=== PATIENT | female | born 1940 | race Caucasian/White ===

== ENCOUNTER 2020-10-29 04:41 | Inpatient (IN) | payer MEDICARE, OTHER, SELFPAY ==
[2020-10-29] VITALS (21 sets, daily range): BP systolic 114–184; BP diastolic 64–102; PULSE 70–93; RESP 17–20; TEMP 36.7–37.5; O2SAT 91–100; BMI 43.0
--- NOTE | 2020-10-29 05:01 | CTR_ITS ---
PROCEDURE INFORMATION: Exam: CT Abdomen And Pelvis With Contrast Exam date and time: 10/29/2020 6:44 AM Age: 80 years old Clinical indication: Abdominal pain; Additional info: Abdominal pain, diarrhea TECHNIQUE: Imaging protocol: Computed tomography of the abdomen and pelvis with contrast. Radiation optimization: All CT scans at this facility use at least one of these dose optimization techniques: automated exposure control; mA and/or kV adjustment per patient size (includes targeted exams where dose is matched to clinical indication); or iterative reconstruction. Contrast material: OMNI 300; Contrast volume: 95 ml; Contrast route: INTRAVENOUS (IV); COMPARISON: CT abdomen pelvis w con* [id number] 09/02/2017 9:05 PM RADIATION DOSE METRICS: Total DLP (mGy-cm): 1839.08 FINDINGS: Lungs: There is mild subsegmental atelectasis in the lung bases. Heart: The heart is not enlarged. A permanent pacemaker is present. Liver: Normal. No mass. Gallbladder and bile ducts: Normal. No calcified stones. No ductal dilation. Pancreas: Normal. No ductal dilation. Spleen: Multiple small benign calcified granulomas in the spleen. Adrenal glands: Normal. No mass. Kidneys and ureters: Normal. No hydronephrosis. Stomach and bowel: There are multiple fluid-filled nondilated loops of small bowel. There is also fluid throughout the colon. These findings are consistent with enteritis and diarrhea. Few scattered small diverticuli present on the colon. There is no evidence of bowel obstruction or dilatation. Appendix: No evidence of appendicitis. Intraperitoneal space: Unremarkable. No free air. No significant fluid collection. Vasculature: There is calcification of the aorta but there is no aneurysm. The origins of the celiac and superior mesenteric arteries are calcified and significant stenoses cannot be excluded. Lymph nodes: Unremarkable. No enlarged lymph nodes. Urinary bladder: Unremarkable as visualized. Reproductive: Unremarkable as visualized. Bones/joints: Chronic degenerative changes are present in the spine with joint space narrowing sclerosis and osteophytes. Soft tissues: Unremarkable. CT/CT abdomen pelvis w con* [id number] IMPRESSION: 1. There multiple fluid-filled loops of nondilated small bowel and there is fluid throughout the colon which is consistent with diarrhea and probable enteritis. 2. Calcified origins of the celiac and superior mesenteric arteries. Significant stenosis cannot be excluded. 3. 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 Radiation Dose CTDIVOL = (mGy): DLP = 1839.08 (mGy-cm)
--- NOTE | 2020-10-29 05:43 | ED_ITS ---
Documented by User: Luis Eduardo Eldridge DO 10/29/20 05:50 HPI - Abdominal Pain General: Chief Complaint: Abdominal Pain Stated Complaint: light headed, dark stools x 2 weeks Time Seen by Provider: 10/29/20 04:45 History of Present Illness: HPI narrative: 80-year-old female who has had diarrhea on and off for a couple of weeks. She noted that it was black. This morning, she had onset of intense generalized abdominal pain with more diarrhea. She has not vomited. She is nauseated. No fever. Again, the stool is black. Patient's daughter says several years ago she had a bleeding ulcer with similar presentation MD elicited complaint: abdominal pain Pertinent past history: other Onset (ago): hour(s) Pain Consistency: constant Location: Diffuse Severity: severe Quality: cramping and stabbing Radiation: none Migration to: no migration Exacerbating factors: movement Relieving factors: nothing Associated Symptoms: Reports diarrhea, loose stools, melena and nausea; Denies chills, coffee ground emesis, constipation, dysuria, fever(s), hemate mesis and vomiting Review of Systems Const: Denies: fever(s) or chills Card: Denies: chest pain or palpitations Resp: Denies: dyspnea or productive cough GI: Reports: nausea, diarrhea and melena; Denies: vomiting, hematemesis, coffee ground emesis or constipation : Denies: dysuria Neuro: Reports: dizziness; Denies: headache(s) or confusion Physical Exam Const: GENERAL APPEARANCE: well developed, in distress and ill appearing NUTRITIONAL APPEARANCE: obese ORIENTATION/CONSCIOUSNESS: Yes oriented to person, Yes oriented to place and Yes oriented to time HENMT: COMMON NORMALS: normocephalic, external ears normal and Normal external nose present HEAD & SCALP: normocephalic FACE & SINUS: normal facial exam NOSE: Normal external nose present and No nasal discharge present EXTERNAL EAR: Yes external ears normal Eye: COMMON NORMALS: Equal, round and reactive pupils present and EOMs intact bilaterally CONJUNCTIVA: Yes conjunctival abnormal positive bilateral pallor PUPIL: Yes Equal, round and reactive pupils present Neck/C-Spine: GENERAL: No tracheal deviation Chest: COMMONS NORMALS: normal inspection of the chest CHEST: No tenderness Resp: COMMON NORMALS: clear to auscultation bilaterally EFFORT & INSPECTION: No tachypneic, No respiratory distress, No retractions, No uses accessory muscles and No tracheal deviation AUSCULTATION: clear to auscultation bilaterally, no rhonchi, no wheezes and lung sounds not diminished Cardio: COMMON NORMALS: regular rate and regular rhythm RATE: regular rate RHYTHM: regular rhythm HEART SOUNDS: no murmurs PERIPHERAL PULSES: radial pulses present GI: INSPECTION: No abdominal distension AUSCULTATION: No Hyperactive bowel sounds present and No Hypoactive bowel sounds present PALPATION: Yes Tenderness to palpation present (GI) (Diffusely), Yes Guarding due to palpation present (GI) and No Rigid due to palpation PERCUSSION: no dullness to percussion and no tympanic to percussion : COMMON NORMALS: Yes no CVA tenderness BLADDER/KIDNEY EXAM: Yes no CVA tenderness Back/Pelvis: COMMON NORMALS: no CVA tenderness Neuro: SENSORIUM/ORIENTATION: Yes oriented to person, Yes oriented to place and Yes oriented to time Psych: COMMON NORMALS: mental status grossly normal Skin: COMMON NORMALS: no rashes or lesions noted GENERAL SKIN EXAM: no r ashes or lesions noted Course Vital Signs: Vital signs: Vital Signs Temperature 98.4 F 10/29/20 04:42 Pulse Rate 81 10/29/20 11:04 Respiratory Rate 18 10/29/20 11:04 Blood Pressure 174/74 10/29/20 11:04 Pulse Oximetry 94 10/29/20 11:04 MDM - Abdominal Pain MDM Narrative: Medical decision making narrative: Patient is typed and screen ed for blood in case transfusion is needed. Labs and CT scanner pending. Patient will be checked out to Dr. Adamson at shift change to follow-up on these. Lab Data: Labs: Lab Results 10/29/20 10/29/20 10/29/20 Range/Units 06:00 06:00 06:00 WBC 14.1 H (4.0-10.0) 10^3/ uL RBC 4.52 (4.1-5.3) 10^6/u L Hgb 13.8 (11.5-15.3) g/dL Hct 43.5 (37.0-47.0) % MCV 96.2 (81-99) fL MCH 30.5 (28.0-34.0) pg MCHC 31.7 (30.0-36.0) g/dL RDW 12.5 (12.1-15.1) % Plt Count 290 (130-400) 10^3/c mm MPV 9.3 (7.4-10.4) fL Neut % (Auto) 80.1 % Lymph % (Auto) 7.9 % Beadle % (Auto) 11.2 % Eos % (Auto) 0.1 % Baso % (Auto) 0.3 % Neut # (Auto) 11.31 H (1.8-7.7) 10^3/u L Lymph # (Auto) 1.1 (0.8-4.8) 10^3/u L Beadle # (Auto) 1.6 H (0.2-0.9) 10^3/u L Eos # (Auto) 0.0 (0.0-0.8) 10^3/u L Baso # (Auto) 0.0 (0.0-0.1) 10^3/u L Nucleated RBC % (a uto) 0 % Nucleated RBCs # 0.0 /100WBC PT 13.70 (12.1-14.9) SECO NDS INR 1.02 (0.8-1.2) APTT 24.8 (23.9-36.7) SECO NDS Sodium 137 (136-145) mmol/L Potassium 3.6 (3.5-5.1) mmol/L Chloride 101 (98-107) mmol/L Carbon Dioxide 24 (22-29) mmol/L Anion Gap 15.6 (5-19) BUN 24 H (8-23) mg/dL Creatinine 0.6 (0.5-0.9) mg/dL GFR Calculation Not Reportable Glucose 121 H (65-115) mg/dL Calculated Osmolal ity 289 (285-295) mOsm/k g Lactate (0.5-2.2) mmol/L Calcium 8.4 L (8.5-10.5) mg/dL Total Bilirubin 0.2 (0.15-1.2) mg/dL AST 36 H (0-32) U/L ALT 40 H (0-33) U/L Alkaline Phosphata se 62 (35-105) IU/L C-Reactive Protein 6.6 H (0.0-4.9) mg/L Total Protein 6.8 (6.6-8.7) g/dL Albumin 4.0 (3.5-5.2) g/dL Globulin 2.8 (1.3-4.6) g/dL Lipase 47 (13-60) U/L Urine Color (Yellow) Urine Appearance (CLEAR) Urine pH (5-7) Ur Specific Gravit y (1.005-1.030) Urine Protein (Negative) Urine Glucose (UA) (Normal) Urine Ketones (Negative) Urine Blood (Negative) Urine Nitrate (Negative) Urine Bilirubin (Negative) Urine Urobilinogen (Negative) mg/dL Ur Leukocyte Amparo ase (Negative) Urine RBC (0-2) /hpf Urine WBC (0-5) /hpf Ur Squamous Epith Cells (0-5) /hpf Amorphous Sediment Urine Bacteria (NONE) /hpf Blood Type Rho(D) Type Antibody Screen 10/29/20 10/29/20 10/29/20 Range/Units 06:00 06:00 07:48 WBC (4.0-10.0) 10^3/ uL RBC (4.1-5.3) 10^6/u L Hgb (11.5-15.3) g/dL Hct (37.0-47.0) % MCV (81-99) fL MCH (28.0-34.0) pg MCHC (30.0-36.0) g/dL RDW (12.1-15.1) % Plt Count (130-400) 10^3/c mm MPV (7.4-10.4) fL Neut % (Auto) % Lymph % (Auto) % Beadle % (Auto) % Eos % (Auto) % Baso % (Auto) % Neut # (Auto) (1.8-7.7) 10^3/u L Lymph # (Auto) (0.8-4.8) 10^3/u L Beadle # (Auto) (0.2-0.9) 10^3/u L Eos # (Auto) (0.0-0.8) 10^3/u L Baso # (Auto) (0.0-0.1) 10^3/u L Nucleated RBC % (a uto) % Nucleated RBCs # /100WBC PT (12.1-14.9) SECO NDS INR (0.8-1.2) APTT (23.9-36.7) SECO NDS Sodium (136-145) mmol/L Potassium (3.5-5.1) mmol/L Chloride (98-107) mmol/L Carbon Dioxide (22-29) mmol/L Anion Gap (5-19) BUN (8-23) mg/dL Creatinine (0.5-0.9) mg/dL GFR Calculation Glucose (65-115) mg/dL Calculated Osmolal ity (285-295) mOsm/k g Lactate 2.2 (0.5-2.2) mmol/L Calcium (8.5-10.5) mg/dL Total Bilirubin (0.15-1.2) mg/dL AST (0-32) U/L ALT (0-33) U/L Alkaline Phosphata se (35-105) IU/L C-Reactive Protein (0.0-4.9) mg/L Total Protein (6.6-8.7) g/dL Albumin (3.5-5.2) g/dL Globulin (1.3-4.6) g/dL Lipase (13-60) U/L Urine Color Straw (Yellow) Urine Appearance Clear (CLEAR) Urine pH 6.5 (5-7) Ur Specific Gravit y 1.010 (1.005-1.030) Urine Protein Trace (Negative) Urine Glucose (UA) Norm (Normal) Urine Ketones Negative (Negative) Urine Blood 3+ H (Negative) Urine Nitrate Negative (Negative) Urine Bilirubin Neg (Negative) Urine Urobilinogen Norm (Negative) mg/dL Ur Leukocyte Amparo ase Negative (Negative) Urine RBC 10-15 H (0-2) /hpf Urine WBC Rare (0-5) /hpf Ur Squamous Epith Cells 10-15 H (0-5) /hpf Amorphous Sediment Not Reportable Urine Bacteria Trace (NONE) /hpf Blood Type O Positive Rho(D) Type Positive / 4+ Antibody Screen Negative Discharge Plan Discharge Patient Disposition: Admitted As Inpatient Clinical Impression: Enteritis, Abnormal CT of the abdomen Condition: Stable Referrals: Chicho Young DO [Primary Care Provider] - Coding Level of Care Code ED General Internal Medicine Doctor for Chg Fwd Exam Comprehensive Documented by User: Jhonatan Adamson 10/29/20 11:08 HPI - Abdominal Pain General: Chief Complaint: Abdominal Pain Stated Complaint: light headed, dark stools x 2 weeks Time Seen by Provider: 10/29/20 04:45 Course ED course: Dr. Adamson: Discussed with Dr. Eldridge. Chart reviewed. Consultations: Consultation #1: Dr. Dobbins, surgery: Dr. Dobbins recommended SMA ultrasound. Results however did not visualize the celiac and SMA. Dr. Dobbins recommended the patient be admitted to the hospitalist and monitor for any changes. Vital Signs: Vital signs: Vital Signs Temperature 98.4 F 10/29/20 04:42 Pulse Rate 81 10/29/20 11:04 Respiratory Rate 18 10/29/20 11:04 Blood Pressure 174/74 10/29/20 11:04 Pulse Oximetry 94 10/29/20 11:04 MDM - Abdominal Pain Lab Data: Labs: Lab Results 10/29/20 10/29/20 10/29/20 Range/Units 06:00 06:00 06:00 WBC 14.1 H (4.0-10.0) 10^3/ uL RBC 4.52 (4.1-5.3) 10^6/u L Hgb 13.8 (11.5-15.3) g/dL Hct 43.5 (37.0-47.0) % MCV 96.2 (81-99) fL MCH 30.5 (28.0-34.0) pg MCHC 31.7 (30.0-36.0) g/dL RDW 12.5 (12.1-15.1) % Plt Count 290 (130-400) 10^3/c mm MPV 9.3 (7.4-10.4) fL Neut % (Auto) 80.1 % Lymph % (Auto) 7.9 % Beadle % (Auto) 11.2 % Eos % (Auto) 0.1 % Baso % (Auto) 0.3 % Neut # (Auto) 11.31 H (1.8-7.7) 10^3/u L Lymph # (Auto) 1.1 (0.8-4.8) 10^3/u L Beadle # (Auto) 1.6 H (0.2-0.9) 10^3/u L Eos # (Auto) 0.0 (0.0-0.8) 10^3/u L Baso # (Auto) 0.0 (0.0-0.1) 10^3/u L Nucleated RBC % (a uto) 0 % Nucleated RBCs # 0.0 /100WBC PT 13.70 (12.1-14.9) SECO NDS INR 1.02 (0.8-1.2) APTT 24.8 (23.9-36.7) SECO NDS Sodium 137 (136-145) mmol/L Potassium 3.6 (3.5-5.1) mmol/L Chloride 101 (98-107) mmol/L Carbon Dioxide 24 (22-29) mmol/L Anion Gap 15.6 (5-19) BUN 24 H (8-23) mg/dL Creatinine 0.6 (0.5-0.9) mg/dL GFR Calculation Not Reportable Glucose 121 H (65-115) mg/dL Calculated Osmolal ity 289 (285-295) mOsm/k g Lactate (0.5-2.2) mmol/L Calcium 8.4 L (8.5-10.5) mg/dL Total Bilirubin 0.2 (0.15-1.2) mg/dL AST 36 H (0-32) U/L ALT 40 H (0-33) U/L Alkaline Phosphata se 62 (35-105) IU/L C-Reactive Protein 6.6 H (0.0-4.9) mg/L Total Protein 6.8 (6.6-8.7) g/dL Albumin 4.0 (3.5-5.2) g/dL Globulin 2.8 (1.3-4.6) g/dL Lipase 47 (13-60) U/L Urine Color (Yellow) Urine Appearance (CLEAR) Urine pH (5-7) Ur Specific Gravit y (1.005-1.030) Urine Protein (Negative) Urine Glucose (UA) (Normal) Urine Ketones (Negative) Urine Blood (Negative) Urine Nitrate (Negative) Urine Bilirubin (Negative) Urine Urobilinogen (Negative) mg/dL Ur Leukocyte Amparo ase (Negative) Urine RBC (0-2) /hpf Urine WBC (0-5) /hpf Ur Squamous Epith Cells (0-5) /hpf Amorphous Sediment Urine Bacteria (NONE) /hpf Blood Type Rho(D) Type Antibody Screen 10/29/20 10/29/20 10/29/20 Range/Units 06:00 06:00 07:48 WBC (4.0-10.0) 10^3/ uL RBC (4.1-5.3) 10^6/u L Hgb (11.5-15.3) g/dL Hct (37.0-47.0) % MCV (81-99) fL MCH (28.0-34.0) pg MCHC (30.0-36.0) g/dL RDW (12.1-15.1) % Plt Count (130-400) 10^3/c mm MPV (7.4-10.4) fL Neut % (Auto) % Lymph % (Auto) % Beadle % (Auto) % Eos % (Auto) % Baso % (Auto) % Neut # (Auto) (1.8-7.7) 10^3/u L Lymph # (Auto) (0.8-4.8) 10^3/u L Beadle # (Auto) (0.2-0.9) 10^3/u L Eos # (Auto) (0.0-0.8) 10^3/u L Baso # (Auto) (0.0-0.1) 10^3/u L Nucleated RBC % (a uto) % Nucleated RBCs # /100WBC PT (12.1-14.9) SECO NDS INR (0.8-1.2) APTT (23.9-36.7) SECO NDS Sodium (136-145) mmol/L Potassium (3.5-5.1) mmol/L Chloride (98-107) mmol/L Carbon Dioxide (22-29) mmol/L Anion Gap (5-19) BUN (8-23) mg/dL Creatinine (0.5-0.9) mg/dL GFR Calculation Glucose (65-115) mg/dL Calculated Osmolal ity (285-295) mOsm/k g Lactate 2.2 (0.5-2.2) mmol/L Calcium (8.5-10.5) mg/dL Total Bilirubin (0.15-1.2) mg/dL AST (0-32) U/L ALT (0-33) U/L Alkaline Phosphata se (35-105) IU/L C-Reactive Protein (0.0-4.9) mg/L Total Protein (6.6-8.7) g/dL Albumin (3.5-5.2) g/dL Globulin (1.3-4.6) g/dL Lipase (13-60) U/L Urine Color Straw (Yellow) Urine Appearance Clear (CLEAR) Urine pH 6.5 (5-7) Ur Specific Gravit y 1.010 (1.005-1.030) Urine Protein Trace (Negative) Urine Glucose (UA) Norm (Normal) Urine Ketones Negative (Negative) Urine Blood 3+ H (Negative) Urine Nitrate Negative (Negative) Urine Bilirubin Neg (Negative) Urine Urobilinogen Norm (Negative) mg/dL Ur Leukocyte Amparo ase Negative (Negative) Urine RBC 10-15 H (0-2) /hpf Urine WBC Rare (0-5) /hpf Ur Squamous Epith Cells 10-15 H (0-5) /hpf Amorphous Sediment Not Reportable Urine Bacteria Trace (NONE) /hpf Blood Type O Positive Rho(D) Type Positive / 4+ Antibody Screen Negative Discharge Plan Discharge Patient Disposition: Admitted As Inpatient Clinical Impression: Enteritis, Abnormal CT of the abdomen Condition: Stable Referrals: Chicho Young DO [Primary Care Provider] - Coding Level of Care Code ED General Internal Medicine Doctor for Chg Fwd Exam Comprehensive
[2020-10-29] MEDS: sodium chloride 0.9% 1,000 ML 999 ML IV (05:45)
[2020-10-29] MEDS: ondansetron 2 mg/ML SDV 2 mL 4 MG IVP ×3 (05:50→15:28)
[2020-10-29 06:09] LABS: Basophils % 0.3 %; Eosinophils % 0.1 %; Hematocrit 43.5 % (37.0-47.0); Hemoglobin 13.8 g/dL (11.5-15.3); Lymphocytes # 1.1 10^3/uL (0.8-4.8); Lymphocytes % 7.9 %; Mean Corpuscular HGB Conc 31.7 g/dL (30.0-36.0); Mean Corpuscular Hemoglobin 30.5 pg (28.0-34.0); Mean Corpuscular Volume 96.2 fL (81-99); Mean Platelet Volume 9.3 fL (7.4-10.4); Monocytes # 1.6 10^3/uL (0.2-0.9); Monocytes % 11.2 %; Neutrophils # 11.31 10^3/uL (1.8-7.7); Neutrophils % 80.1 %; Nucleated Red Blood Cells % 0 %; Platelet Count 290 10^3/cmm (130-400); Red Blood Count 4.52 10^6/uL (4.1-5.3); Red Cell Distribution Width 12.5 % (12.1-15.1); White Blood Count 14.1 10^3/uL (4.0-10.0)
[2020-10-29] MEDS: morphine 4 mg/mL SDV 1 mL IVP (06:31)
[2020-10-29 06:33] LABS: INR 1.02 (0.8-1.2)
[2020-10-29 06:34] LABS: Partial Thromboplastin Time 24.8 SECONDS (23.9-36.7)
--- NOTE | 2020-10-29 06:34 | PC.NURSE ---
pt placed on 2lpm of o2 via nasal cannula after sats dropped and maintaining 87% on r/a after morphine adm. Pt's daughter states while tx at pain clinic for fibromyalgia, pt was placed on 2lpm of o2 due to morphine. 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 notifradha
[2020-10-29 06:43] LABS: Alanine Aminotransferase 40 U/L (0-33); Alkaline Phosphatase 62 IU/L (35-105); Anion Gap 15.6 (5-19); Aspartate Amino Transferase 36 U/L (0-32); Blood Urea Nitrogen 24 mg/dL (8-23); C Reactive Protein 6.6 mg/L (0.0-4.9); Calcium 8.4 mg/dL (8.5-10.5); Carbon Dioxide 24 mmol/L (22-29); Chloride 101 mmol/L (98-107); Globulin 2.8 g/dL (1.3-4.6); Glucose 121 mg/dL (65-115); Lactate (Lactic Acid level) 2.2 mmol/L (0.5-2.2); Lipase 47 U/L (13-60); Osmolality Calculated 289 mOsm/kg (285-295); Potassium 3.6 mmol/L (3.5-5.1); Sodium 137 mmol/L (136-145); Total Bilirubin 0.2 mg/dL (0.15-1.2); Total Protein 6.8 g/dL (6.6-8.7)
[2020-10-29] MEDS: iohexol 300 mg/mL 100 mL Btl IV (07:01)
--- NOTE | 2020-10-29 07:51 | PC.NURSE ---
Per Dr Adamson, since first liter of fluids just finished and pt was able to void, hold off on 500ml bag of NS at this time. Pt was able to provide urine sample on a bedpan after being cleaned by this nurse with clean catch wipes. Sample obtained, labeled and sent to lab. Pt repositioned for comfort, call light in place. Pt reports she is feeling better and is resting well with daughter at bedside.
--- NOTE | 2020-10-29 08:12 | PC.NURSE ---
Bedside guiaic test done by Dr Adamson, chaperoned by this nurse. Pt stool was positive for blood. Pt tolerated procedure fair. Pt repositioned in bed with call light in reach.
--- NOTE | 2020-10-29 08:21 | USR_ITS ---
PROCEDURE INFORMATION: Exam: US Abdomen; Limited Exam date and time: 10/29/2020 8:35 AM Age: 80 years old Clinical indication: Abdominal pain; Epigastric; Additional info: N/v, calcification on CT, abd pain TECHNIQUE: Imaging protocol: US abdomen. Real time ultrasound with image documentation. Limited exam focused on the region of clinical interest. COMPARISON: CT abdomen pelvis w con* [id number] 10/29/2020 7:16 AM FINDINGS: Examination was performed to evaluate the celiac axis and superior mesenteric artery. The origins were calcified on recent CT scan. The visualized portion of the proximal aorta has some atherosclerotic plaquing but no aneurysm. The origins of the celiac axis and superior mesenteric artery could not be adequately demonstrated and could not be adequately evaluated for stenosis. US/US abdomen limited [id number] IMPRESSION: The examination is nondiagnostic. The origins and proximal portions of the celiac axis and superior mesenteric artery were not adequately visualized.
[2020-10-29 08:31] LABS: Urine Appearance Clear (CLEAR); Urine Color Straw (Yellow)
[2020-10-29 08:32] LABS: Add Urine Culture? No; Add Urine Microscopic? YES; Bacteria Urine TRACE /hpf; Bilirubin Urine Neg (Negative); Blood Urine 3+ (Negative); Glucose Urine UA Norm (Normal); Ketones Urine Negative (Negative); Leukocyte Esterase Urine Negative (Negative); Nitrate Urine Negative (Negative); Protein Urine Trace (Negative); Urobilinogen Urine Norm (Negative); WBC Urine RARE /hpf (0-5); pH Urine 6.5 (5-7)
--- NOTE | 2020-10-29 08:51 | PC.NURSE ---
US at bedside
--- NOTE | 2020-10-29 12:01 | PC.NUTR ---
NUTR WT ASSESSMENT: Pt ht is 62 , Wt of 235 lbs and BMI of 43.0 kg/m2 indicates MORBID OBESITY.
[2020-10-29] MEDS: sodium chloride 0.9% 1,000 ML 100 ML IV (15:28)
--- NOTE | 2020-10-29 16:51 | PM.HP ---
Providers/Chief Complaint Admitting Physician: Enriqueta Hairston MD Primary Care Provider: Chicho Young DO Chief Complaint: light headed, dark stools x 2 weeks History of Present Illness Mindy Verma is a 80 year old female with PMH as outlined below who presented with 2 weeks of diarrhea, abdominal pain, describes black colored stools 1-2 times per day, worsened over the last 48 hrs, now also to include vomiting. Describes pain over the right flank, cramping type, 6/10. Unable to tolerate po intake. Denies fever. H/o diverticulitis several years ago, no surgical history, no past h/o C diff. no similar illness in household contacts Review of Systems General: Reports: 10 or more systems reviewed and unremarkable except in HPI and below Const: Denies: fever(s), chills or body aches Eyes: Denies: change in vision, blurry vision or photophobia ENMT: Reports: hoarseness; Denies: throat pain, enlarged tonsils, odynophagia or nasal congestion Card: Denies: chest pain, palpitations, irregular heart rhythm, edema, swelling of feet/ankles, lightheadedness, pre-syncope, dyspnea on exertion or orthopnea Resp: Denies: dyspnea, productive cough, non-productive cough, wheezing, stridor, pain on inspiration, change in phlegm color, hemoptysis or chest congestion GI: Denies: abdominal pain, nausea, vomiting, hematemesis, coffee ground emesis, dysphagia, heartburn, diarrhea, constipation, GI cramping, change in stool character, hematochezia or melena : Denies: flank pain, difficulty voiding, dysuria, urinary frequency, urinary urgency, urinary hesitancy or hematuria Musc: Denies: neck pain, back pain, extremity pain, joint swelling, joint warmth or deformity Neuro: Denies: headache(s), numbness in extremities, weakness in extremities, sensory changes, difficulty walking, frequent falls, dizziness, vertigo, behavioral changes, Slurred speech present or seizure-like activity Psych: Denies: anxiety, depression, suicidal ideation or homicidal ideation Endo: Denies: polyuria, polydipsia, tired all the time, cold intolerance or hot flashes Josh/Lymph: Denies: easy bruising or easy bleeding Medications/Allergies Home Medications Medication Instructions Recorded Confirmed Last Taken Type amlodipine 2.5 mg PO PRN 10/29/20 10/29/20 Unknown History carbamazepine 200 mg PO BID 10/29/20 10/29/20 10/28/20 History cholecalciferol (vitamin D3) 125 mcg PO QAM 10/29/20 10/29/20 10/28/20 History [Vitamin D3] clopidogrel 75 mg PO QAM 10/29/20 10/29/20 10/28/20 History docusate sodium [Colace] 200 mg PO PRN 10/29/20 10/29/20 Unknown History donepezil 10 mg PO BEDTIME 10/29/20 10/29/20 10/28/20 History gabapentin 100 mg PO BID 10/29/20 10/29/20 10/28/20 History hydroxyzine pamoate 25 mg PO BEDTIME 10/29/20 10/29/20 10/28/20 History multivitamin 1 tab PO QAM 10/29/20 10/29/20 10/28/20 History ondansetron HCl 4 mg PO Q6H PRN 10/29/20 10/29/20 10/28/20 History pantoprazole 20 mg PO QAM 10/29/20 10/29/20 10/28/20 History prednisone 10 mg PO QAM 10/29/20 10/29/20 10/28/20 History rosuvastatin 5 mg PO BEDTIME 10/29/20 10/29/20 10/28/20 History sertraline 100 mg PO QAM 10/29/20 10/29/20 10/28/20 History trazodone 200 mg PO BEDTIME 10/29/20 10/29/20 10/28/20 History Allergies Allergy/AdvReac Type Severity Reaction Status Date / Time No Known Allergies Allergy Verified 10/29/20 11:17 Vitals/I&O/Wt Last Vital Signs Temp 98.1 F 10/29/20 15:47 Pulse 89 10/29/20 15:47 Resp 17 10/29/20 15:47 BP 154/79 10/29/20 15:47 Pulse Ox 94 10/29/20 14:00 10/29/20 10/29/20 10/29/20 06:59 14:59 22:59 Intake Total 1000 / 1000 Balance 1000 / 1000 Weight last 48 hrs Weight 106.594 kg Physical Exam Const: COMMON NORMALS: no acute distress, average body habitus, patient oriented x3, no limitations, healthy appearing, alert and well nourished HENMT: COMMON NORMALS: normocephalic and atraumatic HEAD & SCALP: normocephalic and atraumatic Eye: COMMON NORMALS: Equal, round and reactive pupils present, EOMs intact bilaterally, conjunctivae normal and no scleral icterus CONJUNCTIVA: Yes conjunctivae normal PUPIL: Yes Equal, round and reactive pupils present Neck/C-Spine: COMMON NORMALS: no JVD Resp: COMMON NORMALS: normal respiratory effort, No retractions, No use of accessory muscles, clear to auscultation bilaterally and percussion normal AUSCULTATION: clear to auscultation bilaterally PERCUSSION: percussion normal Cardio: COMMON NORMALS: no JVD, regular rate, regular rhythm, S1 normal heart sound present, S2 normal heart sound present, No gallops present (Cardio), No clicks present (Cardio), No murmurs present (Cardio), No rub (Cardio) and Peripheral pulses 2+ throughout RATE: regular rate RHYTHM: regular rhythm HEART SOUNDS: S1 normal heart sound present and S2 normal heart sound present PERIPHERAL PULSES: Peripheral pulses 2+ throughout GI: COMMON NORMALS: Normal to inspection, nondistended, normoactive bowel sounds present, Soft to palpation, non-tender, No hepatosplenomegaly present, no masses and no bruits PALPATION: Yes Soft to palpation and Yes No hepatosplenomegaly present Extremity: COMMON NORMALS: normal to inspection, full ROM, capillary refill normal, no joint enlargement, no clubbing, cyanosis or edema, no calf tenderness and no pedal edema Neuro: COMMON NORMALS: patient oriented x3, CN's II-XII intact bilaterally, moves all extremities, no focal motor deficits, no sensory deficits noted, deep tendon reflexes 2+ bilaterally and gait normal SENSORIUM/ORIENTATION: Yes alert Psych: COMMON NORMALS: mental status grossly normal, Normal thought process present, cooperative, normal affect, speech normal, activity/motor behavior normal, denies hallucinations, denies homicidal ideation and denies suicidal ideation SPEECH: Yes normal speech THOUGHT PROCESS: Normal thought process present Skin: COMMON NORMALS: no rashes or lesions noted, no wounds, turgor normal, no jaundice, no petechiae and no mottling GENERAL SKIN EXAM: no rashes or lesions noted and turgor normal Data : 10/30/20 04:31 10/30/20 04:31 Attestation for Other Data: I personally reviewed and interpreted the following: Other data: Laboratory Results WBC 7.1 10^3/uL (4.0-10.0) 10/30/20 04:31 RBC 4.18 10^6/uL (4.1-5.3) 10/30/20 04:31 Hgb 12.7 g/dL (11.5-15.3) 10/30/20 04:31 Hct 40.4 % (37.0-47.0) 10/30/20 04:31 MCV 96.7 fL (81-99) 10/30/20 04:31 MCH 30.4 pg (28.0-34.0) 10/30/20 04:31 MCHC 31.4 g/dL (30.0-36.0) 10/30/20 04:31 RDW 12.7 % (12.1-15.1) 10/30/20 04:31 Plt Count 245 10^3/cmm (130-400) 10/30/20 04:31 MPV 9.8 fL (7.4-10.4) 10/30/20 04:31 Neut % (Auto) 65.3 % 10/30/20 04:31 Lymph % (Auto) 18.6 % 10/30/20 04:31 [place] % (Auto) 14.4 % 10/30/20 04:31 Eos % (Auto) 1.0 % 10/30/20 04:31 Baso % (Auto) 0.4 % 10/30/20 04:31 Neut # (Auto) 4.66 10^3/uL (1.8-7.7) 10/30/20 04:31 Lymph # (Auto) 1.3 10^3/uL (0.8-4.8) 10/30/20 04:31 [place] # (Auto) 1.0 10^3/uL (0.2-0.9) H 10/30/20 04:31 Eos # (Auto) 0.1 10^3/uL (0.0-0.8) 10/30/20 04:31 Baso # (Auto) 0.0 10^3/uL (0.0-0.1) 10/30/20 04:31 Nucleated RBC % (auto) 0 % 10/30/20 04:31 Nucleated RBCs # 0.0 /100WBC 10/30/20 04:31 PT 13.70 SECONDS (12.1-14.9) 10/29/20 06:00 INR 1.02 (0.8-1.2) 10/29/20 06:00 APTT 24.8 SECONDS (23.9-36.7) 10/29/20 06:00 Sodium 140 mmol/L (136-145) 10/30/20 04:31 Potassium 3.7 mmol/L (3.5-5.1) 10/30/20 04:31 Chloride 104 mmol/L (98-107) 10/30/20 04:31 Carbon Dioxide 26 mmol/L (22-29) 10/30/20 04:31 Anion Gap 13.7 (5-19) 10/30/20 04:31 BUN 12 mg/dL (8-23) 10/30/20 04:31 Creatinine 0.5 mg/dL (0.5-0.9) 10/30/20 04:31 GFR Calculation Not Reportable 10/30/20 04:31 Glucose 92 mg/dL (65-115) 10/30/20 04:31 Calculated Osmolality 289 mOsm/kg (285-295) 10/30/20 04:31 Lactic Acid 1.4 mmol/L (0.5-2.2) 10/29/20 18:51 Lactate 2.2 mmol/L (0.5-2.2) 10/29/20 06:00 Calcium 7.7 mg/dL (8.5-10.5) L 10/30/20 04:31 Total Bilirubin 0.4 mg/dL (0.15-1.2) 10/30/20 04:31 AST 23 U/L (0-32) 10/30/20 04:31 ALT 25 U/L (0-33) 10/30/20 04:31 Alkaline Phosphatase 55 IU/L (35-105) 10/30/20 04:31 C-Reactive Protein 6.6 mg/L (0.0-4.9) H 10/29/20 06:00 Total Protein 5.9 g/dL (6.6-8.7) L 10/30/20 04:31 Albumin 3.5 g/dL (3.5-5.2) 10/30/20 04:31 Globulin 2.4 g/dL (1.3-4.6) 10/30/20 04:31 Lipase 47 U/L (13-60) 10/29/20 06:00 TSH 1.27 uIU/mL (0.27-4.20) 10/30/20 04:31 Urine Color Straw (Yellow) 10/29/20 07:48 Urine Appearance Clear (CLEAR) 10/29/20 07:48 Urine pH 6.5 (5-7) 10/29/20 07:48 Ur Specific [place] 1.010 (1.005-1.030) 10/29/20 07:48 Urine Protein Trace (Negative) 10/29/20 07:48 Urine Glucose (UA) Norm (Normal) 10/29/20 07:48 Urine Ketones Negative (Negative) 10/29/20 07:48 Urine Blood 3+ (Negative) H 10/29/20 07:48 Urine Nitrate Negative (Negative) 10/29/20 07:48 Urine Bilirubin Neg (Negative) 10/29/20 07:48 Urine Urobilinogen Norm mg/dL (Negative) 10/29/20 07:48 Ur Leukocyte Esterase Negative (Negative) 10/29/20 07:48 Urine RBC 10-15 /hpf (0-2) H 10/29/20 07:48 Urine WBC Rare /hpf (0-5) 10/29/20 07:48 Ur Squamous Epith Cells 10-15 /hpf (0-5) H 10/29/20 07:48 Amorphous Sediment Not Reportable 10/29/20 07:48 Urine Bacteria Trace /hpf (NONE) 10/29/20 07:48 Blood Type O Positive 10/29/20 06:00 Rho(D) Type Positive / 4+ 10/29/20 06:00 Antibody Screen Negative 10/29/20 06:00 Impressions Abdomen/Pelvis CT 10/29/20 05:01 IMPRESSION: 1. There multiple fluid-filled loops of nondilated small bowel and there is fluid throughout the colon which is consistent with diarrhea and probable enteritis. 2. Calcified origins of the celiac and superior mesenteric arteries. Significant stenosis cannot be excluded. 3. 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 Radiation Dose CTDIVOL = (mGy): DLP = 1839.08 (mGy-cm) Abdomen Ultrasound 10/29/20 08:21 IMPRESSION: The examination is nondiagnostic. The origins and proximal portions of the celiac axis and superior mesenteric artery were not adequately visualized. A&P Assessment and plan (1) Enteritis: unclear etiology at this time, cannot exclude infectious , start piperacillin tazobactam empirically C diff PCR, enteric bacterial and parasite panel Lactate borderline 2.2, repeat for possibility of mesenteric ischemia , though low suspicion at this time given chronically occluded appearance Surgery consult with Dr. Dobbins morphine, tylenol for pain control NPO IVF Status: Acute (2) Ileus: Status: Acute Additional A&P Information DVT ppx: lovenox Full code Attestations Medical Necessity Statement*: >2midnight anticipated for diagnostic evlaution and management Coding Level of Care Code Acute Hide Trimmer for Chg Fwd Exam Comprehensive Diagnoses Enteritis K52.9 Ileus K56.7
[2020-10-29] MEDS: enoxaparin 40 mg/0.4 mL Syringe SUBCUT (18:08)
[2020-10-29] MEDS: carBAMazepine XR (12 HR) 200 mg Tablet PO (18:08)
[2020-10-29] MEDS: piperacillin-tazobactam 3.375 GM in sodium chloride 0.9% (plus) 50 ML IV (18:08)
[2020-10-29] MEDS: acetaminophen 325 mg Tablet 650 MG PO (19:14)
[2020-10-29 19:17] LABS: Lactic Sepsis W/Reflex 1.4 mmol/L (0.5-2.2)
[2020-10-29] MEDS: famotidine 20 mg/2 mL INJ IVP (21:00)
[2020-10-29] MEDS: morphine 4 mg/mL SDV 1 mL 2 MG IVP (21:00)
[2020-10-30] VITALS: BP 134/75; PULSE 80; RESP 18; TEMP 37.2; O2SAT 92
[2020-10-30] MEDS: sodium chloride 0.9% 1,000 ML 100 ML IV ×3 (01:41→21:09)
[2020-10-30] MEDS: piperacillin-tazobactam 3.375 GM in sodium chloride 0.9% (plus) 50 ML IV ×3 (01:42→17:38)
[2020-10-30 04:00] VITALS: BP 146/72; PULSE 84; RESP 17; TEMP 37.1; O2SAT 91
[2020-10-30 05:27] LABS: Basophils % 0.4 %; Eosinophils # 0.1 10^3/uL (0.0-0.8); Hematocrit 40.4 % (37.0-47.0); Hemoglobin 12.7 g/dL (11.5-15.3); Lymphocytes # 1.3 10^3/uL (0.8-4.8); Lymphocytes % 18.6 %; Mean Corpuscular HGB Conc 31.4 g/dL (30.0-36.0); Mean Corpuscular Hemoglobin 30.4 pg (28.0-34.0); Mean Corpuscular Volume 96.7 fL (81-99); Mean Platelet Volume 9.8 fL (7.4-10.4); Monocytes % 14.4 %; Neutrophils # 4.66 10^3/uL (1.8-7.7); Neutrophils % 65.3 %; Nucleated Red Blood Cells % 0 %; Platelet Count 245 10^3/cmm (130-400); Red Blood Count 4.18 10^6/uL (4.1-5.3); Red Cell Distribution Width 12.7 % (12.1-15.1); White Blood Count 7.1 10^3/uL (4.0-10.0)
[2020-10-30 05:43] LABS: Alanine Aminotransferase 25 U/L (0-33); Albumin Level 3.5 g/dL (3.5-5.2); Alkaline Phosphatase 55 IU/L (35-105); Anion Gap 13.7 (5-19); Aspartate Amino Transferase 23 U/L (0-32); Blood Urea Nitrogen 12 mg/dL (8-23); Calcium 7.7 mg/dL (8.5-10.5); Carbon Dioxide 26 mmol/L (22-29); Chloride 104 mmol/L (98-107); Globulin 2.4 g/dL (1.3-4.6); Glucose 92 mg/dL (65-115); Osmolality Calculated 289 mOsm/kg (285-295); Potassium 3.7 mmol/L (3.5-5.1); Sodium 140 mmol/L (136-145); Thyroid Stimulating Hormone 1.27 uIU/mL (0.27-4.20); Total Bilirubin 0.4 mg/dL (0.15-1.2); Total Protein 5.9 g/dL (6.6-8.7)
[2020-10-30] MEDS: predniSONE 10 mg Tablet PO (05:43)
[2020-10-30 07:25] VITALS: BP 143/66; PULSE 75; RESP 18; TEMP 36.7; O2SAT 96
[2020-10-30] MEDS: acetaminophen 325 mg Tablet 650 MG PO ×2 (07:34→21:13)
[2020-10-30] MEDS: carBAMazepine XR (12 HR) 200 mg Tablet PO ×2 (07:34→17:39)
[2020-10-30] MEDS: famotidine 20 mg/2 mL INJ IVP ×2 (09:08→21:09)
[2020-10-30 11:14] VITALS: BP 97/59; PULSE 86; RESP 18; TEMP 36.4; O2SAT 91
--- NOTE | 2020-10-30 11:28 | PC.CHAP ---
Pastoral Care Encounter/Spiritual Assessment Type of Contact [] Declined truck greaser visit [] Patient/Family/Request visit [] Outpatient visit []x Follow-up visit [] Physician referral [] Code/Alert [] Routine visit [] Staff referral [] Actively dying [] Patient sleeping [] Family support [] [] Out of room [] Palliative care [] [] Receiving care in room [] Pre-surgical visit [] Trauma [] Long length of stay [] ICU visit [] Other: Relational/Emotional Strength [] Patient feels connected with others/family/visitors/staff [] Distress [] Loneliness/isolation [] Abandonment Spirituality of Patient [] Person of Marie [] Attends Jew of their Marie [] Believes in Prayer [] Reads Bible or Zoroastrian materials [] There are Spiritual issues to be addressed Escrow Assistant Interventions [] Prayer [] Active listening [] Non-anxious presence [] Spiritual/emotional support [] Crisis/trauma care [] Spiritual counseling [] Bereavement support [] Provided bereavement packet [] Provided Bible/devotional materials [] Provided toy/stuffed animal, coloring book to patient or family member [] Provided Communion [] Anointing/Randle [] Salvation [] Completed spiritual assessment [] Other: Impact on Illness or Injury [] Angry [] Fearful [] Anxious [] Often cries [] Exhaustion [] Unable to work [] Unable to attend sikhism [] Unable to walk/stand [] Unable to read [] Unable to drive [] Unable to eat/drink [] Unable to sleep [] Unable to be with family [] Patient intubated [] Other: Summary Time spent with patient
--- NOTE | 2020-10-30 12:06 | PM.PN ---
Vitals/I&O/Wt Last Vital Signs Temp 97.5 F L 10/30/20 11:14 Pulse 86 10/30/20 11:14 Resp 18 10/30/20 11:14 BP 97/59 10/30/20 11:14 Pulse Ox 91 10/30/20 11:14 10/29/20 10/30/20 10/30/20 22:59 06:59 14:59 Intake Total 110 / 1110 1050 / 2160 950 / 950 Output Total 500 / 500 600 / 600 Balance 110 / 1110 550 / 1660 350 / 350 Weight last 48 hrs Weight 106.594 kg Physical Exam HENMT: COMMON NORMALS: normocephalic and atraumatic HEAD & SCALP: normocephalic and atraumatic Eye: COMMON NORMALS: conjunctivae normal and no scleral icterus CONJUNCTIVA: Yes conjunctivae normal Neck/C-Spine: COMMON NORMALS: no JVD Resp: COMMON NORMALS: normal respiratory effort and clear to auscultation bilaterally AUSCULTATION: clear to auscultation bilaterally Cardio: COMMON NORMALS: no JVD, regular rate, regular rhythm, S1 normal heart sound present and S2 normal heart sound present RATE: regular rate RHYTHM: regular rhythm HEART SOUNDS: S1 normal heart sound present and S2 normal heart sound present GI: COMMON NORMALS: Normal to inspection, nondistended, normoactive bowel sounds present, Soft to palpation, non-tender, No hepatosplenomegaly present, no masses and no bruits PALPATION: Yes Soft to palpation and Yes No hepatosplenomegaly present Extremity: COMMON NORMALS: no clubbing, cyanosis or edema, no calf tenderness and no pedal edema Skin: COMMON NORMALS: no mottling Data : 10/30/20 04:31 10/30/20 04:31 A&P Assessment and plan (1) Colitis: Collitis: C diff PCR, enteric bacterial and parasite panel. Continue Zosyn CLD advance as tolerated. 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 CT abdomen pelvis had shown significant stenosis of the celiac and SMA. No evidence of ischemic bowel. Lactic acid was 1.8 and 1. 4. Outpatient work up ( CTA of abdomen and pelvis ). DVT ppx: lovenox Full code Attestations Medical Necessity Statement*: Patient needs to be in hospital for the management of Collitis. Coding Level of Care Code Acute Housekeeping Room Attendant for [facility] Fwd Diagnoses Colitis K52.9 Ileus K56.7
[2020-10-30 15:12] VITALS: BP 177/75; PULSE 74; RESP 18; TEMP 36.7; O2SAT 96
--- NOTE | 2020-10-30 15:52 | P.CONIM_ITS ---
Providers/Reason For Consult Consulting Physican/Specialty*: Dr. Hairston Reason for Consult*: Stenosis mesenteric vessels Attending Physician: Jonny Stanley MD Primary Care Provider: Chicho Young DO History of Present Illness History of Present Illness Mindy Verma is a 80 year old female who presented to the ER yesterday with complaints of abdominal pain, nausea, vomiting and multiple episodes of diarrhea from the day prior to the ER visit. Patient states that she has never had a similar episode in the past. Denies any history of recent travel. No sick contacts. She states that she took an antidiarrheal medication before she came in and since then the she has not had any bowel movements. No prior abdominal surgeries. Her last colonoscopy was greater than 10 years ago. She denies any fevers or chills. She states that she has mild abdominal pain today and her a ppetite is poor though she would like to eat. Patient smoked for a short. In a younger days. She states over the last couple of weeks she has been having pain especially after eating. Denies any nausea vomiting at that point. No significant weight loss Review of Systems General: Reports: 10 or more systems reviewed and unremarkable except in HPI and below Meds/Allergies Home Medications and Allergies Home Medications Medication Instructions Recorded Confirmed Last Taken Type amlodipine 2.5 mg PO PRN 10/29/20 10/29/20 Unknown History carbamazepine 200 mg PO BID 10/29/20 10/29/20 10/28/20 History cholecalciferol (vitamin D3) 125 mcg PO QAM 10/29/20 10/29/20 10/28/20 History [Vitamin D3] clopidogrel 75 mg PO QAM 10/29/20 10/29/20 10/28/20 History docusate sodium [Colace] 200 mg PO PRN 10/29/20 10/29/20 Unknown History donepezil 10 mg PO BEDTIME 10/29/20 10/29/20 10/28/20 History gabapentin 100 mg PO BID 10/29/20 10/29/20 10/28/20 History hydroxyzine pamoate 25 mg PO BEDTIME 10/29/20 10/29/20 10/28/20 History multivitamin 1 tab PO QAM 10/29/20 10/29/20 10/28/20 History ondansetron HCl 4 mg PO Q6H PRN 10/29/20 10/29/20 10/28/20 History pantoprazole 20 mg PO QAM 10/29/20 10/29/20 10/28/20 History prednisone 10 mg PO QAM 10/29/20 10/29/20 10/28/20 History rosuvastatin 5 mg PO BEDTIME 10/29/20 10/29/20 10/28/20 History sertraline 100 mg PO QAM 10/29/20 10/29/20 10/28/20 History trazodone 200 mg PO BEDTIME 10/29/20 10/29/20 10/28/20 History Allergies Allergy/AdvReac Type Severity Reaction Status Date / Time No Known Allergies Allergy Verified 10/29/20 11:17 Current Medications Current Medications Generic Name Dose Route Start Last Admin Trade Name Freq PRN Reason Stop Dose Admin Acetaminophen 650 mg 10/29/20 18:23 10/30/20 07:34 Acetaminophen 325 Mg Tablet PO 650 mg Q6H PRN Administration MILD PAIN Carbamazepine 200 mg 10/29/20 18:00 10/30/20 07:34 Carbamazepine Xr (12 Hr) 200 Mg Tablet PO 200 mg BIDWM RAFAEL Administration Enoxaparin Sodium 40 mg 10/29/20 18:00 10/29/20 18:08 Enoxaparin 40 Mg/0.4 Ml Syringe SUBCUT 40 mg Q24H RAFAEL Administration Famotidine 20 mg 10/29/20 21:00 10/30/20 09:08 Famotidine 20 Mg/2 Ml Inj IVP 20 mg Q12H RAFAEL Administration Sodium Chloride 1,000 mls @ 100 mls/hr 10/29/20 11:15 10/30/20 11:11 Sodium Chloride 0.9% IV 100 mls/hr .Q10H RAFAEL Administration Piperacillin Sod/Tazobactam 50 mls @ 12.5 mls/hr 10/29/20 18:00 10/30/20 13:29 Sod 3.375 gm/ Sodium Chloride IV Infused Q8H RAFAEL Infusion Protocol Morphine Sulfate 2 mg 10/29/20 20:42 10/29/20 21:00 Morphine 4 Mg/Ml Sdv 1 Ml IVP 2 mg Q4H PRN Administration SEVERE PAIN Ondansetron HCl 4 mg 10/29/20 11:11 10/29/20 15:28 Ondansetron 2 Mg/Ml Sdv 2 Ml IVP 4 mg Q6H PRN Administration NAUSEA AND VOMITING Prednisone 10 mg 10/30/20 06:00 10/30/20 05:43 Prednisone 10 Mg Tablet PO 10 mg QAM RAFAEL Administration PFSH Acute PFSH: Medical History (Updated 10/30/20 @ 15:55 by [place] Dobbins MD) Depression Hyperlipidemia Hypertension Surgical History (Updated 10/30/20 @ 15:55 by [place] Dobbins MD) Status post colonoscopy Vitals/I&O/Wt Last Vital Signs Temp 98.1 F 10/30/20 15:12 Pulse 74 10/30/20 15:12 Resp 18 10/30/20 15:12 BP 177/75 10/30/20 15:12 Pulse Ox 96 10/30/20 15:12 10/30/20 10/30/20 10/30/20 06:59 14:59 22:59 Intake Total 1050 / 2160 1000 / 1000 Output Total 500 / 500 600 / 600 Balance 550 / 1660 400 / 400 Weight last 48 hrs Weight 235 lb Physical Exam Narrative: EXAM NARRATIVE: HEENT: Normocephalic Eye: Sclera /conjunctiva normal Abdomen: Soft to palpation, minimally tender, nondistended Neurological: Oriented to place person and time Skin: Intact, no lesions appreciated on gross exam A&P Assessment and plan (1) Colitis: 80-year-old female with history of abdominal pain, nausea, vomiting, diarrhea of 24 hours duration, most likely infectious colitis. Patient is currently hemodynamically stable, no evidence of peritonitis, no leukocytosis. Start clear liquid diet, advance as tolerated Status: Acute (2) Mesenteric artery stenosis: Patient is a 2-week history of pain after eating prior to this episode requiring hospitalization. No significant weight loss. Doppler ultrasound did not visualize the mesenteric vessels. CT abdomen pelvis had shown significant stenosis of the celiac and SMA. No evidence of ischemic bowel. Lactic acid was 1.8 and 1. 4 Discussed with the patient that we will work this up as an outpatient with a CTA abdomen /pelvis Status: Acute Coding Level of Care Code Acute Sequins Spooler for [facility] Fwd Diagnoses Colitis K52.9 Mesenteric artery stenosis K55.1
[2020-10-30] MEDS: enoxaparin 40 mg/0.4 mL Syringe SUBCUT (17:38)
[2020-10-30 19:45] VITALS: BP 173/84; PULSE 78; RESP 20; TEMP 36.9; O2SAT 94
[2020-10-30] MEDS: zolpidem 5 mg Tablet PO (22:17)
[2020-10-31] VITALS: BP 160/72; PULSE 88; RESP 20; TEMP 36.6; O2SAT 95
[2020-10-31] MEDS: piperacillin-tazobactam 3.375 GM in sodium chloride 0.9% (plus) 50 ML IV ×2 (01:17→11:17)
[2020-10-31 04:00] VITALS: BP 154/75; PULSE 71; RESP 18; TEMP 36.6; O2SAT 95
[2020-10-31] MEDS: acetaminophen 325 mg Tablet 650 MG PO (04:30)
[2020-10-31] MEDS: predniSONE 10 mg Tablet PO (06:13)
[2020-10-31 06:14] LABS: Alanine Aminotransferase 23 U/L (0-33); Albumin Level 3.6 g/dL (3.5-5.2); Alkaline Phosphatase 60 IU/L (35-105); Anion Gap 12.5 (5-19); Aspartate Amino Transferase 26 U/L (0-32); Blood Urea Nitrogen 6 mg/dL (8-23); Calcium 8.1 mg/dL (8.5-10.5); Carbon Dioxide 24 mmol/L (22-29); Chloride 104 mmol/L (98-107); Globulin 2.5 g/dL (1.3-4.6); Glucose 100 mg/dL (65-115); Osmolality Calculated 282 mOsm/kg (285-295); Potassium 3.5 mmol/L (3.5-5.1); Sodium 137 mmol/L (136-145); Total Bilirubin 0.3 mg/dL (0.15-1.2); Total Protein 6.1 g/dL (6.6-8.7)
[2020-10-31] MEDS: sodium chloride 0.9% 1,000 ML 100 ML IV (06:14)
[2020-10-31 07:05] LABS: Basophils % 0.6 %; Eosinophils # 0.1 10^3/uL (0.0-0.8); Eosinophils % 1.1 %; Hematocrit 40.1 % (37.0-47.0); Hemoglobin 12.5 g/dL (11.5-15.3); Lymphocytes # 0.8 10^3/uL (0.8-4.8); Lymphocytes % 15.5 %; Mean Corpuscular HGB Conc 31.2 g/dL (30.0-36.0); Mean Corpuscular Hemoglobin 30.7 pg (28.0-34.0); Mean Corpuscular Volume 98.5 fL (81-99); Mean Platelet Volume 9.2 fL (7.4-10.4); Monocytes # 0.8 10^3/uL (0.2-0.9); Monocytes % 14.8 %; Neutrophils # 3.68 10^3/uL (1.8-7.7); Neutrophils % 67.8 %; Nucleated Red Blood Cells % 0 %; Platelet Count 230 10^3/cmm (130-400); Red Blood Count 4.07 10^6/uL (4.1-5.3); Red Cell Distribution Width 12.4 % (12.1-15.1); White Blood Count 5.4 10^3/uL (4.0-10.0)
[2020-10-31 07:17] VITALS: BP 169/97; PULSE 85; RESP 17; TEMP 37.1; O2SAT 96
[2020-10-31] MEDS: famotidine 20 mg/2 mL INJ IVP (08:33)
[2020-10-31] MEDS: carBAMazepine XR (12 HR) 200 mg Tablet PO (08:33)
[2020-10-31 11:15] VITALS: BP 178/78; PULSE 83; RESP 17; TEMP 37; O2SAT 96
--- NOTE | 2020-10-31 11:21 | P.DS_ITS ---
Discharge Providers Date of Admission: 10/29/20 11:14 Date of Discharge: October 31, 2020 Attending Provider at Admission: Enriqueta Hairston MD Attending Provider at Discharge: Jonny Stanley MD Primary Care Provider: Chicho Young DO Diagnoses at Discharge Discharge Diagnosis (1) Colitis: Status: Resolved (2) Ileus: Status: Resolved Reason for Visit Reason for Visit: light headed, dark stools x 2 weeks Hospital Course Hospital Course 80 year old female who presented with 2 weeks of diarrhea, abdominal pain, describes black colored stools 1-2 times per day, worsened over the last 48 hrs, was also complaining of non bloody vomiting on admission.She was admitted for the management of Ileues , infectious collitis less likely ischemic collitis although CT abdomen pelvis had shown significant stenosis of the celiac and SMA. the Doppler ultrasound did not visualize the mesenteric vessels.There was no evidence of ischemic bowel. Lactic acid was 1.8 and 1. 4 during the hospital stay.Abdominal physical examination was pretty much benign.She was kept on Zosyn and is being discharged on Metronidazole as well as ciprofloxacin oral for additional 7 days.She will follow in 2 weeks as outpatient for CTA abdomen and pelvis for further work up of Mesenteric artery stenosis.At the time of discharge she was able to tolerate well. denied any nausea,vomiting, fever,chills,abdominal pain,bloody stool. Patient responded well to the above medical management and is being discharged in stable condition. Physical Exam HENMT: COMMON NORMALS: normocephalic and atraumatic HEAD & SCALP: normocephalic and atraumatic Eye: COMMON NORMALS: conjunctivae normal and no scleral icterus CONJUNCTIVA: Yes conjunctivae normal Neck/C-Spine: COMMON NORMALS: no JVD Resp: COMMON NORMALS: normal respiratory effort and clear to auscultation bilaterally AUSCULTATION: clear to auscultation bilaterally Cardio: COMMON NORMALS: no JVD, regular rate, regular rhythm, S1 normal heart sound present and S2 normal heart sound present RATE: regular rate RHYTHM: regular rhythm HEART SOUNDS: S1 normal heart sound present and S2 normal heart sound present GI: COMMON NORMALS: Normal to inspection, nondistended, normoactive bowel sounds present, Soft to palpation, non-tender, No hepatosplenomegaly present, no masses and no bruits PALPATION: Yes Soft to palpation and Yes No hepatosplenomegaly present Extremity: COMMON NORMALS: no clubbing, cyanosis or edema, no calf tenderness and no pedal edema Skin: COMMON NORMALS: no mottling Discharge Data Data Completed and Pending: Completed Studies During Hospitalization Category Date Time Status CT abdomen pelvis w con* [id number] Urge nt Cat Scan 10/29/20 05:01 Completed US abdomen limite d [id number] Urgent Ultrasound 10/29/20 08:21 Completed Pending at discharge Category Date Time Status Clostridioides Di fficile PCR Routin e Lab 10/31/20 09:39 Received Complete Blood Co unt w/Auto AM LABS Lab 11/01/20 04:00 Ordered Comprehensive Met abolic Panel AM LA BS Lab 11/01/20 04:00 Ordered Enteric Bacterial Panel by PCR Rout ine Lab 10/31/20 09:39 Received Enteric Parasite Panel by PCR Routi ne Lab 10/31/20 09:39 Received Labs from last 24 hours 10/31/20 10/31/20 10/31/20 06:54 05:31 05:31 WBC 5.4 Cancelled Corrected WBC Cancelled RBC 4.07 L Cancelled Hgb 12.5 Cancelled Hct 40.1 Cancelled MCV 98.5 Cancelled MCH 30.7 Cancelled MCHC 31.2 Cancelled RDW 12.4 Cancelled Plt Count 230 Cancelled MPV 9.2 Cancelled Gran % Cancelled Neut % (Auto) 67.8 Cancelled Lymph % (Auto) 15.5 Cancelled [place] % (Auto) 14.8 Cancelled Eos % (Auto) 1.1 Cancelled Baso % (Auto) 0.6 Cancelled Neut # (Auto) 3.68 Cancelled Lymph # (Auto) 0.8 Cancelled [place] # (Auto) 0.8 Cancelled Eos # (Auto) 0.1 Cancelled Baso # (Auto) 0.0 Cancelled Absolute Gran (aut o) Cancelled Nucleated RBC % (a uto) 0 Cancelled Nucleated RBCs # 0.0 Cancelled Sodium 137 Potassium 3.5 Chloride 104 Carbon Dioxide 24 Anion Gap 12.5 BUN 6 L Creatinine 0.5 GFR Calculation Not Reportable Glucose 100 Calculated Osmolal ity 282 L Calcium 8.1 L Total Bilirubin 0.3 AST 26 ALT 23 Alkaline Phosphata se 60 Total Protein 6.1 L Albumin 3.6 Globulin 2.5 Vitals: Last Vital Signs Temp 98.6 F 10/31/20 11:15 Pulse 83 10/31/20 11:15 Resp 17 10/31/20 11:15 BP 178/78 10/31/20 11:15 Pulse Ox 96 10/31/20 11:15 Discharge Plan Discharge Patient Disposition: Home Condition: Stable Prescriptions: New ciprofloxacin HCl 500 mg tablet 500 mg PO BID Qty: 14 RF: 0 metronidazole 500 mg tablet 500 mg PO BID 7 Days Qty: 14 RF: 0 Continued multivitamin Tablet 1 tab PO QAM RF: 0 prednisone 10 mg tablet 10 mg PO QAM RF: 0 donepezil 10 mg tablet 10 mg PO BEDTIME RF: 0 ondansetron HCl 4 mg tablet 4 mg PO Q6H PRN (Reason: Nausea And Vomiting) RF: 0 sertraline 100 mg tablet 100 mg PO QAM RF: 0 amlodipine 2.5 mg tablet 2.5 mg PO PRN RF: 0 clopidogrel 75 mg tablet 75 mg PO QAM RF: 0 pantoprazole 20 mg tablet,delayed release (DR/EC) 20 mg PO QAM RF: 0 trazodone 100 mg tablet 200 mg PO BEDTIME RF: 0 Colace 100 mg Capsule 200 mg PO PRN RF: 0 gabapentin 100 mg capsule 100 mg PO BID RF: 0 hydroxyzine pamoate 25 mg capsule 25 mg PO BEDTIME RF: 0 rosuvastatin 5 mg tablet 5 mg PO BEDTIME RF: 0 carbamazepine 200 mg capsule, ER multiphase 12 hr 200 mg PO BID RF: 0 Vitamin D3 125 mcg (5,000 unit) Tablet 125 mcg PO QAM RF: 0 Discharge Orders: Discharge Order (Routine); Ordered 10/31/20 Ordered By: Jonny Stanley Referrals: [place] Dobbins MD [Physician] - 2 weeks Chicho Young DO [Primary Care Provider] - Discharge Diet: Regular Discharge Activity: Resume usual activity Patient Instructions: Opioid Safety Discharge Attestations Time Spent in Discharge Care*: less than 30 min Specific Discharge Activities: educating patient, educating and/or supporting family/caregiver, discussing with pcp/other providers, discussing with case planner/social workers/dc planners, documenting/other paperwork and evaluating patient/reviewing data Status at Discharge: Cognitive status at discharge: cognitively intact , Behavioral status at discharge: cooperative , Functional status at discharge: independent ambulation Overall status at discharge: patient is back to baseline Quality Metrics Clinical Quality Measures During this hospital stay, did patient experience: None Coding Level of Care Code Acute Chg FW DC note Diagnoses Colitis K52.9 Ileus K56.7
[2020-10-31 13:27] VITALS: BP 178/78; PULSE 83; RESP 17; TEMP 37; O2SAT 96
--- NOTE | 2020-10-31 18:04 | P.PN_ITS ---
Subjective Subjective: Interval history: Patient denies any abdominal pain, nausea no vomiting and has not had any further episodes of diarrhea Vitals/I&O/Wt Last Vital Signs Temp 98.6 F 10/31/20 13:27 Pulse 83 10/31/20 13:27 Resp 17 10/31/20 13:27 BP 178/78 10/31/20 13:27 Pulse Ox 96 10/31/20 13:27 10/31/20 10/31/20 10/31/20 06:59 14:59 22:59 Intake Total 958.333 / 3245.000 1376.875 / 1376.875 Output Total 1425 / 2905 1250 / 1250 Balance -466.667 / 340.000 126.875 / 126.875 Physical Exam Narrative: EXAM NARRATIVE: Abdomen: Soft Data : 10/31/20 06:54 10/31/20 05:31 A&P Assessment and plan (1) Colitis: 80-year-old female with history of abdominal pain, nausea, vomiting, diarrhea of 24 hours duration, most likely infectious colitis. Patient is currently hemodynamically stable, no evidence of peritonitis, no leukocytosis. Patient is recovered well, WBC is 5.4 DC home today Status: Resolved (2) Mesenteric artery stenosis: Patient is a 2-week history of pain after eating prior to this episode requiring hospitalization. No significant weight loss. Doppler ultrasound did not visualize the mesenteric vessels. CT abdomen pelvis had shown significant stenosis of the celiac and SMA. No evidence of ischemic bowel. Lactic acid was 1.8 and 1. 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
== END 2020-10-31 13:28 | disposition home or self-care (01) | DRG 392 ==
LOC: ER 11:08 → MEDSURG 11:39
PROVIDERS: Emergency Medicine; Admitting Provider Student in an Organized Health Care Education/Training Program; Emergency Provider Emergency Medicine; PCP Family Medicine; Visit Provider Internal Medicine
DX: K52.9 Noninfective gastroenteritis and colitis, unspecified (principal); K55.1 Chronic vascular disorders of intestine; F32.9 Major depressive disorder, single episode, unspecified; E78.5 Hyperlipidemia, unspecified; I10 Essential (primary) hypertension; Z79.02 Long term (current) use of antithrombotics/antiplatelets
CPT/HCPCS: 36415; 74177; 76705; 80053; 81001; 83605; 83690; 84443; 85025; 85610; 85730; 86140; 86850; 86900; 87506; 96361; 96372; 96374; 96375; 96376; 97161; 99285; J1650; J2270; J2405; J2543; J3490; J7030; J7512; Q9967

== ENCOUNTER 2020-11-01 14:22 | Emergency (ER) | payer MEDICARE, OTHER, SELFPAY ==
[2020-11-01 15:00] VITALS: BP 163/83; PULSE 74; RESP 20; TEMP 36.8; O2SAT 96; BMI 42.0
--- NOTE | 2020-11-01 16:25 | CTR_ITS ---
PROCEDURE INFORMATION: Exam: CT Angiography Abdomen and Pelvis With Contrast, GI Bleeding Exam date and time: 11/01/2020 4:56 PM Age: 80 years old Clinical indication: Other: Gi bleed; Abdominal pain; Generalized; Prior surgery; Surgery type: Hyst, heart; Additional info: Sma stenosis? Abdominal pain. Possible ischemic mesentery. TECHNIQUE: Imaging protocol: Computed tomographic angiography of the abdomen and pelvis with contrast. 3D rendering (Not supervised by radiologist): MIP and/or 3D reconstructed images were created by the technologist. Total images: 507 Radiation optimization: All CT scans at this facility use at least one of these dose optimization techniques: automated exposure control; mA and/or kV adjustment per patient size (includes targeted exams where dose is matched to clinical indication); or iterative reconstruction. Contrast material: OMNI 350; Contrast volume: 95 ml; Contrast route: INTRAVENOUS (IV); COMPARISON: CT abdomen pelvis w con* [id number] 10/29/2020 7:16 AM RADIATION DOSE METRICS: Total DLP (mGy-cm): 1400.43 FINDINGS: Tubes, catheters and devices: Pacemaker. Lungs: Limited assessment of the lung bases fails to reveal evidence for active cardiopulmonary process. Aorta: The abdominal aorta is nonaneurysmal. Moderate arterial sclerotic disease. 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 Suspected at least 60-70% stenosis ostium of the superior mesenteric artery. Renal arteries: No occlusion or hemodynamically significant stenosis. Right iliac arteries: No occlusion or hemodynamically significant stenosis. Left iliac arteries: No occlusion or hemodynamically significant stenosis. Liver: Diffuse fatty infiltration of the liver. No visible hepatic mass or cystic structure. Gallbladder and bile ducts: Unremarkable. No calcified stones. No ductal dilation. Pancreas: Pancreas unremarkable. No visible pancreatic ductal ectasia. Spleen: Calcified splenic granulomas of antecedent disease. Adrenal glands: Adrenal glands unremarkable. Kidneys and ureters: Mild pelvicaliectasis left kidney believed secondary to mild ureteropelvic junction stricture/stenosis. No visible hydronephrosis right kidney. Prominent extrarenal pelvis right kidney. No visible nephrolithiasis or ureterolithiasis bilaterally. Stomach and bowel: Mild diverticulosis coli without visible evidence for acute diverticulitis nonobstructive bowel pattern. No visible significant adynamic or reactive ileus. No visible source of an active gastrointestinal hemorrhage. Appendix: The appendix is not visualized. Intraperitoneal space: No visible pneumoperitoneum or intraperitoneal ascites. No visible evidence for mesenteritis/panniculitis or mesenteric lymphadenitis/lymphadenopathy. Lymph nodes: No current visible evidence of active mesenteric or retroperitoneal lymphadenopathy. Urinary bladder: Urinary bladder unremarkable. Reproductive: Status post hysterectomy. Bones/joints: No visible active or acute osseous pathology. 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 Osteopenia/osteoporosis. Scoliosis. Soft tissues: Obesity. CT/CT angio abdomen pelvis 94782 IMPRESSION: 1. 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 2. Suspected at least 60-70% stenosis ostium of the superior mesenteric artery. 3. No visible source for gastrointestinal hemorrhage. 4. Mild pelvicaliectasis left kidney believed secondary to mild ureteropelvic junction stricture/stenosis. Radiation Dose CTDIVOL = (mGy): DLP = 1400.43 (mGy-cm)
[2020-11-01 17:00] LABS: Basophils % 0.3 %; Eosinophils % 0.3 %; Hematocrit 43.4 % (37.0-47.0); Hemoglobin 13.9 g/dL (11.5-15.3); Lymphocytes # 0.7 10^3/uL (0.8-4.8); Lymphocytes % 11.1 %; Mean Corpuscular Hemoglobin 30.3 pg (28.0-34.0); Mean Corpuscular Volume 94.6 fL (81-99); Mean Platelet Volume 9.6 fL (7.4-10.4); Monocytes # 0.4 10^3/uL (0.2-0.9); Monocytes % 5.7 %; Neutrophils # 5.09 10^3/uL (1.8-7.7); Neutrophils % 82.3 %; Nucleated Red Blood Cells % 0 %; Platelet Count 263 10^3/cmm (130-400); Red Blood Count 4.59 10^6/uL (4.1-5.3); Red Cell Distribution Width 12.2 % (12.1-15.1); White Blood Count 6.2 10^3/uL (4.0-10.0)
[2020-11-01] MEDS: iohexol 350 mg/mL 100 mL Btl IV (17:33)
[2020-11-01 17:44] LABS: Alanine Aminotransferase 41 U/L (0-33); Albumin Level 3.9 g/dL (3.5-5.2); Alkaline Phosphatase 74 IU/L (35-105); Blood Urea Nitrogen 7 mg/dL (8-23); Calcium 8.6 mg/dL (8.5-10.5); Carbon Dioxide 22 mmol/L (22-29); Chloride 101 mmol/L (98-107); Globulin 2.7 g/dL (1.3-4.6); Glucose 91 mg/dL (65-115); Lipase 39 U/L (13-60); Osmolality Calculated 284 mOsm/kg (285-295); Sodium 138 mmol/L (136-145); Total Bilirubin 0.2 mg/dL (0.15-1.2); Total Protein 6.6 g/dL (6.6-8.7)
[2020-11-01 17:58] LABS: Anion Gap 18.2 (5-19); Aspartate Amino Transferase 50 U/L (0-32); Potassium 3.2 mmol/L (3.5-5.1)
[2020-11-01 18:17] LABS: Slide Review Slide Review Perform
[2020-11-01 18:23] VITALS: BP 193/82; PULSE 74; RESP 16; O2SAT 96
[2020-11-01 19:21] LABS: Lactate (Lactic Acid level) 1.1 mmol/L (0.5-2.2)
--- NOTE | 2020-11-01 19:22 | ED_ITS ---
HPI - GI Bleed General: Chief complaint: GI Bleed Stated complaint: POSS GI BLEED Time Seen by Provider: 11/01/20 15:42 History of Present Illness: HPI Narrative: The patient is an 80-year-old female admitted here and discharged 2 days ago for a GI bleed. She comes in today complaining of bright red blood per rectum as well as continued dark stools, abdominal pain as well. They were concerned that she may have had mesenteric ischemia and scheduled an outpatient CT angiogram. Today one was performed which did show a stenosis of her celiac artery up to 80% as well as her superior mesenteric artery up to 60%. Fecal occult blood was also positive in the ED. She does have a history of stomach ulcers and upper GI bleed remotely though she does not believe this is the case now. Denies history of hemorrhoids Onset (ago): week(s) (1) Pain Consistency: intermittent Severity: moderate Relieving factors: none Exacerbating factors: none Context: history of GI bleed Associated symptoms: Reports abdominal pain; Denies fever(s), headache(s), nausea, rash or vomiting Review of Systems General: Reports: 10 or more systems reviewed and unremarkable except in HPI and below Const: Denies: fever(s) Eyes: Denies: change in vision, blurry vision or eye redness ENMT: Denies: throat pain, swelling of lips/tongue, ear or mastoid pain or nasal congestion Card: Denies: chest pain, palpitations, irregular heart rhythm, edema, dyspnea on exertion or orthopnea Resp: Denies: dyspnea, productive cough or non-productive cough GI: Reports: abdominal pain, melena and other (Red blood in stool); Denies: nausea or vomiting : Denies: flank pain, difficulty voiding, urinary frequency or urinary urgency Musc: Denies: neck pain, back pain, extremity pain, joint pain, joint redness, limited range of motion or muscle weakness Skin/Breast: Denies: rash, pruritus, erythema, skin pain or skin tenderness Neuro: Denies: headache(s), numbness in extremities, weakness in extremities, sensory changes, difficulty walking, dizziness, confusion or Slurred speech present Psych: Denies: anxiety or depression Endo: Denies: polyuria All/Imm: Denies: urticaria, throat swelling or tongue swelling PFS ED PFSH: Medical History (Updated 11/01/20 @ 21:47 by Shen Masters MD) Abnormal CT of the abdomen Colitis Depression Enteritis Hyperlipidemia Hypertension Ileus Mesenteric artery stenosis Surgical History (Updated 10/30/20 @ 15:55 by [place] Dobbins MD) Status post colonoscopy Physical Exam Const: COMMON NORMALS: no acute distress, average body habitus, patient oriented x3, no limitations, healthy appearing, alert and well nourished GENERAL APPEARANCE: cooperative, comfortable, well kempt and well developed ORIENTATION/CONSCIOUSNESS: Yes awake, Yes oriented to person, Yes oriented to place and Yes oriented to time HENMT: COMMON NORMALS: normocephalic, external ears normal and Normal external nose present HEAD & SCALP: normal to inspection and normocephalic NOSE: Normal external nose present EXTERNAL EAR: Yes external ears normal MOUTH: Normal oral and palatal mucosa present THROAT: posterior oropharynx normal Eye: COMMON NORMALS: Equal, round and reactive pupils present and EOMs intact bilaterally GENERAL EYE: appearance normal, both eyes and all related structures PUPIL: Yes Equal, round and reactive pupils present Neck/C-Spine: COMMON NORMALS: full ROM, no lymphadenopathy, no meningeal signs and no JVD GENERAL: Yes normal visual inspection Lymph: LYMPHATIC: no lymphadenopathy noted Chest: COMMONS NORMALS: normal inspection of the chest and normal palpation of entire chest wall Resp: COMMON NORMALS: normal respiratory effort, No retractions, No use of accessory muscles, clear to auscultation bilaterally and percussion normal EFFORT & INSPECTION: Yes able to speak in complete sentences AUSCULTATION: clear to auscultation bilaterally PERCUSSION: percussion normal Cardio: COMMON NORMALS: no JVD, regular rate, regular rhythm, S1 normal heart sound present, S2 normal heart sound present and Peripheral pulses 2+ throughout RATE: regular rate RHYTHM: regular rhythm HEART SOUNDS: S1 normal heart sound present and S2 normal heart sound present PERIPHERAL PULSES: Peripheral pulses 2+ throughout GI: COMMON NORMALS: Normal to inspection, nondistended, normoactive bowel sounds present, Soft to palpation and no masses INSPECTION: Yes normal to inspection PALPATION: Yes Soft to palpation OTHER: Normal rectal exam. No hemorrhoids seen. Hemoccult positive at bedside. Mild periumbilical to epigastric abdominal tenderness. It does radiate in all quadrants. No significant rebound tenderness. Normal bowel sounds. Belly soft. : COMMON NORMALS: Yes no CVA tenderness BLADDER/KIDNEY EXAM: Yes no CVA tenderness Back/Pelvis: COMMON NORMALS: no CVA tenderness, thoracic and lumbar spine normal to inspection, no thoracic nor lumbar tenderness and thoraco-lumbar ROM normal Extremity: COMMON NORMALS: normal to inspection, full ROM, capillary refill normal, no joint enlargement and no pedal edema GENERAL: Yes normal exam except as noted Neuro: COMMON NORMALS: patient oriented x3, CN's II-XII intact bilaterally, moves all extremities, no focal motor deficits, no sensory deficits noted and gait normal SENSORIUM/ORIENTATION: Yes alert, Yes oriented to person, Yes oriented to place and Yes oriented to time MENINGEAL SIGNS: Yes no meningeal signs Psych: COMMON NORMALS: mental status grossly normal, Normal thought process present, cooperative, normal affect and speech normal APPEARANCE: Yes well kempt ATTITUDE: Yes calm SPEECH: Yes normal speech THOUGHT PROCESS: Normal thought process present Skin: COMMON NORMALS: no rashes or lesions noted GENERAL SKIN EXAM: no rashes or lesions noted Course Vital Signs: Vital signs: Vital Signs Temperature 98.3 F 11/01/20 15:00 Pulse Rate 74 11/01/20 18:23 Respiratory Rate 16 11/01/20 18:23 Blood Pressure 193/82 11/01/20 18:23 Pulse Oximetry 96 11/01/20 18:23 MDM - GI Bleed MDM Narrative: Medical decision making narrative: The patient came in today with continued rectal bleeding and abdominal pain after she was discharged only 2 days ago. She did have an outpatient CT angiogram of her belly scheduled and I performed it today in the ER. Does show significant stenosis of her celiac artery up to 80% and superior mesenteric artery up to 60%. We do not have vascular surgery here and the patient preferred transfer to [facility]. Discussed with the transfer center who spoke with the vascular surgeon who will follow and likely place a stent tomorrow. Dr. Miller accepts as hospitalist for transfer. Patient is stable condition Lab Data: Labs: Lab Results 11/01/20 11/01/20 11/01/20 Range/Units 16:53 16:53 17:18 WBC 6.2 (4.0-10.0) 10^3/ uL RBC 4.59 (4.1-5.3) 10^6/u L Hgb 13.9 (11.5-15.3) g/dL Hct 43.4 (37.0-47.0) % MCV 94.6 (81-99) fL MCH 30.3 (28.0-34.0) pg MCHC 32.0 (30.0-36.0) g/dL RDW 12.2 (12.1-15.1) % Plt Count 263 (130-400) 10^3/c mm MPV 9.6 (7.4-10.4) fL Neut % (Auto) 82.3 % Lymph % (Auto) 11.1 % [place] % (Auto) 5.7 % Eos % (Auto) 0.3 % Baso % (Auto) 0.3 % Neut # (Auto) 5.09 (1.8-7.7) 10^3/u L Lymph # (Auto) 0.7 L (0.8-4.8) 10^3/u L [place] # (Auto) 0.4 (0.2-0.9) 10^3/u L Eos # (Auto) 0.0 (0.0-0.8) 10^3/u L Baso # (Auto) 0.0 (0.0-0.1) 10^3/u L Nucleated RBC % (a uto) 0 % Nucleated RBCs # 0.0 /100WBC Sodium 138 (136-145) mmol/L Potassium 3.2 L (3.5-5.1) mmol/L Chloride 101 (98-107) mmol/L Carbon Dioxide 22 (22-29) mmol/L Anion Gap 18.2 (5-19) BUN 7 L (8-23) mg/dL Creatinine 0.6 (0.5-0.9) mg/dL GFR Calculation Not Reportable Glucose 91 (65-115) mg/dL Calculated Osmolal ity 284 L (285-295) mOsm/k g Lactate 1.1 (0.5-2.2) mmol/L Calcium 8.6 (8.5-10.5) mg/dL Total Bilirubin 0.2 (0.15-1.2) mg/dL AST 50 H (0-32) U/L ALT 41 H (0-33) U/L Alkaline Phosphata se 74 (35-105) IU/L Total Protein 6.6 (6.6-8.7) g/dL Albumin 3.9 (3.5-5.2) g/dL Globulin 2.7 (1.3-4.6) g/dL Lipase 39 (13-60) U/L Discharge Plan Discharge Patient Disposition: Xfer Short-Term Hosp Clinical Impression: Celiac artery stenosis, Bright red rectal bleeding, Abdominal pain Condition: Stable Referrals: Chicho Young DO [Primary Care Provider] - Patient Instructions: Abdominal Pain (ED) Coding Level of Care Code ED Fluid Pump Operator for [facility]
--- NOTE | 2020-11-01 19:45 | ECG_ITS ---
[facility] Test Date: 2020-11-01 Pat Name: Mindy Verma Department: Room: Gender: Female Security Lead: : 1940 Requested By: Shen Masters Order Number: [id number] Oswaldo MD: Mac Vizcarra M.D. Measurements Intervals [place] Rate: 75 P: -57 KS: 182 QRS: -30 QRSD: 95 T: 11 QT: 388 QTc: 436 Interpretive Statements SINUS RHYTHM BORDERLINE LEFT AXIS DEVIATION [QRS AXIS < -20] MINIMAL VOLTAGE CRITERIA FOR LVH, CONSIDER NORMAL VARIANT [MEETS CRITERIA IN ONE OF: R(aVL), S(V1), R(V5), R(V5/V6)+S(V1)] Compared to ECG 12/06/2018 14:34:17 Myocardial infarct finding no longer present Electronically Signed On 11-02-2020 10:21:06 CDT by Mac Vizcarra M.D. [email or web address]/store/[id number] f
[2020-11-01] MEDS: potassium chloride ER 20 mEq Tablet 40 MEQ PO (20:41)
[2020-11-01] MEDS: pantoprazole 40 mg SDV IVP (21:51)
[2020-11-01 22:30] VITALS: PULSE 78; RESP 15; O2SAT 95
== END 2020-11-01 22:54 | disposition short-term general hospital (02) ==
PROVIDERS: Physician Assistant; Emergency Provider Family Medicine; PCP Family Medicine
DX: K62.5 Hemorrhage of anus and rectum (principal); R10.9 Unspecified abdominal pain; I77.4 Celiac artery compression syndrome; E78.5 Hyperlipidemia, unspecified; I10 Essential (primary) hypertension
CPT/HCPCS: 74174; 80053; 83605; 83690; 85025; 93005; 96374; 99285; C9113; Q9967

== ENCOUNTER 2020-12-14 13:30 | Outpatient (CLI) | payer MEDICARE, OTHER, SELFPAY ==
--- NOTE | 2020-12-14 13:43 | US_ITS ---
WS: [id number] ULTRASOUND SOFT TISSUES abdominal wall. HISTORY: POSTPROCEDURAL HEMATOMA SEROMA OF SKIN COMPARISON: None available. TECHNIQUE: 2-D and color Doppler imaging is submitted. There is a complex cystic mass with thick septations and thick wall without increased vascularity wai ng the incision site of the supraumbilical abdomen. This collection is just beneath the skin surface and contains multiple thick septations and a few cystic areas. This area measures 4.3 x 4.2 cm and ex tends over length of 6.0 cm. There is a small superficial defect which extends through the abdominal wall. May be diastases of the abdominal wall at a stable removal site. There is no peristalsis. No in creased vascularity. US/US abdomen limited [id number] IMPRESSION: Complex cystic mass without increased vascularity along the incision site. Favo r this is probably a resolving hematoma or complex seroma. No abscess identifie d.
== END 2020-12-14 13:31 | disposition home or self-care (01) ==
LOC: RAD 13:37
PROVIDERS: PCP Family Medicine; Visit Provider Family Medicine
DX: L76.32 Postprocedural hematoma of skin and subcutaneous tissue following other procedure (principal)
CPT/HCPCS: 76705

== ENCOUNTER → 2021-01-19 16:08 | Outpatient (BNVA) | payer MEDICARE, OTHER, SELFPAY | PROVIDERS: PCP Family Medicine; Visit Provider Internal Medicine | DX: Z01.812 Encounter for preprocedural laboratory examination (principal); Z20.822 Contact with and (suspected) exposure to COVID-19 | CPT/HCPCS: 87635 ==

== ENCOUNTER 2021-02-20 13:07 | Outpatient (CLI) | payer MEDICARE, OTHER, SELFPAY ==
[2021-02-20 13:20] VITALS: BP 111/73; PULSE 84; RESP 18; TEMP 36.4; O2SAT 97; BMI 42.3
[2021-02-20 13:48] VITALS: BP 98/57; PULSE 75; RESP 18; O2SAT 95
[2021-02-20 14:47] VITALS: BP 120/77; PULSE 56; RESP 17; TEMP 36.7; O2SAT 96
== END 2021-02-20 13:08 | disposition home or self-care (01) ==
LOC: OPS 13:14
PROVIDERS: PCP Family Medicine; Visit Provider Nurse Practitioner Family
DX: U07.1 COVID-19 (principal)
CPT/HCPCS: 96365

== ENCOUNTER 2022-06-17 16:53 | Inpatient (IN) | payer MEDICARE, OTHER, SELFPAY ==
[2022-06-17] VITALS (9 sets, daily range): BP systolic 103–181; BP diastolic 59–128; PULSE 78–108; RESP 14–20; TEMP 37.3–39.2; O2SAT 90–99; BMI 29.5
--- NOTE | 2022-06-17 16:55 | ED_ITS ---
HPI - Fever General: Chief Complaint: Weakness Stated Complaint: WEAKNESS, FEVER History of Present Illness: Ms. Verma is an 81-year-old lady with significant past medical history of hypertension, hyperlipidemia, diabetes presenting to the emergency department due to generalized illness. She reports onset of symptoms 1 to 2 days ago with generalized weakness worse than baseline, cough which is moderately productive, and fevers as well as malaise. Since onset and intensity of symptoms has worsened and is now moderate to severe. Patient does not typically require oxygen but was hypoxemic on room air for EMS and supplemental oxygen applied. She does endorse history of frequent falls which may be worse recently though denies head strike or loss of consciousness. No other specific changes in health, exacerbating, or alleviating factors identified. Onset (ago): day(s) Context: sick contacts Exacerbating factors: exertion Relieving factors: nothing Associated symptoms: Reports chills, cough, short of breath and other Review of Systems General: Reports: 10 or more systems reviewed and unremarkable except in HPI and below Const: Reports: chills PFSH ED PFSH: Medical History Abnormal CT of the abdomen Colitis Depression Enteritis Hyperlipidemia Hyperlipidemia associated with type 2 diabetes mellitus Hypertension Ileus Mesenteric artery stenosis Pacemaker Sick sinus syndrome Surgical History Status post colonoscopy Social History Smoking and tobacco status: never smoked Alcohol intake: never Physical Exam Const: COMMON NORMALS: alert GENERAL APPEARANCE: cooperative and well de veloped HENMT: COMMON NORMALS: normocephalic and atraumatic HEAD & SCALP: normocephalic and atraumatic Eye: COMMON NORMALS: conjunctivae normal CONJUNCTIVA: Yes conjunctivae normal SCLERA: sclerae normal Neck/C-Spine: COMMON NORMALS: supple GENERAL: Yes trachea midline Resp: COMMON NORMALS: normal respiratory effort EFFORT & INSPECTION: Yes able to speak in complete sentences Cardio: COMMON NORMALS: regular rate and regular rhythm RATE: regular rate RHYTHM: regular rhythm GI: COMMON NORMALS: Soft to palpation PALPATION: Yes Soft to palpation and No Tenderness to palpation present (GI) Extremity: GENERAL: Yes normal exam except as noted and No edema Neuro: COMMON NORMALS: moves all extremities SENSORIUM/ORIENTATION: Yes alert and No Orientation impaired Psych: COMMON NORMALS: mental status grossly normal and Normal thought process present THOUGHT PROCESS: Normal thought process present Course Vital Signs: Vital signs: Vital Signs Temperature 97.6 F 06/24/22 15:14 Pulse Rate 79 06/24/22 15:14 Respiratory Rate 17 06/24/22 15:14 Blood Pressure 119/62 06/24/22 15:14 Pulse Oximetry 94 06/24/22 15:14 Oxygen Delivery Me thod 06/24/22 12:00 Oxygen Flow Rate 3 06/17/22 17:00 MDM - Fever Medical Decision Making 81-year-old lady presenting with cough and generalized illness. Somewhat ill on initial exam however nontoxic. Patient is febrile. Labs notable for mild leukocytosis, normal hemoglobin. Metabolic panel with hyponatremia and hypochloremia likely representing dehydration. Minimal transaminitis. 2-hour delta troponin is negative. No UTI. Chest x-ray with no lobar consolidation or pneumothorax. Given extent of symptoms and exam findings as well as clinical history provided further imaging felt to be appropriate. CT head similar to prior without acute pathology. CT chest without clear etiology of symptoms, CT abdomen pelvis without acute pathology. Flu ended up resulting positive which likely splint symptoms. During ED course patient treated with antipyretics, fluids. Upon reassessment patient only minimally improved. Chest generalized weakness and has had multiple falls which may be secondary to electrolyte arrangement/dehydration in context of illness. The results of ED evaluation were discussed with the patient including plan for admission due to requirement for level of care not available if discharged to prevent significant worsening/deterioration. Patient agreeable with plan. Discussed with hospitalist service who was agreeable to admit patient. Medical Records I reviewed the patient's medical records. Lab Data I reviewed the patient's lab results. 06/22/22 05:24 06/22/22 10:10 Radiology Impressions Chest/Abdomen/Pelvis CT 06/17/22 19:18 IMPRESSION: 1. No evidence of pulmonary embolism. 2. Atherosclerosis of the thoracic aorta noted. No aortic aneurysm or aortic dissection noted. 3. Mild atelectasis in the lower lobes. No consolidative pulmonary infiltrate noted. IMPRESSION: 1. Status post splenectomy. 2. Diverticulosis of the colon. No evidence of acute diverticulitis. 3. Diastasis of the rectus muscles are present, resulting in shallow ventral hernia. No bowel incarceration associated. This is new when compared to 10/29/2020. 4. No acute abnormality demonstrated in the abdomen and pelvis. Head CT 06/17/22 19:18 IMPRESSION: 1. No acute intracranial abnormality demonstrated. 2. There is no interval change from the prior examination. Chest X-Ray 06/19/22 14:50 IMPRESSION: No obvious acute consolidation. Suboptimal lung base assessment. Followup including lateral view may be obtained if clinically indicated. Laboratory Results WBC 9.0 10^3/uL (4.0-10.0) 06/18/22 01:18 RBC 4.32 10^6/uL (4.1-5.3) 06/18/22 01:18 Hgb 13.4 g/dL (11.5-15.3) 06/18/22 01:18 Hct 41.2 % (37.0-47.0) 06/18/22 01:18 MCV 95.4 fl (81-99) 06/18/22 01:18 MCH 31.0 pg (28.0-34.0) 06/18/22 01:18 MCHC 32.5 g/dL (30.0-36.0) 06/18/22 01:18 RDW 13.5 % (12.1-15.1) 06/18/22 01:18 Plt Count 321 10^3/cmm (130-400) 06/18/22 01:18 MPV 9.4 fL (7.4-10.4) 06/18/22 01:18 Neut % (Auto) 57.0 % 06/18/22 01:18 Lymph % (Auto) 10.1 % 06/18/22 01:18 Smyth % (Auto) 30.4 % 06/18/22 01:18 Eos % (Auto) 1.6 % 06/18/22 01:18 Baso % (Auto) 0.6 % 06/18/22 01:18 Neut # (Auto) 5.13 10^3/uL (1.8-7.7) 06/18/22 01:18 Lymph # (Auto) 0.9 10^3/uL (0.8-4.8) 06/18/22 01:18 Smyth # (Auto) 2.7 10^3/uL (0.2-0.9) H 06/18/22 01:18 Eos # (Auto) 0.1 10^3/uL (0.0-0.8) 06/18/22 01:18 Baso # (Auto) 0.1 10^3/uL (0.0-0.1) 06/18/22 01:18 Nucleated RBC % (auto) 0 % 06/18/22 01:18 Nucleated RBCs # 0.0 /100WBC 06/18/22 01:18 Specimen Type Arterial 06/17/22 18:29 Sample Site Brachial, left 06/17/22 18:29 ABG pH 7.44 (7.35-7.45) 06/17/22 18:29 ABG pCO2 40.5 mmHg (35-45) 06/17/22 18:29 ABG pO2 123.0 mmHg (80.0-100.0) H 06/17/22 18:29 ABG HCO3 27.5 mmol/L (22-26) H 06/17/22 18:29 ABG Base Excess 3.0 mmol/L (-2.0-2.0) H 06/17/22 18:29 Leandro Test Pos 06/17/22 18:29 Hematocrit 42.2 % (37-47) 06/17/22 18:29 O2 Delivery Device Nc 06/17/22 18:29 O2 Liters/Min 4.0 % 06/17/22 18:29 FiO2 36.0 % 06/17/22 18:29 Local Coordinator ID Cak 06/17/22 18:29 Sodium 136 mmol/L (136-145) 06/18/22 01:18 Potassium 3.9 mmol/L (3.5-5.1) 06/18/22 01:18 Chloride 98 mmol/L (98-107) 06/18/22 01:18 Carbon Dioxide 26 mmol/L (22-29) 06/18/22 01:18 Anion Gap 15.9 (5-19) 06/18/22 01:18 BUN 17 mg/dL (8-23) 06/18/22 01:18 Creatinine 0.8 mg/dL (0.5-0.9) 06/18/22 01:18 GFR Calculation Not Reportable 06/18/22 01:18 Glucose 87 mg/dL (65-115) 06/18/22 01:18 POC Glucose 130 mg/dL (70-110) H 06/18/22 16:52 Serum Osmolality 277 mOsm/kg (278-305) L 06/17/22 18:04 Calculated Osmolality 283 mOsm/kg (285-295) L 06/18/22 01:18 Lactic Acid 1.4 mmol/L (0.5-2.2) 06/17/22 18:04 Uric Acid 5.0 mg/dL (2.4-5.7) 06/17/22 18:04 Calcium 8.8 mg/dL (8.5-10.5) 06/18/22 01:18 Magnesium 2.3 mg/dL (1.7-2.3) 06/18/22 01:18 Total Bilirubin 0.2 mg/dL (0.15-1.2) 06/17/22 18:04 AST 38 U/L (0-32) H 06/17/22 18:04 ALT 28 U/L (0-33) 06/17/22 18:04 Alkaline Phosphatase 64 U/L (35-105) 06/17/22 18:04 Troponin T Baseline 16 ng/L (0-10) H 06/17/22 18:04 Troponin T 120 Minute 15.54 ng/L (0-10) H 06/17/22 20:30 Delta Troponin T -0.46 ABS# (0-10) L 06/17/22 20:30 Troponin T Hi Sens 6Hr 19.05 ng/L (0-10) H 06/18/22 01:18 Troponin T Hi Sens 6Hr Delta 3.05 ng/L (0-12) 06/18/22 01:18 C-Reactive Protein 73.5 mg/L (0.0-4.9) H 06/18/22 01:18 NT-Pro-B Natriuret Pep 330 pg/mL (0-450) 06/17/22 18:04 Total Protein 7.2 g/dL (6.6-8.7) 06/17/22 18:04 Albumin 4.1 g/dL (3.5-5.2) 06/17/22 18:04 Globulin 3.1 g/dL (1.3-4.6) 06/17/22 18:04 Procalcitonin 0.03 ng/mL (0-0.5) 06/17/22 18:04 Procalcitonin 0.05 ng/mL (0-0.5) 06/17/22 18:04 TSH 0.81 uIU/mL (0.27-4.20) 06/17/22 18:04 Urine Color Yellow (Yellow) 06/18/22 01:30 Urine Appearance Clear (CLEAR) 06/18/22 01:30 Urine pH 7 (5-7) 06/18/22 01:30 Ur Specific Elma 1.005 (1.005-1.030) 06/18/22 01:30 Urine Protein Trace (Negative) 06/18/22 01:30 Urine Glucose (UA) Norm (Normal) 06/18/22 01:30 Urine Ketones Negative (Negative) 06/18/22 01:30 Urine Blood Neg (Negative) 06/18/22 01:30 Urine Nitrate Negative (Negative) 06/18/22 01:30 Urine Bilirubin Neg (Negative) 06/18/22 01:30 Prot Sulfosalicylic Acd Negative (Negative) 06/17/22 18:20 Urine Urobilinogen Norm mg/dL (Negative) 06/18/22 01:30 Ur Leukocyte Esterase Negative (Negative) 06/18/22 01:30 Urine RBC 0-4 /hpf (0-2) H 06/18/22 01:30 Urine WBC None /hpf (0-5) 06/18/22 01:30 Ur Squamous Epith Cells 0-4 /hpf (0-5) H 06/18/22 01:30 Amorphous Sediment Not Reportable 06/18/22 01:30 Urine Bacteria None /hpf (NONE) 06/18/22 01:30 Urine Osmolality 533 mOsm/kg (50-1200) 06/18/22 01:30 Ur Random Sodium 63 mmol/L 06/18/22 01:30 Nasal Influ A H1 2008 PCR Detected (NOT DETECT) A 06/17/22 22:55 Adenovirus (PCR) Not detected (NOT DETECT) 06/17/22 22:55 C. pneumoniae DNA (PCR) Not detected (NOT DETECT) 06/17/22 22:55 Coronavirus 229E (PCR) Not detected (NOT DETECT) 06/17/22 22:55 Human Metapneumovir PCR Not detected (NOT DETECT) 06/17/22 22:55 Influenza A (H1) PCR Not detected (NOT DETECT) 06/17/22 22:55 Influenza A (H3) PCR Not detected (NOT DETECT) 06/17/22 22:55 Influenza Type A Ag negative (Negative) 06/17/22 18:20 Influenza Type A (PCR) Detected (NOT DETECT) A 06/17/22 22:55 Influenza Type B Ag negative (Negative) 06/17/22 18:20 Influenza Type B (PCR) Not detected (NOT DETECT) 12 22:55 M. pneumoniae (PCR) Not detected (NOT DETECT) 06/17/22 22:55 Parainfluenza 1 (PCR) Not detected (NOT DETECT) 12 22:55 Parainfluenza 2 (PCR) Not detected (NOT DETECT) 06/17/22 22:55 Parainfluenza 3 (PCR) Not detected (NOT DETECT) 06/17/22 22:55 Parainfluenza 4 (PCR) Not detected (NOT DETECT) 06/17/22 22:55 RSV Type A (PCR) Not detected (NOT DETECT) 06/17/22 22:55 RSV Type B (PCR) Not detected (NOT DETECT) 06/17/22 22:55 Entero/Rhino (PCR) Not detected (NOT DETECT) 06/17/22 22:55 SARS-CoV-2 (PCR) Not detected (NOT DETECT) 06/17/22 22:55 SARS-CoV-2 Ag (Rapid) negative (Negative) 06/17/22 18:20 Discharge Plan Discharge Patient Disposition: Placed in Observation Admit Provider: Nettie Small Clinical Impression: Recurrent falls, Fever, Increased weakness when walking, Hyponatremia Discharge Diet: Cardiac Discharge Activity: Increase activity as tolerated and As per PT/OT instructions Coding Level of Care Code ED Vulcanizer Rubber Plate for Chg Fwd Exam Comprehensive
--- NOTE | 2022-06-17 17:14 | XRR_ITS ---
PROCEDURE INFORMATION: Exam: XR Chest Exam date and time: 06/17/2022 5:25 PM Age: 81 years old Clinical indication: Cough and shortness of breath; Prior surgery; Surgery date: 6+ months; Surgery type: Pacemaker; Additional info: Cough, SOB TECHNIQUE: Imaging protocol: Radiologic exam of the chest. Views: 1 view. COMPARISON: CR XR chest 1V [id number] 12/06/2018 12:15 PM FINDINGS: Tubes, catheters and devices: There is a dual-lead AICD with leads positioned in the right atrium and right ventricle. Vascular coils are seen in the upper abdomen. Lungs: Lungs are clear. Pleural spaces: There is no pleural effusion or pneumothorax. Heart/Mediastinum: Cardiomediastinal contours are unremarkable. Bones/joints: There is moderate degenerative disease at both shoulders. No acute fracture. XR/XR chest 1V portable [id number] IMPRESSION: No acute findings.
[2022-06-17 18:18] LABS: Basophils # 0.1 10^3/uL (0.0-0.1); Basophils % 0.6 %; Eosinophils % 0.2 %; Hematocrit 42.5 % (37.0-47.0); Hemoglobin 14.1 g/dL (11.5-15.3); Lymphocytes # 0.5 10^3/uL (0.8-4.8); Lymphocytes % 4.5 %; Mean Corpuscular HGB Conc 33.2 g/dL (30.0-36.0); Mean Corpuscular Hemoglobin 31.8 pg (28.0-34.0); Mean Corpuscular Volume 95.9 fl (81-99); Mean Platelet Volume 9.8 fL (7.4-10.4); Monocytes # 2.3 10^3/uL (0.2-0.9); Monocytes % 21.2 %; Neutrophils # 7.87 10^3/uL (1.8-7.7); Neutrophils % 73.1 %; Nucleated Red Blood Cells % 0 %; Platelet Count 318 10^3/cmm (130-400); Red Blood Count 4.43 10^6/uL (4.1-5.3); Red Cell Distribution Width 13.3 % (12.1-15.1); White Blood Count 10.8 10^3/uL (4.0-10.0)
[2022-06-17 18:33] LABS: Add Urine Microscopic? NO; Charge for UA Resulting for Rev
[2022-06-17 18:38] LABS: Lactic Sepsis W/Reflex 1.4 mmol/L (0.5-2.2)
[2022-06-17 18:39] LABS: Bilirubin Urine Neg (Negative); Blood Urine Neg (Negative); Glucose Urine UA Norm (Normal); Ketones Urine Negative (Negative); Leukocyte Esterase Urine Negative (Negative); Nitrate Urine Negative (Negative); Protein Urine Neg (Negative); Sulfosalicylic Acid Urine Negative (Negative); Urine Appearance Clear (CLEAR); Urine Color Yellow (Yellow); Urobilinogen Urine Norm (Negative); pH Urine 8 (5-7)
[2022-06-17 18:41] LABS: Troponin(5th) Baseline 16 ng/L (0-10)
[2022-06-17 18:41] LABS: ABG PCO2 40.5 mmHg (35-45); ABG PH Result 7.44 (7.35-7.45); Arterial Blood Gas Hematocrit 42.2 % (37-47); Blood Gas Allen Test Pos; Blood Gas Operator Identificat CAK; Blood Gas Sample Site Brachial, left; Blood Gas Sample Type Arterial; HCO3 ABG 27.5 mmol/L (22-26); Oxygen Device NC
[2022-06-17 18:51] LABS: Influenza A by IFA negative (Negative); Influenza B by IFA negative (Negative); SARS Covid-2 Antigen negative (Negative)
[2022-06-17 18:51] LABS: NT Pro B Type Natriuretic Pept 330 pg/mL (0-450)
[2022-06-17 19:02] LABS: Albumin Level 4.1 g/dL (3.5-5.2); Alkaline Phosphatase 64 U/L (35-105); Blood Urea Nitrogen 18 mg/dL (8-23); C Reactive Protein 46.7 mg/L (0.0-4.9); Calcium 9.1 mg/dL (8.5-10.5); Carbon Dioxide 24 mmol/L (22-29); Chloride 90 mmol/L (98-107); Globulin 3.1 g/dL (1.3-4.6); Glucose 101 mg/dL (65-115); Osmolality Calculated 266 mOsm/kg (285-295); Sodium 127 mmol/L (136-145); Total Bilirubin 0.2 mg/dL (0.15-1.2); Total Protein 7.2 g/dL (6.6-8.7)
[2022-06-17 19:05] LABS: Alanine Aminotransferase 28 U/L (0-33); Anion Gap 17.7 (5-19); Aspartate Amino Transferase 38 U/L (0-32); Potassium 4.7 mmol/L (3.5-5.1)
[2022-06-17] MEDS: acetaminophen 500 mg Tablet 1000 MG PO ×2 (19:15→21:27)
--- NOTE | 2022-06-17 19:18 | CTR_ITS ---
PROCEDURE INFORMATION: Exam: CTA Chest With Contrast Exam date and time: 06/17/2022 7:58 PM Age: 81 years old Clinical indication: Nausea and vomiting; Cough and shortness of breath; Additional info: New oxygen req, cough, generalized weakness and falls TECHNIQUE: Imaging protocol: Computed tomographic angiography of the chest with contrast. 3D rendering (Not supervised by radiologist): MIP and/or 3D reconstructed images were created by the technologist. Radiation optimization: All CT scans at this facility use at least one of these dose optimization techniques: automated exposure control; mA and/or kV adjustment per patient size (includes targeted exams where dose is matched to clinical indication); or iterative reconstruction. Contrast material: OMNI 350; Contrast volume: 100 ml; Contrast route: INTRAVENOUS (IV); COMPARISON: CR (CHEST, ) 06/17/2022 5:25 PM RADIATION DOSE METRICS: Total DLP (mGy-cm): 1569.51 FINDINGS: Tubes, catheters and devices: Permanent pacemaker/AICD noted. Pulmonary arteries: Pulmonary arteries are normal in caliber. No filling defects are demonstrated. No evidence of pulmonary embolism. Aorta: The thoracic aorta is atherosclerotic. Lungs: Mild atelectasis in the lower lobes. No consolidative pulmonary infiltrate noted. Pleural spaces: No pleural effusion or pneumothorax noted. Heart: No cardiomegaly demonstrated. Coronary arteries: The coronary arteries demonstrate atherosclerotic calcifications. Lymph nodes: Unremarkable. No enlarged lymph nodes. Bones/joints: Degenerative spine changes are noted. Soft tissues: Unremarkable. PROCEDURE INFORMATION: Exam: CT Abdomen And Pelvis With Contrast Exam date and time: 06/17/2022 7:58 PM Age: 81 years old Clinical indication: Nausea and vomiting; Cough and shortness of breath; Additional info: New oxygen req, cough, generalized weakness and falls TECHNIQUE: Imaging protocol: Computed tomography of the abdomen and pelvis with contrast. Radiation optimization: All CT scans at this facility use at least one of these dose optimization techniques: automated exposure control; mA and/or kV adjustment per patient size (includes targeted exams where dose is matched to clinical indication); or iterative reconstruction. Contrast material: OMNI 350; Contrast volume: 100 ml; Contrast route: INTRAVENOUS (IV); COMPARISON: CT abdomen pelvis w con* [id number] 10/29/2020 7:16 AM RADIATION DOSE METRICS: Total DLP (mGy-cm): 1569.51 FINDINGS: Liver: The liver is unremarkable in appearance. Gallbladder and bile ducts: No calcified gallstones in the gallbladder. No gallbladder wall thickening. No pericholecystic fluid. No biliary dilatation. Pancreas: The pancreas is normal in appearance. No pancreatic duct dilatation. Spleen: Status post splenectomy. Adrenal glands: The adrenal glands appear within normal limits. Kidneys and ureters: The kidneys are normal in morphology. No hydronephrosis. No solid mass. Stomach and bowel: No acute gastric abnormality demonstrated. The small bowel is unremarkable as demonstrated. Diverticulosis of the colon. No evidence of acute diverticulitis. Appendix: No evidence of appendicitis. Intraperitoneal space: No pneumoperitoneum. No significant fluid collection. Vasculature: The aorta is atherosclerotic. No aortic aneurysm. Stents are noted in the celiac and superior mesenteric arteries. Lymph nodes: No pathologically enlarged lymph nodes. Urinary bladder: The urinary bladder is unremarkable in appearance. Reproductive: The uterus is not visualized, consistent with hysterectomy. Bones/joints: Scoliosis and degeneration of the spine. No acute osseous abnormality. Soft tissues: Diastasis of the rectus muscles are present, resulting in shallow ventral hernia. No bowel incarceration associated. CT/CT angio chest w abd pel w con IMPRESSION: 1. No evidence of pulmonary embolism. 2. Atherosclerosis of the thoracic aorta noted. No aortic aneurysm or aortic dissection noted. 3. Mild atelectasis in the lower lobes. No consolidative pulmonary infiltrate noted. IMPRESSION: 1. Status post splenectomy. 2. Diverticulosis of the colon. No evidence of acute diverticulitis. 3. Diastasis of the rectus muscles are present, resulting in shallow ventral hernia. No bowel incarceration associated. This is new when compared to 10/29/2020. 4. No acute abnormality demonstrated in the abdomen and pelvis.
--- NOTE | 2022-06-17 19:18 | CTR_ITS ---
PROCEDURE INFORMATION: Exam: CT Head Without Contrast Exam date and time: 06/17/2022 7:27 PM Age: 81 years old Clinical indication: Injury or trauma; Fall; Blunt trauma (contusions or hematomas); Additional info: Recurrent falls TECHNIQUE: Imaging protocol: Computed tomography of the head without contrast. Radiation optimization: All CT scans at this facility use at least one of these dose optimization techniques: automated exposure control; mA and/or kV adjustment per patient size (includes targeted exams where dose is matched to clinical indication); or iterative reconstruction. COMPARISON: CT head wo con* [id number] 12/06/2018 12:11 PM RADIATION DOSE METRICS: Total DLP (mGy-cm): 1138.25 FINDINGS: Brain: Age related parenchymal volume loss noted. There is decreased attenuation of the periventricular white matter, consistent with chronic microangiopathic white matter disease. No parenchymal edema identified. No intracranial hemorrhage noted. Cerebral ventricles: No ventriculomegaly. Paranasal sinuses: Visualized sinuses are unremarkable. No air fluid levels. Mastoid air cells: Unremarkable as visualized. No mastoid effusion. Bones/joints: Unremarkable. No acute fracture. Soft tissues: Unremarkable. Vasculature: Atherosclerotic calcification noted of the distal intracranial internal carotid arteries, and the distal vertebral arteries. CT/CT head wo con* [id number] IMPRESSION: 1. No acute intracranial abnormality demonstrated. 2. There is no interval change from the prior examination.
[2022-06-17] MEDS: iohexol 350 mg/mL 500 mL Btl (per mL) IV (19:58)
[2022-06-17] MEDS: sodium chloride 0.9% 500 ML 999 ML IV (20:19)
[2022-06-17 20:41] LABS: Procalcitonin 0.03 ng/mL (0-0.5)
[2022-06-17 21:22] LABS: Troponin 5 2HR 15.54 ng/L (0-10)
[2022-06-17 21:23] LABS: Troponin 5 2HR Delta -0.46 ABS# (0-10)
--- NOTE | 2022-06-17 21:40 | PC.NURSE ---
Pt. got up with walker and walked 2 steps and yelled , I can't do it my leg is going to give out, and it hurts! I asked where is it hurting and she said it was not hurting. Pt. then states that it hurts all over when she fell. I asked did you fall on your leg, she states no, it just goes out. Pt. seems very upset. Pt. laid down back in bed and refused to even push her self up in bed and said she will just use a bed lr at home. Pt. states that she just wants to go to a [facility].
--- NOTE | 2022-06-17 22:21 | PM.HP ---
Providers/Chief Complaint Admitting Physician: Nettie Small MD Primary Care Provider: Chicho Young DO Chief Complaint: WEAKNESS, FEVER History of Present Illness Mindy Verma is a 81 year old female has multiple comorbid conditions, presented to hospital for chief complaint of recurrent falls and febrile episodes. Patient is stating that her daughter is sick for last 6 days with bronchitis. Patient is stating that she has been feeling weak and lethargic, has had 3 falls which she attributed to her left knee buckling. She did not denies any chest pain, nausea, vomiting, diarrhea or syncopal events. She is endorsing symptoms of UTI, febrile events. She has not noticed blurry vision, confusion or headache. At baseline she uses a walker for ambulation. She does have history of osteoarthritis status post total knee arthroplasty of both knees. In the ER she has been diagnosed with hyponatremia, febrile events related to bronchitis, CT chest abdomen pelvis unremarkable viral panel antigen negative, she is on multiple antidepressants I have requested COVID PCR Review of Systems Const: Reports: fever(s), chills and fatigue Eyes: Denies: change in vision ENMT: Denies: throat pain Card: Denies: chest pain Resp: Reports: dyspnea GI: Denies: abdominal pain : Reports: urinary frequency Musc: Denies: neck pain Skin/Breast: Denies: changing lesions Neuro: Denies: headache(s) Psych: Reports: anxiety Endo: Denies: polyuria Josh/Lymph: Denies: easy bruising All/Imm: Denies: urticaria Medications/Allergies Home Medications Medication Instructions Recorded Confirmed Last Taken Type carbamazepine 200 mg 200 mg PO BID@0830,2100 10/29/20 02/19/21 11/01/20 History capsule,extended release nnxoop40ld cholecalciferol (vitamin D3) 125 125 mcg PO DAILY@0610/29/20 02/19/21 11/01/20 History mcg (5,000 unit) tablet (Vitamin D3) clopidogrel 75 mg tablet 75 mg PO DAILY@59910/29/20 02/19/21 11/01/20 History docusate sodium 100 mg capsule 200 mg PO PRN 10/29/20 02/19/21 Unknown History (Colace) hydroxyzine pamoate 25 mg capsule 25 mg PO BEDTIME@209910/29/20 02/19/21 10/31/20 History multivitamin 1 tab PO DAILY@0600 10/29/20 02/19/21 11/01/20 History ondansetron HCl 4 mg tablet 4 mg PO Q6H PRN Nausea And Vomiting 10/29/20 02/19/21 10/31/20 History prednisone 10 mg tablet 10 mg PO DAILY@0600 10/29/20 02/19/21 11/01/20 History rosuvastatin 5 mg tablet 5 mg PO BEDTIME@2100 10/29/20 02/19/21 10/31/20 History biotin 1 tab PO DAILY@0600 11/01/20 02/19/21 11/01/20 History losartan 50 mg tablet 50 mg PO DAILY 01/05/21 02/19/21 Unknown History pantoprazole 20 mg tablet,delayed 40 mg PO BID 01/05/21 02/19/21 Unknown History release sertraline 100 mg tablet 100 mg PO DAILY@0600 #90 tabs 03/28/22 Unknown Rx gabapentin 100 mg capsule See Rx Instructions .Route 05/19/22 Unknown Rx .COMPLEX #90 caps trazodone 100 mg tablet 200 mg PO BEDTIME@2100 #180 tabs 06/05/22 Unknown Rx Allergies Allergy/AdvReac Type Severity Reaction Status Date / Time codeine Allergy Mild Itch Verified 02/19/21 09:27 diphenhydramine AdvReac Mild Hallucinati Verified 02/19/21 09:27 [From Benadryl] ons PFSH Acute PFSH: Medical History Abnormal CT of the abdomen Colitis Depression Enteritis Hyperlipidemia Hyperlipidemia associated with type 2 diabetes mellitus Hypertension Ileus Mesenteric artery stenosis Pacemaker Sick sinus syndrome Surgical History Status post colonoscopy Social History Smoking and tobacco status: never smoked Alcohol intake: never Vitals/I&O/Wt Last Vital Signs Temp 102.6 F H 06/17/22 16:55 Pulse 94 06/17/22 22:09 Resp 18 06/17/22 22:09 BP 153/61 06/17/22 22:09 Pulse Ox 98 06/17/22 19:15 O2 Del Method 06/17/22 19:15 O2 Flow Rate 3 06/17/22 17:00 Weight last 48 hrs Weight 104.326 kg Physical Exam Narrative: Morbidly obese female Currently in supine Doing well on room air Hemodynamically stable No active shortness of breath or chest pain S1, S2, paced rhythm Abdomen soft however distended, nontender Lower extremity no edema Nonfocal neuro exam Able to lift her legs against gravity on her own No signs of stroke Pleasant and cooperative Data 06/17/22 18:04 06/17/22 18:04 Micro: Microbiology 06/17/22 17:45 Blood Culture - Preliminary Blood SPECIMEN COLLECTED 06/17/22 18:04 Blood Culture - Preliminary Blood SPECIMEN COLLECTED A&P Assessment and plan (1) Recurrent falls: (2) Fever: (3) Increased weakness when walking: (4) Hyponatremia: (5) Pacemaker: (6) Sick sinus syndrome: Plan Recurrent falls Patient is attributing her symptoms of falls to her knees buckling and osteoarthritis No signs of stroke Will do pacemaker interrogation Currently hemodynamically stable Hyponatremia Timeline of hyponatremia is unknown Will treat as chronic hyponatremia Patient is on multiple antidepressants Clinically does not look fluid overloaded however she is morbidly obese I will keep her on normal saline for now Hold antidepressants Check uric acid urine and serum osmolality along TSH Generalized weakness and fatigue could be related to hyponatremia Will do PT evaluation Patient is agreeable to go to fdc if needed She uses a walker at home Febrile events like related to bronchitis Her daughter is suffering with bronchitis Viral antigen negative I have requested COVID PCR CT chest abdomen pelvis unremarkable patient is stating she has chronic history of UTI she is still endorsing symptoms and signs of UTI For now we will start her on ceftriaxone, I will request urinalysis, urine sodium Attestations Medical Necessity Statement*: Anticipating discharge within 48 hours, might need fdc depending on PT evaluation Time Spent in Patient Care: 40 Coding Level of Care Code Acute Contact Acid Plant Operator Helper for g Fwd Diagnoses Recurrent falls R29.6 Fever R50.9 Increased weakness when walking R53.1 Hyponatremia E87.1 Pacemaker Z95.0 Sick sinus syndrome I49.5
[2022-06-17 23:39] LABS: Procalcitonin 0.05 ng/mL (0-0.5); Thyroid Stimulating Hormone 0.81 uIU/mL (0.27-4.20)
[2022-06-17] MEDS: enoxaparin 40 mg/0.4 mL Syringe SUBCUT (23:41)
[2022-06-17] MEDS: sodium chloride 0.9% 1,000 ML 75 ML IV (23:41)
[2022-06-17] MEDS: gabapentin 100 mg Capsule PO (23:41)
[2022-06-17] MEDS: temazepam 15 mg Capsule PO (23:41)
[2022-06-18 00:54] LABS: Adenovirus Not Detected (NOT DETECT); Chlamydia Pneumoniae Not Detected (NOT DETECT); Coronavirus 229E,HKU1,NL63,OC4 Not Detected (NOT DETECT); Human Metapneumovirus Not Detected (NOT DETECT); Human Rhinovirus/Enterovirus Not Detected (NOT DETECT); Influenza A Detected (NOT DETECT); Influenza A H1 Not Detected (NOT DETECT); Influenza A H1-2009 Detected (NOT DETECT); Influenza A H3 Not Detected (NOT DETECT); Influenza B Not Detected (NOT DETECT); Mycoplasma Pneumoniae Not Detected (NOT DETECT); Parainfluenza Virus Type 1 Not Detected (NOT DETECT); Parainfluenza Virus Type 2 Not Detected (NOT DETECT); Parainfluenza Virus Type 3 Not Detected (NOT DETECT); Parainfluenza Virus Type 4 Not Detected (NOT DETECT); Respiratory Syncytial Virus A Not Detected (NOT DETECT); Respiratory Syncytial Virus B Not Detected (NOT DETECT); SARS-COV-2 Not Detected (NOT DETECT)
[2022-06-18] MEDS: acetaminophen 500 mg Tablet PO ×3 (01:19→20:31)
[2022-06-18 01:51] LABS: Basophils # 0.1 10^3/uL (0.0-0.1); Basophils % 0.6 %; Eosinophils # 0.1 10^3/uL (0.0-0.8); Eosinophils % 1.6 %; Hematocrit 41.2 % (37.0-47.0); Hemoglobin 13.4 g/dL (11.5-15.3); Lymphocytes # 0.9 10^3/uL (0.8-4.8); Lymphocytes % 10.1 %; Mean Corpuscular HGB Conc 32.5 g/dL (30.0-36.0); Mean Corpuscular Volume 95.4 fl (81-99); Mean Platelet Volume 9.4 fL (7.4-10.4); Monocytes # 2.7 10^3/uL (0.2-0.9); Monocytes % 30.4 %; Neutrophils # 5.13 10^3/uL (1.8-7.7); Nucleated Red Blood Cells % 0 %; Platelet Count 321 10^3/cmm (130-400); Red Blood Count 4.32 10^6/uL (4.1-5.3); Red Cell Distribution Width 13.5 % (12.1-15.1)
[2022-06-18 02:39] LABS: Protein Urine Trace (Negative); Specific Gravity, Urine 1.005 (1.005-1.030); Urine Appearance Clear (CLEAR); Urine Color Yellow (Yellow); pH Urine 7 (5-7)
[2022-06-18 02:40] LABS: Add Urine Microscopic? YES; Bilirubin Urine Neg (Negative); Blood Urine Neg (Negative); Glucose Urine UA Norm (Normal); Ketones Urine Negative (Negative); Leukocyte Esterase Urine Negative (Negative); Nitrate Urine Negative (Negative); Urobilinogen Urine Norm (Negative)
[2022-06-18 02:43] LABS: Add Urine Culture? No; RBC Urine 0-4 /hpf (0-2); Squamous Epithelial Cell Urine 0-4 /hpf (0-5)
[2022-06-18 02:55] LABS: Urine Random Sodium 63 mmol/L
[2022-06-18 03:00] LABS: Troponin 5 6HR 19.05 ng/L (0-10)
[2022-06-18 03:05] LABS: Troponin 5 6HR Delta 3.05 ng/L (0-12)
[2022-06-18 03:08] LABS: Anion Gap 15.9 (5-19); Blood Urea Nitrogen 17 mg/dL (8-23); C Reactive Protein 73.5 mg/L (0.0-4.9); Calcium 8.8 mg/dL (8.5-10.5); Carbon Dioxide 26 mmol/L (22-29); Chloride 98 mmol/L (98-107); Glucose 87 mg/dL (65-115); Magnesium 2.3 mg/dL (1.7-2.3); Osmolality Calculated 283 mOsm/kg (285-295); Potassium 3.9 mmol/L (3.5-5.1); Sodium 136 mmol/L (136-145)
[2022-06-18 03:45] VITALS: BP 174/83; PULSE 86; RESP 17; TEMP 36.8; O2SAT 91
[2022-06-18] MEDS: benzonatate 100 mg Capsule 200 MG PO ×3 (05:10→23:29)
[2022-06-18] MEDS: clopidogrel 75 mg Tablet PO (05:14)
[2022-06-18 07:34] VITALS: BP 150/75; PULSE 86; RESP 20; TEMP 37.7; O2SAT 90
[2022-06-18 08:09] VITALS: BP 150/75
[2022-06-18] MEDS: losartan 50 mg Tablet PO (08:09)
[2022-06-18] MEDS: sennosides-docusate Tablet 1 TAB PO (08:10)
[2022-06-18] MEDS: oseltamivir phosphate 75 mg Capsule PO ×2 (08:10→17:50)
[2022-06-18] MEDS: gabapentin 100 mg Capsule PO ×3 (08:10→20:31)
[2022-06-18] MEDS: pantoprazole DR 40 mg Tablet PO ×2 (08:10→17:50)
--- NOTE | 2022-06-18 10:15 | PC.CHAP ---
Pastoral Care Encounter/Spiritual Assessment Type of Contact [] Declined resource manager forester visit [] Patient/Family/Request visit [] Outpatient visit [] Follow-up visit [] Physician referral [] Code/Alert [x] Routine visit [] Staff referral [] Actively dying [] Patient sleeping [] Family support [] [] Out of room [] Palliative care [] [] Receiving care in room [] Pre-surgical visit [] Trauma [] Long length of stay [] ICU visit [x] Other: isolation Relational/Emotional Strength [] Patient feels connected with others/family/visitors/staff [] Distress [] Loneliness/isolation [] Abandonment Spirituality of Patient [] Person of Marie [] Attends Zoroastrianism of their Marie [] Believes in Prayer [] Reads Bible or Taoist materials [] There are Spiritual issues to be addressed Char Filter Operator Interventions [] Prayer [] Active listening [] Non-anxious presence [] Spiritual/emotional support [] Crisis/trauma care [] Spiritual counseling [] Bereavement support [] Provided bereavement packet [] Provided Bible/devotional materials [] Provided toy/stuffed animal, coloring book to patient or family member [] Provided Communion [] Anointing/Minden [] Salvation [] Completed spiritual assessment [] Other: Impact on Illness or Injury [] Angry [] Fearful [] Anxious [] Often cries [] Exhaustion [] Unable to work [] Unable to attend latter-day [] Unable to walk/stand [] Unable to read [] Unable to drive [] Unable to eat/drink [] Unable to sleep [] Unable to be with family [] Patient intubated [] Other: Summary Time spent with patient
[2022-06-18 11:10] LABS: Glucose Point of Care 101 mg/dL (70-110)
[2022-06-18 11:52] VITALS: BP 149/80; PULSE 90; RESP 18; TEMP 38.9; O2SAT 93
[2022-06-18] MEDS: cefTRIAXone 1,000 MG in sodium chloride 0.9% (plus) 50 ML 100 MG IV (12:32)
--- NOTE | 2022-06-18 15:19 | P.PN_ITS ---
Subjective Subjective: T-max of 102 Fahrenheit this morning. Patient tested positive for influenza A. Tamiflu has been initiated as of this morning. Patient complaining of generalized weakness and chills with fever. She has lost IV access today and multiple attempts to replace her IV have been unsuccessful. Medications: Reviewed: Yes Vitals/I&O/Wt Last Vital Signs Temp 102.0 F H 06/18/22 11:52 Pulse 90 06/18/22 11:52 Resp 18 06/18/22 11:52 BP 149/80 06/18/22 11:52 Pulse Ox 93 06/18/22 11:52 O2 Del Method 06/18/22 11:52 O2 Flow Rate 3 06/17/22 17:00 06/18/22 06/18/22 06/18/22 06:59 14:59 22:59 Intake Total 60 / 560 840 / 840 Balance 60 / 560 840 / 840 Weight last 48 hrs Weight 104.326 kg Physical Exam Narrative: General: No acute distress, AO x3 HEENT: PERRLA, pupils bilaterally equal and reactive, pallors not present Chest: Normal vesicular breath sounds, no added sounds, equal good air entry bilaterally CVS: S1-S2 regular, no murmurs, no tachycardia, no gallops, no rubs Abdomen: Soft, nontender, no organomegaly, bowel sounds present Neuro: No focal deficits, no facial deformity, AO x3, power 5/5 in all limbs Data 06/18/22 01:18 06/18/22 01:18 Micro: Microbiology 06/17/22 17:45 Blood Culture - Preliminary Blood SPECIMEN COLLECTED 06/17/22 18:04 Blood Culture - Preliminary Blood SPECIMEN COLLECTED A&P Assessment and plan (1) Recurrent falls: (2) Fever: (3) Increased weakness when walking: (4) Hyponatremia: (5) Pacemaker: (6) Sick sinus syndrome: Plan Patient presenting to the hospital with complaints of generalized weakness and recurrent falls, more recently also experiencing fever with chills at home. Tested positive for influenza A on further evaluation. Has been started on Tamiflu 75 mg p.o. twice daily. Most likely explanation for her fever and generalized weakness is acute viral illness. Home monitor with supportive care for now. Encourage p.o. intake. Hyponatremia has corrected from 1 27-1 36, no further IV fluids for now. CT of her chest performed yesterday negative for PE or any consolidation. No gross pneumonitis noted. She is saturating well on room air currently. UA unremarkable, no signs of UTI. Hold off on antibiotics given work-up suggestive of acute viral illness at this time. PT evaluation appreciated. Will monitor for stability and safety and home given history of recurrent falls. Attestations Medical Necessity Statement*: Acute viral illness, generalized weakness, recurrent falls, awaiting therapy assessment Coding Level of Care Code Acute Directional Survey Drafter for [facility] Fwd Diagnoses Recurrent falls R29.6 Fever R50.9 Increased weakness when walking R53.1 Hyponatremia E87.1 Pacemaker Z95.0 Sick sinus syndrome I49.5
[2022-06-18 15:37] VITALS: BP 114/54; PULSE 85; RESP 18; TEMP 38.3; O2SAT 95
[2022-06-18 17:03] LABS: Glucose Point of Care 130 mg/dL (70-110)
[2022-06-18 19:21] VITALS: BP 141/53; PULSE 88; RESP 15; TEMP 38.9; O2SAT 94
[2022-06-18] MEDS: temazepam 15 mg Capsule PO (20:31)
[2022-06-18] MEDS: enoxaparin 40 mg/0.4 mL Syringe SUBCUT (23:29)
[2022-06-19] VITALS (15 sets, daily range): BP systolic 115–167; BP diastolic 64–79; PULSE 68–98; RESP 15–22; TEMP 36.9–39.5; O2SAT 90–98
[2022-06-19] MEDS: acetaminophen 500 mg Tablet PO ×4 (00:40→20:13)
[2022-06-19] MEDS: ipratropium-albuterol 3 mL Neb INHALATION ×4 (03:40→20:09)
[2022-06-19] MEDS: clopidogrel 75 mg Tablet PO (05:00)
[2022-06-19] MEDS: pantoprazole DR 40 mg Tablet PO ×2 (09:08→17:11)
[2022-06-19] MEDS: oseltamivir phosphate 75 mg Capsule PO ×2 (09:08→17:11)
[2022-06-19] MEDS: losartan 50 mg Tablet PO (09:09)
[2022-06-19] MEDS: gabapentin 100 mg Capsule PO ×3 (09:09→20:13)
[2022-06-19] MEDS: sennosides-docusate Tablet 1 TAB PO (09:09)
--- NOTE | 2022-06-19 11:07 | PC.RESP ---
Patient has refused to walk at this time. Son is at bedside and does not want her to walk at this time due to her recent history of falling. Patient feels weak, is having shortness of breath and continues to feel poorly.
--- NOTE | 2022-06-19 14:50 | XRR_ITS ---
PROCEDURE INFORMATION: Exam: XR Chest Exam date and time: 06/19/2022 3:11 PM Age: 81 years old Clinical indication: Condition or disease; Lung condition and disease; Pneumonia TECHNIQUE: Imaging protocol: Radiologic exam of the chest. Views: 1 view. COMPARISON: CR (CHEST, ) 06/17/2022 5:25 PM FINDINGS: Tubes, catheters and devices: Left chest wall dual chamber cardiac device remains in place. Lungs: The lung bases are suboptimally assessed due to technique however the upper lungs are clear of focal consolidation. Pleural spaces: Unremarkable. No pleural effusion. No pneumothorax. Heart/Mediastinum: Cardiac silhouette appears normal in size. No obvious vascular congestion. Bones/joints: No acute osseous findings. Osteopenia with severe left and moderate right glenohumeral joint osteoarthritis. Other findings: Single view was submitted. XR/XR chest 1V portable [id number] IMPRESSION: No obvious acute consolidation. Suboptimal lung base assessment. Followup including lateral view may be obtained if clinically indicated.
--- NOTE | 2022-06-19 14:52 | USCV_ITS ---
VermaMindy Age: 81 Gender: F : 1940 Exam Date: 06/19/2022 15:29 Ordering Phys: Enriqueta Hairston MD Technologist: MAYANK [place] [facility] [place]: HEART FAILURE BP: 121 / 66 HR: 81 Rhythm: Sinus Technical Quality: Technically difficult study MEASUREMENTS (Male / Female) Normal Values 2D ECHO LVOT Diameter 2.0 cm LV Ejection Fraction MOD 2C 76.4 % LV Ejection Fraction 2C AL 78.6 % LA Diameter 2.6 cm LA Width 3.5 cm LA Height 4.4 cm RA Width 3.0 cm RA Height 4.2 cm Aorta at Sinotubular Diameter 2.1 cm IVC Diameter 1.7 cm M-MODE Aortic Annulus Diameter 2.6 cm LA Ao Ratio MM 0.9 DOPPLER AV Peak Velocity 168.0 cm/s LVOT Peak Velocity 115.0 cm/s AV Area Cont Eq vti 2.0 cm squared AV Area Cont Eq pk 2.1 cm squared MV Peak Velocity 124.0 cm/s MV Area PHT 2.4 cm squared Mitral E to A Ratio 0.8 MV E' Velocity 51.5 cm/s Mitral E to MV E' Ratio 12.6 Mitral E to LV E' Lateral Ratio 10.9 Mitral E to LV E' Septal Ratio 15.2 TR Peak Velocity 232.6 cm/s TR Peak Gradient 21.6 mmHg TR Mean Velocity 192.7 cm/s TR Mean Gradient 15.4 mmHg TR Velocity Time Integral 81.1 cm TV Peak E Velocity 49.0 cm/s Right Atrial Pressure 3.0 mmHg Pulmonary Artery Systolic Pressu 24.6 mmHg PV Peak Velocity 84.0 cm/s FINDINGS Left Ventricle This is an extremely poor quality study and is nearly uninterpretable. Minimal information can be gleaned from the apical views. Echo contrast could not be utilized due to lack of intravenous access. In the apical view, the ventricle appears to be normal in size and function. Ejection fraction is likely within normal limits. There is at least grade 1 diastolic dysfunction. Right Ventricle The right ventricle is normal in size and function as seen. Right Atrium Right atrium not well visualized. Left Atrium Left atrium not well visualized. Mitral Valve Mitral valve not well visualized. There is no obvious regurgitation or stenosis Aortic Valve Aortic valve not well visualized. There is no obvious significant regurgitation or stenosis Tricuspid Valve Tricuspid valve not well visualized. Pulmonic Valve Pulmonic valve not well visualized. Pericardium Normal pericardium without effusion. Aorta Aorta not well visualized. IVC The inferior vena cava appears normal. CONCLUSIONS This is an extremely poor quality study and is nearly uninterpretable. Minimal information can be gleaned from the apical views. Echo contrast could not be utilized due to lack of intravenous access. In the apical view, the ventricle appears to be normal in size and function. Ejection fraction is likely within normal limits. There is at least grade 1 diastolic dysfunction. Previous study was performed in November 2018. This was equally poor in quality. Echo contrast was used at that time. Since then, there has been no change. Dr. Michel Ang MD (Electronically Signed) Final Date: 19 June 2022 16:24 S
--- NOTE | 2022-06-19 14:53 | PM.PN ---
Subjective Subjective: Patient continues to have fever up to 103 Fahrenheit overnight. States that her breathing appears to be worse today. Saturating 92% on room air. She is appearing to be more lethargic today. She has been sleeping most of the day, took at least 10 minutes of calling and tapping to wake her up. Once awake she was alert awake and oriented x3, however has been more lethargic, unable to get out of bed today. She refused a home O2 eval earlier this morning as she thought she was too unsteady on her feet. Medications: Reviewed: Yes Vitals/I&O/Wt Last Vital Signs Temp 98.5 F 06/19/22 12:00 Pulse 77 06/19/22 14:11 Resp 20 H 06/19/22 14:11 BP 121/66 06/19/22 12:00 Pulse Ox 96 06/19/22 14:11 O2 Del Method 06/19/22 14:00 O2 Flow Rate 3 06/17/22 17:00 06/18/22 06/19/22 06/19/22 22:59 06:59 14:59 Intake Total 120 / 960 0 / 0 Balance 120 / 960 0 / 0 Weight last 48 hrs Weight 104.326 kg Physical Exam Narrative: General: No acute distress, AO x3 HEENT: PERRLA, pupils bilaterally equal and reactive, pallors not present Chest: Crackles to auscultation bilaterally all areas. CVS: S1-S2 regular, no murmurs, no tachycardia, no gallops, no rubs Abdomen: Soft, nontender, no organomegaly, bowel sounds present Neuro: No focal deficits,generalized weakness, no facial deformity, AO x3, power 5/5 in all limbs Extremities: Minimal pitting edema bilaterally. Data 06/18/22 01:18 06/18/22 01:18 Micro: Microbiology 06/18/22 01:30 Urine Culture - Preliminary Urine Catheterized 06/17/22 17:45 Blood Culture - Preliminary Blood NEGATIVE TO DATE 06/17/22 18:04 Blood Culture - Preliminary Blood NEGATIVE TO DATE A&P Assessment and plan (1) Recurrent falls: (2) Fever: (3) Increased weakness when walking: (4) Hyponatremia: (5) Pacemaker: (6) Sick sinus syndrome: Plan Patient presenting to the hospital with complaints of generalized weakness and recurrent falls, more recently also experiencing fever with chills at home. Tested positive for influenza A on further evaluation. Has been started on Tamiflu 75 mg p.o. twice daily. Most likely explanation for her fever and generalized weakness is acute viral illness. The patient appearing to be more lethargic, refused to get out of bed. Since arrival here has not reportedly ambulated, has been moving only from bed to chair yesterday, today she refused to get out of bed because of weakness. It has been hard to awaken her this morning. Once awake she is alert awake and oriented x3. She has in the interim also developed crackles on bilateral lung exam. She has pitting edema bilaterally as well. We have been unable to establish an IV access in spite of multiple attempts therefore all of her medications are currently p.o. Trial of 40 mg Lasix p.o. Patient does not have any past medical history of known heart failure and does not take any diuretics at home. We will go ahead and check an echocardiogram to evaluate her systolic and diastolic function. Start levofloxacin 750 mg p.o. daily. Repeat chest x-ray today. Hyponatremia has corrected from 1 27-1 36, no further IV fluids for now. When awake patient is alert awake and oriented, able to have a conversation, doubt myelinolysis because of rapid sodium correction. CT of her chest performed on negative for PE or any consolidation. No gross pneumonitis noted. She is saturating well on room air currently. UA unremarkable, no signs of UTI. PT evaluation appreciated. Patient is extremely frail, unable to get out of bed today. Yesterday she moved from bed to chair. Her son is at bedside today, extremely concerned about the risk of recurrent falls at home. In her current state patient appears to be deconditioned and is an increased fall risk. We will continue to provide her intense physical therapy while she is here in the hospital. Change to inpatient given clinical worsening, starting antibiotics. Ongoing attempts to establish IV access. Attestations Medical Necessity Statement*: Treatment of influenza A, concern for developing pneumonia, appropriate disposition planning Coding Level of Care Code Acute Excelsior Cutter for [facility] Diagnoses Recurrent falls R29.6 Fever R50.9 Increased weakness when walking R53.1 Hyponatremia E87.1 Pacemaker Z95.0 Sick sinus syndrome I49.5
[2022-06-19] MEDS: FUROsemide 40 mg Tablet PO (15:12)
[2022-06-19 16:19] LABS: Osmolality Urine 533 mOsm/kg (50-1200)
[2022-06-19 16:19] LABS: Osmolality Serum 277 mOsm/kg (278-305)
[2022-06-19] MEDS: benzonatate 100 mg Capsule 200 MG PO ×2 (17:11→23:28)
[2022-06-19] MEDS: temazepam 15 mg Capsule PO (20:13)
[2022-06-19] MEDS: enoxaparin 40 mg/0.4 mL Syringe SUBCUT (23:22)
[2022-06-20] VITALS (10 sets, daily range): BP systolic 94–120; BP diastolic 56–69; PULSE 78–88; RESP 15–20; TEMP 36.6–37.4; O2SAT 92–97
[2022-06-20 04:22] LABS: Basophils % 0.3 %; Eosinophils % 0.1 %; Hematocrit 44.7 % (37.0-47.0); Hemoglobin 14.4 g/dL (11.5-15.3); Mean Corpuscular HGB Conc 32.2 g/dL (30.0-36.0); Mean Corpuscular Hemoglobin 30.7 pg (28.0-34.0); Mean Corpuscular Volume 95.3 fl (81-99); Mean Platelet Volume 9.7 fL (7.4-10.4); Monocytes # 1.5 10^3/uL (0.2-0.9); Monocytes % 20.4 %; Neutrophils # 3.78 10^3/uL (1.8-7.7); Neutrophils % 51.9 %; Nucleated Red Blood Cells % 0 %; Platelet Count 289 10^3/cmm (130-400); Red Blood Count 4.69 10^6/uL (4.1-5.3); Red Cell Distribution Width 13.2 % (12.1-15.1); White Blood Count 7.3 10^3/uL (4.0-10.0)
[2022-06-20 05:07] LABS: Alanine Aminotransferase 47 U/L (0-33); Albumin Level 3.7 g/dL (3.5-5.2); Alkaline Phosphatase 63 U/L (35-105); Anion Gap 18.8 (5-19); Aspartate Amino Transferase 76 U/L (0-32); Blood Urea Nitrogen 17 mg/dL (8-23); Calcium 8.9 mg/dL (8.5-10.5); Carbon Dioxide 21 mmol/L (22-29); Chloride 95 mmol/L (98-107); Globulin 3.2 g/dL (1.3-4.6); Glucose 84 mg/dL (65-115); Osmolality Calculated 273 mOsm/kg (285-295); Potassium 3.8 mmol/L (3.5-5.1); Sodium 131 mmol/L (136-145); Total Bilirubin 0.2 mg/dL (0.15-1.2); Total Protein 6.9 g/dL (6.6-8.7)
[2022-06-20] MEDS: clopidogrel 75 mg Tablet PO (06:17)
[2022-06-20] MEDS: acetaminophen 500 mg Tablet PO ×3 (06:42→20:33)
[2022-06-20] MEDS: gabapentin 100 mg Capsule PO ×3 (08:19→20:32)
[2022-06-20] MEDS: pantoprazole DR 40 mg Tablet PO ×2 (08:19→17:43)
[2022-06-20] MEDS: losartan 50 mg Tablet PO (08:19)
[2022-06-20] MEDS: levoFLOXacin 750 mg Tablet PO (08:20)
[2022-06-20] MEDS: oseltamivir phosphate 75 mg Capsule PO ×2 (08:20→17:43)
[2022-06-20] MEDS: ipratropium-albuterol 3 mL Neb INHALATION ×3 (08:30→20:40)
--- NOTE | 2022-06-20 15:10 | P.PN_ITS ---
Subjective Subjective: Patient starting to feel improved today. She is alert and awake today. Sitting on a bedside commode. Breathing is better. She ambulated in the room with a walker today. Has some nausea but no vomiting. Transaminitis noted Medications: Reviewed: Yes Vitals/I&O/Wt Last Vital Signs Temp 98.0 F 06/20/22 12:00 Pulse 78 06/20/22 14:30 Resp 16 06/20/22 14:20 BP 94/58 06/20/22 12:00 Pulse Ox 97 06/20/22 14:20 O2 Del Method 06/20/22 14:20 O2 Flow Rate 3 06/17/22 17:00 06/20/22 06/20/22 06/20/22 06:59 14:59 22:59 Intake Total 240 / 480 240 / 240 Balance 240 / 480 240 / 240 Physical Exam Narrative: General: No acute distress, AO x3 HEENT: PERRLA, pupils bilaterally equal and reactive, pallors not present Chest: scattered wheezing B/L CVS: S1-S2 regular, no murmurs, no tachycardia, no gallops, no rubs Abdomen: Soft, nontender, no organomegaly, bowel sounds present Neuro: No focal deficits,generalized weakness, no facial deformity, AO x3, power 5/5 in all limbs Extremities: Minimal pitting edema bilaterally. Data 06/20/22 03:22 06/20/22 03:22 Micro: Microbiology 06/18/22 01:30 Urine Culture - Final Urine Catheterized A&P Assessment and plan (1) Recurrent falls: (2) Fever: (3) Increased weakness when walking: (4) Hyponatremia: (5) Pacemaker: (6) Sick sinus syndrome: Plan Patient presenting to the hospital with complaints of generalized weakness and recurrent falls, more recently also experiencing fever with chills at home. Tested positive for influenza A on further evaluation. Has been started on Tamiflu 75 mg p.o. twice daily. Most likely explanation for her fever and generalized weakness is acute viral illness. Yesterday she was extremely lethargic, difficult to awaken, today she is symptomatically looking improved. She is alert awake sitting on a bedside commode at the time of exam. Currently doing well with p.o. Lasix. Echocardiogram that was performed with poor windows, not much information was able to be gleaned unfortunately. The ventricle grossly appears to be normal in size and function. Grade 1 diastolic function was noted. Overall no big change from 2019 was noted. Continue levofloxacin 750 mg p.o. daily. Hyponatremia has corrected from 27-1 36, stable at 131 for now. She is saturating well on room air currently. UA unremarkable, no signs of UTI. PT evaluation appreciated. Patient is extremely frail, deconditioned and is an increased fall risk. We will continue to provide her intense physical therapy while she is here in the hospital. Unsuccessful attempts to establish IV access. Attestations Medical Necessity Statement*: ongoing treatment for pneumonia, appropriate disposition planning Coding Level of Care Code Acute Dry Clipper Tender for Chg Fwd Diagnoses Recurrent falls R29.6 Fever R50.9 Increased weakness when walking R53.1 Hyponatremia E87.1 Pacemaker Z95.0 Sick sinus syndrome I49.5
[2022-06-20] MEDS: ondansetron 4 MG Tablet PO (16:30)
[2022-06-20] MEDS: temazepam 15 mg Capsule PO (20:32)
[2022-06-20] MEDS: enoxaparin 40 mg/0.4 mL Syringe SUBCUT (22:38)
[2022-06-21] VITALS (9 sets, daily range): BP systolic 99–137; BP diastolic 58–74; PULSE 78–89; RESP 16–20; TEMP 36.7–37.4; O2SAT 92–95
[2022-06-21] MEDS: ondansetron 4 MG Tablet PO ×3 (00:10→14:17)
[2022-06-21] MEDS: clopidogrel 75 mg Tablet PO (05:04)
[2022-06-21] MEDS: ipratropium-albuterol 3 mL Neb INHALATION (08:48)
[2022-06-21] MEDS: gabapentin 100 mg Capsule PO ×3 (09:43→21:11)
[2022-06-21] MEDS: levoFLOXacin 750 mg Tablet PO (09:44)
[2022-06-21] MEDS: losartan 50 mg Tablet PO (09:44)
[2022-06-21] MEDS: pantoprazole DR 40 mg Tablet PO ×2 (09:45→17:51)
[2022-06-21] MEDS: oseltamivir phosphate 75 mg Capsule PO ×2 (10:27→17:51)
--- NOTE | 2022-06-21 13:58 | P.PN_ITS ---
Subjective Subjective: Symptomatically feels improved. Wants to resume her antidepressants. She is ambulating little bit further in the room. Hemodynamically stable. Afebrile now. Remains on room air. Medications: Reviewed: Yes Vitals/I&O/Wt Last Vital Signs Temp 98.8 F 06/21/22 11:51 Pulse 88 06/21/22 11:51 Resp 17 06/21/22 11:51 BP 109/58 06/21/22 11:51 Pulse Ox 94 06/21/22 11:51 O2 Del Method 06/21/22 11:51 O2 Flow Rate 3 06/17/22 17:00 06/20/22 06/21/22 06/21/22 22:59 06:59 14:59 Intake Total 240 / 480 950 / 1430 480 / 480 Output Total 200 / 200 550 / 550 Balance 240 / 480 750 / 1230 -70 / -70 Physical Exam Narrative: General: No acute distress, AO x3 HEENT: PERRLA, pupils bilaterally equal and reactive, pallors not present Chest: scattered wheezing B/L CVS: S1-S2 regular, no murmurs, no tachycardia, no gallops, no rubs Abdomen: Soft, nontender, no organomegaly, bowel sounds present Neuro: No focal deficits,generalized weakness, no facial deformity, AO x3, power 5/5 in all limbs Extremities: Minimal pitting edema bilaterally has now resolved. Data 06/20/22 03:22 06/20/22 03:22 Micro: Microbiology 06/18/22 01:30 Urine Culture - Final Urine Catheterized A&P Assessment and plan (1) Recurrent falls: (2) Fever: (3) Increased weakness when walking: (4) Hyponatremia: (5) Pacemaker: (6) Sick sinus syndrome: Plan Patient presenting to the hospital with complaints of generalized weakness and recurrent falls, more recently also experiencing fever with chills at home. Tested positive for influenza A on further evaluation. Has been started on Tamiflu 75 mg p.o. twice daily. day 4 today Most likely explanation for her fever and generalized weakness is acute viral illness. She is now significantly improved from a respiratory standpoint Currently euvolemic aftre lasix over 2 days. Will d/c today and monitor. Echocardiogram that was performed with poor windows, not much information was able to be gleaned unfortunately. The ventricle grossly appears to be normal in size and function. Grade 1 diastolic function was noted. Overall no big change from 2019 was noted. Continue levofloxacin 750 mg p.o. daily. D/c at discharge as will complete presumtpive course Hyponatremia has corrected from 1 27-1 36, stable at 131 for now. Had lab break today due to poor iv access. She is saturating well on room air currently. UA unremarkable, no signs of UTI. PT evaluation appreciated. Patient is frail, deconditioned and is an increased fall risk. We will continue to provide her intense physical therapy while she is here in the hospital. Patient wishes to transition to SNF as afraid to return home alone. We are awaiting disposition planning. Unsuccessful attempts to establish IV access. 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
[2022-06-21] MEDS: acetaminophen 500 mg Tablet PO (14:15)
--- NOTE | 2022-06-21 15:05 | PC.NURSE ---
pt temazapam is scheduled to stop tonight...called dr mitchell she gave vo to renew it
[2022-06-21] MEDS: temazepam 15 mg Capsule PO (21:11)
[2022-06-21] MEDS: enoxaparin 40 mg/0.4 mL Syringe SUBCUT (22:16)
[2022-06-22] VITALS (9 sets, daily range): BP systolic 109–119; BP diastolic 56–74; PULSE 72–88; RESP 16–24; TEMP 36.7–37.2; O2SAT 92–96
[2022-06-22] MEDS: acetaminophen 500 mg Tablet PO (05:07)
[2022-06-22 06:04] LABS: Basophils % 0.4 %; Eosinophils % 0.7 %; Hematocrit 39.9 % (37.0-47.0); Hemoglobin 13.2 g/dL (11.5-15.3); Lymphocytes # 1.5 10^3/uL (0.8-4.8); Lymphocytes % 27.9 %; Mean Corpuscular HGB Conc 33.1 g/dL (30.0-36.0); Mean Corpuscular Hemoglobin 30.7 pg (28.0-34.0); Mean Corpuscular Volume 92.8 fl (81-99); Mean Platelet Volume 9.8 fL (7.4-10.4); Monocytes % 18.9 %; Neutrophils # 2.77 10^3/uL (1.8-7.7); Neutrophils % 51.9 %; Nucleated Red Blood Cells % 0 %; Platelet Count 311 10^3/cmm (130-400); Red Cell Distribution Width 12.9 % (12.1-15.1); White Blood Count 5.3 10^3/uL (4.0-10.0)
[2022-06-22 06:20] LABS: Alanine Aminotransferase 73 U/L (0-33); Albumin Level 3.5 g/dL (3.5-5.2); Alkaline Phosphatase 69 U/L (35-105); Aspartate Amino Transferase 86 U/L (0-32); Blood Urea Nitrogen 21 mg/dL (8-23); Calcium 8.8 mg/dL (8.5-10.5); Carbon Dioxide 24 mmol/L (22-29); Globulin 3.1 g/dL (1.3-4.6); Glucose 111 mg/dL (65-115); Potassium 3.3 mmol/L (3.5-5.1); Total Bilirubin 0.4 mg/dL (0.15-1.2); Total Protein 6.6 g/dL (6.6-8.7)
[2022-06-22] MEDS: clopidogrel 75 mg Tablet PO (09:20)
[2022-06-22] MEDS: gabapentin 100 mg Capsule PO ×3 (09:20→20:19)
[2022-06-22] MEDS: losartan 50 mg Tablet PO (09:21)
[2022-06-22] MEDS: levoFLOXacin 750 mg Tablet PO (09:21)
[2022-06-22] MEDS: pantoprazole DR 40 mg Tablet PO ×2 (09:22→17:34)
[2022-06-22] MEDS: oseltamivir phosphate 75 mg Capsule PO ×2 (09:22→17:34)
[2022-06-22 09:27] LABS: Sodium 134 mmol/L (136-145)
[2022-06-22 09:28] LABS: Anion Gap 16.3 (5-19); Chloride 97 mmol/L (98-107); Osmolality Calculated 282 mOsm/kg (285-295)
[2022-06-22 10:47] LABS: Anion Gap 13.5 (5-19); Blood Urea Nitrogen 20 mg/dL (8-23); Calcium 9.2 mg/dL (8.5-10.5); Carbon Dioxide 25 mmol/L (22-29); Chloride 100 mmol/L (98-107); Glucose 109 mg/dL (65-115); Osmolality Calculated 283 mOsm/kg (285-295); Potassium 3.5 mmol/L (3.5-5.1); Sodium 135 mmol/L (136-145)
--- NOTE | 2022-06-22 11:27 | PM.PN ---
Subjective Subjective: seen this am says she is doing well except that she has not slept. she would like for her sertraline and anxiety medication to be restarted. she is unsure of the name of anxiety medicine. she will call her daughter along with her nurse to re-confirm home meds and then inform me. Vitals/I&O/Wt Last Vital Signs Temp 98.3 F 06/22/22 07:46 Pulse 88 06/22/22 08:00 Resp 18 06/22/22 08:00 BP 118/62 06/22/22 09:21 Pulse Ox 93 06/22/22 08:00 O2 Del Method 06/22/22 07:46 O2 Flow Rate 3 06/17/22 17:00 06/21/22 06/22/22 06/22/22 22:59 06:59 14:59 Intake Total 240 / 720 350 / 1070 240 / 240 Output Total 300 / 850 600 / 1450 Balance -60 / -130 -250 / -380 240 / 240 Physical Exam Narrative: General: No acute distress, AO x3 Chest: mild scattered wheezing B/L CVS: S1-S2 regular, no murmurs, no tachycardia, no gallops, no rubs Abdomen: Soft, nontender, no organomegaly, bowel sounds present Neuro: moves all 4 extremities, grossly non-focal. Extremities: Trace edema b/l LE Data 06/22/22 05:24 06/22/22 10:10 A&P Assessment and plan (1) Recurrent falls: (2) Fever: (3) Increased weakness when walking: (4) Hyponatremia: (5) Pacemaker: (6) Sick sinus syndrome: Plan Patient presenting to the hospital with complaints of generalized weakness and recurrent falls, more recently also experiencing fever with chills at home. Tested positive for influenza A on further evaluation. Has been started on Tamiflu 75 mg p.o. twice daily. day 5 today Most likely explanation for her fever and generalized weakness is acute viral illness. She is now significantly improved from a respiratory standpoint Had 2 days of lasix and then discontinued. Echocardiogram that was performed with poor windows, not much information was able to be gleaned unfortunately. The ventricle grossly appears to be normal in size and function. Grade 1 diastolic function was noted. Overall no big change from 2019 was noted. Continue levofloxacin 750 mg p.o. daily. D/c at discharge as will complete presumtpive course Hyponatremia stable, Na 135 today/ She is saturating well on room air currently. UA unremarkable, no signs of UTI. PT evaluation appreciated. Patient is frail, deconditioned and is an increased fall risk. We will continue to provide her intense physical therapy while she is here in the hospital. Patient wishes to transition to SNF as afraid to return home alone. We are awaiting disposition planning. Once home medications re-confirmed, will restart sertraline and others as clinically warranted. 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
--- NOTE | 2022-06-22 12:17 | PC.SOCIAL ---
Pg 2 IMM Explained to pt Pg 2 IMM. No questions voiced. Provided pt a copy. Initialed, dated, & timed a copy & placed in chart.
[2022-06-22] MEDS: temazepam 15 mg Capsule PO (20:18)
[2022-06-22] MEDS: hyDROXYzine 25 mg Capsule PO (20:19)
[2022-06-22] MEDS: sertraline 100 mg Tablet PO (20:19)
[2022-06-22] MEDS: enoxaparin 40 mg/0.4 mL Syringe SUBCUT (20:19)
[2022-06-23] VITALS (8 sets, daily range): BP systolic 112–144; BP diastolic 66–80; PULSE 56–82; RESP 16–20; TEMP 36.7–37.4; O2SAT 90–98
[2022-06-23] MEDS: oseltamivir phosphate 75 mg Capsule PO (09:23)
[2022-06-23] MEDS: losartan 50 mg Tablet PO (09:23)
[2022-06-23] MEDS: gabapentin 100 mg Capsule PO ×3 (09:23→20:51)
[2022-06-23] MEDS: clopidogrel 75 mg Tablet PO (09:24)
[2022-06-23] MEDS: levoFLOXacin 750 mg Tablet PO (09:24)
--- NOTE | 2022-06-23 09:24 | PM.PN ---
Subjective Subjective: States she feels better since resuming her anti depressants. no new complaints today. Medications: Reviewed: Yes Vitals/I&O/Wt Last Vital Signs Temp 98.3 F 06/23/22 07:39 Pulse 56 L 06/23/22 07:39 Resp 16 06/23/22 07:39 BP 128/68 06/23/22 07:39 Pulse Ox 98 06/23/22 07:39 O2 Del Method 06/23/22 07:39 O2 Flow Rate 3 06/17/22 17:00 06/22/22 06/23/22 06/23/22 22:59 06:59 14:59 Output Total 100 / 100 500 / 600 Balance -100 / 260 -500 / -240 Physical Exam Narrative: General: No acute distress, AO x3 HEENT: PERRLA, pupils bilaterally equal and reactive, pallors not present Chest: scattered wheezing B/L CVS: S1-S2 regular, no murmurs, no tachycardia, no gallops, no rubs Abdomen: Soft, nontender, no organomegaly, bowel sounds present Neuro: No focal deficits,generalized weakness, no facial deformity, AO x3, power 5/5 in all limbs Data 06/22/22 05:24 06/22/22 10:10 Micro: Microbiology 06/17/22 17:45 Blood Culture - Final Blood NO GROWTH AFTER 5 DAYS 06/17/22 18:04 Blood Culture - Final Blood NO GROWTH AFTER 5 DAYS A&P Assessment and plan (1) Recurrent falls: (2) Fever: (3) Increased weakness when walking: (4) Hyponatremia: (5) Pacemaker: (6) Sick sinus syndrome: Plan Patient presenting to the hospital with complaints of generalized weakness and recurrent falls, more recently also experiencing fever with chills at home. Tested positive for influenza A on further evaluation. Has been started on Tamiflu 75 mg p.o. twice daily. completed 5 days course Most likely explanation for her fever and generalized weakness is acute viral illness. She is now significantly improved from a respiratory standpoint Currently euvolemic aftre lasix over 2 days. Echocardiogram that was performed with poor windows, not much information was able to be gleaned unfortunately. The ventricle grossly appears to be normal in size and function. Grade 1 diastolic function was noted. Overall no big change from 2019 was noted. Continue levofloxacin 750 mg p.o. daily. D/c at discharge as will complete presumtpive course Hyponatremia has corrected from 27-1 36, stable at 135 for now. She is saturating well on room air currently. UA unremarkable, no signs of UTI. PT evaluation appreciated. Patient is frail, deconditioned and is an increased fall risk. We will continue to provide her intense physical therapy while she is here in the hospital. Patient wishes to transition to SNF as afraid to return home alone. We are awaiting disposition planning. Unsuccessful attempts to establish IV access. 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
[2022-06-23] MEDS: aspirin 81 mg EC Tablet PO (09:26)
[2022-06-23] MEDS: acetaminophen 500 mg Tablet PO (09:27)
[2022-06-23] MEDS: pantoprazole DR 40 mg Tablet PO ×2 (09:29→18:47)
[2022-06-23] MEDS: benzonatate 100 mg Capsule 200 MG PO (20:50)
[2022-06-23] MEDS: temazepam 15 mg Capsule PO (20:50)
[2022-06-23] MEDS: hyDROXYzine 25 mg Capsule PO (20:50)
[2022-06-23] MEDS: enoxaparin 40 mg/0.4 mL Syringe SUBCUT (23:25)
[2022-06-24] VITALS (7 sets, daily range): BP systolic 119–147; BP diastolic 62–79; PULSE 77–87; RESP 16–20; TEMP 36.4–37.5; O2SAT 92–94
[2022-06-24] MEDS: sertraline 100 mg Tablet PO (05:15)
[2022-06-24] MEDS: aspirin 81 mg EC Tablet PO (08:15)
[2022-06-24] MEDS: gabapentin 100 mg Capsule PO (08:15)
[2022-06-24] MEDS: levoFLOXacin 750 mg Tablet PO (08:15)
[2022-06-24] MEDS: clopidogrel 75 mg Tablet PO (08:15)
[2022-06-24] MEDS: losartan 50 mg Tablet PO (08:15)
[2022-06-24] MEDS: pantoprazole DR 40 mg Tablet PO (08:15)
[2022-06-24] MEDS: acetaminophen 500 mg Tablet PO (08:30)
[2022-06-24] MEDS: benzonatate 100 mg Capsule 200 MG PO (08:31)
--- NOTE | 2022-06-24 08:57 | PC.SOCIAL ---
IMM update IMM updated with patient. Verbalized an understanding. Initialled, dated, timed, and placed in chart.
[2022-06-24 09:25] LABS: SARS Covid-2 Antigen negative (Negative)
--- NOTE | 2022-06-24 10:49 | PM.DCS ---
Discharge Providers Date of Admission: 06/19/22 14:53 Date of Discharge: June 24, 2022 Attending Provider at Admission: Nettie Small MD Attending Provider at Discharge: Deb Da Silva MD Primary Care Provider: Chicho Young DO Diagnoses at Discharge Discharge Diagnosis (1) Recurrent falls: Status: Resolved (2) Fever: Status: Resolved (3) Increased weakness when walking: Status: Resolved (4) Hyponatremia: Status: Resolved (5) Pacemaker: Status: Acute (6) Sick sinus syndrome: Status: Acute Reason for Visit Reason for Visit: WEAKNESS, FEVER Brief History: As per Dr. Small Mindy Verma is a 81 year old female has multiple comorbid conditions, presented to hospital for chief complaint of recurrent falls and febrile episodes.? Patient is stating that her daughter is sick for last 6 days with bronchitis.? Patient is stating that she has been feeling weak and lethargic, has had 3 falls which she attributed to her left knee buckling.? She did not denies any chest pain, nausea, vomiting, diarrhea or syncopal events.? She is endorsing symptoms of UTI, febrile events.? She has not noticed blurry vision, confusion or headache.? At baseline she uses a walker for ambulation.? She does have history of osteoarthritis status post total knee arthroplasty of both knees. In the ER she has been diagnosed with hyponatremia, febrile events related to bronchitis, CT chest abdomen pelvis unremarkable viral panel antigen negative, she is on multiple antidepressants I have requested COVID PCR Hospital Course Hospital Course Patient presenting to the hospital with complaints of generalized weakness and recurrent falls, more recently also experiencing fever with chills at home. Tested positive for influenza A on further evaluation. COmpleted 5 days of Tamiflu 75 mg p.o. twice daily.? Most likely explanation for her fever and generalized weakness is acute viral illness. Currently euvolemic aftre lasix over 2 days. Echocardiogram that was performed with poor windows, not much information was able to be gleaned unfortunately.? The ventricle grossly appears to be normal in size and function.? Grade 1 diastolic function was noted.? Overall no big change from 2019 was noted. Completed 5 days of levofloxacin. Hyponatremia also corrected. She is saturating well on room air currently. UA unremarkable, no signs of UTI. Pt's trazodone was discontinued as she was doing ok with hydroxyzine and sertraline. She did not get trazodone during hospital stay. I have held cabamezapine as well which she takes for trigeminal neuralgia. She may f/u with PCP to resume those after outpatient evaluation for hospital follow up. PT evaluation appreciated. Patient is frail, deconditioned and is an increased fall risk.? We will continue to provide her intense physical therapy while she is here in the hospital. Patient wishes to transition to SNF as afraid to return home alone. She was setup with assisted placement at discharge. Patient's son present at bedside. Answered questions that they had to their satisfaction. Physical Exam Narrative: General: No acute distress, AO x3 HEENT: PERRLA, pupils bilaterally equal and reactive, pallors not present Chest: scattered wheezing B/L CVS: S1-S2 regular, no murmurs, no tachycardia, no gallops, no rubs Abdomen: Soft, nontender, no organomegaly, bowel sounds present Neuro: No focal deficits,generalized weakness, no facial deformity, AO x3, power 5/5 in all limbs Discharge Data Studies Completed and Pending Completed Studies During Hospitalization Category Date Time Status CT head wo con* [id number] Stat Cat Scan 06/17/22 19:[address] abdomen pelvis [CT angio chest w abd pel w Cat Scan 06/17/22 19:18 Completed con] Stat CXRP [XR chest 1V portable [id number]] Routine Exams 06/19/22 14:50 Completed XR chest 1V portable [id number] Stat Exams 06/17/22 17:14 Completed CV. echo complete* [id number] Routine Ultrasound 06/19/22 14:52 Completed Radiology Impressions Chest/Abdomen/Pelvis CT 06/17/22 19:18 IMPRESSION: 1. No evidence of pulmonary embolism. 2. Atherosclerosis of the thoracic aorta noted. No aortic aneurysm or aortic dissection noted. 3. Mild atelectasis in the lower lobes. No consolidative pulmonary infiltrate noted. IMPRESSION: 1. Status post splenectomy. 2. Diverticulosis of the colon. No evidence of acute diverticulitis. 3. Diastasis of the rectus muscles are present, resulting in shallow ventral hernia. No bowel incarceration associated. This is new when compared to 10/29/2020. 4. No acute abnormality demonstrated in the abdomen and pelvis. Head CT 06/17/22 19:18 IMPRESSION: 1. No acute intracranial abnormality demonstrated. 2. There is no interval change from the prior examination. Chest X-Ray 06/19/22 14:50 IMPRESSION: No obvious acute consolidation. Suboptimal lung base assessment. Followup including lateral view may be obtained if clinically indicated. Laboratory Results WBC 5.3 10^3/uL (4.0-10.0) 06/22/22 05:24 RBC 4.30 10^6/uL (4.1-5.3) 06/22/22 05:24 Hgb 13.2 g/dL (11.5-15.3) 06/22/22 05:24 Hct 39.9 % (37.0-47.0) 06/22/22 05:24 MCV 92.8 fl (81-99) 06/22/22 05:24 MCH 30.7 pg (28.0-34.0) 06/22/22 05:24 MCHC 33.1 g/dL (30.0-36.0) 06/22/22 05:24 RDW 12.9 % (12.1-15.1) 06/22/22 05:24 Plt Count 311 10^3/cmm (130-400) 06/22/22 05:24 MPV 9.8 fL (7.4-10.4) 06/22/22 05:24 Neut % (Auto) 51.9 % 06/22/22 05:24 Lymph % (Auto) 27.9 % 06/22/22 05:24 [place] % (Auto) 18.9 % 06/22/22 05:24 Eos % (Auto) 0.7 % 06/22/22 05:24 Baso % (Auto) 0.4 % 06/22/22 05:24 Neut # (Auto) 2.77 10^3/uL (1.8-7.7) 06/22/22 05:24 Lymph # (Auto) 1.5 10^3/uL (0.8-4.8) 06/22/22 05:24 [place] # (Auto) 1.0 10^3/uL (0.2-0.9) H 06/22/22 05:24 Eos # (Auto) 0.0 10^3/uL (0.0-0.8) 06/22/22 05:24 Baso # (Auto) 0.0 10^3/uL (0.0-0.1) 06/22/22 05:24 Nucleated RBC % (auto) 0 % 06/22/22 05:24 Nucleated RBCs # 0.0 /100WBC 06/22/22 05:24 Specimen Type Arterial 06/17/22 18:29 Sample Site Brachial, left 06/17/22 18:29 ABG pH 7.44 (7.35-7.45) 06/17/22 18:29 ABG pCO2 40.5 mmHg (35-45) 06/17/22 18:29 ABG pO2 123.0 mmHg (80.0-100.0) H 06/17/22 18:29 ABG HCO3 27.5 mmol/L (22-26) H 06/17/22 18:29 ABG Base Excess 3.0 mmol/L (-2.0-2.0) H 06/17/22 18:29 Leandro Test Pos 06/17/22 18:29 Hematocrit 42.2 % (37-47) 06/17/22 18:29 O2 Delivery Device Nc 06/17/22 18:29 O2 Liters/Min 4.0 % 06/17/22 18:29 FiO2 36.0 % 06/17/22 18:29 Self Pay Representative ID Cak 06/17/22 18:29 Sodium 135 mmol/L (136-145) L 06/22/22 10:10 Potassium 3.5 mmol/L (3.5-5.1) 06/22/22 10:10 Chloride 100 mmol/L (98-107) 06/22/22 10:10 Carbon Dioxide 25 mmol/L (22-29) 06/22/22 10:10 Anion Gap 13.5 (5-19) 06/22/22 10:10 BUN 20 mg/dL (8-23) 06/22/22 10:10 Creatinine 0.9 mg/dL (0.5-0.9) 06/22/22 10:10 GFR Calculation Not Reportable 06/22/22 10:10 Glucose 109 mg/dL (65-115) 06/22/22 10:10 POC Glucose 130 mg/dL (70-110) H 06/18/22 16:52 Serum Osmolality 277 mOsm/kg (278-305) L 06/17/22 18:04 Calculated Osmolality 283 mOsm/kg (285-295) L 06/22/22 10:10 Lactic Acid 1.4 mmol/L (0.5-2.2) 06/17/22 18:04 Uric Acid 5.0 mg/dL (2.4-5.7) 06/17/22 18:04 Calcium 9.2 mg/dL (8.5-10.5) 06/22/22 10:10 Magnesium 2.3 mg/dL (1.7-2.3) 06/18/22 01:18 Total Bilirubin 0.4 mg/dL (0.15-1.2) 06/22/22 05:24 AST 86 U/L (0-32) H 06/22/22 05:24 ALT 73 U/L (0-33) H 06/22/22 05:24 Alkaline Phosphatase 69 U/L (35-105) 06/22/22 05:24 Troponin T Baseline 16 ng/L (0-10) H 06/17/22 18:04 Troponin T 120 Minute 15.54 ng/L (0-10) H 06/17/22 20:30 Delta Troponin T -0.46 ABS# (0-10) L 06/17/22 20:30 Troponin T Hi Sens 6Hr 19.05 ng/L (0-10) H 06/18/22 01:18 Troponin T Hi Sens 6Hr Delta 3.05 ng/L (0-12) 06/18/22 01:18 C-Reactive Protein 73.5 mg/L (0.0-4.9) H 06/18/22 01:18 NT-Pro-B Natriuret Pep 330 pg/mL (0-450) 06/17/22 18:04 Total Protein 6.6 g/dL (6.6-8.7) 06/22/22 05:24 Albumin 3.5 g/dL (3.5-5.2) 06/22/22 05:24 Globulin 3.1 g/dL (1.3-4.6) 06/22/22 05:24 Procalcitonin 0.03 ng/mL (0-0.5) 06/17/22 18:04 Procalcitonin 0.05 ng/mL (0-0.5) 06/17/22 18:04 TSH 0.81 uIU/mL (0.27-4.20) 06/17/22 18:04 Urine Color Yellow (Yellow) 06/18/22 01:30 Urine Appearance Clear (CLEAR) 06/18/22 01:30 Urine pH 7 (5-7) 06/18/22 01:30 Ur Specific [place] 1.005 (1.005-1.030) 06/18/22 01:30 Urine Protein Trace (Negative) 06/18/22 01:30 Urine Glucose (UA) Norm (Normal) 06/18/22 01:30 Urine Ketones Negative (Negative) 06/18/22 01:30 Urine Blood Neg (Negative) 06/18/22 01:30 Urine Nitrate Negative (Negative) 06/18/22 01:30 Urine Bilirubin Neg (Negative) 06/18/22 01:30 Prot Sulfosalicylic Acd Negative (Negative) 06/17/22 18:20 Urine Urobilinogen Norm mg/dL (Negative) 06/18/22 01:30 Ur Leukocyte Esterase Negative (Negative) 06/18/22 01:30 Urine RBC 0-4 /hpf (0-2) H 06/18/22 01:30 Urine WBC None /hpf (0-5) 06/18/22 01:30 Ur Squamous Epith Cells 0-4 /hpf (0-5) H 06/18/22 01:30 Amorphous Sediment Not Reportable 06/18/22 01:30 Urine Bacteria None /hpf (NONE) 06/18/22 01:30 Urine Osmolality 533 mOsm/kg (50-1200) 06/18/22 01:30 Ur Random Sodium 63 mmol/L 06/18/22 01:30 Nasal Influ A H1 2009 PCR Detected (NOT DETECT) A 06/17/22 22:55 Adenovirus (PCR) Not detected (NOT DETECT) 06/17/22 22:55 C. pneumoniae DNA (PCR) Not detected (NOT DETECT) 06/17/22 22:55 Coronavirus 229E (PCR) Not detected (NOT DETECT) 06/17/22 22:55 Human Metapneumovir PCR Not detected (NOT DETECT) 06/17/22 22:55 Influenza A (H1) PCR Not detected (NOT DETECT) 06/17/22 22:55 Influenza A (H3) PCR Not detected (NOT DETECT) 06/17/22 22:55 Influenza Type A Ag negative (Negative) 06/17/22 18:20 Influenza Type A (PCR) Detected (NOT DETECT) A 06/17/22 22:55 Influenza Type B Ag negative (Negative) 06/17/22 18:20 Influenza Type B (PCR) Not detected (NOT DETECT) 06/17/22 22:55 M. pneumoniae (PCR) Not detected (NOT DETECT) 06/17/22 22:55 Parainfluenza 1 (PCR) Not detected (NOT DETECT) 12 22:55 Parainfluenza 2 (PCR) Not detected (NOT DETECT) 06/17/22 22:55 Parainfluenza 3 (PCR) Not detected (NOT DETECT) 06/17/22 22:55 Parainfluenza 4 (PCR) Not detected (NOT DETECT) 06/17/22 22:55 RSV Type A (PCR) Not detected (NOT DETECT) 06/17/22 22:55 RSV Type B (PCR) Not detected (NOT DETECT) 06/17/22 22:55 Entero/Rhino (PCR) Not detected (NOT DETECT) 06/17/22 22:55 SARS-CoV-2 (PCR) Not detected (NOT DETECT) 06/17/22 22:55 SARS-CoV-2 Ag (Rapid) negative (Negative) 06/24/22 08:21 Vitals Last Vital Signs Temp 98.2 F 06/24/22 07:43 Pulse 85 06/24/22 08:00 Resp 18 06/24/22 08:00 BP 121/68 06/24/22 08:15 Pulse Ox 92 06/24/22 08:00 O2 Del Method 06/24/22 08:00 O2 Flow Rate 3 06/17/22 17:00 Discharge Plan Discharge Patient Disposition: Xfer SNF Condition: Stable Prescriptions: Continued losartan 50 mg tablet 50 mg PO DAILY sertraline 100 mg tablet 100 mg PO DAILY@0600 Qty: 90 3RF gabapentin 100 mg capsule See Rx Instructions .ROUTE .COMPLEX Qty: 90 5RF Dose Instruction: TAKE 1 CAPSULE BY MOUTH THREE TIMES DAILY Rx Instructions: TAKE 1 CAPSULE BY MOUTH THREE TIMES DAILY multivitamin Tablet 1 tab PO DAILY@0600 prednisone 10 mg tablet 10 mg PO DAILY@0600 ondansetron HCl 4 mg tablet 4 mg PO Q6H PRN (Reason: Nausea And Vomiting) clopidogrel 75 mg tablet 75 mg PO DAILY@0600 docusate sodium [Colace] 100 mg Capsule 200 mg PO PRN hydroxyzine pamoate 25 mg capsule 25 mg PO BEDTIME@2100 rosuvastatin 5 mg tablet 5 mg PO BEDTIME@2100 cholecalciferol (vitamin D3) [Vitamin D3] 125 mcg (5,000 unit) Tablet 125 mcg PO DAILY@0600 pantoprazole 20 mg tablet,delayed release (DR/EC) 40 mg PO BID biotin 5 mg Capsule 5 mg PO DAILY Vitamin C 1,000 mg Tablet 1,000 mg PO DAILY aspirin 81 mg Tablet,Delayed Release (Dr/Ec) 81 mg PO DAILY iron 325 mg (65 mg iron) Tablet 325 mg PO EVERY OTHER DAY Held carbamazepine 200 mg capsule, ER multiphase 12 hr 200 mg PO BID@0830,2100 Hold Instructions: sEE PCP BEFORE RESUMING Discontinued trazodone 100 mg tablet 200 mg PO BEDTIME@2100 Qty: 180 3RF Discharge Orders: Discharge Order (Routine); Ordered 06/24/22 Ordered By: Deb Da Silva Referrals: [facility] [Outside] Chicho Young DO [Primary Care Provider] - 4-7 days Discharge Diet: Cardiac Discharge Activity: Increase activity as tolerated and As per PT/OT instructions Patient Instructions: Influenza (GEN), Opioid Safety Activity Restrictions/Additional Instructions: Follow up with PCP in 4-7 days as directed. Discharge Attestations Time Spent in Discharge Care*: less than 30 min Status at Discharge: Cognitive status at discharge: cognitively intact, Behavioral status at discharge: cooperative, Quality Metrics Clinical Quality Measures [ No reported AMI, CVA or VTE this stay] Coding Level of Care Code Acute Chg FW DC note Diagnoses Recurrent falls R29.6 Fever R50.9 Increased weakness when walking R53.1 Hyponatremia E87.1 Pacemaker Z95.0 Sick sinus syndrome I49.5
== END 2022-06-24 13:24 | disposition skilled nursing facility (03) | DRG 194 ==
LOC: ER 21:50 → MEDSURG 22:04
PROVIDERS: Student in an Organized Health Care Education/Training Program; Admitting Provider Internal Medicine; Emergency Provider Emergency Medicine; PCP Family Medicine; Visit Provider Internal Medicine
DX: J10.1 Influenza due to other identified influenza virus with other respiratory manifestations (principal); E87.1 Hypo-osmolality and hyponatremia; R29.6 Repeated falls; I49.5 Sick sinus syndrome; E87.8 Other disorders of electrolyte and fluid balance, not elsewhere classified; E86.0 Dehydration; R09.02 Hypoxemia; R53.1 Weakness; E78.5 Hyperlipidemia, unspecified; E11.9 Type 2 diabetes mellitus without complications; I10 Essential (primary) hypertension; K43.9 Ventral hernia without obstruction or gangrene; M17.0 Bilateral primary osteoarthritis of knee; F41.9 Anxiety disorder, unspecified; Z96.653 Presence of artificial knee joint, bilateral; Z66 Do not resuscitate; Z95.0 Presence of cardiac pacemaker; Z79.02 Long term (current) use of antithrombotics/antiplatelets; Z91.81 History of falling; Z75.1 Person awaiting admission to adequate facility elsewhere
CPT/HCPCS: 36415; 36416; 36600; 70450; 71045; 71275; 74177; 80048; 80053; 81001; 81003; 82803; 82962; 83605; 83735; 83880; 83930; 83935; 84145; 84300; 84443; 84484; 84550; 85025; 86140; 87040; 87086; 87426; 87486; 87581; 87633; 87804; 93306; 94640; 96372; 97110; 97116; 97161; 97167; 97530; 97535; 99285; G0378; J0696; J1650; J7030; J7040; Q0162; Q9967

== ENCOUNTER 2022-07-14 00:25 | Inpatient (IN) | payer MEDICARE, OTHER, SELFPAY ==
[2022-07-14] VITALS (33 sets, daily range): BP systolic 60–146; BP diastolic 37–89; PULSE 64–110; RESP 15–26; TEMP 37.2; O2SAT 86–97; BMI 41.1
--- NOTE | 2022-07-14 00:50 | CTR_ITS ---
PROCEDURE INFORMATION: Exam: CT Head Without Contrast Exam date and time: 07/14/2022 4:15 AM Age: 81 years old Clinical indication: Injury or trauma; Fall; Blunt trauma (contusions or hematomas); Additional info: Fall, on plavix TECHNIQUE: Imaging protocol: Computed tomography of the head without contrast. Radiation optimization: All CT scans at this facility use at least one of these dose optimization techniques: automated exposure control; mA and/or kV adjustment per patient size (includes targeted exams where dose is matched to clinical indication); or iterative reconstruction. COMPARISON: CT head wo con* [id number] 06/17/2022 7:27 PM RADIATION DOSE METRICS: Total DLP (mGy-cm): 1363.09 FINDINGS: Brain: No acute intracranial hemorrhage, abnormal extra-axial fluid collection, mass effect, or midline shift. Mild periventricular and subcortical white matter hypodensities compatible with changes of mild burden chronic small-vessel disease. Cerebral ventricles: The ventricular system is within normal limits of variation for the patient's age. Paranasal sinuses: Visualized paranasal sinuses are grossly unremarkable. No fluid levels. Mastoid air cells: Visualized mastoid air cells are well aerated. Bones/joints: No acute fracture. Soft tissues: Unremarkable. Vasculature: Atheromatous changes are seen within the bilateral carotid siphons and V4 segments of the bilateral vertebral arteries. CT/CT head wo con* [id number] IMPRESSION: 1. No acute intracranial findings. 2. Other chronic/incidental findings as described above.
--- NOTE | 2022-07-14 00:50 | CTR_ITS ---
PROCEDURE INFORMATION: Exam: CT Abdomen And Pelvis With Contrast Exam date and time: 07/14/2022 4:18 AM Age: 81 years old Clinical indication: Abdominal pain; Generalized; Patient HX: Positive hemocult; Additional info: Abdominal pain nausea vomiting and diarrhea TECHNIQUE: Imaging protocol: Computed tomography of the abdomen and pelvis with contrast. Radiation optimization: All CT scans at this facility use at least one of these dose optimization techniques: automated exposure control; mA and/or kV adjustment per patient size (includes targeted exams where dose is matched to clinical indication); or iterative reconstruction. Contrast material: OMNI 350; Contrast volume: 100 ml; Contrast route: INTRAVENOUS (IV); COMPARISON: CT angio chest w abd pel w con 06/17/2022 7:58 PM RADIATION DOSE METRICS: Total DLP (mGy-cm): 1153.52 FINDINGS: Lungs: The visualized lung orozco show mild bibasilar atelectasis. Liver: No hepatomegaly. There are no enhancing liver masses. Gallbladder and bile ducts: No calcified stones. No ductal dilation. Pancreas: Normal in size and homogeneous enhancement. No ductal dilation. 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 There are surgical clips in the left subdiaphragmatic space. Adrenal glands: Normal. No mass. Kidneys and ureters: There is no hydronephrosis. No renal or obstructing ureteral calculi. Stomach and bowel: There is no evidence of small bowel or colonic obstruction. No abnormally dilated loops of small bowel are identified. However, there is colonic wall thickening and mild pericolonic inflammatory stranding throughout the entire colon consistent with colitis. There is moderate diverticulosis of the descending colon sigmoid. Appendix: The appendix is not identified. Intraperitoneal space: No free air. No significant fluid collection. Vasculature: There is moderate atherosclerotic calcification of the abdominal aorta and its branches without aneurysm. There are atherosclerotic calcification and patent stents at the origins of the celiac trunk and SMA. The ARASELI is widely patent. There is a retroaortic left renal vein without evidence of thrombosis, anatomic variant. Lymph nodes: No enlarged retroperitoneal or mesenteric lymph nodes. Urinary bladder: The bladder shows a normal contour and is free of calcific opacities. Reproductive: There has been a hysterectomy. Bones/joints: There is moderate levoscoliosis of the lumbar spine. Multilevel degenerative disc disease and vacuum disc is present. There are multilevel facet arthrosis and osteophytes. Soft tissues: Normal. CT/CT abdomen pelvis w con* [id number] IMPRESSION: 1. Findings consistent with colitis that may be infectious. However, the may be a chronic ischemic component given the presence of stents in the celiac trunk and SMA. 2. Atherosclerotic calcification at the origins of the celiac trunk and SMA with vascular stents in place. The stents appear patent and the ARASELI is a patent vessel with caliber. However, the presence or absence of stenosis in the stents is difficult to evaluate on this examination. 3. Moderate diverticulosis of the descending colon and sigmoid. These diverticula may be secondarily involved, given diffuse colitis. THIS REPORT CONTAINS FINDINGS THAT MAY BE CRITICAL TO PATIENT CARE. The findings were verbally communicated via telephone conference with Dr. Luis Eduardo Gayle at 5:17 AM [employer] on 07/14/2022. The findings were acknowledged and understood. Findings were discussed with Dr. Luis Eduardo Gayle at 07/14/2022 5:31 AM [employer].
--- NOTE | 2022-07-14 00:50 | XRR_ITS ---
PROCEDURE INFORMATION: Exam: XR Chest Exam date and time: 07/14/2022 1:28 AM Age: 81 years old Clinical indication: Other: Weakness TECHNIQUE: Imaging protocol: Radiologic exam of the chest. Views: 1 view. COMPARISON: CR XR chest 1V portable [id number] 06/19/2022 3:11 PM FINDINGS: Tubes, catheters and devices: EKG monitoring leads overlie the thoracic wall. A left pacemaker device is present and its leads are in appropriate position. Lungs: There is no evidence of focal pulmonary consolidation. Pleural spaces: No pleural effusion or pneumothorax. Heart/Mediastinum: The heart and mediastinum are normal in size. Bones/joints: There is increased lucency of the clavicular heads, worse on the right, that may be secondary to diffuse osseous demineralization or lytic lesions such as metastatic disease. There are degenerative changes of the humeral joint. XR/XR chest 1V portable [id number] IMPRESSION: 1. No acute cardiopulmonary findings. 2. Increased lucency of the clavicular heads, worse on the right, the that may reflect diffuse osseous demineralization or metastatic disease. Bone scan and/or PET-CT may be helpful if clinically indicated.
--- NOTE | 2022-07-14 00:53 | ED_ITS ---
Documented by User: JOSH Fan 07/14/22 03:08 HPI - Weakness General: Chief complaint: Weakness Stated complaint: WEAKNESS Time Seen by Provider: 07/14/22 00:29 History of Present Illness: Patient arrives in the emergency department with weakness, fall, hypotension, hypoxia. Patient also reports abdominal pain with diarrhea and vomiting Patient's story began back in June. On June 17 patient had had an episode of altered mentation, weakness and falls. Patient was evaluated and diagnosed with influenza A with pneumonia. Patient was admitted to the hospital and ultimately transferred to rehabilitation/long term facility on June 24. Patient spends approximately 10-14 days at the facility. At some point she deve loped diarrhea and hypotension while she was there. In spite of this, according to patient's daughter, patient was discharged home with home health support. Since being at home she has continued to have chronic diarrhea and weakness. It sounds as though she has had multiple syncopal episodes at home Today she had a fall from standing when she tried to get up. She denies hitting her head. She does take Plavix and aspirin Patient has been incontinent of stool and urine. She is actively vomiting. Patient has edema and pain to the left ankle History includes the following: GERD, hypertension, heart disease with pacemaker, sick sinus syndrome, diabetes, seizure history Associated symptoms: Reports chills, fever(s), nausea and vomiting; Denies chest pain, confusion, dysuria, easy bruising or headache(s) Review of Systems General: Reports: 10 or more systems reviewed and unremarkable except in HPI and below Const: Reports: fever(s), chills, body aches, change in appetite, fatigue and malaise; Denies: change in weight Eyes: Denies: change in vision, eye discomfort, eye discharge or eye redness ENMT: Denies: throat pain, enlarged tonsils, odynophagia, hoarseness, ear or mastoid pain, ear discharge, change in hearing, tinnitus, nasal discharge, nasal congestion, post nasal drip or sinus pain Card: Denies: chest pain, palpitations, irregular heart rhythm, edema, dyspnea on exertion, orthopnea or leg pain with exertion Resp: Reports: dyspnea, productive cough and chest congestion; Denies: non-productive cough, wheezing or stridor GI: Reports: abdominal pain, nausea, vomiting, diarrhea, bloating and GI cramping; Denies: dysphagia, constipation or hematochezia : Denies: flank pain, difficulty voiding, dysuria, urinary frequency, urinary urgency, urinary hesitancy, oliguria or hematuria Musc: Denies: neck pain, back pain, extremity pain, joint pain, joint swelling, joint redness, joint warmth or muscle weakness Skin/Breast: Denies: rash, pruritus, erythema, photosensitivity or new lesions Neuro: Denies: headache(s), numbness in extremities, weakness in extremities, sensory changes, lack of coordination, difficulty walking, frequent falls, dizziness, confusion, Slurred speech present, difficulty communicating thoughts, seizure-like activity or involuntary movements Endo: Denies: polyuria, polydipsia or tired all the time Josh/Lymph: Denies: easy bruising or easy bleeding PFSH ED PFSH: Medical History (Updated 07/16/22 @ 13:18 by Luis Eduardo Eldridge DO) Abnormal CT of the abdomen Colitis Depression Enteritis Hyperlipidemia Hyperlipidemia associated with type 2 diabetes mellitus Hypertension Ileus Mesenteric artery stenosis Pacemaker Septic shock Sick sinus syndrome Surgical History Status post colonoscopy Social History Smoking and tobacco status: never smoked Alcohol intake: never Physical Exam Const: COMMON NORMALS: average body habitus, patient oriented x3, no limitations, alert and well nourished GENERAL APPEARANCE: cooperative, comfortable and well developed; not in distress and not anxious ORIENTATION/CONSCIOUSNESS: Yes oriented to person, Yes oriented to place and Yes oriented to time OTHER: Patient is pale but warm and dry HENMT: COMMON NORMALS: normocephalic, atraumatic, hearing grossly normal bilaterally, external ears normal, EAC's normal and Normal external nose present HEAD & SCALP: normal to inspection, normocephalic and atraumatic FACE & SINUS: normal facial exam and face symmetric NOSE: Normal external nose present and Normal nares present EXTERNAL EAR: Yes external ears normal EXTERNAL AUDITORY CANAL: EAC's normal MOUTH: Normal oral and palatal mucosa present and lip normal Eye: COMMON NORMALS: EOMs intact bilaterally and no scleral icterus Neck/C-Spine: COMMON NORMALS: full ROM, supple, no meningeal signs and no JVD GENERAL: Yes normal visual inspection CERVICAL SPINE: Yes cervical ROM normal Lymph: LYMPHATIC: no lymphadenopathy noted Chest: COMMONS NORMALS: normal inspection of the chest Breast/axilla inspection: Yes no chest deformity, asymmetry, normal contours, no nodules, masses, tenderness Resp: COMMON NORMALS: normal respiratory effort, No retractions, No use of accessory muscles and clear to auscultation bilaterally EFFORT & INSPECTION: Yes able to speak in complete sentences, Yes symmetric chest movement, No abnormal respiratory pattern, No tachypneic and No respiratory distress AUSCULTATION: clear to auscultation bilaterally Cardio: COMMON NORMALS: no JVD, regular rate, regular rhythm and Peripheral pulses 2+ throughout RATE: regular rate RHYTHM: regular rhythm PERIPHERAL PULSES: Peripheral pulses 2+ throughout GI: INSPECTION: Yes normal to inspection, Yes abdominal distension and Yes central obesity AUSCULTATION: Yes Hyperactive bowel sounds present PALPATION: Yes Tenderness to palpation present (GI) and Yes Guarding due to palpation present (GI) Extremity: COMMON NORMALS: normal to inspection, full ROM and capillary refill normal NARRATIVE EXTREMITY EXAM: Skin is clean dry and intact Edema noted to the lateral aspect of the left ankle Is able to dorsiflex plantarflex the foot Patient is able dorsiflex great toe Sensations intact light touch at medial, lateral, dorsal, plantar surface of the foot and first webspace DP pulses palpable and cap refills less than 3 seconds GENERAL: Yes normal exam except as noted Neuro: COMMON NORMALS: patient oriented x3 SENSORIUM/ORIENTATION: Yes alert, Yes oriented to person, Yes oriented to place and Yes oriented to time MENINGEAL SIGNS: Yes no meningeal signs Psych: COMMON NORMALS: mental status grossly normal, Normal thought process present, cooperative, normal affect, speech normal and activity/motor behavior normal SPEECH: Yes normal speech THOUGHT PROCESS: Normal thought process present Skin: COMMON NORMALS: no rashes or lesions noted, no wounds, turgor normal, no jaundice, no petechiae and no mottling GENERAL SKIN EXAM: no rashes or lesions noted and turgor normal Course Vital Signs: Vital signs: Vital Signs Temperature 98.5 F 07/16/22 11:54 Pulse Rate 76 07/16/22 11:54 Respiratory Rate 16 07/16/22 11:54 Blood Pressure 110/55 07/16/22 11:54 Pulse Oximetry 96 07/16/22 11:54 Oxygen Delivery Me thod 07/16/22 02:00 Oxygen Flow Rate 2 07/15/22 13:36 MDM - Weakness Medical Decision Making Patient was evaluated in the emergency department for generalized weakness, fall, abdominal pain, nausea vomiting and diarrhea. Upon entering the room, the odor suggest C. difficile infection. Patient was admitted on 06/17/2022 for influenza and pneumonia and was treated inpatient with antibiotics as well as antivirals. Patient was discharged to long term facility/rehab where she developed diarrhea but remained untreated Patient has been at home and has had diarrhea for greater than 10 days at this point. Patient has had multiple episodes of near syncope or syncope. Patient is having multiple stools a day Patient has been hypotensive at times Differential diagnosis includes sepsis, C. difficile, heart failure, AMI, bowel perforation, head injury, intra-abdominal injury Here in the emergency department we did a number of laboratory evaluations. Included CBC, CMP, CRP, lactate, troponin, BNP, blood cultures Diagnostic studies included EKG, chest x-ray, x-ray of the left ankle, CT head, CT abdomen pelvis with contrast Laboratory findings: Patient does have a white count of 20,000, multiple electrolyte disturbances but nothing with too much derangement. Patient does have evidence of dehydration. This is likely due to the greater than 10-day history of diarrhea. Lactic acid is 2.6. This will likely correct with 2 L of fluid CRP is unremarkable Troponin is 15 BNP is 461 Diagnostic findings: XR left ankle negative for acute fracture. Patient previous ORIF of these fibula. No evidence of hardware failure or migration. Patient has undergone chest x-ray. [facility] as contacted us with concerns of poten tial metastatic disease due to increased lucency of the clavicular head . Transition of care to Dr. Maribel Eldridge. Updated nurse on transition of care at 0308 Lab Data 07/14/22 01:00 07/14/22 01:00 Radiology Impressions Abdomen/Pelvis CT 07/14/22 00:50 IMPRESSION: 1. Findings consistent with colitis that may be infectious. However, the may be a chronic ischemic component given the presence of stents in the celiac trunk and SMA. 2. Atherosclerotic calcification at the origins of the celiac trunk and SMA with vascular stents in place. The stents appear patent and the ARASELI is a patent vessel with caliber. However, the presence or absence of stenosis in the stents is difficult to evaluate on this examination. 3. Moderate diverticulosis of the descending colon and sigmoid. These diverticula may be secondarily involved, given diffuse colitis. THIS REPORT CONTAINS FINDINGS THAT MAY BE CRITICAL TO PATIENT CARE. The findings were verbally communicated via telephone conference with Dr. Luis Eduardo Gayle at 5:17 AM GROUP ART SUPERVISOR on 07/14/2022. The findings were acknowledged and understood. Findings were discussed with Dr. Luis Eduardo Gayle at 07/14/2022 5:31 AM GROUP ART SUPERVISOR. Head CT 07/14/22 00:50 IMPRESSION: 1. No acute intracranial findings. 2. Other chronic/incidental findings as described above. Chest X-Ray 07/14/22 03:40 IMPRESSION: 1. Right internal jugular central venous line tip in the proximal right atrium. 2. No pneumothorax post procedure. 3. No acute cardiopulmonary findings. Ankle X-Ray 07/15/22 12:21 IMPRESSION: Prior ORIF distal fibula with the incompletely healed or ununited fracture of the distal fibula partially obscured by the hardware. Laboratory Results WBC 19.4 10^3/uL (4.0-10.0) H 07/14/22 01:00 RBC 4.45 10^6/uL (4.1-5.3) 07/14/22 01:00 Hgb 13.4 g/dL (11.5-15.3) 07/14/22 01:00 Hct 43.0 % (37.0-47.0) 07/14/22 01:00 MCV 96.6 fl (81-99) 07/14/22 01:00 MCH 30.1 pg (28.0-34.0) 07/14/22 01:00 MCHC 31.2 g/dL (30.0-36.0) 07/14/22 01:00 RDW 13.0 % (12.1-15.1) 07/14/22 01:00 Plt Count 294 10^3/cmm (130-400) 07/14/22 01:00 MPV 9.9 fL (7.4-10.4) 07/14/22 01:00 Neut % (Auto) 67.7 % 07/14/22 01:00 Lymph % (Auto) 20.2 % 07/14/22 01:00 [place] % (Auto) 11.1 % 07/14/22 01:00 Eos % (Auto) 0.4 % 07/14/22 01:00 Baso % (Auto) 0.3 % 07/14/22 01:00 Neut # (Auto) 13.16 10^3/uL (1.8-7.7) H 07/14/22 01:00 Lymph # (Auto) 3.9 10^3/uL (0.8-4.8) 07/14/22 01:00 [place] # (Auto) 2.2 10^3/uL (0.2-0.9) H 07/14/22 01:00 Eos # (Auto) 0.1 10^3/uL (0.0-0.8) 07/14/22 01:00 Baso # (Auto) 0.1 10^3/uL (0.0-0.1) 07/14/22 01:00 Nucleated RBC % (auto) 0 % 07/14/22 01:00 Nucleated RBCs # 0.0 /100WBC 07/14/22 01:00 Sodium 134 mmol/L (136-145) L 07/14/22 01:00 Potassium 4.0 mmol/L (3.5-5.1) 07/14/22 01:00 Chloride 98 mmol/L (98-107) 07/14/22 01:00 Carbon Dioxide 22 mmol/L (22-29) 07/14/22 01:00 Anion Gap 18.0 (5-19) 07/14/22 01:00 BUN 27 mg/dL (8-23) H 07/14/22 01:00 Creatinine 1.0 mg/dL (0.5-0.9) H 07/14/22 01:00 GFR Calculation Not Reportable 07/14/22 01:00 Glucose 127 mg/dL (65-115) H 07/14/22 01:00 Calculated Osmolality 285 mOsm/kg (285-295) 07/14/22 01:00 Lactate 2.6 mmol/L (0.5-2.2) H 07/14/22 01:00 Calcium 8.6 mg/dL (8.5-10.5) 07/14/22 01:00 Magnesium 2.4 mg/dL (1.7-2.3) H 07/14/22 01:00 Total Bilirubin 0.3 mg/dL (0.15-1.2) 07/14/22 01:00 AST 17 U/L (0-32) 07/14/22 01:00 ALT 19 U/L (0-33) 07/14/22 01:00 Alkaline Phosphatase 73 U/L (35-105) 07/14/22 01:00 Troponin T Baseline 15 ng/L (0-10) H 07/14/22 01:00 C-Reactive Protein 3.3 mg/L (0.0-4.9) 07/14/22 01:00 NT-Pro-B Natriuret Pep 461 pg/mL (0-450) H 07/14/22 01:00 Total Protein 6.4 g/dL (6.6-8.7) L 07/14/22 01:00 Albumin 4.2 g/dL (3.5-5.2) 07/14/22 01:00 Globulin 2.2 g/dL (1.3-4.6) 07/14/22 01:00 Urine Color [place] (Yellow) 07/14/22 04:41 Urine Appearance Hazy (CLEAR) A 07/14/22 04:41 Urine pH 5 (5-7) 07/14/22 04:41 Ur Specific [place] 1.020 (1.005-1.030) 07/14/22 04:41 Urine Protein 3+ (Negative) H 07/14/22 04:41 Urine Glucose (UA) Norm (Normal) 07/14/22 04:41 Urine Ketones 1+ (Negative) H 07/14/22 04:41 Urine Blood Neg (Negative) 07/14/22 04:41 Urine Nitrate Positive (Negative) H 07/14/22 04:41 Urine Bilirubin 3+ (Negative) H 07/14/22 04:41 Urine Urobilinogen 4+ mg/dL (Negative) H 07/14/22 04:41 Ur Leukocyte Esterase Negative (Negative) 07/14/22 04:41 Urine RBC 0-4 /hpf (0-2) H 07/14/22 04:41 Urine WBC 0-4 /hpf (0-5) H 07/14/22 04:41 Ur Squamous Epith Cells 0-4 /hpf (0-5) H 07/14/22 04:41 Calcium Oxalate Crystal 5-10 /hpf H 07/14/22 04:41 Amorphous Sediment Not Reportable 07/14/22 04:41 Urine Bacteria Trace /hpf (NONE) 07/14/22 04:41 Hyaline Casts 0-4 /lpf H 07/14/22 04:41 Urine Mucus 2+ /hpf 07/14/22 04:41 Influenza Type A Ag negative (Negative) 07/14/22 01:00 Influenza Type B Ag negative (Negative) 07/14/22 01:00 SARS-CoV-2 Ag (Rapid) Negative (Negative) 07/14/22 01:00 Discharge Plan Discharge Patient Disposition: Admitted As Inpatient Admit Provider: Deb Da Silva Clinical Impression: Hypovolemic shock, Colitis Condition: Stable Coding Level of Care Code ED Easement Worker for Chg Fwd Exam Comprehensive Documented by User: Luis Eduardo Eldridge DO 07/16/22 13:18 HPI - Weakness General: Chief complaint: Weakness Stated complaint: WEAKNESS Time Seen by Provider: 07/14/22 00:29 [facility] ED PFSH: Medical History (Updated 07/16/22 @ 13:18 by Luis Eduardo Eldridge DO) Abnormal CT of the abdomen Colitis Depression Enteritis Hyperlipidemia Hyperlipidemia associated with type 2 diabetes mellitus Hypertension Ileus Mesenteric artery stenosis Pacemaker Septic shock Sick sinus syndrome Surgical History Status post colonoscopy Social History Smoking and tobacco status: never smoked Alcohol intake: never Procedures Central Line Placement Right IJ: Time Out Performed: No Patient Placed on Monitor/Pulse Ox: Yes Prep: mask, gown and gloves Central Line Prep: Chlorhexidine scrub Local Anesthetic: lidocaine 1% Amount of anesthesia used (mL): 3 Ultrasound Used for Placement: Yes Central Line Lumen Inserted: triple Post Procedure: sutured in place, good blood return, all ports aspirated, flushed, capped and sterile dressing applied Post Procedure X-Ray: tip of catheter in good position and no pneumothorax seen Patient Tolerated Procedure: well and no complications Course Vital Signs: Vital signs: Vital Signs Temperature 98.5 F 07/16/22 11:54 Pulse Rate 76 07/16/22 11:54 Respiratory Rate 16 07/16/22 11:54 Blood Pressure 110/55 07/16/22 11:54 Pulse Oximetry 96 07/16/22 11:54 Oxygen Delivery Me thod 07/16/22 02:00 Oxygen Flow Rate 2 07/15/22 13:36 MDM - Weakness Medical Decision Making Patient was evaluated in the emergency department for generalized weakness, fall, abdominal pain, nausea vomiting and diarrhea. Upon entering the room, the odor suggest C. difficile infection. Patient was admitted on 06/17/2022 for influenza and pneumonia and was treated inpatient with antibiotics as well as antivirals. Patient was discharged to long term facility/rehab where she developed diarrhea but remained untreated Patient has been at home and has had diarrhea for greater than 10 days at this point. Patient has had multiple episodes of near syncope or syncope. Patient is having multiple stools a day Patient has been hypotensive at times Differential diagnosis includes sepsis, C. difficile, heart failure, AMI, bowel perforation, head injury, intra-abdominal injury Here in the emergency department we did a number of laboratory evaluations. Included CBC, CMP, CRP, lactate, troponin, BNP, blood cultures Diagnostic studies included EKG, chest x-ray, x-ray of the left ankle, CT head, CT abdomen pelvis with contrast Laboratory findings: Patient does have a white count of 20,000, multiple electrolyte disturbances but nothing with too much derangement. Patient does have evidence of dehydration. This is likely due to the greater than 10-day history of diarrhea. Lactic acid is 2.6. This will likely correct with 2 L of fluid CRP is unremarkable Troponin is 15 BNP is 461 Diagnostic findings: XR left ankle negative for acute fracture. Patient previous ORIF of these fibula. No evidence of hardware failure or migration. Patient has undergone chest x-ray. [facility] as contacted us with concerns of potential metastatic disease due to increased lucency of the clavicular head . Transition of care to Dr. Maribel Eldridge. Updated nurse on transition of care at 0308 Took over care from PATEL Berman. I agree with her history, evaluation, and treatment above. This lady received a third L fluid bolus to complete 30mg/Kg. She was still hypotensive, and pressors were started. Central line was placed without complication. Pressures improved significantly on pressors. her color improved. She remains awake and talking. She's covered with antibiotics. She'll go to the ICU. Hospitalist is aware, and has seen the patient in the ER. Lab Data 07/14/22 01:00 07/14/22 01:00 Radiology Impressions Abdomen/Pelvis CT 07/14/22 00:50 IMPRESSION: 1. Findings consistent with colitis that may be infectious. However, the may be a chronic ischemic component given the presence of stents in the celiac trunk and SMA. 2. Atherosclerotic calcification at the origins of the celiac trunk and SMA with vascular stents in place. The stents appear patent and the ARASELI is a patent vessel with caliber. However, the presence or absence of stenosis in the stents is difficult to evaluate on this examination. 3. Moderate diverticulosis of the descending colon and sigmoid. These diverticula may be secondarily involved, given diffuse colitis. THIS REPORT CONTAINS FINDINGS THAT MAY BE CRITICAL TO PATIENT CARE. The findings were verbally communicated via telephone conference with Dr. Luis Eduardo Gayle at 5:17 AM GROUP ART SUPERVISOR on 07/14/2022. The findings were acknowledged and understood. Findings were discussed with Dr. Luis Eduardo Gayle at 07/14/2022 5:31 AM GROUP ART SUPERVISOR. Head CT 07/14/22 00:50 IMPRESSION: 1. No acute intracranial findings. 2. Other chronic/incidental findings as described above. Chest X-Ray 07/14/22 03:40 IMPRESSION: 1. Right internal jugular central venous line tip in the proximal right atrium. 2. No pneumothorax post procedure. 3. No acute cardiopulmonary findings. Ankle X-Ray 07/15/22 12:21 IMPRESSION: Prior ORIF distal fibula with the incompletely healed or ununited fracture of the distal fibula partially obscured by the hardware. Laboratory Results WBC 19.4 10^3/uL (4.0-10.0) H 07/14/22 01:00 RBC 4.45 10^6/uL (4.1-5.3) 07/14/22 01:00 Hgb 13.4 g/dL (11.5-15.3) 07/14/22 01:00 Hct 43.0 % (37.0-47.0) 07/14/22 01:00 MCV 96.6 fl (81-99) 07/14/22 01:00 MCH 30.1 pg (28.0-34.0) 07/14/22 01:00 MCHC 31.2 g/dL (30.0-36.0) 07/14/22 01:00 RDW 13.0 % (12.1-15.1) 07/14/22 01:00 Plt Count 294 10^3/cmm (130-400) 07/14/22 01:00 MPV 9.9 fL (7.4-10.4) 07/14/22 01:00 Neut % (Auto) 67.7 % 07/14/22 01:00 Lymph % (Auto) 20.2 % 07/14/22 01:00 [place] % (Auto) 11.1 % 07/14/22 01:00 Eos % (Auto) 0.4 % 07/14/22 01:00 Baso % (Auto) 0.3 % 07/14/22 01:00 Neut # (Auto) 13.16 10^3/uL (1.8-7.7) H 07/14/22 01:00 Lymph # (Auto) 3.9 10^3/uL (0.8-4.8) 07/14/22 01:00 [place] # (Auto) 2.2 10^3/uL (0.2-0.9) H 07/14/22 01:00 Eos # (Auto) 0.1 10^3/uL (0.0-0.8) 07/14/22 01:00 Baso # (Auto) 0.1 10^3/uL (0.0-0.1) 07/14/22 01:00 Nucleated RBC % (auto) 0 % 07/14/22 01:00 Nucleated RBCs # 0.0 /100WBC 07/14/22 01:00 Sodium 134 mmol/L (136-145) L 07/14/22 01:00 Potassium 4.0 mmol/L (3.5-5.1) 07/14/22 01:00 Chloride 98 mmol/L (98-107) 07/14/22 01:00 Carbon Dioxide 22 mmol/L (22-29) 07/14/22 01:00 Anion Gap 18.0 (5-19) 07/14/22 01:00 BUN 27 mg/dL (8-23) H 07/14/22 01:00 Creatinine 1.0 mg/dL (0.5-0.9) H 07/14/22 01:00 GFR Calculation Not Reportable 07/14/22 01:00 Glucose 127 mg/dL (65-115) H 07/14/22 01:00 Calculated Osmolality 285 mOsm/kg (285-295) 07/14/22 01:00 Lactate 2.6 mmol/L (0.5-2.2) H 07/14/22 01:00 Calcium 8.6 mg/dL (8.5-10.5) 07/14/22 01:00 Magnesium 2.4 mg/dL (1.7-2.3) H 07/14/22 01:00 Total Bilirubin 0.3 mg/dL (0.15-1.2) 07/14/22 01:00 AST 17 U/L (0-32) 07/14/22 01:00 ALT 19 U/L (0-33) 07/14/22 01:00 Alkaline Phosphatase 73 U/L (35-105) 07/14/22 01:00 Troponin T Baseline 15 ng/L (0-10) H 07/14/22 01:00 C-Reactive Protein 3.3 mg/L (0.0-4.9) 07/14/22 01:00 NT-Pro-B Natriuret Pep 461 pg/mL (0-450) H 07/14/22 01:00 Total Protein 6.4 g/dL (6.6-8.7) L 07/14/22 01:00 Albumin 4.2 g/dL (3.5-5.2) 07/14/22 01:00 Globulin 2.2 g/dL (1.3-4.6) 07/14/22 01:00 Urine Color [place] (Yellow) 07/14/22 04:41 Urine Appearance Hazy (CLEAR) A 07/14/22 04:41 Urine pH 5 (5-7) 07/14/22 04:41 Ur Specific [place] 1.020 (1.005-1.030) 07/14/22 04:41 Urine Protein 3+ (Negative) H 07/14/22 04:41 Urine Glucose (UA) Norm (Normal) 07/14/22 04:41 Urine Ketones 1+ (Negative) H 07/14/22 04:41 Urine Blood Neg (Negative) 07/14/22 04:41 Urine Nitrate Positive (Negative) H 07/14/22 04:41 Urine Bilirubin 3+ (Negative) H 07/14/22 04:41 Urine Urobilinogen 4+ mg/dL (Negative) H 07/14/22 04:41 Ur Leukocyte Esterase Negative (Negative) 07/14/22 04:41 Urine RBC 0-4 /hpf (0-2) H 07/14/22 04:41 Urine WBC 0-4 /hpf (0-5) H 07/14/22 04:41 Ur Squamous Epith Cells 0-4 /hpf (0-5) H 07/14/22 04:41 Calcium Oxalate Crystal 5-10 /hpf H 07/14/22 04:41 Amorphous Sediment Not Reportable 07/14/22 04:41 Urine Bacteria Trace /hpf (NONE) 07/14/22 04:41 Hyaline Casts 0-4 /lpf H 07/14/22 04:41 Urine Mucus 2+ /hpf 07/14/22 04:41 Influenza Type A Ag negative (Negative) 07/14/22 01:00 Influenza Type B Ag negative (Negative) 07/14/22 01:00 SARS-CoV-2 Ag (Rapid) Negative (Negative) 07/14/22 01:00 Critical Care Time Critical Care Time: Critical Care Time: Yes Total Critical Care Time: 40 Attestation: This case had a high probability of a clinically significant, sudden, or life threatening deterioration of this patient's condition which required my full and direct attention, intervention and personal management. Time is independent of any procedure performed including central line placement. Discharge Plan Discharge Patient Disposition: Admitted As Inpatient Admit Provider: Deb Da Silva Clinical Impression: Hypovolemic shock, Colitis Condition: Stable Coding Level of Care Code ED Easement Worker for Chg Fwd Exam Comprehensive
[2022-07-14 01:09] LABS: Basophils # 0.1 10^3/uL (0.0-0.1); Basophils % 0.3 %; Eosinophils # 0.1 10^3/uL (0.0-0.8); Eosinophils % 0.4 %; Hemoglobin 13.4 g/dL (11.5-15.3); Lymphocytes # 3.9 10^3/uL (0.8-4.8); Lymphocytes % 20.2 %; Mean Corpuscular HGB Conc 31.2 g/dL (30.0-36.0); Mean Corpuscular Hemoglobin 30.1 pg (28.0-34.0); Mean Corpuscular Volume 96.6 fl (81-99); Mean Platelet Volume 9.9 fL (7.4-10.4); Monocytes # 2.2 10^3/uL (0.2-0.9); Monocytes % 11.1 %; Neutrophils # 13.16 10^3/uL (1.8-7.7); Neutrophils % 67.7 %; Nucleated Red Blood Cells % 0 %; Platelet Count 294 10^3/cmm (130-400); Red Blood Count 4.45 10^6/uL (4.1-5.3); White Blood Count 19.4 10^3/uL (4.0-10.0)
[2022-07-14 01:31] LABS: Lactate (Lactic Acid level) 2.6 mmol/L (0.5-2.2)
[2022-07-14 01:36] LABS: Alanine Aminotransferase 19 U/L (0-33); Albumin Level 4.2 g/dL (3.5-5.2); Alkaline Phosphatase 73 U/L (35-105); Aspartate Amino Transferase 17 U/L (0-32); Blood Urea Nitrogen 27 mg/dL (8-23); C Reactive Protein 3.3 mg/L (0.0-4.9); Calcium 8.6 mg/dL (8.5-10.5); Carbon Dioxide 22 mmol/L (22-29); Chloride 98 mmol/L (98-107); Creatinine Clr Calc Pharmacy 48.5353; Globulin 2.2 g/dL (1.3-4.6); Glucose 127 mg/dL (65-115); Magnesium 2.4 mg/dL (1.7-2.3); Osmolality Calculated 285 mOsm/kg (285-295); Sodium 134 mmol/L (136-145); Total Bilirubin 0.3 mg/dL (0.15-1.2); Total Protein 6.4 g/dL (6.6-8.7)
[2022-07-14 01:38] LABS: Troponin(5th) Baseline 15 ng/L (0-10)
[2022-07-14 01:45] LABS: NT Pro B Type Natriuretic Pept 461 pg/mL (0-450)
--- NOTE | 2022-07-14 01:47 | XRR_ITS ---
PROCEDURE INFORMATION: Exam: XR Left Ankle Exam date and time: 07/14/2022 2:24 AM Age: 81 years old Clinical indication: Pain; Ankle; Left; Additional info: Pain and swelling TECHNIQUE: Imaging protocol: Radiologic exam of the Left ankle. Views: 3 or more views. COMPARISON: No relevant prior studies available. FINDINGS: Bones/joints: There is a metallic plate and orthopedic screws transfixing a fracture of the distal fibula and lateral malleolus. Alignment at the fracture site is near anatomic. There is no dislocation. There is an Achilles tendon enthesophyte on the posterior aspect of the calcaneus bone. Soft tissues: There is adjacent soft tissue swelling. XR/XR ankle LT min 3V* [id number] IMPRESSION: These may represent recent postoperative changes for ORIF of a fracture of the base of the lateral malleolus. However, superimposed infection/osteomyelitis may present a similar picture.
[2022-07-14] MEDS: ondansetron 2 mg/ML SDV 2 mL 4 MG IVP (02:10)
[2022-07-14] MEDS: sodium chloride 0.9% 1,000 ML 999 ML IV ×3 (02:10→03:30)
--- NOTE | 2022-07-14 02:53 | ECG_ITS ---
[facility] Test Date: 2022-07-14 Pat Name: Mindy Verma Department: Room: Gender: Female Coagulant Dipper: : 1940 Requested By: Lona Vidal Order Number: [id number] Oswaldo MD: Fatmata Greenberg M.D. Measurements Intervals [place] Rate: 69 P: 74 FL: 219 QRS: -25 QRSD: 103 T: 54 QT: 420 QTc: 451 Interpretive Statements SINUS RHYTHM WITH FIRST DEGREE AV BLOCK PROBABLE SEPTAL MYOCARDIAL INFARCTION , OF INDETERMINATE AGE [35 ms Q WAVE IN V1/V2] Compared to ECG 11/01/2020 20:20:39 First degree AV block now present Myocardial infarct finding now present Electronically Signed On 07-14-2022 20:21:38 JAVA DEVELOPMENT MANAGER by Fatmata Greenberg M.D. [id number]
--- NOTE | 2022-07-14 03:12 | PM.HP ---
Providers/Chief Complaint Primary Care Provider: Chicho Young DO Chief Complaint: WEAKNESS History of Present Illness Mindy Verma is a 81 year old female with past medical history of depression, hyperlipidemia, pacemaker due to sick sinus syndrome, recent pneumonia and influenza. She was discharged from the hospital on June 24 to nursing facility. During her stay at the custodial she developed diarrhea and low blood pressure. According to patient's daughter patient was discharged from there without any further work-up. After getting home she continued to have chronic diarrhea and weakness. She has been very weak and due to having so much diarrhea and dehydration she has also been falling. Most recent fall being yesterday. Patient states she is just worn out and very very weak at this time. She is able to answer questions but appears very fatigued and lethargic. Apparently she also had a few syncopal episodes at home. Most of the story was obtained from the patient as well as chart. When I evaluated the patient her daughter had already left. Patient did not hit her head when she fell. She says she has been incontinent of stool and urine. She is also been having nausea and vomiting. Denies any blood in stool or vomit. Denies chest pain, shortness of breath at this time. States her abdomen is very sore to touch. ED course: Blood pressure on arrival quite low. Patient given 3 L normal saline bolus eventually and then started on Levophed. Lactic acid 2.6. WBC 20,000. Very foul-smelling liquid stool. Patient incontinent in the room in the ER several times. She is also vomited. X-ray left ankle negative for acute fracture. Chest x-ray showed increased lucency of clavicular heads worse on the right that may reflect diffuse osseous demineralization or metastatic disease. Bone scan indicated if clinically warranted. Patient has been ordered blood cultures, urinalysis, stool for C. difficile, stool culture. Troponin series have been ordered. No actual ischemic changes on EKG present. Patient on room air at this time. Blood pressure now stable on Levophed. CT abdomen pelvis is pending at this time. Medications/Allergies Home Medications Medication Instructions Recorded Confirmed Last Taken Type carbamazepine 200 mg 200 mg PO BID@0830,2100 10/29/20 06/18/22 11/01/20 History capsule,extended release [id number] cholecalciferol (vitamin D3) 125 125 mcg PO DAILY@0600 10/29/20 06/18/22 11/01/20 History mcg (5,000 unit) tablet (Vitamin D3) clopidogrel 75 mg tablet 75 mg PO DAILY@0600 10/29/20 06/18/22 11/01/20 History docusate sodium 100 mg capsule 200 mg PO PRN 10/29/20 06/18/22 Unknown History (Colace) hydroxyzine pamoate 25 mg capsule 25 mg PO BEDTIME@2100 10/29/20 06/18/22 10/31/20 History multivitamin 1 tab PO DAILY@0600 10/29/20 06/18/22 11/01/20 History ondansetron HCl 4 mg tablet 4 mg PO Q6H PRN Nausea And Vomiting 10/29/20 06/18/22 10/31/20 History prednisone 10 mg tablet 10 mg PO DAILY@0600 10/29/20 06/18/22 11/01/20 History rosuvastatin 5 mg tablet 5 mg PO BEDTIME@2100 10/29/20 06/18/22 10/31/20 History losartan 50 mg tablet 50 mg PO DAILY 01/05/21 06/18/22 Unknown History pantoprazole 20 mg tablet,delayed 40 mg PO BID 01/05/21 06/18/22 Unknown History release sertraline 100 mg tablet 100 mg PO DAILY@0600 #90 tabs 03/28/22 06/18/22 Unknown Rx gabapentin 100 mg capsule See Rx Instructions .Route 05/19/22 06/18/22 Unknown Rx .COMPLEX #90 caps ascorbic acid (vitamin C) 1,000 mg 1,000 mg PO DAILY 06/18/22 06/18/22 Unknown History tablet (Vitamin C) aspirin 81 mg tablet,delayed 81 mg PO DAILY 06/18/22 06/18/22 Unknown History release biotin 5 mg capsule 5 mg PO DAILY 06/18/22 06/18/22 Unknown History ferrous sulfate 325 mg (65 mg 325 mg PO EVERY OTHER DAY 06/18/22 06/18/22 Unknown History iron) tablet (iron) Allergies Allergy/AdvReac Type Severity Reaction Status Date / Time codeine Allergy Mild Itch Verified 06/18/22 08:42 diphenhydramine AdvReac Mild Hallucinati Verified 06/18/22 08:42 [From Josy] ons PFSH Acute PFSH: Medical History (Updated 07/14/22 @ 03:46 by Deb Da Silva MD) Abnormal CT of the abdomen Colitis Depression Enteritis Hyperlipidemia Hyperlipidemia associated with type 2 diabetes mellitus Hypertension Ileus Mesenteric artery stenosis Pacemaker Sick sinus syndrome Surgical History Status post colonoscopy Social History Smoking and tobacco status: never smoked Alcohol intake: never Vitals/I&O/Wt Last Vital Signs Temp 99.0 F 07/14/22 00:27 Pulse 70 07/14/22 02:40 Resp 23 H 07/14/22 02:40 BP 133/57 07/14/22 02:40 Pulse Ox 95 07/14/22 02:40 O2 Del Method 07/14/22 01:00 O2 Flow Rate 2 07/14/22 00:27 07/13/22 07/13/22 07/14/22 14:59 22:59 06:59 Intake Total 1017.78 / 1017.78 Balance 1017.78 / 1017.78 Weight last 48 hrs Weight 102.058 kg Physical Exam Narrative: General: Alert oriented x3, patient seen laying in bed very lethargic appearing and fatigued. Does answer questions but appears very tired. HEENT: Normocephalic, atraumatic, EOMI, breathing comfortably on 2 L nasal cannula. Dry mucous membranes. Cardio: Regular rate rhythm, normal S1-S2, Respiratory: Good bilateral air entry, no wheezes no rhonchi GI: Abdomen soft, diffusely tender to palpation no guarding or rebound tenderness, obese abdomen. Bowel sounds slightly hyperactive. Extremities: No bilateral lower extremity edema noted. Data 07/14/22 01:00 07/14/22 01:00 Micro: Microbiology 07/14/22 02:00 Blood Culture - Preliminary Blood SPECIMEN COLLECTED 07/14/22 02:05 Blood Culture - Preliminary Blood SPECIMEN COLLECTED A&P Assessment and plan (1) Pacemaker: (2) Hyperlipidemia associated with type 2 diabetes mellitus: (3) Hypertension: Qualifiers: Hypertension type: essential hypertension Qualified Code(s): I10 - Essential (primary) hypertension (4) Sick sinus syndrome: (5) Septic shock: (6) Diarrhea: (7) Dehydration: (8) Hyperlipidemia: Plan #Septic shock most likely secondary to colitis, requiring levophed #Diarrhea nausea vomiting #Elevated lactic acid #Recent pneumonia #Hyperlipidemia #hypertension #Sick sinus syndrome status post pacemaker #Generalized weakness dehydration #Fall and syncope secondary to above ? Check stool culture for C. difficile. ? Check stool bacterial culture ? Stool samples have been obtained. Results are pending. ? Check CT abdomen pelvis. - Place on zosyn ? Continue normal saline 125 cc/h ? Continue Levophed and wean off as able. ? Check blood cultures ? Urine cultures ? Check FOBT ? Consider bone scan given findings of chest x-ray. - She is chronically on prednisone daily. Will use stress dose steroids if needed. Levo requirement slowly decreaasing. - Most workup pending at this time. Full code DVT prophylaxis: Heparin SQ twice daily Attestations Medical Necessity Statement*: Acute respiratory failure stay for management of septic shock. Coding Level of Care Code Acute Foot Doctor for [facility] Fwd Diagnoses Pacemaker Z95.0 Hyperlipidemia associated with type 2 diabetes mellitus E11.69; E78.5 Hypertension I10 Hypertension type: essential hypertension Sick sinus syndrome I49.5 Septic shock A41.9; R65.21 Diarrhea R19.7 Dehydration E86.0 Hyperlipidemia E78.5
[2022-07-14] MEDS: midazolam 1 mg/mL INJ 2 mL 2 MG IVP (03:20)
[2022-07-14 03:33] LABS: Influenza A by IFA negative (Negative); Influenza B by IFA negative (Negative)
[2022-07-14 03:35] LABS: SARS Covid-2 Antigen Negative (Negative)
--- NOTE | 2022-07-14 03:40 | XRR_ITS ---
PROCEDURE INFORMATION: Exam: XR Chest Exam date and time: 07/14/2022 3:48 AM Age: 81 years old Clinical indication: Other vascular access device placement or adjustment; Central line, non-tunnelled; Additional info: Line placement TECHNIQUE: Imaging protocol: Radiologic exam of the chest. Views: 1 view. COMPARISON: CR (CHEST, ) 07/14/2022 1:28 AM FINDINGS: Tubes, catheters and devices: There is a right internal jugular central venous line with its tip in the proximal right atrium. A left pacemaker device is present and its leads are in appropriate position. EKG monitoring leads overlie the thoracic wall. Lungs: There is no evidence of focal pulmonary consolidation. Pleural spaces: No pleural effusion or pneumothorax. Heart/Mediastinum: Normal in size. Bones/joints: No acute fracture is identified. XR/XR chest 1V portable [id number] IMPRESSION: 1. Right internal jugular central venous line tip in the proximal right atrium. 2. No pneumothorax post procedure. 3. No acute cardiopulmonary findings.
[2022-07-14] MEDS: heparin 5,000 unit/mL INJ 1 mL 5000 UNIT SUBCUT ×2 (03:59→15:02)
[2022-07-14] MEDS: iohexol 350 mg/mL 500 mL Btl (per mL) IV (04:29)
[2022-07-14] MEDS: sodium chlor 0.9% + KCl 20 mEq 20 MEQ/1,000 ML BAG 125 MEQ IV (04:47)
[2022-07-14] MEDS: metroNIDAZOLE IV 500 MG/100 ML PREMIX 100 MG IV (04:48)
[2022-07-14 05:19] LABS: Urine Color Orange (Yellow)
[2022-07-14 05:20] LABS: Bilirubin Urine 3+ (Negative); Blood Urine Neg (Negative); Glucose Urine UA Norm (Normal); Ketones Urine 1+ (Negative); Nitrate Urine Positive (Negative); Protein Urine 3+ (Negative); Urine Appearance Hazy (CLEAR); Urobilinogen Urine 4+ mg/dL (Negative); pH Urine 5 (5-7)
[2022-07-14 05:21] LABS: Leukocyte Esterase Urine Negative (Negative)
[2022-07-14 05:27] LABS: Add Urine Microscopic? YES
[2022-07-14 05:32] LABS: Bacteria Urine TRACE /hpf; Mucus Urine 2+ /hpf; RBC Urine 0-4 /hpf (0-2); Squamous Epithelial Cell Urine 0-4 /hpf (0-5); WBC Urine 0-4 /hpf (0-5)
[2022-07-14 05:33] LABS: Add Urine Culture? No; Hyaline Casts Urine 0-4 /lpf
[2022-07-14] MEDS: piperacillin-tazobactam 3.375 GM in sodium chloride 0.9% (plus) 50 ML IV ×3 (06:56→21:34)
[2022-07-14] MEDS: ciprofloxacin 400 MG/200 ML PREMIX 200 MG IV (06:57)
[2022-07-14 07:07] LABS: Basophils # 0.1 10^3/uL (0.0-0.1); Basophils % 0.3 %; Hematocrit 37.4 % (37.0-47.0); Hemoglobin 11.7 g/dL (11.5-15.3); Lymphocytes # 1.3 10^3/uL (0.8-4.8); Lymphocytes % 6.3 %; Mean Corpuscular HGB Conc 31.3 g/dL (30.0-36.0); Mean Corpuscular Hemoglobin 30.8 pg (28.0-34.0); Mean Corpuscular Volume 98.4 fl (81-99); Mean Platelet Volume 9.6 fL (7.4-10.4); Monocytes # 2.7 10^3/uL (0.2-0.9); Monocytes % 13.1 %; Neutrophils # 16.74 10^3/uL (1.8-7.7); Nucleated Red Blood Cells % 0 %; Platelet Count 248 10^3/cmm (130-400); Red Cell Distribution Width 13.2 % (12.1-15.1); White Blood Count 20.9 10^3/uL (4.0-10.0)
[2022-07-14 07:32] LABS: Alanine Aminotransferase 15 U/L (0-33); Albumin Level 3.4 g/dL (3.5-5.2); Alkaline Phosphatase 61 U/L (35-105); Anion Gap 12.8 (5-19); Aspartate Amino Transferase 13 U/L (0-32); Blood Urea Nitrogen 19 mg/dL (8-23); Calcium 6.9 mg/dL (8.5-10.5); Carbon Dioxide 21 mmol/L (22-29); Chloride 105 mmol/L (98-107); Globulin 1.8 g/dL (1.3-4.6); Glucose 117 mg/dL (65-115); Magnesium 1.9 mg/dL (1.7-2.3); Osmolality Calculated 283 mOsm/kg (285-295); Potassium 3.8 mmol/L (3.5-5.1); Sodium 135 mmol/L (136-145); Total Bilirubin 0.2 mg/dL (0.15-1.2); Total Protein 5.2 g/dL (6.6-8.7)
[2022-07-14 07:33] LABS: Lactic Sepsis W/Reflex 1.4 mmol/L (0.5-2.2)
[2022-07-14 07:35] LABS: Troponin 5 6HR 31.96 ng/L (0-10)
[2022-07-14] MEDS: clopidogrel 75 mg Tablet PO (07:36)
[2022-07-14] MEDS: sertraline 100 mg Tablet PO (07:36)
[2022-07-14 07:52] LABS: Troponin 5 6HR Delta 16.96 ng/L (0-12)
[2022-07-14] MEDS: aspirin 81 mg EC Tablet PO (08:05)
--- NOTE | 2022-07-14 08:50 | ECG_ITS ---
[facility] Test Date: 2022-07-14 Pat Name: Mindy Verma Department: Room: ICU12 Gender: Female Targeting Acquisition Officer: : 1940 Requested By: Lona Vidal Order Number: [id number] Oswaldo MD: Fatmata Greenberg M.D. Measurements Intervals [place] Rate: 71 P: 58 MN: 206 QRS: -16 QRSD: 106 T: 62 QT: 405 QTc: 443 Interpretive Statements SINUS RHYTHM SEPTAL MYOCARDIAL INFARCTION , PROBABLY OLD [40+ ms Q WAVE IN V1/V2] Compared to ECG 07/14/2022 02:53:55 First degree AV block no longer present Myocardial infarct finding still present Electronically Signed On 07-14-2022 20:23:04 FORECLOSURE HOME INSPECTOR by Fatmata Greenberg M.D. [id number]
--- NOTE | 2022-07-14 11:20 | PC.PHAR ---
PTS DAUGHTER JOANNA [phone] VERIFIED PTS MEDICATIONS STATES THE PT WAS IN [facility] FROM 06/17/22 TO 06/24/22 THEN DISCHARGED TO [facility] AND WAS THERE FOR 2 WEEKS THEN DISCHARGED HOME 07/10/2022-DAUGHTER STATES THE PT HAS HAD DIARRHEA FOR ABOUT 10 DAYS AND ON FRIDAY TOOK A ONE TIME DOSE OF IMODIUM -pts daughter joanna states the pt wasnt getting the carbamazepine er 200mg bid while in [facility] states since the pt has been home since 07/10/22 they have been giving the pt the medication-pts daughter states the pt was taking iron eod but states since the pt came home from the [place] they have been giving daily-EXT MED HISTORY SHOWS LAST FILLED 04/18/22 90D/S FOR HYDROXYZINE HCL 25MG DAILY-EXT ALSO SHOWS PAMOATE 25MG DAILY PRN FILLED 06/12/22 33D/S PTS DAUGHTER STATES THE PT IS TAKING THE HCL STATES [facility] ON AND OFF-PTS DAUGHTER STATES LOSARTAN 50MG DAILY IS ON HOLD TILL THE PT SEES HER PCP STATES THE NH WASNT GIVING THE PT THIS MEDICATION DUE TO LOW BP READINGS-NOTES ARE MADE IN THE PHARMACY COMMENTS
--- NOTE | 2022-07-14 11:44 | PM.PN ---
Subjective Subjective: Patient is stating that she has been having diarrhea for last 2 months, previous colonoscopies were normal She has not noticed any fever Overnight she had 2 episode of loose stools This morning she is on IV fluids with normal hemodynamics She went never required vasopressors were then in the ER Hemoglobin stable, mild bleeding noted by the nursing staff today in her stool, C. difficile ruled out Vitals/I&O/Wt Last Vital Signs Temp 987 F H 07/14/22 06:32 Pulse 70 07/14/22 08:00 Resp 26 H 07/14/22 08:00 BP 140/55 07/14/22 08:00 Pulse Ox 93 07/14/22 08:00 O2 Del Method 07/14/22 06:39 O2 Flow Rate 2 07/14/22 04:00 07/13/22 07/14/22 07/14/22 22:59 06:59 14:59 Intake Total 2073.787 / 2073.787 Balance 2073.787 / 2073.787 Weight last 48 hrs Weight 102.058 kg Physical Exam Narrative: Patient is awake and alert Clinically signs of dehydration present Abdomen slightly tender lower quadrants Bowel sound present S1, S2 Currently patient is hemodynamically stable On room air Awake and alert Nonfocal neuro exam Lower extremity no swelling Stevenson catheter showing concentrated urine color Nonfocal neuro exam Pleasant and cooperative Urinary Catheter Management: Stevenson: Cath Placed During This Visit: yes Urinary Catheter Date of Insertion: 07/14/22 Urinary Catheter Time of Insertion: 04:43 Data 07/14/22 06:50 07/14/22 06:50 Micro: Microbiology 07/14/22 03:01 C.difficile Toxin B Gene (PCR) - Final Stool - Stool Aspirate 07/14/22 03:01 Occult Blood (FIT) - Final Stool - Stool Aspirate 07/14/22 02:00 Blood Culture - Preliminary Blood SPECIMEN COLLECTED 07/14/22 02:05 Blood Culture - Preliminary Blood SPECIMEN COLLECTED A&P Assessment and plan (1) Dehydration: (2) Diarrhea: (3) Pacemaker: (4) Sick sinus syndrome: (5) Hypovolemic shock: Plan Hypovolemic shock responded well to IV fluids, she only required vasopressors in the ER, in the ICU she responded well to IV fluids Patient never spiked a temperature, lactic acid improved after IV fluid hydration Septic shock ruled out C. difficile negative We will follow-up with stool cultures Previous colonoscopies were unremarkable She has been having diarrhea for the last 2 months Most likely will benefit from another colonoscopy if diarrhea does not resolve History of mesenteric ischemia status post stent in mesenteric vessels, does seem to be patent on current CT imaging Continue IV fluid hydration along aspirin, statin Continue GI soft diet for today Follow-up with stool culture Continue IV fluids in ICU If remains stable she might be able to go to [facility] today She is willing to go back to correction because of her weakness She was recently sent to correction after her concerns are a positive symptoms and recurrent falls For colitis I would continue Moe Attestations Medical Necessity Statement*: Continue current management Time Spent in Patient Care: 30 Critical Care Time: 30 Coding Level of Care Code Acute Junior Network Administrator for Cipri[facility] Forrest Diagnoses Dehydration E86.0 Diarrhea R19.7 Pacemaker Z95.0 Sick sinus syndrome I49.5 Hypovolemic shock R57.1
[2022-07-14 12:41] LABS: Glucose Point of Care 107 mg/dL (70-110)
[2022-07-14] MEDS: sodium chloride 0.9% 1,000 ML 75 ML IV (12:55)
[2022-07-14 13:17] LABS: Procalcitonin 0.04 ng/mL (0-0.5)
[2022-07-14] MEDS: gabapentin 100 mg Capsule PO ×2 (15:02→21:26)
[2022-07-14 16:37] LABS: Glucose Point of Care 115 mg/dL (70-110)
--- NOTE | 2022-07-14 18:17 | PC.NURSE ---
shift Summary: able to maintain bp without pressors, patient requested home meds be restarted, HCP holding off for now trying to find cause of colitis, narcotics not ordered for same reason patient okay with ordered Tylenol
[2022-07-14] MEDS: ALPRAZolam 0.5 mg Tablet PO (18:23)
[2022-07-14] MEDS: trazodone 100 mg Tablet 200 MG PO (21:26)
[2022-07-14] MEDS: acetaminophen 325 mg Tablet 650 MG PO (21:26)
[2022-07-14 22:42] LABS: Glucose Point of Care 91 mg/dL (70-110)
[2022-07-15] VITALS (81 sets, daily range): BP systolic 94–168; BP diastolic 36–81; PULSE 66–101; RESP 14–20; TEMP 36.9–38.4; O2SAT 89–98; BMI 41.1
--- NOTE | 2022-07-15 | PC.NURSE ---
Pt has demonstrated hypotensiveness as low as 60's systolic in the past 45 minutes. Pt is arousable and follows all commands. Cuff size and location have been changed with systolic pressures resulting in the low 90's, however the MAPs have remained less than 65. Dr Da Silva has been made aware and an order for Levophed titrated to maintain a MAP greater than 65 has been attained.
[2022-07-15] MEDS: sodium chloride 0.9% 1,000 ML 75 ML IV (02:03)
[2022-07-15 03:15] LABS: Basophils # 0.1 10^3/uL (0.0-0.1); Basophils % 0.3 %; Eosinophils # 0.3 10^3/uL (0.0-0.8); Eosinophils % 1.6 %; Hematocrit 36.3 % (37.0-47.0); Hemoglobin 11.2 g/dL (11.5-15.3); Lymphocytes # 1.9 10^3/uL (0.8-4.8); Lymphocytes % 12.4 %; Mean Corpuscular HGB Conc 30.9 g/dL (30.0-36.0); Mean Corpuscular Hemoglobin 30.8 pg (28.0-34.0); Mean Corpuscular Volume 99.7 fl (81-99); Mean Platelet Volume 9.5 fL (7.4-10.4); Monocytes # 2.2 10^3/uL (0.2-0.9); Monocytes % 14.4 %; Neutrophils # 10.89 10^3/uL (1.8-7.7); Nucleated Red Blood Cells % 0 %; Platelet Count 217 10^3/cmm (130-400); Red Blood Count 3.64 10^6/uL (4.1-5.3); Red Cell Distribution Width 13.4 % (12.1-15.1); White Blood Count 15.4 10^3/uL (4.0-10.0)
[2022-07-15 03:56] LABS: Alanine Aminotransferase 12 U/L (0-33); Albumin Level 2.8 g/dL (3.5-5.2); Alkaline Phosphatase 65 U/L (35-105); Anion Gap 10.7 (5-19); Aspartate Amino Transferase 13 U/L (0-32); Blood Urea Nitrogen 8 mg/dL (8-23); Calcium 8.1 mg/dL (8.5-10.5); Carbon Dioxide 24 mmol/L (22-29); Chloride 108 mmol/L (98-107); Globulin 2.3 g/dL (1.3-4.6); Glucose 101 mg/dL (65-115); Osmolality Calculated 286 mOsm/kg (285-295); Potassium 3.7 mmol/L (3.5-5.1); Sodium 139 mmol/L (136-145); Total Bilirubin 0.4 mg/dL (0.15-1.2); Total Protein 5.1 g/dL (6.6-8.7)
[2022-07-15] MEDS: heparin 5,000 unit/mL INJ 1 mL 5000 UNIT SUBCUT ×2 (06:30→17:14)
[2022-07-15 07:17] LABS: Glucose Point of Care 103 mg/dL (70-110)
[2022-07-15] MEDS: aspirin 81 mg EC Tablet PO (08:39)
[2022-07-15] MEDS: ALPRAZolam 0.5 mg Tablet PO ×2 (08:39→20:22)
[2022-07-15] MEDS: sertraline 100 mg Tablet PO (08:39)
[2022-07-15] MEDS: gabapentin 100 mg Capsule PO ×3 (08:39→20:22)
[2022-07-15] MEDS: piperacillin-tazobactam 3.375 GM in sodium chloride 0.9% (plus) 50 ML IV ×3 (09:20→21:56)
[2022-07-15] MEDS: acetaminophen 325 mg Tablet 650 MG PO ×2 (09:23→20:22)
--- NOTE | 2022-07-15 09:51 | P.PN_ITS ---
Subjective Subjective: Afebrile, leukocytosis trending down To bowel movements in last 24 hours Blood pressure is stable Discontinue IV fluids Transfer to [facility] Vitals/I&O/Wt Last Vital Signs Temp 987 F H 07/15/22 08:00 Pulse 79 07/15/22 08:00 Resp 20 H 07/15/22 08:00 BP 139/63 07/15/22 08:00 Pulse Ox 97 07/15/22 08:00 O2 Del Method 07/14/22 22:30 O2 Flow Rate 3 07/14/22 22:30 07/14/22 07/15/22 07/15/22 22:59 06:59 14:59 Intake Total 2470 / 2520 1155 / 3675 Output Total 2950 / 2950 750 / 3700 Balance -480 / -430 405 / -25 Weight last 48 hrs Weight 102.058 kg Weight 102.058 kg Weight 102.058 kg Physical Exam Narrative: Abdominal pain has subsided Nontender abdomen Soft No signs of peritonitis S1, S2 Hemodynamically stable Currently on 3 L nasal cannula Awake and alert Nonfocal neuro exam Left ankle bruising noted Tender to touch Urinary Catheter Management: Stevenson: Cath Placed During This Visit: yes Reason for Continuing Indwelling Catheter: Accurate Measurement of Urinary Output in Critically Ill Patients Urinary Catheter Date of Insertion: 07/14/22 Urinary Catheter Time of Insertion: 04:43 Data 07/15/22 02:40 07/15/22 02:40 Micro: Microbiology 07/14/22 02:00 Blood Culture - Preliminary Blood NEGATIVE TO DATE 07/14/22 02:05 Blood Culture - Preliminary Blood NEGATIVE TO DATE 07/14/22 03:01 Enteric Pathogens (PCR) - Final Stool - Stool Aspirate 07/14/22 03:01 C.difficile Toxin B Gene (PCR) - Final Stool - Stool Aspirate A&P Assessment and plan (1) Hypovolemic shock: (2) Dehydration: (3) Diarrhea: (4) Pacemaker: (5) Hyperlipidemia associated with type 2 diabetes mellitus: (6) Hypertension: Qualifiers: Hypertension type: essential hypertension Qualified Code(s): I10 - Essential (primary) hypertension (7) Sick sinus syndrome: Plan Hypovolemic shock: Resolved Febrile, leukocytosis trending down Septic shock: Ruled out Colitis: C. difficile ruled out, continue Zosyn Discontinue IV fluids today Transferred to [facility] Continue PT evaluation Imodium for diarrhea Patient will need outpatient colonoscopy once her infection has cleared Continue GI soft diet for now Left ankle bruise no signs of active fracture as per the recent x-rays Full code DVT prophylaxis on board Hemoglobin stable Attestations Medical Necessity Statement*: Transfer to [facility] Critical Care Time: 15 Coding Level of Care Code Acute Manager Employee Benefits for Chg Fwd Diagnoses Hypovolemic shock R57.1 Dehydration E86.0 Diarrhea R19.7 Pacemaker Z95.0 Hyperlipidemia associated with type 2 diabetes mellitus E11.69; E78.5 Hypertension I10 Hypertension type: essential hypertension Sick sinus syndrome I49.5
[2022-07-15] MEDS: morphine 4 mg/mL SDV 1 mL 2 MG IVP ×2 (11:48→22:53)
--- NOTE | 2022-07-15 12:12 | PC.CHAP ---
Pastoral Care Encounter/Spiritual Assessment Type of Contact [] Declined millwork estimator visit [] Patient/Family/Request visit [] Outpatient visit [] Follow-up visit [] Physician referral [] Code/Alert [x] Routine visit [] Staff referral [] Actively dying [x] Patient sleeping [] Family support [] [] Out of room [] Palliative care [] [] Receiving care in room [] Pre-surgical visit [] Trauma [] Long length of stay [x] ICU visit [] Other: Relational/Emotional Strength [] Patient feels connected with others/family/visitors/staff [] Distress [] Loneliness/isolation [] Abandonment Spirituality of Patient [] Person of Marie [] Attends Mormonism of their Marie [] Believes in Prayer [] Reads Bible or Yarsanism materials [] There are Spiritual issues to be addressed Operations Planner Interventions [x] Prayer [] Active listening [] Non-anxious presence [] Spiritual/emotional support [] Crisis/trauma care [] Spiritual counseling [] Bereavement support [] Provided bereavement packet [] Provided Bible/devotional materials [] Provided toy/stuffed animal, coloring book to patient or family member [] Provided Communion [] Anointing/[place] [] Salvation [x] Completed spiritual assessment [] Other: Impact on Illness or Injury [] Angry [] Fearful [] Anxious [] Often cries [] Exhaustion [] Unable to work [] Unable to attend gnosticism [] Unable to walk/stand [] Unable to read [] Unable to drive [] Unable to eat/drink [] Unable to sleep [] Unable to be with family [] Patient intubated [] Other: Summary Time spent with patient
--- NOTE | 2022-07-15 12:21 | XRR_ITS ---
PROCEDURE INFORMATION: Exam: XR Left Ankle Exam date and time: 07/15/2022 12:38 PM Age: 81 years old Clinical indication: Pain and injury or trauma; Fall; Sprain or strain; Prior surgery; Surgery type: Plate and screw, left ankle; Additional info: Bruise and pain TECHNIQUE: Imaging protocol: Radiologic exam of the Left ankle. Views: 1 or 2 views. COMPARISON: CR (LOW EXM, ) 07/14/2022 2:24 AM FINDINGS: Bones/joints: There is a cortical plate with multiple threaded screws through the distal fibula transfixing an ununited or incompletely healed fracture of the distal fibula that is obscured by the hardware. Remaining osseous structures are intact. There are mild degenerative changes along the medial aspect of the ankle joint. There is a moderate size spur arises from the posterior aspect of the calcaneus unchanged. Soft tissues: There is mild soft tissue swelling adjacent to the distal fibula. Other findings: Current study is limited two-view examination. XR/XR ankle LT 2V [id number] IMPRESSION: Prior ORIF distal fibula with the incompletely healed or ununited fracture of the distal fibula partially obscured by the hardware.
[2022-07-15 12:22] LABS: Glucose Point of Care 106 mg/dL (70-110)
[2022-07-15] MEDS: trazodone 100 mg Tablet 200 MG PO (20:22)
[2022-07-15 21:54] LABS: Glucose Point of Care 135 mg/dL (70-110)
[2022-07-15] MEDS: loperamide 2 mg Capsule PO (21:56)
[2022-07-16] VITALS (9 sets, daily range): BP systolic 98–135; BP diastolic 55–79; PULSE 76–88; RESP 14–16; TEMP 36.7–37.1; O2SAT 90–96
[2022-07-16] MEDS: heparin 5,000 unit/mL INJ 1 mL 5000 UNIT SUBCUT ×2 (03:26→15:49)
[2022-07-16] MEDS: piperacillin-tazobactam 3.375 GM in sodium chloride 0.9% (plus) 50 ML IV ×3 (05:36→22:49)
[2022-07-16] MEDS: sertraline 100 mg Tablet PO (05:36)
[2022-07-16 05:49] LABS: Basophils % 0.3 %; Eosinophils # 0.3 10^3/uL (0.0-0.8); Eosinophils % 1.7 %; Hematocrit 33.5 % (37.0-47.0); Hemoglobin 10.7 g/dL (11.5-15.3); Lymphocytes % 13.2 %; Mean Corpuscular HGB Conc 31.9 g/dL (30.0-36.0); Mean Corpuscular Hemoglobin 30.9 pg (28.0-34.0); Mean Corpuscular Volume 96.8 fl (81-99); Monocytes # 1.5 10^3/uL (0.2-0.9); Neutrophils # 11.36 10^3/uL (1.8-7.7); Neutrophils % 74.4 %; Nucleated Red Blood Cells % 0 %; Platelet Count 198 10^3/cmm (130-400); Red Blood Count 3.46 10^6/uL (4.1-5.3); Red Cell Distribution Width 13.4 % (12.1-15.1); White Blood Count 15.3 10^3/uL (4.0-10.0)
[2022-07-16 06:36] LABS: Anion Gap 12.6 (5-19); Blood Urea Nitrogen 9 mg/dL (8-23); Carbon Dioxide 25 mmol/L (22-29); Chloride 104 mmol/L (98-107); Glucose 95 mg/dL (65-115); Osmolality Calculated 284 mOsm/kg (285-295); Potassium 3.6 mmol/L (3.5-5.1); Sodium 138 mmol/L (136-145)
[2022-07-16 06:57] LABS: Glucose Point of Care 114 mg/dL (70-110)
[2022-07-16] MEDS: lactated ringers 500 ML 999 ML IV (09:00)
[2022-07-16] MEDS: aspirin 81 mg EC Tablet PO (09:01)
[2022-07-16] MEDS: gabapentin 100 mg Capsule PO ×3 (09:01→20:07)
[2022-07-16] MEDS: morphine 4 mg/mL SDV 1 mL 2 MG IVP (10:34)
[2022-07-16] MEDS: sodium chloride 0.9% 1,000 ML 75 ML IV (10:45)
--- NOTE | 2022-07-16 11:09 | P.PN_ITS ---
Subjective Subjective: Febrile episode noted Patient is doing well Complaining of left ankle pain and requesting her home medications for facial pain to be resumed Blood pressure improved after IV fluid hydration No bowel movement after Imodium yesterday Cultures negative to date Vitals/I&O/Wt Last Vital Signs Temp 98.8 F 07/16/22 08:08 Pulse 82 07/16/22 08:08 Resp 14 07/16/22 10:34 BP 121/66 07/16/22 08:08 Pulse Ox 95 07/16/22 08:08 O2 Del Method 07/16/22 02:00 O2 Flow Rate 2 07/15/22 13:36 07/15/22 07/16/22 07/16/22 22:59 06:59 14:59 Intake Total 50 / 100 50 / 150 550 / 550 Output Total 850 / 2100 Balance 50 / -1150 -800 / -1950 550 / 550 Weight last 48 hrs Weight 110.631 kg Weight 102.058 kg Physical Exam Narrative: Patient is laying supine Complaining of left ankle pain No sign of vascular compromise Bruising on left ankle noted At abdomen is soft bowel sound present S1, S2 Hemodynamically stable Awake alert Lethargic and fatigued Doing well on room air Urinary Catheter Management: Stevenson: Cath Placed During This Visit: yes Reason for Continuing Indwelling Catheter: Accurate Measurement of Urinary Output in Critically Ill Patients Urinary Catheter Date of Insertion: 07/14/22 Urinary Catheter Time of Insertion: 04:43 Data 07/16/22 04:57 07/16/22 04:57 A&P Assessment and plan (1) Hypovolemic shock: (2) Dehydration: (3) Diarrhea: (4) Pacemaker: (5) Hyperlipidemia associated with type 2 diabetes mellitus: (6) Left ankle pain: (7) Facial pain: Plan Hypovolemic shock: Improved Currently requiring IV fluids Diarrhea: Resolved after getting Imodium C. difficile ruled out Colitis: Febrile episode noted Cultures negative Continue IV fluids and antibiotics for now Check CRP, procalcitonin Hypokalemia: Repleted Left ankle pain we will give her anti-inflammatory medications, repeat x-ray did not show any significant anatomical pathology however her fracture has not healed completely Patient is complaining a lot of pain, limited physical therapy activity Facial pain continue carbamazepine Continue gabapentin and Zoloft I will continue IV fluids for next 10 hours Full code GI soft diet If remains afebrile for next 24 hours we might be able to send her to [facility][note 3] Attestations Medical Necessity Statement*: Continue medical management Time Spent in Patient Care: 30 Coding Level of Care Code Acute Horticulture/Floriculture Teacher for Chg Fwd Diagnoses Hypovolemic shock R57.1 Dehydration E86.0 Diarrhea R19.7 Pacemaker Z95.0 Hyperlipidemia associated with type 2 diabetes mellitus E11.69; E78.5 Left ankle pain M25.572 Facial pain R51.9
[2022-07-16 11:34] LABS: Magnesium 1.9 mg/dL (1.7-2.3)
[2022-07-16 11:38] LABS: Glucose Point of Care 102 mg/dL (70-110)
[2022-07-16] MEDS: potassium chloride ER 20 mEq Tablet 40 MEQ PO (12:24)
[2022-07-16] MEDS: ketorolac 30 mg/mL INJ 15 MG IVP ×3 (12:24→22:48)
[2022-07-16] MEDS: loperamide 2 mg Capsule PO (17:20)
[2022-07-16] MEDS: carBAMazepine XR (12 HR) 200 mg Tablet PO (17:20)
[2022-07-16 17:28] LABS: Glucose Point of Care 97 mg/dL (70-110)
[2022-07-16] MEDS: hyDROXYzine 25 mg Capsule PO (20:07)
[2022-07-16] MEDS: trazodone 100 mg Tablet 200 MG PO (20:07)
[2022-07-16 20:40] LABS: Glucose Point of Care 122 mg/dL (70-110)
[2022-07-17 04:00] VITALS: BP 148/85; PULSE 89; RESP 14; TEMP 37.4; O2SAT 92
[2022-07-17] MEDS: ketorolac 30 mg/mL INJ 15 MG IVP ×2 (04:45→10:39)
[2022-07-17] MEDS: heparin 5,000 unit/mL INJ 1 mL 5000 UNIT SUBCUT (04:46)
[2022-07-17] MEDS: sertraline 100 mg Tablet PO (05:28)
[2022-07-17] MEDS: piperacillin-tazobactam 3.375 GM in sodium chloride 0.9% (plus) 50 ML IV ×2 (05:30→13:37)
[2022-07-17] MEDS: sodium chloride 0.9% 1,000 ML 75 ML IV ×2 (05:36→11:05)
[2022-07-17 05:45] VITALS: PULSE 81
[2022-07-17 05:50] LABS: Basophils % 0.3 %; Eosinophils # 0.3 10^3/uL (0.0-0.8); Eosinophils % 2.5 %; Hematocrit 33.9 % (37.0-47.0); Hemoglobin 10.9 g/dL (11.5-15.3); Lymphocytes # 1.6 10^3/uL (0.8-4.8); Lymphocytes % 12.3 %; Mean Corpuscular HGB Conc 32.2 g/dL (30.0-36.0); Mean Corpuscular Volume 96.3 fl (81-99); Mean Platelet Volume 9.6 fL (7.4-10.4); Monocytes # 1.4 10^3/uL (0.2-0.9); Monocytes % 11.2 %; Neutrophils # 9.23 10^3/uL (1.8-7.7); Nucleated Red Blood Cells % 0 %; Platelet Count 230 10^3/cmm (130-400); Red Blood Count 3.52 10^6/uL (4.1-5.3); Red Cell Distribution Width 13.3 % (12.1-15.1); White Blood Count 12.7 10^3/uL (4.0-10.0)
[2022-07-17 06:25] LABS: C Reactive Protein 148.2 mg/L (0.0-4.9)
[2022-07-17 06:30] LABS: Anion Gap 13.3 (5-19); Blood Urea Nitrogen 11 mg/dL (8-23); Calcium 8.3 mg/dL (8.5-10.5); Carbon Dioxide 23 mmol/L (22-29); Chloride 106 mmol/L (98-107); Glucose 94 mg/dL (65-115); Osmolality Calculated 285 mOsm/kg (285-295); Potassium 4.3 mmol/L (3.5-5.1); Sodium 138 mmol/L (136-145)
[2022-07-17 06:37] LABS: Procalcitonin 0.05 ng/mL (0-0.5)
[2022-07-17 06:56] LABS: Glucose Point of Care 96 mg/dL (70-110)
--- NOTE | 2022-07-17 07:17 | CT_ITS ---
WS: [id number] CT LEFT ANKLE, NONCONTRAST. HISTORY: Pain after fall. Swelling. Technique: All CT scans at [facility] use at least one of these dose optimization techniques: automated exposure control; mA and/or kV adjustment per patient size (includes targeted exams where dose is matched to clinical indication); or iterative reconstruction. DLP: 146.76 mGy.cm COMPARISON: Radiograph 07/15/2022 Status post plate and screw fixation distal fibula. There are nondisplaced, nonhealed fractures invol ving the distal fibula and also the medial malleolus. No adjacent callus formation. Calcaneus and manisha us are intact. Mild diffuse soft tissue edema. Greatest amount of edema is along the anterior tibia. Edema also exte nds along the dorsal surface of the foot. CT/CT ankle LT wo con* [id number] IMPRESSION: 1. Nondisplaced, nonhealed fractures involving the distal fibula and the media l malleolus. 2. Status post plate and screw fixation distal fibula. Probably from a remote fracture.
--- NOTE | 2022-07-17 07:43 | PM.DCS ---
Discharge Providers Date of Admission: 07/14/22 05:40 Date of Discharge: July 17, 2022 Attending Provider at Admission: Deb Da Silva MD Attending Provider at Discharge: Nettie Small MD Primary Care Provider: Chicho Young DO Diagnoses at Discharge Discharge Diagnosis (1) Hypovolemic shock: Status: Acute (2) Dehydration: Status: Acute (3) Diarrhea: Status: Acute (4) Pacemaker: Status: Acute (5) Hyperlipidemia associated with type 2 diabetes mellitus: Status: Acute (6) Left ankle pain: Status: Acute (7) Facial pain: Status: Acute Reason for Visit Reason for Visit: WEAKNESS Hospital Course Hospital Course 81-year-old female who was recently discharged to rehab when she was treated for fall, influenza A related weakness. She returned back for severe hypotension related to dehydration and diarrhea. C. difficile was ruled out. Stool cultures were negative. CT scan of abdomen pelvis showed colitis without signs of diverticulitis. There were concerns for mesenteric ischemia related to her previous history of stent placement in mesenteric vessels. With IV fluid hydration and antibiotics her blood pressure improved she required Levophed for only a few hours in the ER in the ICU she did well with IV fluid hydration. She remained afebrile other than 1 episode. Cultures remain negative. She is able to tolerate GI soft diet. She is very weak and lethargic will need long-term placement. She was discharged from the long-term a week ago. She kept complaining of left ankle pain x-ray showed nonhealed fracture, I discussed her x-ray findings with Dr. Ly who recommended CT scan and outpatient evaluation. He also recommended nonweightbearing and Cam boot. She will be discharged on ciprofloxacin and Flagyl 7-day regimen She will need appointment with Dr. Ly for her left ankle Outpatient colonoscopy with biopsy with Dr. Phillips 2 weeks after her discharge we cannot do colonoscopy today with biopsy because of her active colitis daughter was informed that I am discharging her antibiotics and she will need appointment with Dr. Ly Patient is at risk of dehydration, I have asked her and reinforce the importance of staying hydrated otherwise she is at high risk for readmissions Will remove right IJ before discharge which was placed in the ER for hypovolemic shock management Physical Exam Narrative: Patient is pleasant and cooperative Doing well on room air Hemodynamically stable Abdomen soft Patient is relatively well-hydrated now Left ankle bruise slightly improved S1, S2 EOMI, PERRLA Urinary Catheter Management: Stevenson: Cath Placed During This Visit: yes Reason for Continuing Indwelling Catheter: Acute Urinary Retention or Obstruction Urinary Catheter Date of Insertion: 07/14/22 Urinary Catheter Time of Insertion: 04:43 Discharge Data Studies Completed and Pending Completed Studies During Hospitalization Category Date Time Status CT abdomen pelvis w con* [id number] Stat Cat Scan 07/14/22 00:[address] head wo con* [id number] Stat Cat Scan 07/14/22 00:50 Completed XR ankle LT 2V [id number] Routine Exams 07/15/22 12:21 Completed XR ankle LT min 3V* [id number] Stat Exams 07/14/22 01:47 Completed XR chest 1V portable [id number] Stat Exams 07/14/22 00:50 Completed XR chest 1V portable [id number] Stat Exams 07/14/22 03:40 Completed Pending at discharge Category Date Time Status CT ankle LT wo con* [id number] Routine Cat Scan 07/17/22 07:17 Ordered Blood Culture Stat Lab 07/14/22 02:00 Results Sputum Culture and Gram Stain Stat Lab 07/14/22 03:48 Uncollected Radiology Impressions Abdomen/Pelvis CT 07/14/22 00:50 IMPRESSION: 1. Findings consistent with colitis that may be infectious. However, the may be a chronic ischemic component given the presence of stents in the celiac trunk and SMA. 2. Atherosclerotic calcification at the origins of the celiac trunk and SMA with vascular stents in place. The stents appear patent and the ARASELI is a patent vessel with caliber. However, the presence or absence of stenosis in the stents is difficult to evaluate on this examination. 3. Moderate diverticulosis of the descending colon and sigmoid. These diverticula may be secondarily involved, given diffuse colitis. THIS REPORT CONTAINS FINDINGS THAT MAY BE CRITICAL TO PATIENT CARE. The findings were verbally communicated via telephone conference with Dr. Luis Eduardo Gayle at 5:17 AM SWINGING CUT OFF SAW OPERATOR on 07/14/2022. The findings were acknowledged and understood. Findings were discussed with Dr. Luis Eduardo Gayle at 07/14/2022 5:31 AM SWINGING CUT OFF SAW OPERATOR. Head CT 07/14/22 00:50 IMPRESSION: 1. No acute intracranial findings. 2. Other chronic/incidental findings as described above. Chest X-Ray 07/14/22 03:40 IMPRESSION: 1. Right internal jugular central venous line tip in the proximal right atrium. 2. No pneumothorax post procedure. 3. No acute cardiopulmonary findings. Ankle X-Ray 07/15/22 12:21 IMPRESSION: Prior ORIF distal fibula with the incompletely healed or ununited fracture of the distal fibula partially obscured by the hardware. Laboratory Results WBC 12.7 10^3/uL (4.0-10.0) H 07/17/22 05:26 RBC 3.52 10^6/uL (4.1-5.3) L 07/17/22 05:26 Hgb 10.9 g/dL (11.5-15.3) L 07/17/22 05:26 Hct 33.9 % (37.0-47.0) L 07/17/22 05:26 MCV 96.3 fl (81-99) 07/17/22 05:26 MCH 31.0 pg (28.0-34.0) 07/17/22 05:26 MCHC 32.2 g/dL (30.0-36.0) 07/17/22 05:26 RDW 13.3 % (12.1-15.1) 07/17/22 05:26 Plt Count 230 10^3/cmm (130-400) 07/17/22 05:26 MPV 9.6 fL (7.4-10.4) 07/17/22 05:26 Neut % (Auto) 73.0 % 07/17/22 05:26 Lymph % (Auto) 12.3 % 07/17/22 05:26 [place] % (Auto) 11.2 % 07/17/22 05:26 Eos % (Auto) 2.5 % 07/17/22 05:26 Baso % (Auto) 0.3 % 07/17/22 05:26 Neut # (Auto) 9.23 10^3/uL (1.8-7.7) H 07/17/22 05:26 Lymph # (Auto) 1.6 10^3/uL (0.8-4.8) 07/17/22 05:26 [place] # (Auto) 1.4 10^3/uL (0.2-0.9) H 07/17/22 05:26 Eos # (Auto) 0.3 10^3/uL (0.0-0.8) 07/17/22 05:26 Baso # (Auto) 0.0 10^3/uL (0.0-0.1) 07/17/22 05:26 Nucleated RBC % (auto) 0 % 07/17/22 05:26 Nucleated RBCs # 0.0 /100WBC 07/17/22 05:26 Sodium 138 mmol/L (136-145) 07/17/22 05:26 Potassium 4.3 mmol/L (3.5-5.1) 07/17/22 05:26 Chloride 106 mmol/L (98-107) 07/17/22 05:26 Carbon Dioxide 23 mmol/L (22-29) 07/17/22 05:26 Anion Gap 13.3 (5-19) 07/17/22 05:26 BUN 11 mg/dL (8-23) 07/17/22 05:26 Creatinine 0.6 mg/dL (0.5-0.9) 07/17/22 05:26 GFR Calculation Not Reportable 07/17/22 05:26 Glucose 94 mg/dL (65-115) 07/17/22 05:26 POC Glucose 96 mg/dL (70-110) 07/17/22 06:44 Calculated Osmolality 285 mOsm/kg (285-295) 07/17/22 05:26 Lactic Acid 1.4 mmol/L (0.5-2.2) 07/14/22 06:50 Lactate 2.6 mmol/L (0.5-2.2) H 07/14/22 01:00 Calcium 8.3 mg/dL (8.5-10.5) L 07/17/22 05:26 Magnesium 1.9 mg/dL (1.7-2.3) 07/16/22 04:16 Total Bilirubin 0.4 mg/dL (0.15-1.2) 07/15/22 02:40 AST 13 U/L (0-32) 07/15/22 02:40 ALT 12 U/L (0-33) 07/15/22 02:40 Alkaline Phosphatase 65 U/L (35-105) 07/15/22 02:40 Troponin T Baseline 15 ng/L (0-10) H 07/14/22 01:00 Troponin T Hi Sens 6Hr 31.96 ng/L (0-10) H 07/14/22 06:50 Troponin T Hi Sens 6Hr Delta 16.96 ng/L (0-12) H* 07/14/22 06:50 C-Reactive Protein 148.2 mg/L (0.0-4.9) H 07/17/22 05:26 NT-Pro-B Natriuret Pep 461 pg/mL (0-450) H 07/14/22 01:00 Total Protein 5.1 g/dL (6.6-8.7) L 07/15/22 02:40 Albumin 2.8 g/dL (3.5-5.2) L 07/15/22 02:40 Globulin 2.3 g/dL (1.3-4.6) 07/15/22 02:40 Procalcitonin 0.05 ng/mL (0-0.5) 07/17/22 05:26 Urine Color Quay (Yellow) 07/14/22 04:41 Urine Appearance Hazy (CLEAR) A 07/14/22 04:41 Urine pH 5 (5-7) 07/14/22 04:41 Ur Specific [place] 1.020 (1.005-1.030) 07/14/22 04:41 Urine Protein 3+ (Negative) H 07/14/22 04:41 Urine Glucose (UA) Norm (Normal) 07/14/22 04:41 Urine Ketones 1+ (Negative) H 07/14/22 04:41 Urine Blood Neg (Negative) 07/14/22 04:41 Urine Nitrate Positive (Negative) H 07/14/22 04:41 Urine Bilirubin 3+ (Negative) H 07/14/22 04:41 Urine Urobilinogen 4+ mg/dL (Negative) H 07/14/22 04:41 Ur Leukocyte Esterase Negative (Negative) 07/14/22 04:41 Urine RBC 0-4 /hpf (0-2) H 07/14/22 04:41 Urine WBC 0-4 /hpf (0-5) H 07/14/22 04:41 Ur Squamous Epith Cells 0-4 /hpf (0-5) H 07/14/22 04:41 Calcium Oxalate Crystal 5-10 /hpf H 07/14/22 04:41 Amorphous Sediment Not Reportable 07/14/22 04:41 Urine Bacteria Trace /hpf (NONE) 07/14/22 04:41 Hyaline Casts 0-4 /lpf H 07/14/22 04:41 Urine Mucus 2+ /hpf 07/14/22 04:41 Influenza Type A Ag negative (Negative) 07/14/22 01:00 Influenza Type B Ag negative (Negative) 07/14/22 01:00 SARS-CoV-2 Ag (Rapid) Negative (Negative) 07/14/22 01:00 Vitals Last Vital Signs Temp 99.4 F 07/17/22 04:00 Pulse 81 07/17/22 05:45 Resp 14 07/17/22 04:00 BP 148/85 07/17/22 04:00 Pulse Ox 92 07/17/22 04:00 O2 Del Method 07/17/22 04:00 O2 Flow Rate 2 07/15/22 13:36 Discharge Plan Discharge Patient Disposition: Xfer [facility] Condition: Stable Prescriptions: New oxycodone 10 mg tablet 10 mg PO Q8H PRN (Reason: pain) Qty: 14 0RF ciprofloxacin HCl 500 mg tablet 500 mg PO Q12H Qty: 14 0RF metronidazole 500 mg tablet 500 mg PO Q8H 7 Days Qty: 21 0RF Continued losartan 50 mg tablet 50 mg PO DAILY Rx Instructions: MEDICATION ON HOLD PER DAUGHTER multivitamin Tablet 1 tab PO QAM prednisone 10 mg tablet 10 mg PO QAM ondansetron HCl 4 mg tablet 4 mg PO Q6H PRN (Reason: Nausea And Vomiting) clopidogrel 75 mg tablet 75 mg PO QAM rosuvastatin 5 mg tablet 5 mg PO BEDTIME pantoprazole 20 mg tablet,delayed release (DR/EC) 40 mg PO BID sertraline 100 mg tablet 100 mg PO QAM Vitamin B-12 1,000 mcg Tablet 1,000 mcg PO QAM Tylenol Ex Str Rapid Release 500 mg Tablet 500 - 1,000 mg PO Q6H PRN (Reason: Pain) trazodone 100 mg tablet 200 mg PO BEDTIME hydroxyzine HCl 25 mg tablet 25 mg PO BEDTIME gabapentin 100 mg capsule 100 mg PO TID Vitamin D3 10 mcg (400 unit) Tablet 10 mcg PO QAM carbamazepine 200 mg capsule, ER multiphase 12 hr 200 mg PO BID ascorbic acid (vitamin C) [Vitamin C] 1,000 mg Tablet 1,000 mg PO QAM aspirin 81 mg Tablet,Delayed Release (Dr/Ec) 81 mg PO QAM ferrous sulfate [iron] 325 mg (65 mg iron) Tablet 325 mg PO QAM Changed loperamide 2 mg Capsule 4 mg PO Q4H PRN (Reason: diarrhea) Qty: 30 0RF Discontinued Dulcolax (bisacodyl) 5 mg Tablet,Delayed Release (Dr/Ec) 5 mg PO BID PRN (Reason: Constipation) biotin 5 mg Capsule 5 mg PO QAM Discharge Orders: Discharge Order (Routine); Ordered 07/17/22 Ordered By: Nettie Small Referrals: Madi Pedroza DO [Physician] - 2 weeks (Colonoscopy with biopsy for persistent diarrhea) Oli Ly DO [Physician] - 1-3 days Chicho Young DO [Primary Care Provider] - 07/23/22 11:00 am Discharge Diet: GI Soft Discharge Activity: Limit activity as instructed Patient's Health Concerns: Stay nonweightbearing on left ankle you can use the boot for offloading will stay nonweightbearing until evaluated by orthopedics Dr. Ly in the clinic, you can continue rest of your rehab exercise regime You will need colonoscopy 2 weeks after your discharge for possible colonoscopy. Dr. Pedroza we will need biopsy to see what is causing the diarrhea you can take Imodium on as-needed basis Keep yourself hydrated Discharge Attestations Time Spent in Discharge Care*: less than 30 min Status at Discharge: Cognitive status at discharge: cognitively intact, Behavioral status at discharge: cooperative, Quality Metrics Clinical Quality Measures [ No reported AMI, CVA or VTE this stay] Coding Level of Care Code Acute Chg FW DC note Diagnoses Hypovolemic shock R57.1 Dehydration E86.0 Diarrhea R19.7 Pacemaker Z95.0 Hyperlipidemia associated with type 2 diabetes mellitus E11.69; E78.5 Left ankle pain M25.572 Facial pain R51.9
[2022-07-17 07:58] VITALS: BP 172/85; PULSE 80; RESP 17; TEMP 37; O2SAT 94
[2022-07-17] MEDS: gabapentin 100 mg Capsule PO (10:40)
[2022-07-17] MEDS: carBAMazepine XR (12 HR) 200 mg Tablet PO (10:40)
[2022-07-17] MEDS: aspirin 81 mg EC Tablet PO (10:40)
[2022-07-17] MEDS: lidocaine 5% Patch 1 PATCH TOPICAL (10:41)
[2022-07-17] MEDS: loperamide 2 mg Capsule PO (10:44)
[2022-07-17 12:00] VITALS: BP 135/74; PULSE 72; RESP 18; TEMP 36.8; O2SAT 93
[2022-07-17 12:01] LABS: SARS Covid-2 Antigen negative (Negative)
[2022-07-17 12:05] LABS: Glucose Point of Care 88 mg/dL (70-110)
--- NOTE | 2022-07-17 12:25 | PC.SOCIAL ---
Pg 2 IMM Explained to pt Pg 2 IMM. No questions voiced. Provided pt a copy. Initialed, dated, & timed a copy & placed in chart.
== END 2022-07-17 14:00 | disposition skilled nursing facility (03) | DRG 314 ==
LOC: ER 04:49 → ICU 05:58 → MEDSURG 07-15 19:40
PROVIDERS: Nurse Practitioner; Admitting Provider Internal Medicine; Emergency Provider Emergency Medicine; PCP Family Medicine; Visit Provider Internal Medicine
DX: I95.9 Hypotension, unspecified (principal); R57.1 Hypovolemic shock; K52.9 Noninfective gastroenteritis and colitis, unspecified; E86.0 Dehydration; Z95.0 Presence of cardiac pacemaker; E78.49 Other hyperlipidemia; E11.69 Type 2 diabetes mellitus with other specified complication; R51.9 Headache, unspecified; Z79.52 Long term (current) use of systemic steroids; Z79.02 Long term (current) use of antithrombotics/antiplatelets; Z79.891 Long term (current) use of opiate analgesic; Z79.82 Long term (current) use of aspirin; F32.A Depression, unspecified; I49.5 Sick sinus syndrome; S82.832G Other fracture of upper and lower end of left fibula, subsequent encounter for closed fracture with delayed healing; S82.55XG Nondisplaced fracture of medial malleolus of left tibia, subsequent encounter for closed fracture with delayed healing; W19.XXXD Unspecified fall, subsequent encounter; Z87.01 Personal history of pneumonia (recurrent)
CPT/HCPCS: 36415; 36416; 51702; 70450; 71045; 73600; 73610; 73700; 74177; 80048; 80053; 81001; 82274; 82962; 83605; 83735; 83880; 84145; 84484; 85025; 86140; 87040; 87426; 87493; 87506; 87804; 93005; 94664; 96365; 96366; 96367; 96372; 96375; 97110; 97161; 97530; 99285; J0744; J1644; J1885; J2250; J2270; J2405; J2543; J3370; J3480; J3490; J7030; J7060; J7120; L4361; Q9967

== ENCOUNTER → 2022-07-18 09:12 | Outpatient (BNVA) | payer OTHER, MEDICARE, SELFPAY | PROVIDERS: PCP Family Medicine; Visit Provider Student in an Organized Health Care Education/Training Program | DX: S82.832K Other fracture of upper and lower end of left fibula, subsequent encounter for closed fracture with nonunion (principal); W19.XXXD Unspecified fall, subsequent encounter | CPT/HCPCS: 99204 ==

== ENCOUNTER 2022-07-22 13:27 | Emergency (ER) | payer OTHER, MEDICARE, SELFPAY ==
[2022-07-22] VITALS (46 sets, daily range): BP systolic 89–157; BP diastolic 41–110; PULSE 67–75; RESP 11–25; TEMP 36.9; O2SAT 85–100
--- NOTE | 2022-07-22 14:15 | CT_ITS ---
WS: [id number] CT ABDOMEN AND PELVIS NONCONTRAST HISTORY: Abdominal pain TECHNIQUE: Imaging performed through the abdomen and pelvis. Coronal and sagittal reformats are submi tted. All CT scans at [facility] use at least one of these dose optimization techniques: auto mated exposure control; mA and/or kV adjustment per patient size (includes targeted exams where dose is matched to clinical indication); or iterative reconstruction. DLP: 1130.05 mGy.cm COMPARISON: 07/14/2022 Lower thorax: Mild dependent changes at the lung bases. Heart size is normal. Cardiac defibrillator w ires are noted. Small hiatal hernia. Liver: Normal size liver. No mass or bile duct dilatation. Gallbladder: Normal gallbladder. Pancreas: Visualized pancreas is negative. Portions of the pancreas is being obscured by artifact fro m clips in the LEFT upper abdomen which may be related to the prior splenectomy. Spleen: Status post splenectomy. Adrenal glands: Normal. No mass. Right kidney: Normal size kidney with no mass or hydronephrosis. Left kidney: Normal size kidney with no mass or hydronephrosis. Aorta: Mild atherosclerosis abdominal aorta with no aneurysm. Stents are noted within the lymphatics and SMA as previously described. Cannot further evaluate without IV contrast. No free fluid, intraperitoneal air or significant lymphadenopathy. GI tract: Nondistended stomach. No small bowel obstruction. The appendix is not identified. Abdominal wall: Diffuse thinning of the ventral abdominal wall musculature. No hernia. Pelvis: Stevenson catheter present in a nondistended urinary bladder. No free fluid or adenopathy. Prior hysterectomy. Osseous structures: Severe thoracolumbar scoliosis. Severe narrowing of the disc spaces and desiccati on. CT/CT abdomen pelvis wo con [id number] IMPRESSION: 1. No acute abdominal or pelvic abnormalities are identified. 2. Prior splenectomy. 3. Prior stent placed within the celiac axis and SMA. 4. Negative gallbladder. 5. No free air or ascites. 6. No ischemic changes in the GI tract.
--- NOTE | 2022-07-22 14:25 | ECG_ITS ---
[facility] Test Date: 2022-07-22 Pat Name: Mindy Verma Department: Room: Gender: Female Approver: : 1940 Requested By: Phillip Morales Order Number: [id number] Oswaldo MD: Mac Vizcarra M.D. Measurements Intervals [place] Rate: 71 P: 51 MN: 220 QRS: -19 QRSD: 109 T: 30 QT: 417 QTc: 454 Interpretive Statements SINUS RHYTHM WITH FIRST DEGREE AV BLOCK MINIMAL VOLTAGE CRITERIA FOR LVH, CONSIDER NORMAL VARIANT [MEETS CRITERIA IN ONE OF: R(aVL), S(V1), R(V5), R(V5/V6)+S(V1)] SEPTAL MYOCARDIAL INFARCTION , OF INDETERMINATE AGE [40+ ms Q WAVE IN V1/V2] Compared to ECG 07/14/2022 08:50:56 First degree AV block now present Myocardial infarct finding still present Electronically Signed On 07-22-2022 18:42:06 [employer] PUBLIC MESSAGE SERVICE by Mac Vizcarra M.D. [email or web address]
--- NOTE | 2022-07-22 14:35 | ED_ITS ---
HPI - Abdominal Pain General: Chief Complaint: Abdominal Pain Stated Complaint: SEVERE ABDOMINAL PAIN Time Seen by Provider: 07/22/22 14:14 Source: patient Mode of arrival: EMS History of Present Illness: 81-year-old female presents emergency room from [facility] complaining of abdominal pain began this morning. No fever sweats ch ills no hematochezia melena hematemesis Cooper's no dysuria urgency or frequency or hematuria patient previously has had a splenectomy. MD elicited complaint: abdominal pain Onset (ago): hour(s) Pain Consistency: constant Location: Diffuse Severity: moderate Quality: cramping Exacerbating factors: nothing Relieving factors: nothing Associated Symptoms: Reports GI cramping and nausea; Denies anorexia, belching, bloating, change in bowel habits, change in stool character, chills, coffee ground emesis, constipation, diarrhea, dyspepsia, dysuria, excessive flatus, fever(s), heartburn, hematochezia, hematuria, hematemesis, fecal incontinence, loose stools, melena, poor appetite, syncope and vomiting Review of Systems Const: Denies: fever(s) or chills Card: Denies: syncope Resp: Denies: dyspnea, productive cough or non-productive cough GI: Reports: nausea and GI cramping; Denies: vomiting, hematemesis, coffee ground emesis, heartburn, diarrhea, constipation, bloating, belching, excessive flatus, fecal incontinence, change in bowel habits, change in stool character, hematochezia or melena : Denies: dysuria or hematuria PFS ED PFSH: Medical History Abnormal CT of the abdomen Colitis Colitis Dehydration Depression Diarrhea Enteritis Facial pain 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 Hyperlipidemia Hyperlipidemia associated with type 2 diabetes mellitus Hypertension Hypovolemic shock Ileus Left ankle pain Mesenteric artery stenosis Pacemaker Septic shock Sick sinus syndrome Surgical History History of ankle surgery History of knee replacement History of splenectomy Status post colonoscopy Social History Smoking and tobacco status: never smoked Alcohol intake: never Physical Exam Const: COMMON NORMALS: no acute distress GENERAL APPEARANCE: cooperative ORIENTATION/CONSCIOUSNESS: Yes awake HENMT: COMMON NORMALS: normocephalic, atraumatic and hearing grossly normal bilaterally HEAD & SCALP: normocephalic and atraumatic Lymph: LYMPHATIC: no lymphadenopathy noted and no lymphedema noted Resp: COMMON NORMALS: normal respiratory effort, No retractions, No use of accessory muscles and clear to auscultation bilaterally AUSCULTATION: clear to auscultation bilaterally Cardio: COMMON NORMALS: regular rate, regular rhythm and No murmurs present (Cardio) RATE: regular rate RHYTHM: regular rhythm GI: COMMON NORMALS: Soft to palpation and No hepatosplenomegaly present AUSCULTATION: Yes normoactive bowel sounds PALPATION: Yes Soft to palpation, No Tenderness to palpation present (GI), No Guarding due to palpation present (GI) and Yes No hepatosplenomegaly present Extremity: COMMON NORMALS: normal to inspection, capillary refill normal, no clubbing, cyanosis or edema, no calf tenderness and no pedal edema Skin: COMMON NORMALS: no rashes or lesions noted GENERAL SKIN EXAM: no rashes or lesions noted Course Vital Signs: Vital signs: Vital Signs Temperature 98.4 F 07/22/22 13:35 Pulse Rate 67 07/22/22 17:30 Respiratory Rate 18 07/22/22 17:30 Blood Pressure 157/110 07/22/22 17:40 Pulse Oximetry 91 07/22/22 17:30 Oxygen Delivery Me thod 07/22/22 14:50 Oxygen Flow Rate 2.5 07/22/22 14:50 MDM - Abdominal Pain Medical Decision Making Nonacute abdomen at this time. No peritoneal signs. Patient previously has had Stent in the celiac and SMA arteries. Discussed with radiology there is no ischemic changes at this time. We will discharge patient back to care home. Lab Data 07/22/22 15:24 07/22/22 15:24 Labs/Radiology: Radiology Impressions Abdomen/Pelvis CT 07/22/22 14:15 IMPRESSION: 1. No acute abdominal or pelvic abnormalities are identified. 2. Prior splenectomy. 3. Prior stent placed within the celiac axis and SMA. 4. Negative gallbladder. 5. No free air or ascites. 6. No ischemic changes in the GI tract. Laboratory Results WBC 11.0 10^3/uL (4.0-10.0) H 07/22/22 15:24 RBC 3.96 10^6/uL (4.1-5.3) L 07/22/22 15: Hgb 11.8 g/dL (11.5-15.3) 07/22/22 15: Hct 38.2 % (37.0-47.0) 07/22/22 15: MCV 96.5 fl (81-99) 07/22/22 15: MCH 29.8 pg (28.0-34.0) 07/22/22 15: MCHC 30.9 g/dL (30.0-36.0) 07/22/22 15: RDW 13.5 % (12.1-15.1) 07/22/22: Plt Count 495 10^3/cmm (130-400) H 07/22/22 15: MPV 9.3 fL (7.4-10.4) 07/22/22 15: Neut % (Auto) 70.1 % 07/22/22 15: Lymph % (Auto) 14.4 % 07/22/22 15: [place] % (Auto) 13.3 % 07/22/22 15: Eos % (Auto) 0.6 % 07/22/22: Baso % (Auto) 0.5 % 07/22/22: Neut # (Auto) 7.67 10^3/uL (1.8-7.7) 07/22/22: Lymph # (Auto) 1.6 10^3/uL (0.8-4.8) 07/22/22: [place] # (Auto) 1.5 10^3/uL (0.2-0.9) H 07/22/22: Eos # (Auto) 0.1 10^3/uL (0.0-0.8) 07/22/22: Baso # (Auto) 0.1 10^3/uL (0.0-0.1) 07/22/22 15: Nucleated RBC % (auto) 0 % 07/22/22: Nucleated RBCs # 0.0 /100WBC 07/22/22 15: Sodium 136 mmol/L (136-145) 07/22/22 15:24 Potassium 4.8 mmol/L (3.5-5.1) 07/22/22 15:24 Chloride 99 mmol/L (98-107) 07/22/22 15:24 Carbon Dioxide 26 mmol/L (22-29) 07/22/22 15:24 Anion Gap 15.8 (5-19) 07/22/22 15:24 BUN 18 mg/dL (8-23) 07/22/22 15:24 Creatinine 0.8 mg/dL (0.5-0.9) 07/22/22 15:24 GFR Calculation Not Reportable 07/22/22 15:24 Glucose 98 mg/dL (65-115) 07/22/22 15:24 Calculated Osmolality 284 mOsm/kg (285-295) L 07/22/22 15:24 Lactic Acid 1.5 mmol/L (0.5-2.2) 07/22/22 15:24 Calcium 8.3 mg/dL (8.5-10.5) L 07/22/22 15:24 Total Bilirubin 0.2 mg/dL (0.15-1.2) 07/22/22 15:24 AST 19 U/L (0-32) 07/22/22 15:24 ALT 13 U/L (0-33) 07/22/22 15:24 Alkaline Phosphatase 64 U/L (35-105) 07/22/22 15:24 Total Protein 6.2 g/dL (6.6-8.7) L 07/22/22 15:24 Albumin 3.4 g/dL (3.5-5.2) L 07/22/22 15:24 Globulin 2.8 g/dL (1.3-4.6) 07/22/22 15:24 Urine Color Yellow (Yellow) 07/22/22 16:10 Urine Appearance Hazy (CLEAR) A 07/22/22 16:10 Urine pH 5 (5-7) 07/22/22 16:10 Ur Specific [place] 1.025 (1.005-1.030) 07/22/22 16:10 Urine Protein 1+ (Negative) H 07/22/22 16:10 Urine Glucose (UA) Norm (Normal) 07/22/22 16:10 Urine Ketones 1+ (Negative) H 07/22/22 16:10 Urine Blood 2+ (Negative) H 07/22/22 16:10 Urine Nitrate Positive (Negative) H 07/22/22 16:10 Urine Bilirubin Neg (Negative) 07/22/22 16:10 Urine Urobilinogen 1 mg/dL (Negative) H 07/22/22 16:10 Ur Leukocyte Esterase 1+ (Negative) H 07/22/22 16:10 Urine RBC 15-25 /hpf (0-2) H 07/22/22 16:10 Urine WBC 5-10 /hpf (0-5) H 07/22/22 16:10 Ur Squamous Epith Cells 0-4 /hpf (0-5) H 07/22/22 16:10 Calcium Oxalate Crystal 0-4 /hpf H 07/22/22 16:10 Amorphous Sediment Not Reportable 07/22/22 16:10 Urine Bacteria 1+ /hpf (NONE) H 07/22/22 16:10 Hyaline Casts 5-10 /lpf H 07/22/22 16:10 Urine Mucus 1+ /hpf 07/22/22 16:10 Urine Yeast 2+ /hpf H 07/22/22 16:10 Discharge Plan Discharge Patient Disposition: Home Clinical Impression: Abdominal pain Condition: Stable Prescriptions: No Action losartan 50 mg tablet 50 mg PO QAM (DME) PAOLA ELLIS See Rx Instructions .ROUTE .MEDSUPPLY Qty: 1 0RF Rx Instructions: As directed multivitamin Tablet 1 tab PO QAM prednisone 10 mg tablet 10 mg PO QAM ondansetron HCl 4 mg tablet 4 mg PO Q6H PRN (Reason: Nausea And Vomiting) clopidogrel 75 mg tablet 75 mg PO QAM rosuvastatin 5 mg tablet 5 mg PO BEDTIME sertraline 100 mg tablet 100 mg PO QAM cyanocobalamin (vitamin B-12) [Vitamin B-12] 1,000 mcg Tablet 1,000 mcg PO QAM acetaminophen 500 mg Tablet 500 - 1,000 mg PO Q6H PRN (Reason: Pain) trazodone 100 mg tablet 200 mg PO BEDTIME hydroxyzine HCl 25 mg tablet 25 mg PO BEDTIME gabapentin 100 mg capsule 100 mg PO TID cholecalciferol (vitamin D3) [Vitamin D3] 10 mcg (400 unit) Tablet 10 mcg PO QAM carbamazepine 200 mg capsule, ER multiphase 12 hr 200 mg PO BID loperamide 2 mg Capsule 4 mg PO Q4H PRN (Reason: diarrhea) Qty: 30 0RF ciprofloxacin HCl 500 mg tablet 500 mg PO Q12H Qty: 14 0RF Rx Instructions: STOP DATE 07/24/22 oxycodone 10 mg tablet 10 mg PO Q8H PRN (Reason: pain) Qty: 14 0RF Milk of Magnesia 400 mg/5 mL Suspension 30 ml PO DAILY PRN (Reason: Constipation) Dulcolax (bisacodyl) 10 mg Suppository 10 mg CO DAILY PRN (Reason: Constipation) Protonix 40 mg Tablet,Delayed Release (Dr/Ec) 40 mg PO BID Fleet Enema 19-7 gram/118 mL Enema 118 ml CO DAILY PRN (Reason: Constipation) Culturelle 10 billion cell Capsule 1 cap PO QAM ascorbic acid (vitamin C) [Vitamin C] 1,000 mg Tablet 1,000 mg PO QAM aspirin 81 mg Tablet,Delayed Release (Dr/Ec) 81 mg PO QAM ferrous sulfate [iron] 325 mg (65 mg iron) Tablet 325 mg PO QAM Discharge Orders: Discharge ED (Routine); Ordered 07/22/22 Ordered By: Phillip Mathur Referrals: Chicho Young DO [Primary Care Provider] - Patient Instructions: Abdominal Pain (ED), Opioid Safety, Pain Management Activity Restrictions/Additional Instructions: He was seen today for abdominal pain the CT of your abdomen as well your laboratory test did not show any significant abnormalities. Recommend clear liquid diet for the next 24 hours and advance as tolerated return if you have worsening symptoms. Coding Level of Care Code ED Billing Representative for Cipriano Forrest
--- NOTE | 2022-07-22 14:44 | PC.PHAR ---
PT IS FROM [facility] [phone]-VIRGILIO NURSE FROM [facility] STATES PT HAD ALL AM MEDS TODAY
[2022-07-22 15:35] LABS: Basophils # 0.1 10^3/uL (0.0-0.1); Basophils % 0.5 %; Eosinophils # 0.1 10^3/uL (0.0-0.8); Eosinophils % 0.6 %; Hematocrit 38.2 % (37.0-47.0); Hemoglobin 11.8 g/dL (11.5-15.3); Lymphocytes # 1.6 10^3/uL (0.8-4.8); Lymphocytes % 14.4 %; Mean Corpuscular HGB Conc 30.9 g/dL (30.0-36.0); Mean Corpuscular Hemoglobin 29.8 pg (28.0-34.0); Mean Corpuscular Volume 96.5 fl (81-99); Mean Platelet Volume 9.3 fL (7.4-10.4); Monocytes # 1.5 10^3/uL (0.2-0.9); Monocytes % 13.3 %; Neutrophils # 7.67 10^3/uL (1.8-7.7); Neutrophils % 70.1 %; Nucleated Red Blood Cells % 0 %; Platelet Count 495 10^3/cmm (130-400); Red Blood Count 3.96 10^6/uL (4.1-5.3); Red Cell Distribution Width 13.5 % (12.1-15.1)
[2022-07-22 15:50] LABS: Alanine Aminotransferase 13 U/L (0-33); Albumin Level 3.4 g/dL (3.5-5.2); Alkaline Phosphatase 64 U/L (35-105); Anion Gap 15.8 (5-19); Aspartate Amino Transferase 19 U/L (0-32); Blood Urea Nitrogen 18 mg/dL (8-23); Calcium 8.3 mg/dL (8.5-10.5); Carbon Dioxide 26 mmol/L (22-29); Chloride 99 mmol/L (98-107); Globulin 2.8 g/dL (1.3-4.6); Glucose 98 mg/dL (65-115); Lactic Sepsis W/Reflex 1.5 mmol/L (0.5-2.2); Osmolality Calculated 284 mOsm/kg (285-295); Potassium 4.8 mmol/L (3.5-5.1); Sodium 136 mmol/L (136-145); Total Bilirubin 0.2 mg/dL (0.15-1.2); Total Protein 6.2 g/dL (6.6-8.7)
[2022-07-22 17:33] LABS: Add Urine Microscopic? YES; Bilirubin Urine Neg (Negative); Blood Urine 2+ (Negative); Glucose Urine UA Norm (Normal); Ketones Urine 1+ (Negative); Leukocyte Esterase Urine 1+ (Negative); Nitrate Urine Positive (Negative); Protein Urine 1+ (Negative); Specific Gravity, Urine 1.025 (1.005-1.030); Urine Appearance Hazy (CLEAR); Urine Color Yellow (Yellow); pH Urine 5 (5-7)
[2022-07-22 17:34] LABS: Bacteria Urine 1+ /hpf; Calcium Oxalate Crystals Urine 0-4 /hpf; Mucus Urine 1+ /hpf; RBC Urine 15-25 /hpf (0-2); Squamous Epithelial Cell Urine 0-4 /hpf (0-5)
[2022-07-22 17:35] LABS: Urobilinogen Urine 1 mg/dL (Negative)
[2022-07-22 17:36] LABS: Add Urine Culture? Yes
== END 2022-07-22 17:40 | disposition home or self-care (01) ==
PROVIDERS: Emergency Provider Family Medicine; PCP Family Medicine
DX: R10.9 Unspecified abdominal pain (principal); Z79.82 Long term (current) use of aspirin; Z79.02 Long term (current) use of antithrombotics/antiplatelets; E78.5 Hyperlipidemia, unspecified; E11.9 Type 2 diabetes mellitus without complications; I10 Essential (primary) hypertension; Z95.0 Presence of cardiac pacemaker
CPT/HCPCS: 74176; 80053; 81001; 83605; 85025; 87086; 87106; 93005; 99285

== ENCOUNTER 2022-07-25 08:43 | Outpatient (CLI) | payer OTHER, MEDICARE, SELFPAY ==
--- NOTE | 2022-07-25 09:15 | CT_ITS ---
WS: [id number] CT ANGIOGRAPHY ABDOMEN HISTORY: MESENTERIC ISCHEMIA TECHNIQUE: CT angiogram is performed during IV injection. Reformation images reviewed. All CT scans a [employer] use at least one of these dose optimization techniques: automated exposure contro l; mA and/or kV adjustment per patient size (includes targeted exams where dose is matched to clinica l indication); or iterative reconstruction. CONTRAST: Omnipaque 350; 95 mL IV. DLP: 2991.41 mGy.cm COMPARISON: 11/01/2020 and 07/22/2022 Chronic emphysematous changes at the lung bases. Mild enlargement of the LEFT heart chambers. Defibri llator wires are noted in the RIGHT heart. Small hiatal hernia. Abdominal aorta: Atherosclerotic plaque throughout the aorta. There is no aneurysm. Mixture of calcif ied plaque and minimal intimal thickening extending to the bifurcation. No aneurysm. Retroaortic LEFT renal vein. Celiac axis: There is dense calcified plaque potentially narrowing the celiac axis beginning at the o rigin. Plaque extends over a length of 1.7 cm with narrowing of the lumen to greater than 70%. Simila r to the prior study. SMA: Dense heavy calcified plaque involving the proximal SMA measuring 1.6 cm. Severe stenosis of gre ater than 70%. Renal arteries: Moderate stenosis proximal RIGHT renal artery. There is normal enhancement of each ki dney. No solid mass. ARASELI: Mild calcified plaque but patent. Spleen is been removed. Liver and gallbladder are unchanged. There is mild hepatomegaly. Negative por manisha vein. No pancreatic mass. No adrenal mass. No GI tract obstruction. No ascites or adenopathy. Degenerative lumbar spondylosis and scoliosis. CT/CT angio abdomen [id number] IMPRESSION: 1. 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 Marisela lar to the prior study of 10/24/2020. Stenosis greater than 70%. Patient at risk for gastrointestinal ischemia. No ischemic changes in the GI tract at this willy e. 2. Moderate stenosis proximal RIGHT renal artery. 3. Prior splenectomy. 4. No aortic aneurysm.
[2022-07-25] MEDS: iohexol 350 mg/mL 500 mL Btl (per mL) IV (14:25)
== END 2022-07-25 08:44 | disposition home or self-care (01) ==
LOC: RAD 08:46
PROVIDERS: PCP Family Medicine; Visit Provider Internal Medicine
DX: K55.9 Vascular disorder of intestine, unspecified (principal)
CPT/HCPCS: 74175; Q9967

== ENCOUNTER → 2022-07-30 08:14 | Outpatient (BNVA) | payer OTHER, MEDICARE, SELFPAY | PROVIDERS: PCP Family Medicine; Visit Provider Surgery | DX: K92.1 Melena (principal); R10.13 Epigastric pain; K52.9 Noninfective gastroenteritis and colitis, unspecified | CPT/HCPCS: 99213 ==

== ENCOUNTER 2022-08-16 07:11 | Day surgery (SDC) | payer OTHER, MEDICARE, SELFPAY ==
[2022-08-14 10:37] VITALS: BMI 43.0
[2022-08-16 07:40] VITALS: BP 125/84; PULSE 75; RESP 20; TEMP 36.3; O2SAT 96
[2022-08-16] MEDS: sodium chloride 0.9% 1,000 ML 30 ML IV (07:51)
[2022-08-16 07:52] LABS: Glucose Point of Care 95 mg/dL (70-110)
--- NOTE | 2022-08-16 08:35 | W.PM.OPSUD ---
Surgery/Procedure H&P Update DATE OF PROCEDURE: August 16, 2022 DATE H&P PERFORMED: 07/30/22 PLANNED PROCEDURE: Operation Date: 08/16/22 09:00 Proposed Procedures p 18801 egd, 19862 colon K92.1,R10.13,K52.9(Not Applicable) - DO miguel Robbins Colonoscopy(Not Applicable) - Madi Pedroza DO
--- NOTE | 2022-08-16 08:39 | ANES.PREANE2 ---
Pre-Anesthetic Assessment Height/Weight: Height 1.57 m Weight 106.594 kg Temp Pulse Resp BP Pulse Ox O2 Del Method 97.3 F L 75 20 H 125/84 96 08/16/22 07:40 08/16/22 07:40 08/16/22 07:40 08/16/22 07:40 08/16/22 07:40 08/16/22 07:40 Preop Diagnosis: hx colitis Operation Date: 08/16/22 09:00 Proposed Procedures p 00613 egd, 49062 colon K92.1,R10.13,K52.9(Not Applicable) - Madi Pedroza DO s Colonoscopy(Not Applicable) - Madi Pedroza DO Was Beta Liban taken within 24 hours: N/A Was Clonidine taken within 24 hours: N/A Last intake: Intake Last Liquid Date 08/15/22 Last Liquid Time 23:30 Last Solid Date 08/14/22 Last Solid Time 23:30 Last Intake: 23:30 Social No alcohol and No tobacco Exam alert, oriented x 3, clear to auscultation bilaterally and regular rate & rhythm Airway Submandibular: within normal limits Cervical ROM: within normal limits Mallampati: Class II Dentition: false Pulmonary Sleep Apnea (CPAP) CV/HEM Hypertension SSS and pacemaker None reported Hepatic None reported GI Gastroesophageal Reflux Disease hx colitis Metabolic Thyroid Disease Musc/el Osteoarthritis/DJD and Weakness L ankle fx Neuropsych Cerebrovascular Accident (no residual) Anesthetic Plan ASA status: 3 Anesthesia: MAC Medications/Allergies Home Medications Medication Instructions Recorded Confirmed Last Taken Type multivitamin 1 tab PO QAM 10/29/20 08/14/22 08/15/22 History ondansetron HCl 4 mg tablet 4 mg PO Q6H PRN Nausea And Vomiting 10/29/20 08/16/22 08/15/22 History prednisone 10 mg tablet 10 mg PO QAM TO EASE PAIN OF PMR 10/29/20 08/14/22 08/15/22 History rosuvastatin 5 mg tablet 5 mg PO BEDTIME 10/29/20 08/14/22 08/15/22 History losartan 50 mg tablet 50 mg PO QAM 01/05/21 08/14/22 08/15/22 History aspirin 81 mg tablet,delayed 81 mg PO QAM 06/18/22 08/14/22 08/14/22 History release ferrous sulfate 325 mg (65 mg 325 mg PO QAM 06/18/22 08/14/22 08/15/22 History iron) tablet (iron) acetaminophen 500 mg tablet 500 - 1,000 mg PO Q6H PRN Pain 07/14/22 08/14/22 08/14/22 History carbamazepine 200 mg 200 mg PO BID 07/14/22 08/14/22 08/15/22 History capsule,extended release [id number] cholecalciferol (vitamin D3) 10 10 mcg PO QAM 07/14/22 08/14/22 08/15/22 History mcg (400 unit) tablet (Vitamin D3) gabapentin 100 mg capsule 100 mg PO TID 07/14/22 08/14/22 08/15/22 History hydroxyzine HCl 25 mg tablet 25 mg PO BEDTIME 07/14/22 08/14/22 08/15/22 History sertraline 100 mg tablet (Zoloft) 100 mg PO QAM 07/14/22 08/14/22 08/15/22 History trazodone 100 mg tablet 200 mg PO BEDTIME 07/14/22 08/14/22 08/15/22 History loperamide 2 mg capsule 4 mg PO Q4H PRN diarrhea #30 caps 07/17/22 08/16/22 2 Weeks Ago Rx ~08/02/22 oxycodone 10 mg tablet 10 mg PO Q8H PRN pain #14 tabs 07/17/22 08/16/22 08/15/22 Rx CAM WALKER #1 ea 07/18/22 07/30/22 Unknown Rx Lactobacillus rhamnosus GG 10 1 cap PO QAM PRN taking antibiotics 07/22/22 08/16/22 2 Weeks Ago History billion cell capsule (Culturelle) ~08/02/22 bisacodyl 10 mg rectal suppository 10 mg VT DAILY PRN Constipation 07/22/22 08/16/22 08/15/22 History (Dulcolax (bisacodyl)) magnesium hydroxide 400 mg/5 mL 30 ml PO DAILY PRN Constipation 07/22/22 08/14/22 Unknown History oral suspension (Milk of Magnesia) pantoprazole 40 mg tablet,delayed 40 mg PO BID 07/22/22 08/14/22 08/15/22 History release (Protonix) sodium phosphates 19 gram-7 118 ml VT DAILY PRN Constipation 07/22/22 08/14/22 Unknown History gram/118 mL enema (Fleet Enema) clopidogrel 75 mg tablet 75 mg PO DAILY 08/16/22 08/16/22 08/10/22 History Allergies Allergy/AdvReac Type Severity Reaction Status Date / Time codeine Allergy Mild Itch Verified 07/30/22 08:15 naltrexone Allergy Unknown Verified 08/14/22 10:28 diphenhydramine AdvReac Mild Hallucinati Verified 07/30/22 08:15 [From Benadryl] ons Current Medications Generic Name Dose Route Start Last Admin Trade Name Freq PRN Reason Stop Dose Admin Sodium Chloride 1,000 mls @ 30 mls/hr 08/16/22 07:30 08/16/22 07:51 Sodium Chloride 0.9% IV 08/17/22 07:29 30 mls/hr .Q24H RAFAEL Administration PFSH Anesthesia Medical History Abnormal CT of the abdomen Colitis Colitis Dehydration Depression Diarrhea Enteritis Facial pain 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
[2022-08-16 09:15] VITALS: BP 111/58; PULSE 79; RESP 16; TEMP 36.2; O2SAT 97
[2022-08-16 09:26] VITALS: BP 110/60; PULSE 75; RESP 16; O2SAT 96
--- NOTE | 2022-08-16 13:58 | ANE.PACU2 ---
Inpatient post-anesthesia follow up: Airway intact: Yes Vital signs: Temperature 97.1 F Pulse Rate 75 Respiratory Rate 16 Blood Pressure 110/60 Pulse Oximetry 96 Oxygen Delivery Me thod Room Air Oxygen Flow Rate 2 Fraction of Inspir ed Oxygen Hydration adequate: Yes Nausea and vomiting: No Pain level: 1 Mental status: Baseline
== END 2022-08-16 10:10 | disposition home or self-care (01) ==
PROVIDERS: PCP Family Medicine; Visit Provider Surgery
PROC: 0DJ08ZZ Inspection of Upper Intestinal Tract, Via Natural or Artificial Opening Endoscopic (ICD-10-PCS; CPT 43235; principal; 2022-08-16 09:00)
PROC: 0DJD8ZZ Inspection of Lower Intestinal Tract, Via Natural or Artificial Opening Endoscopic (ICD-10-PCS; CPT 45378; 2022-08-16 09:00)
DX: R10.13 Epigastric pain (principal); K92.1 Melena; K52.9 Noninfective gastroenteritis and colitis, unspecified; K57.30 Diverticulosis of large intestine without perforation or abscess without bleeding; K64.8 Other hemorrhoids; G47.30 Sleep apnea, unspecified; I10 Essential (primary) hypertension; Z95.0 Presence of cardiac pacemaker; K21.9 Gastro-esophageal reflux disease without esophagitis; Z86.73 Personal history of transient ischemic attack (TIA), and cerebral infarction without residual deficits; E78.5 Hyperlipidemia, unspecified
CPT/HCPCS: 36416; 43235; 82962; G0121; J2704; J7030

== ENCOUNTER → 2022-09-02 08:45 | Outpatient (BNVA) | payer OTHER, MEDICARE, SELFPAY | PROVIDERS: PCP Family Medicine; Visit Provider Student in an Organized Health Care Education/Training Program | DX: S82.832K Other fracture of upper and lower end of left fibula, subsequent encounter for closed fracture with nonunion (principal); X58.XXXD Exposure to other specified factors, subsequent encounter; Z46.89 Encounter for fitting and adjustment of other specified devices | CPT/HCPCS: 27786; 73610; 97760; 99213; L1902 ==

== ENCOUNTER 2022-09-02 11:06 | Outpatient (CLI) | payer MEDICARE, OTHER, SELFPAY | END 2022-09-02 11:07 | disposition home or self-care (01) | LOC: SPT 11:07 | PROVIDERS: PCP Family Medicine; Visit Provider Student in an Organized Health Care Education/Training Program | DX: Z46.89 Encounter for fitting and adjustment of other specified devices (principal); M25.572 Pain in left ankle and joints of left foot | CPT/HCPCS: 27786; 97760; 99213; L1902 ==

== ENCOUNTER 2022-09-10 13:03 | Outpatient (CLI) | payer OTHER, MEDICARE, SELFPAY ==
--- NOTE | 2022-09-10 13:45 | US_ITS ---
WS: [id number] ULTRASOUND ABDOMEN LIMITED CLINICAL INFORMATION: abdominal pain COMPARISON: Ultrasound December 14, 2020. CT July 22, 2022 FINDINGS: Exam limited due to body habitus. Liver Size: Mild hepatomegaly Craniocaudal length: 17.1 cm. Echogenicity: Normal. Surface nodularity: None. Mass (size and location): None. Bile ducts Intrahepatic ducts: Normal. Common bile duct diameter: 0.3 cm. Gallbladder Normal. Gallstones: None. Gallbladder sludge: None. Gallbladder wall thickening: None. Pericholecystic fluid: None. Sonographic [place] sign: Absent. Pancreas Normal as visualized. Right kidney: Normal. Hydronephrosis: None. Size: 10.1 cm x 4.4 cm x 4.6 cm. Abdominal aorta and IVC Visualized portions are normal. Ascites: None. US/US gall bladder [id number] IMPRESSION: Limited examination due to body habitus. 1. Mild hepatomegaly. 2. Normal gallbladder and common bile duct. 3. No hydronephrosis in RIGHT kidney.
== END 2022-09-10 13:04 | disposition home or self-care (01) ==
LOC: RAD 13:07
PROVIDERS: PCP Family Medicine; Visit Provider Surgery
DX: R10.13 Epigastric pain (principal); R16.0 Hepatomegaly, not elsewhere classified
CPT/HCPCS: 76705

== ENCOUNTER → 2022-10-04 16:13 | Outpatient (BNVA) | payer MEDICARE, OTHER, SELFPAY | PROVIDERS: PCP Family Medicine; Visit Provider Surgery | DX: Z09 Encounter for follow-up examination after completed treatment for conditions other than malignant neoplasm (principal); R10.9 Unspecified abdominal pain | CPT/HCPCS: 99024; 99212 ==

== ENCOUNTER 2022-10-27 06:28 | Emergency (ER) | payer MEDICARE, OTHER, SELFPAY ==
[2022-10-27 06:31] VITALS: BP 114/82; PULSE 90; RESP 16; O2SAT 96; BMI 40.2
[2022-10-27 06:42] VITALS: BP 134/88; PULSE 91; RESP 16; O2SAT 99
--- NOTE | 2022-10-27 06:56 | XRR_ITS ---
PROCEDURE INFORMATION: Exam: XR Right Tibia and Fibula Exam date and time: 10/27/2022 7:32 AM Age: 82 years old Clinical indication: Pain; Lower leg; Right; Prior surgery; Surgery type: Knee; Additional info: Fall pain TECHNIQUE: Imaging protocol: Radiologic exam of the right tibia and fibula. Views: 2 views. COMPARISON: No relevant prior studies available. FINDINGS: Bones/joints: A total knee prosthesis is present. There is an oblique fracture through the distal fibula with about 4 mm of dorsal displacement. Soft tissues: Normal. XR/XR tibia fibula RT 2V [id number] IMPRESSION: Mildly displaced oblique fracture of the distal fibula.
--- NOTE | 2022-10-27 06:57 | CTR_ITS ---
PROCEDURE INFORMATION: Exam: CT Head Without Contrast Exam date and time: 10/27/2022 7:26 AM Age: 82 years old Clinical indication: Injury or trauma; Fall; Blunt trauma (contusions or hematomas); Additional info: Fall, headache, on anticoagulation TECHNIQUE: Imaging protocol: Computed tomography of the head without contrast. Radiation optimization: All CT scans at this facility use at least one of these dose optimization techniques: automated exposure control; mA and/or kV adjustment per patient size (includes targeted exams where dose is matched to clinical indication); or iterative reconstruction. REPORTING DATA: Count of CT and Cardiac NM exams in prior 12 months: This patient has received 7 known CTs and 0 known cardiac nuclear medicine studies in the 12 months prior to the current study. COMPARISON: CT head wo con* [id number] 07/14/2022 4:15 AM RADIATION DOSE METRICS: Total DLP (mGy-cm): 1103.08 FINDINGS: Brain: No intracranial hemorrhage, edema or other acute abnormality is seen in the brain. There is generalized chronic atrophy with prominence of the ventricles and sulci. Patchy decreased white matter density is consistent with chronic small vessel white matter ischemia. No mass effect or midline shift. Cerebral ventricles: Ventricles are prominent consistent with chronic atrophy. Paranasal sinuses: Visualized sinuses are unremarkable. No fluid levels. Mastoid air cells: Visualized mastoid air cells are well aerated. Bones/joints: Unremarkable. No acute fracture. Soft tissues: Unremarkable. CT/CT head wo con* [id number] IMPRESSION: No acute intracranial abnormality.
--- NOTE | 2022-10-27 06:57 | XRR_ITS ---
PROCEDURE INFORMATION: Exam: XR Right Elbow Exam date and time: 10/27/2022 7:32 AM Age: 82 years old Clinical indication: Pain; Elbow; Right; Additional info: Fall pain TECHNIQUE: Imaging protocol: Radiologic exam of the right elbow. Views: 3 or more views. COMPARISON: No relevant prior studies available. FINDINGS: Bones/joints: No fracture, dislocation or other acute bone or joint abnormality. Chronic degenerative changes are present with joint space narrowing and osteophytes. Soft tissues: Normal. XR/XR elbow RT min 3V* [id number] IMPRESSION: Chronic degenerative disease. No acute abnormality.
--- NOTE | 2022-10-27 06:57 | XRR_ITS ---
PROCEDURE INFORMATION: Exam: XR Right Wrist Exam date and time: 10/27/2022 7:32 AM Age: 82 years old Clinical indication: Pain; Wrist; Right; Additional info: Fall pain TECHNIQUE: Imaging protocol: Radiologic exam of the right wrist. Views: 3 or more views. COMPARISON: No relevant prior studies available. FINDINGS: Bones/joints: No fracture, dislocation or other acute bone or joint abnormality. Chronic degenerative changes are present especially in the triscaphe and 1st carpometacarpal joint with joint space narrowing sclerosis and osteophytes. Soft tissues: Normal. XR/XR wrist RT min 3V* [id number] IMPRESSION: Chronic degenerative disease. No acute abnormality.
--- NOTE | 2022-10-27 07:13 | W.ED.FALL ---
HPI - Fall General: Chief Complaint: Fall Stated Complaint: FALL/LEG PAIN Time Seen by Provider: 10/27/22 06:37 History of Present Illness: Patient presents to the ER by EMS with complaints of a fall yesterday at 1430. Patient did have x-rays at the [facility] which confirmed a distal fibular fracture. Patient is grabbing her right arm and the wrist and elbow region and also states that she is having right facial/head pain. Patient is currently on blood thinners. Patient is normally ambulatory and mobile. MD complaint: fall Onset (ago): day(s) (Yesterday) Fall from: standing Fall witnessed: yes, by living facility staff Place fall occurred: [facility] Loss of consciousness: None Symptoms prior to fall: none Context: tripped/slipped Location of injury: head and other (Right lower leg right arm) Severity: mild Quality: aching Associated symptoms-after fall: Denies abdominal pain, chest pain or neck pain Review of Systems General: Reports: 10 or more systems reviewed and unremarkable except in HPI and below Const: Denies: fever(s) or chills Eyes: Denies: change in vision or photophobia ENMT: Denies: throat pain or enlarged tonsils Card: Denies: chest pain or palpitations Resp: Denies: dyspnea, productive cough or non-productive cough GI: Denies: abdominal pain, nausea, vomiting or diarrhea : Denies: flank pain, difficulty voiding or dysuria Musc: Reports: extremity pain; Denies: neck pain or back pain PFSH ED PFSH: Medical History Abnormal CT of the abdomen Colitis Colitis Dehydration Depression Diarrhea Enteritis Facial pain 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 Fracture of distal fibula Hyperlipidemia Hyperlipidemia associated with type 2 diabetes mellitus Hypertension Hypovolemic shock Ileus Left ankle pain Mesenteric artery stenosis Pacemaker Septic shock Sick sinus syndrome Surgical History History of ankle surgery History of knee replacement History of splenectomy Status post colonoscopy Social History Smoking and tobacco status: never smoked Alcohol intake: never Physical Exam Const: COMMON NORMALS: no acute distress, average body habitus, patient oriented x3, no limitations, alert and well nourished HENMT: COMMON NORMALS: normocephalic, atraumatic, hearing grossly normal bilaterally, external ears normal, Normal external nose present and moist oral mucous membranes HEAD & SCALP: normocephalic and atraumatic NOSE: Normal external nose present EXTERNAL EAR: Yes external ears normal Eye: COMMON NORMALS: Equal, round and reactive pupils present, EOMs intact bilaterally, conjunctivae normal and no scleral icterus CONJUNCTIVA: Yes conjunctivae normal PUPIL: Yes Equal, round and reactive pupils present Neck/C-Spine: COMMON NORMALS: full ROM, no lymphadenopathy, supple, no meningeal signs, no JVD and Thyroid normal THYROID: Thyroid normal Chest: COMMONS NORMALS: normal inspection of the chest and normal palpation of entire chest wall Resp: COMMON NORMALS: normal respiratory effort, No retractions, No use of accessory muscles and clear to auscultation bilaterally AUSCULTATION: clear to auscultation bilaterally Cardio: COMMON NORMALS: no JVD, regular rate, regular rhythm, S1 normal heart sound present and S2 normal heart sound present RATE: regular rate RHYTHM: regular rhythm HEART SOUNDS: S1 normal heart sound present and S2 normal heart sound present GI: COMMON NORMALS: Normal to inspection, nondistended, normoactive bowel sounds present, Soft to palpation, non-tender, No hepatosplenomegaly present and no masses PALPATION: Yes Soft to palpation and Yes No hepatosplenomegaly present : COMMON NORMALS: Yes no CVA tenderness BLADDER/KIDNEY EXAM: Yes no CVA tenderness Back/Pelvis: COMMON NORMALS: no CVA tenderness, thoracic and lumbar spine normal to inspection and no thoracic nor lumbar tenderness Extremity: NARRATIVE EXTREMITY EXAM: Pain with palpation over distal right fibula no gross deformity or angulation noted. Pain with palpation over right wrist and elbow. No deformity angulation swelling noted. Neuro: COMMON NORMALS: patient oriented x3 SENSORIUM/ORIENTATION: Yes alert MENINGEAL SIGNS: Yes no meningeal signs Course Vital Signs: Vital signs: Vital Signs Pulse Rate 91 10/27/22 06:42 Respiratory Rate 16 10/27/22 06:42 Blood Pressure 134/88 10/27/22 06:42 Pulse Oximetry 99 10/27/22 06:42 MDM - Fall Medical Decision Making Patient is a 2-year-old female with a fall from the [facility]. Patient is on Plavix. Patient does have a distal right fibular fracture that is mildly displaced. Patient will be placed in a OCL type splint, made nonweightbearing. Patient will follow-up with Ortho in the next 1 week. Referral was made to case management for this. Patient will be discharged back to the [facility]. Differential Diagnosis Unlikely syncope, dislocation of shoulder region, fracture of wrist, compression fracture, concussion with loss of consciousness or concussion without loss of consciousness Medical Records I reviewed the patient's medical records. Lab Data I reviewed the patient's lab results. Radiology Impressions Tibia/Fibula X-Ray 10/27/22 06:56 IMPRESSION: Mildly displaced oblique fracture of the distal fibula. Elbow X-Ray 10/27/22 06:57 IMPRESSION: Chronic degenerative disease. No acute abnormality. Head CT 10/27/22 06:57 IMPRESSION: No acute intracranial abnormality. Wrist X-Ray 10/27/22 06:57 IMPRESSION: Chronic degenerative disease. No acute abnormality. Discharge Plan Discharge Patient Disposition: Home Clinical Impression: Fracture of distal fibula, Fall Condition: Stable Prescriptions: No Action (DME) Ankle Brace Misc See Rx Instructions .ROUTE .MEDSUPPLY Qty: 1 0RF Rx Instructions: As directed (DME) CAM WALKER See Rx Instructions .ROUTE .MEDSUPPLY Qty: 1 0RF Rx Instructions: As directed prednisone 10 mg tablet 10 mg PO QAM Qty: 30 5RF carbamazepine 200 mg capsule, ER multiphase 12 hr 200 mg PO BID Qty: 60 5RF losartan 50 mg tablet 50 mg PO QAM Qty: 90 3RF rosuvastatin 5 mg tablet See Rx Instructions .ROUTE .COMPLEX Qty: 90 3RF Dose Instruction: TAKE 1 TABLET BY MOUTH EVERY DAY Rx Instructions: TAKE 1 TABLET BY MOUTH EVERY DAY multivitamin Tablet 1 tab PO QAM ondansetron HCl 4 mg tablet 4 mg PO Q6H PRN (Reason: Nausea And Vomiting) sertraline [Zoloft] 100 mg tablet 100 mg PO QAM acetaminophen 500 mg Tablet 500 - 1,000 mg PO Q6H PRN (Reason: Pain) trazodone 100 mg tablet 200 mg PO BEDTIME hydroxyzine HCl 25 mg tablet 25 mg PO BEDTIME gabapentin 100 mg capsule 100 mg PO TID cholecalciferol (vitamin D3) [Vitamin D3] 10 mcg (400 unit) Tablet 10 mcg PO QAM loperamide 2 mg Capsule 4 mg PO Q4H PRN (Reason: diarrhea) Qty: 30 0RF oxycodone 10 mg tablet 10 mg PO Q8H PRN (Reason: pain) Qty: 14 0RF magnesium hydroxide [Milk of Magnesia] 400 mg/5 mL Suspension 30 ml PO DAILY PRN (Reason: Constipation) bisacodyl [Dulcolax (bisacodyl)] 10 mg Suppository 10 mg [place] DAILY PRN (Reason: Constipation) pantoprazole [Protonix] 40 mg Tablet,Delayed Release (Dr/Ec) 40 mg PO BID Fleet Enema 19-7 gram/118 mL Enema 118 ml [place] DAILY PRN (Reason: Constipation) Culturelle 10 billion cell Capsule 1 cap PO QAM PRN (Reason: taking antibiotics) clopidogrel 75 mg tablet 75 mg PO DAILY Hold Instructions: Resume on 08/18/22. aspirin 81 mg Tablet,Delayed Release (Dr/Ec) 81 mg PO QAM ferrous sulfate [iron] 325 mg (65 mg iron) Tablet 325 mg PO QAM Discharge Orders: Discharge ED (Routine); Ordered 10/27/22 Ordered By: Jay Fuentes Referrals: Chicho Young DO [Primary Care Provider] - 1 week Oleg Kendrick MD [Physician] - 1 week Patient Instructions: Leg Fracture (ED), Fall Prevention Activity Restrictions/Additional Instructions: Please wear your splint at all times. Please do not bear weight on your right leg. Follow-up with your primary care doctor and orthopedics Dr. Kendrick within 1 week for further definitive care. Coding Level of Care Code ED Electron Beam Photo Mask Maker for Cipriano Forrest
[2022-10-27] MEDS: oxyCODONE-APAP 10-325 mg Tablet 1 TAB PO (09:53)
--- NOTE | 2022-10-28 10:00 | DCPLANNER ---
Addendum entered by Lelo Kamara 11/06/22 11:37: Patient had a follow up appointment scheduled with ortho - patient did attend appointment. Addendum entered by Lelo Kamara 10/28/22 14:51: Patient has a follow up appointment scheduled for Saturday, November 05, 2022 at 11:[address] Kendrick at ortho. Original Note: software quality manager had message to schedule a follow up appointment for patient with ortho. software quality manager sent patients information to the front office staff at ortho. Patients information will be printed and reviewed. Clinic will call patient with appointment information.
== END 2022-10-27 09:55 | disposition home or self-care (01) ==
PROVIDERS: Emergency Provider Emergency Medicine; PCP Family Medicine
DX: S82.431A Displaced oblique fracture of shaft of right fibula, initial encounter for closed fracture (principal); Z79.02 Long term (current) use of antithrombotics/antiplatelets; Z79.82 Long term (current) use of aspirin; E78.5 Hyperlipidemia, unspecified; I10 Essential (primary) hypertension; Z95.0 Presence of cardiac pacemaker; W19.XXXA Unspecified fall, initial encounter
CPT/HCPCS: 29515; 51702; 70450; 73080; 73110; 73590; 99285

== ENCOUNTER → 2022-11-01 09:02 | Outpatient (BNVA) | payer MEDICARE, OTHER, SELFPAY | PROVIDERS: PCP Family Medicine; Referring Provider Emergency Medicine; Visit Provider Student in an Organized Health Care Education/Training Program | DX: S82.831A Other fracture of upper and lower end of right fibula, initial encounter for closed fracture (principal); W19.XXXA Unspecified fall, initial encounter | CPT/HCPCS: 27786; 73610; 99214 ==

== ENCOUNTER → 2022-12-19 09:58 | Outpatient (BNVA) | payer MEDICARE, OTHER, SELFPAY | PROVIDERS: PCP Family Medicine; Visit Provider Student in an Organized Health Care Education/Training Program | DX: S82.831A Other fracture of upper and lower end of right fibula, initial encounter for closed fracture (principal); X58.XXXA Exposure to other specified factors, initial encounter | CPT/HCPCS: 73610 ==

== ENCOUNTER 2022-12-19 11:32 | Outpatient (CLI) | payer MEDICARE, OTHER, SELFPAY | END 2022-12-19 11:33 | disposition home or self-care (01) | LOC: SPT 11:33 | PROVIDERS: PCP Family Medicine; Visit Provider Student in an Organized Health Care Education/Training Program | DX: Z46.89 Encounter for fitting and adjustment of other specified devices (principal); S82.831D Other fracture of upper and lower end of right fibula, subsequent encounter for closed fracture with routine healing; X58.XXXD Exposure to other specified factors, subsequent encounter | CPT/HCPCS: 73610; 97760; 99213; L4361 ==

== ENCOUNTER 2023-01-03 02:45 | Outpatient (CLI) | payer MEDICARE, OTHER, SELFPAY | END 2023-01-03 02:46 | PROVIDERS: PCP Family Medicine; Visit Provider Student in an Organized Health Care Education/Training Program | DX: Z46.89 Encounter for fitting and adjustment of other specified devices (principal); S82.831D Other fracture of upper and lower end of right fibula, subsequent encounter for closed fracture with routine healing; X58.XXXD Exposure to other specified factors, subsequent encounter | CPT/HCPCS: L1902 ==

== ENCOUNTER → 2023-01-03 09:11 | Outpatient (BNVA) | payer MEDICARE, OTHER, SELFPAY | PROVIDERS: PCP Family Medicine; Visit Provider Nurse Practitioner Family | DX: S82.831A Other fracture of upper and lower end of right fibula, initial encounter for closed fracture (principal); X58.XXXA Exposure to other specified factors, initial encounter; Z46.89 Encounter for fitting and adjustment of other specified devices | CPT/HCPCS: 73610; 99213; L1902 ==

== ENCOUNTER 2023-01-08 14:35 | Inpatient (IN) | payer MEDICARE, OTHER, SELFPAY ==
[2023-01-08] VITALS (43 sets, daily range): BP systolic 145–205; BP diastolic 72–106; PULSE 78–99; RESP 13–26; TEMP 36.6–36.8; O2SAT 93–99; BMI 51.2
--- NOTE | 2023-01-08 14:48 | XR_ITS ---
WS: [id number] RIGHT SHOULDER: 3 VIEW(S) TECHNIQUE: Internal and external rotation with Y view. HISTORY: fall, right arm pain COMPARISON: None available. Osteopenia. Markedly high riding humeral head abutting the acromion. Position of the humeral head is high riding and this may be exacerbated by lordotic positioning. AC joint is narrowed. No definite fractures are identified. The orientation of the humeral head with the glenoid does not i ndicate anterior or posterior displacement. XR/XR shoulder RT min 2V* [id number] IMPRESSION: 1. Osteopenia. High riding humeral head. 2. There is an abnormal appearance of the humeral head with respect to the acr omion but this may be positional. Cannot confirm fracture or displacement. If p ain continues recommend follow-up RIGHT shoulder CT evaluation.
--- NOTE | 2023-01-08 14:48 | CT_ITS ---
WS: [id number] CT CERVICAL TRAUMA TECHNIQUE: Noncontrast CT of the cervical spine with coronal and sagittal reformatted images. CLINICAL INFORMATION: neck pain, fall COMPARISON: 2019 DLP: 1409.[address] scans at [facility] use at least one of these dose optimization techniques: automated e xposure control; mA and/or kV adjustment per patient size (includes targeted exams where dose is matc hed to clinical indication); or iterative reconstruction. FINDINGS: Straightening of the normal cervical lordosis. Moderate to advanced spondylitic changes. Disc space n arrowing worse at C4-C6. Anterior hypertrophic changes. Slight anterolisthesis C2 on C3 and C3 on C4 similar to previous. Slight anterolisthesis C7 on T1. Normal craniocervical junction. Normal C1-C2 ar ticulation. Mild to moderate central canal stenosis C5-C6 and C6-C7 due to disc osteophyte complexes. Normal prevertebral soft tissues. Atelectasis in the lung apices. Mastoids air cells are well aerated. CT/CT cervical spin wo con* [id number] IMPRESSION: No evidence of acute fracture or dislocation.
--- NOTE | 2023-01-08 14:48 | CT_ITS ---
WS: [id number] CT HEAD TECHNIQUE: Noncontrast CT of the head obtained from the skullbase to the vertex. CLINICAL INFORMATION: Symptoms of acute stroke COMPARISON: October 07, 2022 DLP: [address] scans at [facility] use at least one of these dose optimization techniques: automated e xposure control; mA and/or kV adjustment per patient size (includes targeted exams where dose is matc hed to clinical indication); or iterative reconstruction. FINDINGS: No evidence of intracranial hemorrhage or mass effect. Ventricular system and basal cisterns are cabral nt. Moderate small vessel changes with moderate parenchymal volume loss. No extra-axial fluid collect ions. No evidence of mass or mass effect. Intracranial vascular calcification. Paranasal sinuses and mastoid air cells are well aerated. .Normal visualized soft tissues. CT/CT head thrombolytic [id number] IMPRESSION: 1. No evidence of intracranial hemorrhage or mass effect. 2. Moderate small vessel changes. Moderate parenchymal volume loss. 3. Intracranial vascular calcification. 4. No acute intracranial findings. Notified Marybeth Godinez MD at 01/08/2023 3:16 PM.
--- NOTE | 2023-01-08 14:48 | ECG_ITS ---
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 Measurements Intervals [place] Rate: 80 P: 32 AR: 230 QRS: -13 QRSD: 103 T: 81 QT: 378 QTc: 436 Interpretive Statements SINUS RHYTHM WITH FIRST DEGREE AV BLOCK ANTEROSEPTAL MYOCARDIAL INFARCTION , OF INDETERMINATE AGE [40+ ms Q WAVE IN V1-V4] Compared to ECG 07/22/2022 14:25:57 No significant changes Electronically Signed On 01-09-2023 12:18:33 CDT by Mac Vizcarra M.D. [id number]
--- NOTE | 2023-01-08 14:48 | XR_ITS ---
WS: [id number] XR chest 1V portable [id number] REASON FOR EXAM: possible stroke FINDINGS: Chest is unchanged compared to 07/14/2022. Cardiac device overlying the left chest with subclavian vein leads to the right atrium and right vent ricular apex. Mild tortuosity of the thoracic aorta. The heart is not enlarged. Calcified granulomatous disease bilaterally. No active pulmonary parenchymal or pleural disease is noted. 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 XR/XR chest 1V portable [id number] IMPRESSION: No acute chest abnormality.
[2023-01-08 14:50] LABS: Glucose Point of Care 129 mg/dL (70-110)
--- NOTE | 2023-01-08 15:27 | W.ED.NEUROSD ---
HPI - Neuro Symptoms/Deficit General: Chief Complaint: Neuro Symptoms/Deficit Stated Complaint: Fall Time Seen by Provider: 01/08/23 14:36 History of Present Illness: This patient is an 82 year old presenting with a fall at her NH. She tells me that she was doing rehab and using a walker, while assisted by 2 staff members, and she just couldn't stand up any more. She didn't really fall because the staff held onto her. She is complaining of a headache and neck pain that she says is new since the fall, and she complains of pain in her right shoulder which is new since the fall. She was in the NH and doing rehab after she broke her right leg. She says she just got out of her cast. She also broke her left ankle prior to that and was a day away from being discharged from rehab for that injury when the right leg injury occurred. She denies history of stroke. She denies recent fever, vomiting, urinary symptoms, chest pain or shortness of breath. She does note that her vision has gotten worse since she has been in the NH. She can't specify what she means by that - she denies double vision, black spots - she just says that she doesn't seem to see as well. 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 Fracture of distal fibula Hyperlipidemia Hyperlipidemia associated with type 2 diabetes mellitus Hypertension Hypovolemic shock Ileus Left ankle pain Mesenteric artery stenosis Pacemaker Septic shock Sick sinus syndrome Surgical History History of ankle surgery History of knee replacement History of splenectomy Status post colonoscopy Social History Smoking and tobacco status: never smoked Alcohol intake: never Physical Exam Const: COMMON NORMALS: no acute distress, patient oriented x3, no limitations and alert GENERAL APPEARANCE: cooperative and comfortable HENMT: HEAD & SCALP: normal to inspection FACE & SINUS: normal facial exam Eye: GENERAL EYE: appearance normal, both eyes and all related structures Neck/C-Spine: COMMON NORMALS: supple, no meningeal signs and no JVD Chest: COMMONS NORMALS: normal inspection of the chest Resp: COMMON NORMALS: normal respiratory effort, No use of accessory muscles and clear to auscultation bilaterally AUSCULTATION: clear to auscultation bilaterally Cardio: COMMON NORMALS: no JVD, regular rate, regular rhythm and No murmurs present (Cardio) RATE: regular rate RHYTHM: regular rhythm GI: COMMON NORMALS: Normal to inspection, nondistended, normoactive bowel sounds present, Soft to palpation and non-tender INSPECTION: Yes normal to inspection AUSCULTATION: Yes normoactive bowel sounds PALPATION: Yes Soft to palpation Back/Pelvis: COMMON NORMALS: thoracic and lumbar spine normal to inspection Extremity: COMMON NORMALS: normal to inspection Neuro: COMMON NORMALS: patient oriented x3, moves all extremities, no focal motor deficits and no sensory deficits noted SENSORIUM/ORIENTATION: Yes alert MENINGEAL SIGNS: Yes no meningeal signs CRANIAL NERVES: Yes other (no facial droop, tongue protrudes with slight deviation to the right) SENSORY EXAM: Yes extremities (decreased sensation on the right face, arm, leg) MOTOR EXAM: 5/5 motor strength present throughout (exception RLE - just out of cast and weak per patient) Psych: COMMON NORMALS: mental status grossly normal, cooperative and normal affect Skin: COMMON NORMALS: no rashes or lesions noted and turgor normal GENERAL SKIN EXAM: no rashes or lesions noted and turgor normal Course Vital Signs: Vital signs: Vital Signs Temperature 97.8 F 01/08/23 14:38 Pulse Rate 88 01/08/23 20:45 Respiratory Rate 18 01/08/23 20:45 Blood Pressure 191/75 01/08/23 20:30 Pulse Oximetry 94 01/08/23 20:45 Oxygen Delivery Me thod Room Air 01/08/23 17:33 MDM - Neuro Symptoms/Deficit Medical Decision Making Fall - no syncope, but patient says she couldn't hold herself up. Reports decreased sensation on the right. No weakness detected other than what can reasonably be attributed to the RLE injury. CT head and c-spine ordered. Xray right shoulder - although she has good ROM. Certainly possible that this is a small stroke - but not a TPA candidate given the minimal impact of right sided tingling. Work up underway. CT neg. Discussed with Dr. Carpio at [facility] and he did a telemedicine consult. He agreed that there is no indication for TPA given the low stroke score - and there is no indication for stat CTA. He does recommend aspirin, continue plavix, admit. He will fax a consult note for the chart. Dr. Da Silva will admit. Lab Data 01/08/23 15:43 01/08/23 15:43 Radiology Impressions Cervical Spine CT 01/08/23 14:48 IMPRESSION: No evidence of acute fracture or dislocation. Chest X-Ray 01/08/23 14:48 IMPRESSION: No acute chest abnormality. Head CT 01/08/23 14:48 IMPRESSION: 1. No evidence of intracranial hemorrhage or mass effect. 2. Moderate small vessel changes. Moderate parenchymal volume loss. 3. Intracranial vascular calcification. 4. No acute intracranial findings. Notified Marybeth Godinez MD at 01/08/2023 3:16 PM. Shoulder X-Ray 01/08/23 14:48 IMPRESSION: 1. Osteopenia. High riding humeral head. 2. There is an abnormal appearance of the humeral head with respect to the acromion but this may be positional. Cannot confirm fracture or displacement. If pain continues recommend follow-up RIGHT shoulder CT evaluation. Laboratory Results WBC 5.1 10^3/uL (4.0-10.0) 01/08/23 15:43 RBC 4.68 10^6/uL (4.1-5.3) 01/08/23 15:43 Hgb 13.8 g/dL (11.5-15.3) 01/08/23 15:43 Hct 43.4 % (37.0-47.0) 01/08/23 15:43 MCV 92.7 fl (81-99) 01/08/23 15:43 MCH 29.5 pg (28.0-34.0) 01/08/23 15:43 MCHC 31.8 g/dL (30.0-36.0) 01/08/23 15:43 RDW 13.4 % (12.1-15.1) 01/08/23 15:43 Plt Count 411 10^3/cmm (130-400) H 01/08/23 15:43 MPV 9.0 fL (7.4-10.4) 01/08/23 15:43 Neut % (Auto) 59.2 % 01/08/23 15:43 Lymph % (Auto) 24.7 % 01/08/23 15:43 [place] % (Auto) 14.5 % 01/08/23 15:43 Eos % (Auto) 0.4 % 01/08/23 15:43 Baso % (Auto) 0.8 % 01/08/23 15:43 Neut # (Auto) 3.03 10^3/uL (1.8-7.7) 01/08/23 15:43 Lymph # (Auto) 1.3 10^3/uL (0.8-4.8) 01/08/23 15:43 [place] # (Auto) 0.7 10^3/uL (0.2-0.9) 01/08/23 15:43 Eos # (Auto) 0.0 10^3/uL (0.0-0.8) 01/08/23 15:43 Baso # (Auto) 0.0 10^3/uL (0.0-0.1) 01/08/23 15:43 Nucleated RBC % (auto) 0 % 01/08/23 15:43 Nucleated RBCs # 0.0 /100WBC 01/08/23 15:43 PT 13.00 SECONDS (12.1-14.9) 01/08/23 15:43 INR 0.95 (0.8-1.2) 01/08/23 15:43 APTT 25.5 SECONDS (23.9-36.7) 01/08/23 15:43 Sodium 129 mmol/L (136-145) L 01/08/23 15:43 Potassium 4.2 mmol/L (3.5-5.1) 01/08/23 15:43 Chloride 92 mmol/L (98-107) L 01/08/23 15:43 Carbon Dioxide 27 mmol/L (22-29) 01/08/23 15:43 Anion Gap 14.2 (5-19) 01/08/23 15:43 BUN 9 mg/dL (8-23) 01/08/23 15:43 Creatinine 0.5 mg/dL (0.5-0.9) 01/08/23 15:43 GFR Calculation Not Reportable 01/08/23 15:43 Glucose 99 mg/dL (65-115) 01/08/23 15:43 POC Glucose 129 mg/dL (70-110) H 01/08/23 14:46 Calculated Osmolality 267 mOsm/kg (285-295) L 01/08/23 15:43 Calcium 8.8 mg/dL (8.5-10.5) 01/08/23 15:43 Total Bilirubin 0.3 mg/dL (0.15-1.2) 01/08/23 15:43 AST 21 U/L (0-32) 01/08/23 15:43 ALT 19 U/L (0-33) 01/08/23 15:43 Alkaline Phosphatase 74 U/L (35-105) 01/08/23 15:43 Total Protein 6.9 g/dL (6.6-8.7) 01/08/23 15:43 Albumin 4.1 g/dL (3.5-5.2) 01/08/23 15:43 Globulin 2.8 g/dL (1.3-4.6) 01/08/23 15:43 Triglycerides 102 mg/dL (0-150) 01/08/23 15:43 Cholesterol 190 mg/dL (0-200) 01/08/23 15:43 LDL Cholesterol, Calc 97 mg/dL (50-129) 01/08/23 15:43 HDL Cholesterol 73 mg/dL (60-100) 01/08/23 15:43 LDL/HDL Ratio 1.33 RATIO (0.00-3.22) 01/08/23 15:43 Cholesterol/HDL Ratio 2.60 mg/dL (0.0-4.40) 01/08/23 15:43 TSH 1.18 uIU/mL (0.27-4.20) 01/08/23 15:43 Urine Color Yellow (Yellow) 01/08/23 16:27 Urine Appearance Clear (CLEAR) 01/08/23 16:27 Urine pH 7 (5-7) 01/08/23 16: Ur Specific [place] 1.015 (1.005-1.030) 01/08/23 16:27 Urine Protein Neg (Negative) 01/08/23 16:27 Urine Glucose (UA) Norm (Normal) 01/08/23 16:27 Urine Ketones Negative (Negative) 01/08/23 16:27 Urine Blood Neg (Negative) 01/08/23 16:27 Urine Nitrate Negative (Negative) 01/08/23 16:27 Urine Bilirubin Neg (Negative) 01/08/23 16:27 Urine Urobilinogen Norm mg/dL (Negative) 01/08/23 16:27 Ur Leukocyte Esterase Negative (Negative) 01/08/23 16:27 Urine Opiates Screen Negative ng/mL (Negative) 01/08/23 16:27 Ur Barbiturates Screen Negative ng/mL (Negative) 01/08/23 16:27 Ur Phencyclidine Scrn Negative ng/mL (Negative) 01/08/23 16:27 Ur Amphetamines Screen Negative ng/mL (Negative) 01/08/23 16:27 U Benzodiazepines Scrn Negative ng/mL (Negative) 01/08/23 16:27 Urine Cocaine Screen Negative ng/mL (Negative) 01/08/23 16:27 U Marijuana (THC) Screen Negative ng/mL (Negative) 01/08/23 16:27 Discharge Plan Discharge Admit Provider: Deb Da Silva Clinical Impression: Cerebrovascular accident, Sick sinus syndrome Condition: Stable Coding Level of Care Code ED Order Schedule Clerk for Cipriano Forrest
[2023-01-08 15:52] LABS: Basophils % 0.8 %; Eosinophils % 0.4 %; Hematocrit 43.4 % (37.0-47.0); Hemoglobin 13.8 g/dL (11.5-15.3); Lymphocytes # 1.3 10^3/uL (0.8-4.8); Lymphocytes % 24.7 %; Mean Corpuscular HGB Conc 31.8 g/dL (30.0-36.0); Mean Corpuscular Hemoglobin 29.5 pg (28.0-34.0); Mean Corpuscular Volume 92.7 fl (81-99); Monocytes # 0.7 10^3/uL (0.2-0.9); Monocytes % 14.5 %; Neutrophils # 3.03 10^3/uL (1.8-7.7); Neutrophils % 59.2 %; Nucleated Red Blood Cells % 0 %; Platelet Count 411 10^3/cmm (130-400); Red Blood Count 4.68 10^6/uL (4.1-5.3); Red Cell Distribution Width 13.4 % (12.1-15.1); White Blood Count 5.1 10^3/uL (4.0-10.0)
[2023-01-08 16:03] LABS: INR 0.95 (0.8-1.2)
[2023-01-08 16:04] LABS: Partial Thromboplastin Time 25.5 SECONDS (23.9-36.7)
[2023-01-08 16:10] LABS: Alanine Aminotransferase 19 U/L (0-33); Albumin Level 4.1 g/dL (3.5-5.2); Alkaline Phosphatase 74 U/L (35-105); Anion Gap 14.2 (5-19); Aspartate Amino Transferase 21 U/L (0-32); Blood Urea Nitrogen 9 mg/dL (8-23); Calcium 8.8 mg/dL (8.5-10.5); Carbon Dioxide 27 mmol/L (22-29); Chloride 92 mmol/L (98-107); Globulin 2.8 g/dL (1.3-4.6); Glucose 99 mg/dL (65-115); Osmolality Calculated 267 mOsm/kg (285-295); Potassium 4.2 mmol/L (3.5-5.1); Sodium 129 mmol/L (136-145); Total Bilirubin 0.3 mg/dL (0.15-1.2); Total Protein 6.9 g/dL (6.6-8.7)
[2023-01-08 17:36] LABS: Add Urine Microscopic? NO; Charge for UA Resulting for Rev
[2023-01-08 17:41] LABS: Bilirubin Urine Neg (Negative); Blood Urine Neg (Negative); Glucose Urine UA Norm (Normal); Ketones Urine Negative (Negative); Leukocyte Esterase Urine Negative (Negative); Nitrate Urine Negative (Negative); Protein Urine Neg (Negative); Specific Gravity, Urine 1.015 (1.005-1.030); Urine Appearance Clear (CLEAR); Urine Color Yellow (Yellow); Urobilinogen Urine Norm (Negative); pH Urine 7 (5-7)
[2023-01-08 17:47] LABS: Amphetamines Screen Urine Negative (Negative); Barbiturates Screen Urine Negative (Negative); Benzodiazepines Screen Urine Negative (Negative); Cocaine Screen Urine Negative (Negative); Opiate Screen Urine Negative (Negative); PCP Screen Urine Negative (Negative); THC Screen Urine Negative (Negative)
--- NOTE | 2023-01-08 20:12 | PM.HP ---
Providers/Chief Complaint Primary Care Provider: Chicho Young DO Chief Complaint: Fall History of Present Illness Mindy Verma is a 82 year old female Medications/Allergies Home Medications Medication Instructions Recorded Confirmed Last Taken Type multivitamin 1 tab PO QAM 10/29/20 01/08/23 08/15/22 History ondansetron HCl 4 mg tablet 4 mg PO Q6H PRN Nausea And Vomiting 10/29/20 01/08/23 08/15/22 History aspirin 81 mg tablet,delayed 81 mg PO QAM 06/18/22 01/08/23 01/08/23 History release ferrous sulfate 325 mg (65 mg 325 mg PO QAM 06/18/22 01/08/23 01/08/23 History iron) tablet (iron) acetaminophen 500 mg tablet 500 - 1,000 mg PO Q6H PRN Pain 07/14/22 01/08/23 08/14/22 History cholecalciferol (vitamin D3) 10 10 mcg PO QAM 07/14/22 01/08/23 01/08/23 History mcg (400 unit) tablet (Vitamin D3) gabapentin 100 mg capsule 100 mg PO TID 07/14/22 01/08/23 01/08/23 History sertraline 100 mg tablet (Zoloft) 100 mg PO QAM 07/14/22 01/08/23 01/08/23 History loperamide 2 mg capsule 4 mg PO Q4H PRN diarrhea #30 caps 07/17/22 01/08/23 2 Weeks Ago Rx ~08/02/22 CAM WALKER #1 ea 07/18/22 01/08/23 Unknown Rx bisacodyl 10 mg rectal suppository 10 mg VA DAILY PRN Constipation 07/22/22 01/08/23 08/15/22 History (Dulcolax (bisacodyl)) magnesium hydroxide 400 mg/5 mL 30 ml PO DAILY PRN Constipation 07/22/22 01/08/23 Unknown History oral suspension (Milk of Magnesia) pantoprazole 40 mg tablet,delayed 40 mg PO BID 07/22/22 01/08/23 01/08/23 History release (Protonix) sodium phosphates 19 gram-7 118 ml VA DAILY PRN Constipation 07/22/22 01/08/23 Unknown History gram/118 mL enema (Fleet Enema) carbamazepine 200 mg 200 mg PO BID #60 caps 08/16/22 01/08/23 01/08/23 Rx capsule,extended release [id number] clopidogrel 75 mg tablet 75 mg PO DAILY 08/16/22 01/08/23 01/08/23 History prednisone 10 mg tablet 10 mg PO QAM TO EASE PAIN OF PMR 08/16/22 01/08/23 01/08/23 Rx #30 tabs leg brace (Ankle Brace) #1 ea 09/02/22 01/08/23 Unknown Rx losartan 50 mg tablet 50 mg PO QAM #90 tabs 09/04/22 01/08/23 01/08/23 Rx cyclobenzaprine 10 mg tablet 10 mg PO TID PRN muscle spasm 14 11/01/22 01/08/23 Unknown Rx days #42 tabs nortriptyline 25 mg capsule 25 mg PO DAILY 11/01/22 01/08/23 01/07/23 History cam walker #1 ea 12/19/22 01/08/23 Unknown Rx lace up ankle brace #1 ea 01/03/23 01/08/23 Unknown Rx hydroxyzine HCl 25 mg tablet 25 mg PO BEDTIME 01/08/23 01/08/23 01/07/23 History polyethylene glycol 3350 17 4 g PO DAILY 01/08/23 01/08/23 01/08/23 History gram/dose oral powder (Miralax) rosuvastatin 5 mg tablet 5 mg PO QPM 01/08/23 01/08/23 01/07/23 History Allergies Allergy/AdvReac Type Severity Reaction Status Date / Time codeine Allergy Mild Itch Verified 01/08/23 14:43 naltrexone Allergy Unknown Verified 01/08/23 14:43 diphenhydramine AdvReac Mild Hallucinati Verified 01/08/23 14:43 [From Benadryl] ons PFSH Acute PFSH: Medical History Abnormal CT of the abdomen Colitis Colitis Dehydration Depression Diarrhea Enteritis Facial pain 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 Fracture of distal fibula Hyperlipidemia Hyperlipidemia associated with type 2 diabetes mellitus Hypertension Hypovolemic shock Ileus Left ankle pain Mesenteric artery stenosis Pacemaker Septic shock Sick sinus syndrome Surgical History History of ankle surgery History of knee replacement History of splenectomy Status post colonoscopy Social History Smoking and tobacco status: never smoked Alcohol intake: never Vitals/I&O/Wt Last Vital Signs Temp 97.8 F 01/08/23 14:38 Pulse 83 01/08/23 19:15 Resp 19 H 01/08/23 19:15 BP 205/91 01/08/23 19:15 Pulse Ox 95 01/08/23 19:15 O2 Del Method Room Air 01/08/23 17:33 Weight last 48 hrs Weight 127.006 kg Data 01/08/23 15:43 01/08/23 15:43 Coding Level of Care Code Acute Code for Chg Fwd Diagnoses
[2023-01-08 21:05] LABS: Cholesterol 190 mg/dL (0-200); HDL Cholesterol 73 mg/dL (60-100); LDL Cholesterol Calculated 97 mg/dL (50-129); LDL HDL Ratio 1.33 RATIO (0.00-3.22); Thyroid Stimulating Hormone 1.18 uIU/mL (0.27-4.20); Triglycerides 102 mg/dL (0-150)
[2023-01-08] MEDS: sodium chloride 0.9% 1,000 ML 75 ML IV (21:52)
[2023-01-08] MEDS: gabapentin 100 mg Capsule PO (22:15)
[2023-01-08] MEDS: pneumococcal (23 valent) SDV 0.5 mL IM (22:15)
[2023-01-08] MEDS: heparin 5,000 unit/mL INJ 1 mL 5000 UNIT SUBCUT (22:15)
--- NOTE | 2023-01-08 23:12 | PM.HP ---
Providers/Chief Complaint Admitting Physician: Deb Da Silva MD Primary Care Provider: Chicho Young DO Chief Complaint: Fall History of Present Illness Mindy Verma is a 82 year old female [facility] resident, Pt was attending physical therapy today when her right side of the body gave up on her and she fell on the ground that prompted her visit to the ER. There was concern for stroke, code stroke was called, [facility] stroke team was front office java developer, they recommended permissive hypertension and head MRI in the morning, did not recommend tPA. Patient is stating that a week ago she had syncopal event, and twos ago she had a stroke which involved her right side as well, patient has been following recently had ankle surgery that is why she is attending [facility] At the time of my evaluation NIH is 0 Patient is pleasant and cooperative Hemodynamics are stable I do not appreciate any focal deficits Patient is stating that she has been experiencing headache for quite some time, she gets migraine as well, her symptoms have never been related to migraine, Dr. Segura has asked her to watch her blood pressure, as per the daughter she was orthostatic in the past Review of Systems Const: Denies: fever(s) Eyes: Denies: change in vision ENMT: Denies: throat pain Card: Denies: chest pain Resp: Denies: dyspnea GI: Denies: abdominal pain : Denies: flank pain Musc: Denies: neck pain Skin/Breast: Denies: rash Neuro: Reports: headache(s) Psych: Reports: anxiety Endo: Denies: polyuria Josh/Lymph: Denies: easy bruising Medications/Allergies Home Medications Medication Instructions Recorded Confirmed Last Taken Type multivitamin 1 tab PO QAM 10/29/20 01/08/23 08/15/22 History ondansetron HCl 4 mg tablet 4 mg PO Q6H PRN Nausea And Vomiting 10/29/20 01/08/23 08/15/22 History aspirin 81 mg tablet,delayed 81 mg PO QAM 06/18/22 01/08/23 01/08/23 History release ferrous sulfate 325 mg (65 mg 325 mg PO QAM 06/18/22 01/08/23 01/08/23 History iron) tablet (iron) acetaminophen 500 mg tablet 500 - 1,000 mg PO Q6H PRN Pain 07/14/22 01/08/2323 History cholecalciferol (vitamin D3) 10 10 mcg PO QAM 07/14/22 01/08/23 01/08/23 History mcg (400 unit) tablet (Vitamin D3) gabapentin 100 mg capsule 100 mg PO TID 07/14/22 01/08/23 01/08/23 History sertraline 100 mg tablet (Zoloft) 100 mg PO QAM 07/14/22 01/08/23 01/08/23 History loperamide 2 mg capsule 4 mg PO Q4H PRN diarrhea #30 caps 07/17/22 01/08/23 2 Weeks Ago Rx ~08/02/22 CAM WALKER #1 ea 07/18/22 01/08/23 Unknown Rx bisacodyl 10 mg rectal suppository 10 mg MD DAILY PRN Constipation 07/22/22 01/08/23 08/15/22 History (Dulcolax (bisacodyl)) magnesium hydroxide 400 mg/5 mL 30 ml PO DAILY PRN Constipation 07/22/22 01/08/23 Unknown History oral suspension (Milk of Magnesia) pantoprazole 40 mg tablet,delayed 40 mg PO BID 07/22/22 01/08/23 01/08/23 History release (Protonix) sodium phosphates 19 gram-7 118 ml MD DAILY PRN Constipation 07/22/22 01/08/23 Unknown History gram/118 mL enema (Fleet Enema) carbamazepine 200 mg 200 mg PO BID #60 caps 08/16/22 01/08/23 01/08/23 Rx capsule,extended release [id number] clopidogrel 75 mg tablet 75 mg PO DAILY 08/16/22 01/08/23 01/08/23 History prednisone 10 mg tablet 10 mg PO QAM TO EASE PAIN OF PMR 08/16/22 01/08/23 01/08/23 Rx #30 tabs leg brace (Ankle Brace) #1 ea 09/02/22 01/08/23 Unknown Rx losartan 50 mg tablet 50 mg PO QAM #90 tabs 09/04/22 01/08/23 01/08/23 Rx cyclobenzaprine 10 mg tablet 10 mg PO TID PRN muscle spasm 14 11/01/22 01/08/23 Unknown Rx days #42 tabs nortriptyline 25 mg capsule 25 mg PO DAILY 11/01/22 01/08/23 01/07/23 History cam walker #1 ea 12/19/22 01/08/23 Unknown Rx lace up ankle brace #1 ea 01/03/23 01/08/23 Unknown Rx hydroxyzine HCl 25 mg tablet 25 mg PO BEDTIME 01/08/23 01/08/23 01/07/23 History polyethylene glycol 3350 17 4 g PO DAILY 01/08/23 01/08/23 01/08/23 History gram/dose oral powder (Miralax) rosuvastatin 5 mg tablet 5 mg PO QPM 01/08/23 01/08/23 01/07/23 History Allergies Allergy/AdvReac Type Severity Reaction Status Date / Time codeine Allergy Mild Itch Verified 01/08/23 14:43 naltrexone Allergy Unknown Verified 01/08/23 14:43 diphenhydramine AdvReac Mild Hallucinati Verified 01/08/23 14:43 [From Benadryl] ons PFSH Acute PFSH: Medical History Abnormal CT of the abdomen Colitis Colitis Dehydration Depression Diarrhea Enteritis Facial pain 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 Fracture of distal fibula Hyperlipidemia Hyperlipidemia associated with type 2 diabetes mellitus Hypertension Hypovolemic shock Ileus Left ankle pain Mesenteric artery stenosis Pacemaker Septic shock Sick sinus syndrome Surgical History History of ankle surgery History of knee replacement History of splenectomy Status post colonoscopy Social History Smoking and tobacco status: never smoked Alcohol intake: never Vitals/I&O/Wt Last Vital Signs Temp 98.3 F 01/08/23 20:13 Pulse 89 01/08/23 22:00 Resp 18 01/08/23 20:45 BP 191/75 01/08/23 20:30 Pulse Ox 94 01/08/23 20:45 O2 Del Method Room Air 01/08/23 21:16 Weight last 48 hrs Weight 127.006 kg Physical Exam Narrative: NIH 0 GCS 15 Pleasant and cooperative Morbidly obese S1, S2 Currently on room air Abdomen soft, she does have, abdominal wall hernia, no sign obstruction No active nausea vomiting, No signs of edema Data 01/08/23 15:43 01/08/23 15:43 A&P Assessment and plan (1) TIA (transient ischemic attack): (2) Abdominal pain: (3) Epigastric pain: Plan TIA Right-sided weakness which has resolved NIH 0 We will request an MRI in the morning Permissive hypertension overnight Sick sinus syndrome has been listed in her medical history, watch her heart rate on telemetry for now Check orthostatics Check B12 PT evaluation Patient is stating that she would like to go back to [facility] if everything comes back negative, I will allow her to have low sodium cardiac diet CODE STATUS discussed with the patient she is DNR/DNI, daughter was present in the room Patient is already attending rehab for her ankle fracture Attestations Medical Necessity Statement*: Anticipating discharge within 48 hours Diagnoses TIA (transient ischemic attack) G45.9 Abdominal pain R10.9 Epigastric pain R10.13
--- NOTE | 2023-01-08 23:21 | USCV_ITS ---
Mindy Verma Age: 82 Gender: F : 1940 Exam Date: 01/08/2023 23:40 Ordering Phys: Nettie Small MD Technologist: ANDREA [place]am [place] [facility] [place] Indication: sss. History of pacemaker. No BP is available at time of this exam BP: / HR: 89 Rhythm: Atrial fibrillation Technical Quality: poor c/o obesity, bilat leg fx, with [employer]ISON MEASUREMENTS (Male / Female) Normal Values 2D ECHO LVOT Diameter 1.9 cm LV Ejection Fraction MOD 2C 63.9 % LV Ejection Fraction 2C AL 66.3 % LA Diameter 3.5 cm LA Width 2.7 cm LA Height 4.5 cm RA Width 2.5 cm RA Height 3.7 cm Aorta at Sinotubular Diameter 2.8 cm IVC Diameter 1.5 cm M-MODE Aortic Annulus Diameter 3.3 cm LA Ao Ratio MM 1.3 MV E Point Septal Separation 0.3 cm DOPPLER AV Peak Velocity 147.0 cm/s LVOT Peak Velocity 86.0 cm/s AV Area Cont Eq vti 1.7 cm squared AV Area Cont Eq pk 1.7 cm squared MV Area PHT 7.6 cm squared MV E' Velocity 66.0 cm/s Mitral E to MV E' Ratio 19.8 Mitral E to LV E' Lateral Ratio 18.1 Mitral E to LV E' Septal Ratio 21.9 TR Peak Velocity 254.0 cm/s TR Peak Gradient 25.8 mmHg Right Atrial Pressure 5.0 mmHg Pulmonary Artery Systolic Pressu 30.8 mmHg FINDINGS Left Ventricle Left ventricle is normal in size. LV systolic function is normal with EF of 55 to 60%. No regional wall motion abnormalities are seen. Diastolic function is indeterminate because of atrial fibrillation Right Ventricle Normal in size and function Right Atrium Normal in size Left Atrium Normal in size Mitral Valve Structurally normal mitral valve. Aortic Valve Grossly normal. No significant stenosis or regurgitation. Tricuspid Valve Mild tricuspid regurgitation. RVSP is normal. Pulmonic Valve Not well visualized Pericardium Normal Aorta Normal in size IVC Appears to be normal CONCLUSIONS Technically limited quality echocardiogram because of poor ultrasonic windows. LV systolic function is normal with EF of 55 to 60% Diastolic function is indeterminate because of atrial fibrillation Mild tricuspid regurgitation Accurate comparison with prior echo is not possible because of poor quality studies Mac Vizcarra MD (Electronically Signed) Final Date: 09 January 2023 09:07 S
[2023-01-08] MEDS: nortriptyline 25 mg Capsule PO (23:30)
[2023-01-08 23:34] LABS: Estmated Average Glucose 100; Hemoglobin A1C 5.1 % (4.0-6.0)
[2023-01-09] VITALS (9 sets, daily range): BP systolic 96–180; BP diastolic 52–87; PULSE 87–98; RESP 16–18; TEMP 36.4–36.8; O2SAT 91–97
[2023-01-09 00:17] LABS: Vitamin B12 837 pg/mL (232-1245)
[2023-01-09] MEDS: hyDROXYzine 25 mg Capsule PO (00:51)
--- NOTE | 2023-01-09 02:43 | ECG_ITS ---
[facility] Test Date: 2023-01-09 Pat Name: Mindy Verma Department: Room: 276 Gender: Female [employer]: : 1940 Requested By: Deb Da Silva Order Number: [id number] Oswaldo MD: Mac Vizcarra M.D. Measurements Intervals [place] Rate: 89 P: 33 MT: 263 QRS: -19 QRSD: 98 T: 80 QT: 375 QTc: 457 Interpretive Statements SINUS RHYTHM WITH FIRST DEGREE AV BLOCK Compared to ECG 01/08/2023 15:15:56 No significant changes Electronically Signed On 01-09-2023 12:15:39 CDT by Mac Vizcarra M.D. [id number]
[2023-01-09] MEDS: lidocaine 2% viscous 15 ML, aluminum-mag hydrox-simethicon 30 ML, sucralfate oral liq 1 GM PO (02:50)
[2023-01-09 05:33] LABS: INR 0.98 (0.8-1.2)
[2023-01-09 05:35] LABS: Troponin T (5th) Once 14 ng/L (0-10)
[2023-01-09 05:37] LABS: Alanine Aminotransferase 16 U/L (0-33); Albumin Level 3.9 g/dL (3.5-5.2); Alkaline Phosphatase 70 U/L (35-105); Aspartate Amino Transferase 17 U/L (0-32); Blood Urea Nitrogen 12 mg/dL (8-23); Calcium 8.9 mg/dL (8.5-10.5); Carbon Dioxide 27 mmol/L (22-29); Chloride 93 mmol/L (98-107); Globulin 2.2 g/dL (1.3-4.6); Glucose 91 mg/dL (65-115); Osmolality Calculated 273 mOsm/kg (285-295); Sodium 132 mmol/L (136-145); Total Bilirubin 0.2 mg/dL (0.15-1.2); Total Protein 6.1 g/dL (6.6-8.7)
[2023-01-09] MEDS: perflutren protein-a microsphr 0.22 mg/mL SDV 3 mL IV (05:37)
[2023-01-09] MEDS: aspirin 81 mg EC Tablet PO (06:10)
[2023-01-09] MEDS: ferrous sulfate EC 325 mg Tablet PO (06:10)
[2023-01-09] MEDS: sertraline 100 mg Tablet PO (06:10)
[2023-01-09 08:05] LABS: Basophils # 0.1 10^3/uL (0.0-0.1); Basophils % 0.7 %; Eosinophils # 0.2 10^3/uL (0.0-0.8); Eosinophils % 2.3 %; Hemoglobin 13.6 g/dL (11.5-15.3); Lymphocytes # 1.5 10^3/uL (0.8-4.8); Lymphocytes % 20.2 %; Mean Corpuscular HGB Conc 32.4 g/dL (30.0-36.0); Mean Corpuscular Hemoglobin 30.1 pg (28.0-34.0); Mean Corpuscular Volume 92.9 fl (81-99); Mean Platelet Volume 8.9 fL (7.4-10.4); Monocytes # 1.3 10^3/uL (0.2-0.9); Neutrophils # 4.38 10^3/uL (1.8-7.7); Neutrophils % 59.4 %; Nucleated Red Blood Cells % 0 %; Platelet Count 395 10^3/cmm (130-400); Red Blood Count 4.52 10^6/uL (4.1-5.3); Red Cell Distribution Width 13.5 % (12.1-15.1); White Blood Count 7.4 10^3/uL (4.0-10.0)
[2023-01-09] MEDS: carBAMazepine 200 mg Tablet PO ×2 (08:11→17:25)
[2023-01-09] MEDS: clopidogrel 75 mg Tablet PO (08:12)
[2023-01-09] MEDS: heparin 5,000 unit/mL INJ 1 mL 5000 UNIT SUBCUT ×2 (08:12→22:17)
[2023-01-09] MEDS: pantoprazole DR 40 mg Tablet PO ×2 (08:12→17:25)
[2023-01-09] MEDS: gabapentin 100 mg Capsule PO ×3 (08:12→22:16)
--- NOTE | 2023-01-09 08:58 | USCV_ITS ---
Mindy Verma Age: 82 Gender: F : 1940 Exam Date: 01/09/2023 12:55 Ordering Phys: Truman Faustin MD Technologist: Jadiel Armstrong Exam Location: [facility] – [place] Indication: cva Risk Factors: Previous Vascular Surgery: Right Brachial BP: / Left Brachial BP: / Right Left Velocity (cm/s) Spectral Plaque Velocity (cm/s) Spectral Plaque Syst/Diast Broadening Syst/Diast Broadening 102.50/9.90 Prox CCA 112.50/ 15.40 124.60/11.00 Mid CCA 115.80/ 14.30 126.80/12.10 Hetro Distal CCA 82.70 / 12.10 Hetro / Hetro Prox ICA 385.30/ 24.90 Hetro / Mid ICA 376.00/ 21.80 Hetro / Distal ICA 220.60/ 3.10 125.70 ECA 321.30 ICA/CCA 3.33 Antegrade Vertebral Antegrade 83.80/ 12.10 cm/s 66.70/ 14.50 cm/s Bi Subclavian Bi 123.5 140.3 0 0 FINDINGS Comparison: none available. Completely occluded right ICA. High grade stenosis left ICA. Diastolic velocity not elevated. Antegrade vertebral arteries. CONCLUSIONS Occluded right ICA. Marked systolic elevation of velocity left ICA, maybe exaggerated secondary to right ICA occclusion. Left ICA stenosis 70-99%. Recommend CTA carotid artery follow up. Dr. Alyssa Shirley DO (Electronically Signed) Final Date: 09 January 2023 16:16 S
--- NOTE | 2023-01-09 10:07 | PC.NURSE ---
This nurse spoke to patients daughter, Yojana, per physical therapy and requested that she bring in patients ankle brace from [facility] if she is able. Daughter will bring this to patient this evening.
[2023-01-09] MEDS: sodium chloride 0.9% 1,000 ML 75 ML IV (11:24)
[2023-01-09 11:26] LABS: Glucose Point of Care 108 mg/dL (70-110)
--- NOTE | 2023-01-09 14:25 | P.PN_ITS ---
Subjective Subjective: She states that she is feeling well currently. Denies any weakness or numbness. Feels like her usual self. Vitals/I&O/Wt Last Vital Signs Temp 98.2 F 01/09/23 12:00 Pulse 89 01/09/23 12:00 Resp 18 01/09/23 12:00 BP 142/82 01/09/23 12:00 Pulse Ox 93 01/09/23 12:00 O2 Del Method Room Air 01/09/23 12:00 01/08/23 01/09/23 01/09/23 22:59 06:59 14:59 Intake Total 120 / 120 1240 / 1240 Balance 120 / 120 1240 / 1240 Weight last 48 hrs Weight 127.006 kg Physical Exam Const: COMMON NORMALS: patient oriented x3 and alert GENERAL APPEARANCE: cooperative NUTRITIONAL APPEARANCE: obese ORIENTATION/CONSCIOUSNESS: Yes awake HENMT: COMMON NORMALS: oropharynx normal Neck/C-Spine: COMMON NORMALS: no JVD Resp: COMMON NORMALS: normal respiratory effort and clear to auscultation bilaterally AUSCULTATION: clear to auscultation bilaterally Cardio: COMMON NORMALS: no JVD, regular rhythm, S1 normal heart sound present, S2 normal heart sound present and No murmurs present (Cardio) RHYTHM: regular rhythm HEART SOUNDS: S1 normal heart sound present and S2 normal heart sound present GI: COMMON NORMALS: Normal to inspection, nondistended, normoactive bowel sounds present, Soft to palpation and non-tender PALPATION: Yes Soft to palpation Extremity: COMMON NORMALS: no joint enlargement and no pedal edema Neuro: COMMON NORMALS: patient oriented x3 and moves all extremities SENSORIUM/ORIENTATION: Yes alert OTHER: She is awake, alert, keenly responsive. No facial droop noted. She has no difficulty tracking. Denies diplopia. Visual orozco full to confrontation. No visual extinction. No pronator drift. Sensory exam symmetrical. No extinction. FNF WNL. Skin: COMMON NORMALS: no rashes or lesions noted GENERAL SKIN EXAM: no rashes or lesions noted Data 01/09/23 07:46 01/09/23 04:19 A&P Assessment and plan (1) TIA (transient ischemic attack): (2) Abdominal pain: She does not have abdominal pain, no reported abdominal pain in history. (3) Epigastric pain: She does not have abdominal pain, no reported abdominal pain in history. Plan MRI could not be performed since she has a pacemaker. Discussed with her. We discussed our obtaining carotid Doppler studies. Otherwise continue aspirin, Plavix, statin. A1c noted WNL. Monitor on telemetry. Orthostatic assessment, reported positive, although confirming whether the values are accurate, since documented 152/82 standing, 96/52 lying. Has history of heart static hypotension. Currently hypertensive while supine. We will cut down IV fluid rate to 30 mill per hour. Otherwise TSH, B12, U tox, UA, electrolytes unremarkable. Sodium was mildly decreased down to 129 on presentation, currently 132. Not likely to have been responsible for her symptoms. She was noted to get somewhat somnolent after receiving her carbamazepine and gabapentin. Question of whether medication toxicity could have contributed. We will check carbamazepine level. Echocardiogram noted with EF 55-60%. Indeterminate diastolic function. PT, OT assessment. Discussed with case management. Currently hypertensive. Discussed with her permissive hypertension for now, gradually will need to optimize additional blood pressure control. Unfortunately this may be difficult to manage with orthostatic hypotension, treating hypotension may result in higher blood pressures whereas treating blood pressures may lead to further incapacitation with worsening orthostasis. Attestations Medical Necessity Statement*: Continue hospitalization for assessment after suspected TIA versus small CVA, permissive hypertension, additional assessment given history of orthostasis, making blood pressure management difficult. Diagnoses TIA (transient ischemic attack) G45.9 Abdominal pain R10.9 Epigastric pain R10.13
[2023-01-09 15:56] LABS: Carbamazepine Tegretol 5.5 ug/mL (4.0-12.0)
[2023-01-09] MEDS: atorvastatin 40 mg Tablet PO (17:25)
[2023-01-10] VITALS (8 sets, daily range): BP systolic 121–154; BP diastolic 66–82; PULSE 79–91; RESP 17–18; TEMP 36.6–36.9; O2SAT 93
[2023-01-10] MEDS: sertraline 100 mg Tablet PO (05:46)
[2023-01-10] MEDS: ferrous sulfate EC 325 mg Tablet PO (05:46)
[2023-01-10] MEDS: aspirin 81 mg EC Tablet PO (05:46)
[2023-01-10 05:49] LABS: Basophils # 0.1 10^3/uL (0.0-0.1); Basophils % 0.6 %; Eosinophils # 0.2 10^3/uL (0.0-0.8); Eosinophils % 1.7 %; Hematocrit 41.1 % (37.0-47.0); Hemoglobin 13.6 g/dL (11.5-15.3); Lymphocytes # 1.5 10^3/uL (0.8-4.8); Lymphocytes % 16.3 %; Mean Corpuscular HGB Conc 33.1 g/dL (30.0-36.0); Mean Corpuscular Hemoglobin 30.6 pg (28.0-34.0); Mean Corpuscular Volume 92.4 fl (81-99); Mean Platelet Volume 8.9 fL (7.4-10.4); Monocytes # 1.5 10^3/uL (0.2-0.9); Monocytes % 16.6 %; Neutrophils # 5.77 10^3/uL (1.8-7.7); Neutrophils % 64.5 %; Nucleated Red Blood Cells % 0 %; Platelet Count 415 10^3/cmm (130-400); Red Blood Count 4.45 10^6/uL (4.1-5.3); Red Cell Distribution Width 13.4 % (12.1-15.1); White Blood Count 8.9 10^3/uL (4.0-10.0)
[2023-01-10 06:17] LABS: Blood Urea Nitrogen 14 mg/dL (8-23); Calcium 9.1 mg/dL (8.5-10.5); Carbon Dioxide 28 mmol/L (22-29); Chloride 95 mmol/L (98-107); Glucose 105 mg/dL (65-115); Osmolality Calculated 279 mOsm/kg (285-295); Sodium 134 mmol/L (136-145)
--- NOTE | 2023-01-10 08:55 | CT_ITS ---
WS: [id number] CT ANGIOGRAM CEREBRAL AND CAROTID ARTERIES HISTORY: carotid stenosis, tia/cva TECHNIQUE: CT angiogram is performed of the carotid and cerebral arteries. During arterial injection imaging is obtained from the skull vertex to the aortic arch in 1.25 mm imaging. Coronal and sagittal reformats are submitted. Additional multi planar reformats of the carotid and cerebral arteries are submitted, MIP imaging also reviewed. NASCET criteria utilized. [facility] at least one of these dose optimization techniques: automated exposure control; mA and/or kV adjust ment per patient size (includes targeted exams where dose is matched to clinical indication); or iter ative reconstruction. CONTRAST: Omnipaque 350; 100 mL IV. DLP: 1025.08 mGy.cm COMPARISON: CT head 01/08/2023. Noncontrast CT head: No acute intracranial hemorrhage. Possible new area of decreased attenuation wai ng the posterior limb of the LEFT internal capsule. Otherwise atrophy and small vessel ischemic sandhu es are stable. Carotid Angiogram: Right carotid: Common carotid artery: Tortuous common carotid artery with mild intimal thickening. Increasing plaque towards the bifurcation. Internal carotid artery: Very tortuous. Dense calcified plaque. Stenosis estimated near 50%. External carotid artery: Patent. Left carotid: Common carotid artery: Arises normally from the aortic arch. There is a short segment of the common c arotid artery that is difficult to visualize due to contrast injection artifact. The mid to distal ce rvical carotid artery is patent. Heavy plaque at the bifurcation. Very dense calcified plaque at the carotid bifurcation. Internal carotid artery: Heavy calcified plaque at the proximal ICA. Dense calcified plaque. The lume n is very difficult to visualize but there is a high-grade stenosis involving the origin of the ICA. External carotid artery: Calcified plaque proximal ECA. Right vertebral artery: Very small caliber throughout its course but it is patent. Left vertebral artery: Dominant with mild atherosclerotic plaque. No complete stenosis. There are a f ew scattered calcifications. Subclavian arteries: No stenosis or significant abnormality. Upper thorax: Motion artifact. No abnormality. Atherosclerosis aorta. Thyroid gland: Normal. Osseous structures: Advanced degenerative changes throughout the cervical spine. CEREBRAL ANGIOGRAM: Intracranial vertebral arteries: Small caliber but patent. Basilar artery: No significant stenosis or occlusion. No aneurysm. Intracranial Internal carotid arteries: Calcified plaque through the cavernous sinuses and supraclino id carotid arteries. No complete occlusion. Stenosis estimated near 50%. Middle cerebral arteries: Normal. Anterior cerebral arteries and ACOM: Normal. Posterior cerebral arteries and PCOM's: Normal size posterior cerebral arteries. Absent or hypoplasti c LEFT Pcom. Normal RIGHT Pcom. Dural venous sinuses are normally enhancing. Mastoid air cells: Normal. Paranasal sinuses: Normal. Calvarium: Normal. CT/CT angio headneck* [id number] IMPRESSION: 1. High grade LEFT cervical carotid artery stenosis estimated at greater than 70%. The lumen is partially obscured by dense calcification. 2. Dense calcification RIGHT cervical carotid artery. Stenosis estimated near 50%. 3. Very dense calcification at the cervical carotid artery bifurcations and th rough the intracranial cavernous sinuses. 4. No high-grade stenosis involving the middle cerebral arteries.
[2023-01-10] MEDS: heparin 5,000 unit/mL INJ 1 mL 5000 UNIT SUBCUT (09:05)
[2023-01-10] MEDS: pantoprazole DR 40 mg Tablet PO (09:05)
[2023-01-10] MEDS: acetaminophen 325 mg Tablet 650 MG PO (09:05)
[2023-01-10] MEDS: carBAMazepine 200 mg Tablet PO (09:05)
[2023-01-10] MEDS: gabapentin 100 mg Capsule PO ×2 (09:05→14:41)
[2023-01-10] MEDS: clopidogrel 75 mg Tablet PO (09:06)
[2023-01-10] MEDS: iohexol 350 mg/mL 500 mL Btl (per mL) IV (09:33)
--- NOTE | 2023-01-10 14:19 | PM.DCS ---
Discharge Providers Date of Admission: 01/09/23 15:08 Date of Discharge: January 10, 2023 Attending Provider at Admission: Deb Da Silva MD Attending Provider at Discharge: Truman Faustin Primary Care Provider: Chicho Young DO Diagnoses at Discharge Discharge Diagnosis (1) TIA (transient ischemic attack): Status: Acute (2) Abdominal pain: Status: Acute (3) Epigastric pain: Status: Acute Reason for Visit Reason for Visit: Fall Hospital Course Hospital Course Pleasant 82-year-old lady was admitted for assessment management after suspected [facility] with right-sided weakness, was assessed on presentation by teleneurology, tPA was not recommended. She was additionally assessed in the hospital, MRI was recommended but could not be obtained due to presence of pacemaker, antihypertensives were withheld, received gentle IV hydration. TSH and B12 were checked and normal. Orthostatics were checked and was not orthostatic. She was continued on aspirin, Plavix and statin. She was assessed by carotid duplex which showed abnormal carotid arteries with suspected occlusion on the right, and severe stenosis 70-99% on the left ICA. This was followed up with CTA head and neck which confirms high-grade stenosis greater than 70% of the left cervical carotid artery, lumen partially obscured by dense calcification. On the right, however, dense calcification with stenosis estimated near 50%. Very dense calcification in cervical carotid artery bifurcations and through the intracranial cavernous sinus. Consideration was given to carotid revascularization, discussed with her, discussed with vascular surgery, however, not found to be a good candidate given tortuosity and deep course of the vessels with recommendation for outpatient follow-up with interventional radiology for consideration of carotid stenting. Referral is being requested for her to follow-up with [facility] in [place] where she had previously received care. She is asked to follow-up with neurology after her TIA. Called but could not reach her daughter as well. Physical Exam Const: COMMON NORMALS: patient oriented x3 and alert GENERAL APPEARANCE: cooperative NUTRITIONAL APPEARANCE: obese ORIENTATION/CONSCIOUSNESS: Yes awake HENMT: COMMON NORMALS: oropharynx normal Neck/C-Spine: COMMON NORMALS: no JVD Resp: COMMON NORMALS: normal respiratory effort and clear to auscultation bilaterally AUSCULTATION: clear to auscultation bilaterally Cardio: COMMON NORMALS: no JVD, regular rhythm, S1 normal heart sound present, S2 normal heart sound present and No murmurs present (Cardio) RHYTHM: regular rhythm HEART SOUNDS: S1 normal heart sound present and S2 normal heart sound present GI: COMMON NORMALS: Normal to inspection, nondistended, normoactive bowel sounds present, Soft to palpation and non-tender PALPATION: Yes Soft to palpation Extremity: COMMON NORMALS: no joint enlargement and no pedal edema Neuro: COMMON NORMALS: patient oriented x3 and moves all extremities SENSORIUM/ORIENTATION: Yes alert OTHER: She is awake, alert, keenly responsive. No facial droop noted. She has no difficulty tracking. Denies diplopia. Visual orozco full to confrontation. No visual extinction. No pronator drift. Sensory exam symmetrical. No extinction. FNF WNL. Skin: COMMON NORMALS: no rashes or lesions noted GENERAL SKIN EXAM: no rashes or lesions noted Discharge Data Studies Completed and Pending Completed Studies During Hospitalization Category Date Time Status CT cervical spin wo con* [id number] Stat Cat Scan 01/08/23 14:[address] head thrombolytic [id number] Stat Cat Scan 01/08/23 14:48 Completed CTA head neck [CT angio headneck* [id number]] Routine Cat Scan 01/10/23 08:55 Completed XR chest 1V portable [id number] Stat Exams 01/08/23 14:48 Completed XR shoulder RT min 2V* [id number] Stat Exams 01/08/23 14:48 Completed CV carotid duplex BI* [id number] Routine Ultrasound 01/09/23 08:58 Completed CV. echo wo/w contrast [id number] Routine Ultrasound 01/08/23 23:21 Completed Pending at discharge Category Date Time Status Basic Metabolic Panel AM LABS Lab 01/11/23 04:00 Ordered Basic Metabolic Panel AM LABS Lab 01/12/23 04:00 Ordered Complete Blood Count w/Auto AM LABS Lab 01/11/23 04:00 Ordered Complete Blood Count w/Auto AM LABS Lab 01/12/23 04:00 Ordered Radiology Impressions Cervical Spine CT 01/08/23 14:48 IMPRESSION: No evidence of acute fracture or dislocation. Chest X-Ray 01/08/23 14:48 IMPRESSION: No acute chest abnormality. Head CT 01/08/23 14:48 IMPRESSION: 1. No evidence of intracranial hemorrhage or mass effect. 2. Moderate small vessel changes. Moderate parenchymal volume loss. 3. Intracranial vascular calcification. 4. No acute intracranial findings. Notified Marybeth Godinez MD at 01/08/2023 3:16 PM. Shoulder X-Ray 01/08/23 14:48 IMPRESSION: 1. Osteopenia. High riding humeral head. 2. There is an abnormal appearance of the humeral head with respect to the acromion but this may be positional. Cannot confirm fracture or displacement. If pain continues recommend follow-up RIGHT shoulder CT evaluation. Head/Neck CTA 01/10/23 08:55 IMPRESSION: 1. High grade LEFT cervical carotid artery stenosis estimated at greater than 70%. The lumen is partially obscured by dense calcification. 2. Dense calcification RIGHT cervical carotid artery. Stenosis estimated near 50%. 3. Very dense calcification at the cervical carotid artery bifurcations and through the intracranial cavernous sinuses. 4. No high-grade stenosis involving the middle cerebral arteries. Laboratory Results WBC 8.9 10^3/uL (4.0-10.0) 01/10/23 05:17 Corrected WBC Cancelled 01/09/23 04:19 RBC 4.45 10^6/uL (4.1-5.3) 01/10/23 05:17 Hgb 13.6 g/dL (11.5-15.3) 01/10/23 05:17 Hct 41.1 % (37.0-47.0) 01/10/23 05:17 MCV 92.4 fl (81-99) 01/10/23 05:17 MCH 30.6 pg (28.0-34.0) 01/10/23 05:17 MCHC 33.1 g/dL (30.0-36.0) 01/10/23 05:17 RDW 13.4 % (12.1-15.1) 01/10/23 05:17 Plt Count 415 10^3/cmm (130-400) H 01/10/23 05:17 MPV 8.9 fL (7.4-10.4) 01/10/23 05:17 Gran % Cancelled 01/09/23 04:19 Neut % (Auto) 64.5 % 01/10/23 05:17 Lymph % (Auto) 16.3 % 01/10/23 05:17 Wayne % (Auto) 16.6 % 01/10/23 05:17 Eos % (Auto) 1.7 % 01/10/23 05:17 Baso % (Auto) 0.6 % 01/10/23 05:17 Neut # (Auto) 5.77 10^3/uL (1.8-7.7) 01/10/23 05:17 Lymph # (Auto) 1.5 10^3/uL (0.8-4.8) 01/10/23 05:17 Wayne # (Auto) 1.5 10^3/uL (0.2-0.9) H 01/10/23 05:17 Eos # (Auto) 0.2 10^3/uL (0.0-0.8) 01/10/23 05:17 Baso # (Auto) 0.1 10^3/uL (0.0-0.1) 01/10/23 05:17 Absolute Gran (auto) Cancelled 01/09/23 04:19 Nucleated RBC % (auto) 0 % 01/10/23 05:17 Nucleated RBCs # 0.0 /100WBC 01/10/23 05:17 PT 13.30 SECONDS (12.1-14.9) 01/09/23 04:19 INR 0.98 (0.8-1.2) 01/09/23 04:19 APTT 25.5 SECONDS (23.9-36.7) 01/08/23 15:43 Sodium 134 mmol/L (136-145) L 01/10/23 05:17 Potassium 4.0 mmol/L (3.5-5.1) 01/10/23 05:17 Chloride 95 mmol/L (98-107) L 01/10/23 05:17 Carbon Dioxide 28 mmol/L (22-29) 01/10/23 05:17 Anion Gap 15.0 (5-19) 01/10/23 05:17 BUN 14 mg/dL (8-23) 01/10/23 05:17 Creatinine 0.5 mg/dL (0.5-0.9) 01/10/23 05:17 GFR Calculation Not Reportable 01/10/23 05:17 Glucose 105 mg/dL (65-115) 01/10/23 05:17 POC Glucose 108 mg/dL (70-110) 01/09/23 11:22 Estimat Average Glucose 100 01/08/23 23:00 Hemoglobin A1c 5.1 % (4.0-6.0) 01/08/23 23:00 Calculated Osmolality 279 mOsm/kg (285-295) L 01/10/23 05:17 Calcium 9.1 mg/dL (8.5-10.5) 01/10/23 05:17 Magnesium 2.0 mg/dL (1.7-2.3) 01/09/23 04:19 Total Bilirubin 0.2 mg/dL (0.15-1.2) 01/09/23 04:19 AST 17 U/L (0-32) 01/09/23 04:19 ALT 16 U/L (0-33) 01/09/23 04:19 Alkaline Phosphatase 70 U/L (35-105) 01/09/23 04:19 Troponin T Gen 5 ng/L 14 ng/L (0-10) H 01/09/23 04:19 Total Protein 6.1 g/dL (6.6-8.7) L 01/09/23 04:19 Albumin 3.9 g/dL (3.5-5.2) 01/09/23 04:19 Globulin 2.2 g/dL (1.3-4.6) 01/09/23 04:19 Triglycerides 102 mg/dL (0-150) 01/08/23 15:43 Cholesterol 190 mg/dL (0-200) 01/08/23 15:43 LDL Cholesterol, Calc 97 mg/dL (50-129) 01/08/23 15:43 HDL Cholesterol 73 mg/dL (60-100) 01/08/23 15:43 LDL/HDL Ratio 1.33 RATIO (0.00-3.22) 01/08/23 15:43 Cholesterol/HDL Ratio 2.60 mg/dL (0.0-4.40) 01/08/23 15:43 Vitamin B12 837 pg/mL (232-1245) 01/08/23 15:43 TSH 1.18 uIU/mL (0.27-4.20) 01/08/23 15:43 Urine Color Yellow (Yellow) 01/08/23 16:27 Urine Appearance Clear (CLEAR) 01/08/23 16:27 Urine pH 7 (5-7) 01/08/23 16:27 Ur Specific [place] 1.015 (1.005-1.030) 01/08/23 16:27 Urine Protein Neg (Negative) 01/08/23 16:27 Urine Glucose (UA) Norm (Normal) 01/08/23 16:27 Urine Ketones Negative (Negative) 01/08/23 16:27 Urine Blood Neg (Negative) 01/08/23 16:27 Urine Nitrate Negative (Negative) 01/08/23 16:27 Urine Bilirubin Neg (Negative) 01/08/23 16:27 Urine Urobilinogen Norm mg/dL (Negative) 01/08/23 16:27 Ur Leukocyte Esterase Negative (Negative) 01/08/23 16:27 Urine Opiates Screen Negative ng/mL (Negative) 01/08/23 16:27 Ur Barbiturates Screen Negative ng/mL (Negative) 01/08/23 16:27 Carbamazepine 5.5 ug/mL (4.0-12.0) 01/09/23 15:17 Ur Phencyclidine Scrn Negative ng/mL (Negative) 01/08/23 16:27 Ur Amphetamines Screen Negative ng/mL (Negative) 01/08/23 16:27 U Benzodiazepines Scrn Negative ng/mL (Negative) 01/08/23 16:27 Urine Cocaine Screen Negative ng/mL (Negative) 01/08/23 16:27 U Marijuana (THC) Screen Negative ng/mL (Negative) 01/08/23 16:27 Vitals Last Vital Signs Temp 98.2 F 01/10/23 12:00 Pulse 88 01/10/23 12:00 Resp 17 01/10/23 12:00 BP 139/82 01/10/23 12:00 Pulse Ox 93 01/10/23 12:00 O2 Del Method Room Air 01/10/23 12:00 Discharge Plan Discharge Patient Disposition: Home Condition: Stable Prescriptions: Continued (DME) Ankle Brace Misc See Rx Instructions .ROUTE .MEDSUPPLY Qty: 1 0RF Rx Instructions: As directed nortriptyline 25 mg capsule 25 mg PO DAILY cyclobenzaprine 10 mg tablet 10 mg PO TID PRN (Reason: muscle spasm) 14 Days Qty: 42 0RF (DME) CRYSTAL ELLIS See Rx Instructions .ROUTE .MEDSUPPLY Qty: 1 0RF Rx Instructions: As directed (DME) crystal ellis See Rx Instructions .Route .MEDSUPPLY Qty: 1 0RF Rx Instructions: As directed (DME) lace up ankle brace See Rx Instructions .Route .MEDSUPPLY Qty: 1 0RF Rx Instructions: As directed prednisone 10 mg tablet 10 mg PO QAM Qty: 30 5RF carbamazepine 200 mg capsule, ER multiphase 12 hr 200 mg PO BID Qty: 60 5RF multivitamin Tablet 1 tab PO QAM ondansetron HCl 4 mg tablet 4 mg PO Q6H PRN (Reason: Nausea And Vomiting) sertraline [Zoloft] 100 mg tablet 100 mg PO QAM acetaminophen 500 mg Tablet 500 - 1,000 mg PO Q6H PRN (Reason: Pain) gabapentin 100 mg capsule 100 mg PO TID cholecalciferol (vitamin D3) [Vitamin D3] 10 mcg (400 unit) Tablet 10 mcg PO QAM loperamide 2 mg Capsule 4 mg PO Q4H PRN (Reason: diarrhea) Qty: 30 0RF magnesium hydroxide [Milk of Magnesia] 400 mg/5 mL Suspension 30 ml PO DAILY PRN (Reason: Constipation) bisacodyl [Dulcolax (bisacodyl)] 10 mg Suppository 10 mg FL DAILY PRN (Reason: Constipation) pantoprazole [Protonix] 40 mg Tablet,Delayed Release (Dr/Ec) 40 mg PO BID Fleet Enema 19-7 gram/118 mL Enema 118 ml FL DAILY PRN (Reason: Constipation) clopidogrel 75 mg tablet 75 mg PO DAILY Hold Instructions: Resume on 08/18/22. aspirin 81 mg Tablet,Delayed Release (Dr/Ec) 81 mg PO QAM ferrous sulfate [iron] 325 mg (65 mg iron) Tablet 325 mg PO QAM Miralax 17 gram/dose Powder 4 g PO DAILY hydroxyzine HCl 25 mg tablet 25 mg PO BEDTIME Changed losartan 50 mg tablet 25 mg PO QAM Qty: 90 3RF rosuvastatin 5 mg tablet 10 mg PO QPM Qty: 90 0RF Discharge Orders: Discharge Order (Routine); Ordered 01/10/23 Ordered By: Truman Faustin Referrals: [facility] [Provider Group] - 1 week Chicho Young DO [Primary Care Provider] - 4-7 days Discharge Diet: Cardiac Discharge Activity: Limit activity as instructed and As per PT/OT instructions Patient Instructions: Transient Ischemic Attack (GEN), Carotid Artery Disease (GEN), Fall Prevention (GEN) Activity Restrictions/Additional Instructions: Please continue to work on referral to interventional radiology for assessment and consideration of left carotid stenting. Please follow-up with interval radiology for consideration of left internal carotid stenosis stenting. In case you feel lightheaded or faint while standing, lie down immediately. Follow-up with your primary doctor for continued optimization of cardiovascular risk factors and respecters of stroke. Your atorvastatin dose is increased to 10 mg, if tolerating consider further increase. Continue aspirin and Plavix. Discharge Attestations Time Spent in Discharge Care*: greater than 30 min Status at Discharge: Cognitive status at discharge: cognitively intact, Behavioral status at discharge: cooperative, Quality Metrics Clinical Quality Measures [ Cerebrovascular Accident { Contraindication to Antithrombotic: None; antithrombotic prescribed; Contraindication to Anticoagulation: Overlap treatment not indicated; Contraindication to Statin: None; Statin prescribed;}] Coding Level of Care Code Acute Code for g Fwd Diagnoses TIA (transient ischemic attack) G45.9 Abdominal pain R10.9 Epigastric pain R10.13
== END 2023-01-10 15:30 | disposition skilled nursing facility (03) | DRG 69 ==
LOC: ER 17:47 → MEDSURG 20:34
PROVIDERS: Internal Medicine; Admitting Provider Internal Medicine; Emergency Provider Emergency Medicine; PCP Family Medicine; Visit Provider Internal Medicine
DX: G45.9 Transient cerebral ischemic attack, unspecified (principal); Z68.43 Body mass index [BMI] 50.0-59.9, adult; W18.30XA Fall on same level, unspecified, initial encounter; Y92.129 Unspecified place in nursing home as the place of occurrence of the external cause; Z95.0 Presence of cardiac pacemaker; Z79.02 Long term (current) use of antithrombotics/antiplatelets; Z79.82 Long term (current) use of aspirin; Z86.73 Personal history of transient ischemic attack (TIA), and cerebral infarction without residual deficits; F32.A Depression, unspecified; E78.5 Hyperlipidemia, unspecified; E11.9 Type 2 diabetes mellitus without complications; I10 Essential (primary) hypertension; I49.5 Sick sinus syndrome; E66.01 Morbid (severe) obesity due to excess calories; R10.13 Epigastric pain
CPT/HCPCS: 36415; 36416; 70450; 70496; 70498; 71045; 72125; 73030; 80048; 80053; 80061; 80156; 80306; 81003; 82607; 82962; 83036; 83735; 84443; 84484; 85025; 85610; 85730; 90471; 90732; 93005; 93880; 96360; 96361; 96372; 97110; 97161; 97165; 97530; 97535; 99285; C8929; G0378; J1644; J7030; Q9956; Q9967

== ENCOUNTER 2023-02-14 13:10 | Observation (INO) | payer MEDICARE, OTHER, MEDICAID, SELFPAY ==
[2023-02-14] VITALS (9 sets, daily range): BP systolic 99–181; BP diastolic 68–100; PULSE 76–83; RESP 16–18; TEMP 36.6–36.8; O2SAT 91–99; BMI 42.0
--- NOTE | 2023-02-14 13:13 | ED_ITS ---
HPI - Weakness General: Chief complaint: Weakness Stated complaint: Weakness Time Seen by Provider: 02/14/23 13:13 History of Present Illness: Ms. Verma is an 82-year-old lady with complex past medical history presenting to the emergency department for evaluation of generalized illness. She apparently was previously diagnosed with stroke and subsequently had intervention performed in [place] with a what sounds like carotid stent placed. She apparently was doing okay and sent back to the residential however has had few episodes now of syncope associated with low blood pressure. She feels generally unwell however denies specific symptoms. No other specific changes in health, exacerbating, or alleviating factors identified. 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 Fracture of distal fibula Hyperlipidemia Hyperlipidemia associated with type 2 diabetes mellitus Hypertension Hypovolemic shock Ileus Left ankle pain Mesenteric artery stenosis Pacemaker Septic shock Sick sinus syndrome Surgical History History of ankle surgery History of knee replacement History of splenectomy Status post colonoscopy Family History (Updated 02/14/23 @ 18:42 by Rafa Cisse MD) Mother Stroke Social History Smoking and tobacco status: never smoked Alcohol intake: never Physical Exam Const: COMMON NORMALS: patient oriented x3 and alert GENERAL APPEARANCE: cooperative and well developed HENMT: COMMON NORMALS: normocephalic and atraumatic HEAD & SCALP: normocephalic and atraumatic THROAT: posterior oropharynx normal Eye: COMMON NORMALS: conjunctivae normal CONJUNCTIVA: Yes conjunctivae normal SCLERA: sclerae normal Neck/C-Spine: COMMON NORMALS: supple GENERAL: Yes trachea midline Resp: COMMON NORMALS: clear to auscultation bilaterally EFFORT & INSPECTION: Yes able to speak in complete sentences AUSCULTATION: clear to auscultation bilaterally Cardio: COMMON NORMALS: regular rate and regular rhythm RATE: regular rate RHYTHM: regular rhythm GI: COMMON NORMALS: Soft to palpation PALPATION: Yes Soft to palpation and No Tenderness to palpation present (GI) PERCUSSION: normal to percussion Extremity: GENERAL: Yes normal exam except as noted and No edema Neuro: COMMON NORMALS: patient oriented x3, CN's II-XII intact bilaterally, moves all extremities, no focal motor deficits and no sensory deficits noted SENSORIUM/ORIENTATION: Yes alert and No Orientation impaired Psych: COMMON NORMALS: mental status grossly normal and Normal thought process present THOUGHT PROCESS: Normal thought process present Course Vital Signs: Vital signs: Vital Signs Temperature 98 F 02/15/23 14:45 Pulse Rate 94 02/15/23 14:45 Respiratory Rate 16 02/15/23 14:45 Blood Pressure 170/83 02/15/23 14:45 Pulse Oximetry 93 02/15/23 14:45 Oxygen Delivery Me thod Room Air 02/15/23 11:34 MDM - Weakness Medical Decision Making 82-year-old presenting with syncopal episode associated with weakness and hypotension. Exam as above. Somewhat improved with no focal deficits. No evidence of external complication from intervention previously performed. EKG demonstrates sinus rhythm with left axis deviation, no STEMI. No significant hematologic or metabolic abnormality to explain symptoms. Mild dehydration present. Negative range 2-hour delta troponin. No UTI. Chest x-ray with no lobar consolidation or pneumothorax. CT without evidence of hemorrhage. Given symptoms and recent procedures additional imaging ordered and stent appears patent. No clear other pathology identified as cause of symptoms. Treated with fluids. Subsequent endorses worsening weakness than baseline though remains nonfocal and also development of hallucinations. I am somewhat unconvinced however given recent clinical history we will observe the patient in the hospital. The results of ED evaluation were discussed with the patient including plan for admission due to requirement for level of care not available if discharged to prevent significant worsening/deterioration. Patient agreeable with plan. Discussed with hospitalist service who was agreeable to admit patient. Medical Records I reviewed the patient's medical records. Lab Data I reviewed the patient's lab results. 02/14/23 13:55 02/14/23 13:55 Radiology Impressions Venous Duplex 02/15/23 09:17 IMPRESSION: No evidence of deep vein thrombosis. Chest CTA 02/15/23 12:47 IMPRESSION: 1. No acute findings. 2. Chronic and incidental findings as above. Laboratory Results WBC 9.2 10^3/uL (4.0-10.0) 02/14/23 13:55 RBC 4.32 10^6/uL (4.1-5.3) 02/14/23 13:55 Hgb 12.6 g/dL (11.5-15.3) 02/14/23 13:55 Hct 39.3 % (37.0-47.0) 02/14/23 13:55 MCV 91.0 fl (81-99) 02/14/23 13:55 MCH 29.2 pg (28.0-34.0) 02/14/23 13:55 MCHC 32.1 g/dL (30.0-36.0) 02/14/23 13:55 RDW 12.8 % (12.1-15.1) 02/14/23 13:55 Plt Count 471 10^3/cmm (130-400) H 02/14/23 13:55 MPV 8.7 fL (7.4-10.4) 02/14/23 13:55 Neut % (Auto) 85.3 % 02/14/23 13:55 Lymph % (Auto) 4.8 % 02/14/23 13:55 [place] % (Auto) 8.8 % 02/14/23 13:55 Eos % (Auto) 0.1 % 02/14/23 13:55 Baso % (Auto) 0.5 % 02/14/23 13:55 Neut # (Auto) 7.87 10^3/uL (1.8-7.7) H 02/14/23 13:55 Lymph # (Auto) 0.4 10^3/uL (0.8-4.8) L 02/14/23 13:55 [place] # (Auto) 0.8 10^3/uL (0.2-0.9) 02/14/23 13:55 Eos # (Auto) 0.0 10^3/uL (0.0-0.8) 02/14/23 13:55 Baso # (Auto) 0.1 10^3/uL (0.0-0.1) 02/14/23 13:55 Nucleated RBC % (auto) 0 % 02/14/23 13:55 Nucleated RBCs # 0.0 /100WBC 02/14/23 13:55 D-Dimer 1.00 ug/mIFEU (0-0.59) H 02/14/23 13:55 Sodium 132 mmol/L (136-145) L 02/14/23 13:55 Potassium 4.6 mmol/L (3.5-5.1) 02/14/23 13:55 Chloride 92 mmol/L (98-107) L 02/14/23 13:55 Carbon Dioxide 27 mmol/L (22-29) 02/14/23 13:55 Anion Gap 17.6 (5-19) 02/14/23 13:55 BUN 16 mg/dL (8-23) 02/14/23 13:55 Creatinine 0.7 mg/dL (0.5-0.9) 02/14/23 13:55 GFR Calculation Not Reportable 02/14/23 13:55 Glucose 116 mg/dL (65-115) H 02/14/23 13:55 Calculated Osmolality 276 mOsm/kg (285-295) L 02/14/23 13:55 Lactic Acid 2.2 mmol/L (0.5-2.2) 02/14/23 13:55 Lactic Acid (Sepsis) 1.1 mmol/L (0.5-2.2) 02/14/23 16:05 Calcium 9.0 mg/dL (8.5-10.5) 02/14/23 13:55 Magnesium 2.2 mg/dL (1.7-2.3) 02/14/23 13:55 Total Bilirubin 0.2 mg/dL (0.15-1.2) 02/14/23 13:55 AST 22 U/L (0-32) 02/14/23 13:55 ALT 18 U/L (0-33) 02/14/23 13:55 Alkaline Phosphatase 74 U/L (35-105) 02/14/23 13:55 Troponin T Baseline 14 ng/L (0-10) H 02/14/23 13:55 Troponin T 120 Minute 10.43 ng/L (0-10) H 02/14/23 16:05 Delta Troponin T -3.57 ABS# (0-10) L 02/14/23 16:05 C-Reactive Protein 7.2 mg/L (0.0-4.9) H 02/14/23 13:55 Total Protein 6.5 g/dL (6.6-8.7) L 02/14/23 13:55 Albumin 4.1 g/dL (3.5-5.2) 02/14/23 13:55 Globulin 2.4 g/dL (1.3-4.6) 02/14/23 13:55 Procalcitonin 0.03 ng/mL (0-0.5) 02/14/23 13:55 TSH 1.41 uIU/mL (0.27-4.20) 02/14/23 16:05 Random Cortisol 4.10 ug/dL (2.47-19.5) 02/14/23 16:05 Urine Color Yellow (Yellow) 02/14/23 15:25 Urine Appearance Clear (CLEAR) 02/14/23 15:25 Urine pH 6.5 (5-7) 02/14/23 15:25 Ur Specific [place] 1.010 (1.005-1.030) 02/14/23 15:25 Urine Protein Trace (Negative) 02/14/23 15:25 Urine Glucose (UA) Norm (Normal) 02/14/23 15:25 Urine Ketones 1+ (Negative) H 02/14/23 15:25 Urine Blood Neg (Negative) 02/14/23 15:25 Urine Nitrate Negative (Negative) 02/14/23 15:25 Urine Bilirubin Neg (Negative) 02/14/23 15:25 Urine Urobilinogen Norm mg/dL (Negative) 02/14/23 15:25 Ur Leukocyte Esterase Negative (Negative) 02/14/23 15:25 Urine RBC 0-4 /hpf (0-2) H 02/14/23 15:25 Urine WBC 0-4 /hpf (0-5) H 02/14/23 15:25 Ur Squamous Epith Cells 0-4 /hpf (0-5) H 02/14/23 15:25 Ur Transition Epith Cell 5-10 /hpf 02/14/23 15:25 Amorphous Sediment Not Reportable 02/14/23 15:25 Urine Bacteria Trace /hpf (NONE) 02/14/23 15:25 Carbamazepine 6.2 ug/mL (4.0-12.0) 02/14/23 16:05 Discharge Plan Discharge Patient Disposition: Placed in Observation Admit Provider: Rafa Cisse Clinical Impression: Syncope, Mild dehydration, Hallucination, visual Discharge Diet: Usual diet Discharge Activity: Resume usual activity Coding Level of Care Code ED Calculating Machine Operator for Cipriano Forrest
--- NOTE | 2023-02-14 13:44 | CT_ITS ---
WS: [id number] CT HEAD TECHNIQUE: Noncontrast CT of the head obtained from the skullbase to the vertex. CLINICAL INFORMATION: syncope post carotid stenting COMPARISON: 01/08/2023 DLP: 1015.[address] scans at [facility] use at least one of these dose optimization techniques: automated e xposure control; mA and/or kV adjustment per patient size (includes targeted exams where dose is matc hed to clinical indication); or iterative reconstruction. FINDINGS: No evidence of intracranial hemorrhage or mass effect. Ventricular system and basal cisterns are cabral nt. Moderate small vessel changes with moderate parenchymal volume loss. No extra-axial fluid collect ions. No evidence of mass or mass effect. Paranasal sinuses and mastoid air cells are well aerated. .Normal visualized soft tissues. IMPRESSION: 1. No evidence of intracranial hemorrhage or mass effect. 2. Moderate small vessel changes. Moderate parenchymal volume loss. 3. No acute intracranial findings.
--- NOTE | 2023-02-14 13:44 | XR_ITS ---
WS: [id number] XR chest 1V portable [id number] REASON FOR EXAM: hypotension, ams FINDINGS: Chest is unchanged compared to 01/08/2023. Cardiac device over the left chest with leads to the right atrium and right ventricular apex. Mild tortuosity of the thoracic aorta. The heart is nonenlarged. Calcified granulomas disease in both hemithoraces. Moderate elevation of the right hemidiaphragm. No acute pulmonary parenchymal or pleural abnormality. 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 Significant degenerative spondylosis in the mid and lo wer thoracic spine. IMPRESSION: Stable chest with no acute abnormality.
--- NOTE | 2023-02-14 13:51 | ECG_ITS ---
[facility] Test Date: 2023-02-14 Pat Name: Mindy Verma Department: Room: Gender: Female Sort Worker: : 1940 Requested By: Audi Mann Order Number: [id number] Oswaldo MD: Subha Mckeon M.D. Measurements Intervals [place] Rate: 78 P: 35 W[place]: 234 QRS: -16 QRSD: 99 T: 72 QT: 381 QTc: 435 Interpretive Statements SINUS RHYTHM WITH FIRST DEGREE AV BLOCK MINIMAL VOLTAGE CRITERIA FOR LVH, CONSIDER NORMAL VARIANT [MEETS CRITERIA IN ONE OF: R(aVL), S(V1), R(V5), R(V5/V6)+S(V1)] NONSPECIFIC T-WAVE ABNORMALITY Compared to ECG 01/09/2023 02:43:50 T-wave abnormality now present Electronically Signed On 02-14-2023 13:53:34 CDT by Subha Mckeon M.D. [id number]
[2023-02-14 14:09] LABS: Basophils # 0.1 10^3/uL (0.0-0.1); Basophils % 0.5 %; Eosinophils % 0.1 %; Hematocrit 39.3 % (37.0-47.0); Hemoglobin 12.6 g/dL (11.5-15.3); Lymphocytes # 0.4 10^3/uL (0.8-4.8); Lymphocytes % 4.8 %; Mean Corpuscular HGB Conc 32.1 g/dL (30.0-36.0); Mean Corpuscular Hemoglobin 29.2 pg (28.0-34.0); Mean Platelet Volume 8.7 fL (7.4-10.4); Monocytes # 0.8 10^3/uL (0.2-0.9); Monocytes % 8.8 %; Neutrophils # 7.87 10^3/uL (1.8-7.7); Neutrophils % 85.3 %; Nucleated Red Blood Cells % 0 %; Platelet Count 471 10^3/cmm (130-400); Red Blood Count 4.32 10^6/uL (4.1-5.3); Red Cell Distribution Width 12.8 % (12.1-15.1); White Blood Count 9.2 10^3/uL (4.0-10.0)
[2023-02-14 14:24] LABS: Lactic Sepsis W/Reflex 2.2 mmol/L (0.5-2.2)
[2023-02-14 14:28] LABS: Alanine Aminotransferase 18 U/L (0-33); Albumin Level 4.1 g/dL (3.5-5.2); Alkaline Phosphatase 74 U/L (35-105); Anion Gap 17.6 (5-19); Aspartate Amino Transferase 22 U/L (0-32); Blood Urea Nitrogen 16 mg/dL (8-23); C Reactive Protein 7.2 mg/L (0.0-4.9); Carbon Dioxide 27 mmol/L (22-29); Chloride 92 mmol/L (98-107); Globulin 2.4 g/dL (1.3-4.6); Glucose 116 mg/dL (65-115); Magnesium 2.2 mg/dL (1.7-2.3); Osmolality Calculated 276 mOsm/kg (285-295); Potassium 4.6 mmol/L (3.5-5.1); Sodium 132 mmol/L (136-145); Total Bilirubin 0.2 mg/dL (0.15-1.2); Total Protein 6.5 g/dL (6.6-8.7)
[2023-02-14 14:35] LABS: Procalcitonin 0.03 ng/mL (0-0.5)
[2023-02-14 14:40] LABS: Troponin(5th) Baseline 14 ng/L (0-10)
--- NOTE | 2023-02-14 14:54 | CT_ITS ---
WS: [id number] CT CHEST, ABDOMEN, AND PELVIS TECHNIQUE: Noncontrast CT of the chest, abdomen, and pelvis with coronal and sagittal reformatted bobby ges. CLINICAL INFORMATION: syncope, sob, abd pain COMPARISON: None. DLP: 1223.[address] scans at [facility] use at least one of these dose optimization techniques: automated e xposure control; mA and/or kV adjustment per patient size (includes targeted exams where dose is matc hed to clinical indication); or iterative reconstruction. CT CHEST: Lungs are well aerated. No acute pulmonary infiltrates. Slight bibasilar atelectasis. No focal pneumo jerry or pleural fluid. Normal caliber thoracic aorta. Aortic calcification. No mediastinal or hilar ly mphadenopathy. Calcified left hilar lymph nodes. No significant pericardial effusion. Moderate thorac ic kyphosis. Mild spondylitic changes thoracic spine. Shallow inspiration. CT ABDOMEN AND PELVIS: Prior splenectomy and hysterectomy. Noncontrast liver appears normal. Postoperative changes of prior splenectomy with surgical clips. Normal GE junction. Fat-containing epigastric hernia. No evidence of bowel obstruction. Ectatic ventral abdominal wall with abutting transverse colon. No evidence of obs truction. Diastases of the rectus abdominis. Adrenal glands are normal. No hydronephrosis in either kidney. Normal sigmoid colon. Moderate fecal r etention in the transverse colon. Normal caliber abdominal aorta. Previously described celiac and SMA stents. No abdominal aortic aneurysm. Advanced spondylitic changes lumbar spine. IMPRESSION: 1. Shallow inspiration. Both lungs are well aerated. 2. No acute findings in the abdomen or pelvis. 3. Prior celiac and SMA stents. No abdominal aortic aneurysm. 4. Mild transverse colon constipation. 5. Prior splenectomy and hysterectomy.
--- NOTE | 2023-02-14 14:54 | CT_ITS ---
WS: [id number] CTA HEAD AND NECK TECHNIQUE: Contrast enhanced CTA of the head and neck with coronal and sagittal reformatted images an d maximum intensity projection (MIP) images. NASCET criteria utilized. CLINICAL INFORMATION: eval stent patency COMPARISON: None. DLP: 1061.[address] scans at [facility] use at least one of these dose optimization techniques: automated e xposure control; mA and/or kV adjustment per patient size (includes targeted exams where dose is matc hed to clinical indication); or iterative reconstruction. FINDINGS: No evidence intracranial hemorrhage or mass effect. Ventricular system basal cisterns are p atent. Intracranial vascular calcification. Moderate small vessel changes. Moderate parenchymal volum e loss. RIGHT: Right common artery is patent. Tortuous right cervical ICA with retropharyngeal course. Right ICA is patent to the skull base. Moderate dense calcified atheromatous disease at the carotid bulb. S tenosis appears unchanged from previous measuring less than 50%. LEFT: Left common carotid artery is patent. Left carotid stent is new from previous and appears paten t. Dense carotid bulb calcification obscures some images. Tortuous left cervical ICA with retropharyn geal course. Left ICA is patent to the skull base. INTRACRANIAL CTA: Both vertebral arteries are patent. Left dominant vertebral artery. Basilar artery is patent. 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 Normal vascularity to the RESEARCH AND DEVELOPMENT ENGINEER territory bilaterally. Both ICAs are patent at the skull base. Cavernous carotid calcification. Hypoplastic right A1 segment . Normal vascularity to the KATELYN and MCA territories bilaterally. Mild atheromatous disease in the KATELYN territory. Distal vessels appear patent. No evidence of proximal flow-limiting stenosis or aneurysm. Lung apices are well aerated. Thoracic aortic calcification. Advanced spondylitic changes cervical sp ine with osteopenia and straightening of the normal cervical lordosis. IMPRESSION: 1. Interval placement of left carotid stent. Left carotid stent appears patent. Left ICA is patent t o the skull base. 2. Less than 50% right ICA stenosis with dense carotid bulb calcification. 3. Tortuous bilateral cervical ICAs with retropharyngeal course to both cervical ICAs. 4. Left dominant vertebral artery. Both vertebral arteries appear patent. 5. No proximal intracranial flow limiting stenosis. Notified Audi Mann MD at 02/14/2023 4:25 PM.
[2023-02-14] MEDS: iohexol 350 mg/mL 500 mL Btl (per mL) IV (15:40)
--- NOTE | 2023-02-14 15:45 | ECG_ITS ---
[facility] Test Date: 2023-02-14 Pat Name: Mindy Verma Department: Room: Gender: Female Hr Coordinator: : 1940 Requested By: Audi Mann Order Number: [id number] Oswaldo MD: Subha Mckeon M.D. Measurements Intervals [place] Rate: 78 P: 46 MS: 241 QRS: -9 QRSD: 99 T: 87 QT: 388 QTc: 443 Interpretive Statements SINUS RHYTHM WITH FIRST DEGREE AV BLOCK WITH OCCASIONAL SUPRAVENTRICULAR PREMATURE COMPLEXES SEPTAL MYOCARDIAL INFARCTION , OF INDETERMINATE AGE [40+ ms Q WAVE IN V1/V2] Compared to ECG 02/14/2023 13:51:16 Myocardial infarct finding now present T-wave abnormality no longer present Electronically Signed On 02-14-2023 18:58:27 CDT by Subha Mckeon M.D. [id number]
[2023-02-14 15:53] LABS: Reflex Lactate Order REFLEX LACTIC ORDERD
[2023-02-14 15:53] LABS: Add Urine Culture? No; Add Urine Microscopic? YES; Bacteria Urine TRACE /hpf; Bilirubin Urine Neg (Negative); Blood Urine Neg (Negative); Glucose Urine UA Norm (Normal); Ketones Urine 1+ (Negative); Leukocyte Esterase Urine Negative (Negative); Nitrate Urine Negative (Negative); Protein Urine Trace (Negative); RBC Urine 0-4 /hpf (0-2); Squamous Epithelial Cell Urine 0-4 /hpf (0-5); Urine Appearance Clear (CLEAR); Urine Color Yellow (Yellow); Urobilinogen Urine Norm (Negative); WBC Urine 0-4 /hpf (0-5); pH Urine 6.5 (5-7)
[2023-02-14] MEDS: sodium chloride 0.9% 500 ML 999 ML IV (15:59)
[2023-02-14 16:33] LABS: Lactic Acid level (Lactate) 1.1 mmol/L (0.5-2.2)
[2023-02-14 16:45] LABS: Troponin 5 2HR 10.43 ng/L (0-10)
[2023-02-14 16:47] LABS: Troponin 5 2HR Delta -3.57 ABS# (0-10)
--- NOTE | 2023-02-14 18:38 | P.HP_ITS ---
Providers/Chief Complaint Admitting Physician: Rafa Cisse MD Primary Care Provider: Chicho Young DO Chief Complaint: Weakness History of Present Illness Mindy Verma is a 82 year old female a past medical history of CVA, carotid artery stenosis status post stenting recently, with history of right tibial fracture, with cast in place recently removed, hypertension, obesity, [facility] a [facility], who [facility] for episode of syncope. According to patient, she recently had carotid artery surgery, she has been doing well since her stroke, she has been working with physical therapy she ambulates in a motorized wheelchair, today she is had physical therapy, she had speech therapy, she was outside at that time when she came in in her motorized wheelchair, she needed to use the bathroom, but the staff for taking some period of time after that she felt lightheaded, a bit dizzy, and that is a lasting she remembers the next and she remembers she was on the bed, nursing staff were telling her that she looked cool and clammy, here in the emergency room, she is alert awake, following all commands, normotensive, afebrile, on room air, hospitalist team was called for admission for syncopal episode, denies any focal deficits, no headache, blurry vision, no chest pain, palpitations no shortness of breath no abdominal pain no diarrhea, no dysuria, hematuria, no calf pain, no calf swelling, hemoptysis, no shortness of breath. While in the emergency room, she tells me that she has been hallucinating, and be buzzing around the room, she currently does not see it, she is never has had hallucinations before Review of Systems Const: Denies: fever(s), chills, body aches or malaise Eyes: Denies: change in vision ENMT: Denies: throat pain Card: Reports: lightheadedness and syncope; Denies: chest pain, palpitations, irregular heart rhythm, edema, swelling of feet/ankles, dyspnea on exertion or orthopnea Resp: Denies: dyspnea or productive cough GI: Denies: abdominal pain, nausea, vomiting, hematemesis, hematochezia or melena : Denies: flank pain, difficulty voiding or dysuria Musc: Denies: neck pain or back pain Skin/Breast: Denies: rash or pruritus Neuro: Denies: headache(s), numbness in extremities, weakness in extremities, sensory changes, dizziness, vertigo or Slurred speech present Psych: Denies: anxiety or depression Endo: Denies: polyuria or polydipsia Josh/Lymph: Denies: easy bruising Medications/Allergies Home Medications Medication Instructions Recorded Confirmed Last Taken Type multivitamin 1 tab PO QAM 10/29/20 02/14/23 08/15/22 History aspirin 81 mg tablet,delayed 81 mg PO QAM 06/18/22 02/14/23 01/08/23 History release ferrous sulfate 325 mg (65 mg 325 mg PO QAM 06/18/22 02/14/23 01/08/23 History iron) tablet (iron) acetaminophen 500 mg tablet 500 - 1,000 mg PO Q6H PRN Pain 07/14/22 02/14/23 08/14/22 History cholecalciferol (vitamin D3) 10 10 mcg PO QAM 07/14/22 02/14/23 01/08/23 History mcg (400 unit) tablet (Vitamin D3) gabapentin 100 mg capsule 100 mg PO TID 07/14/22 02/14/23 01/08/23 History sertraline 100 mg tablet (Zoloft) 100 mg PO QAM 07/14/22 02/14/23 01/08/23 History loperamide 2 mg capsule 4 mg PO Q4H PRN diarrhea #30 caps 07/17/22 02/14/23 2 Weeks Ago Rx ~08/02/22 CAM WALKER #1 ea 07/18/22 02/14/23 Unknown Rx bisacodyl 10 mg rectal suppository 10 mg OH DAILY PRN Constipation 07/22/22 02/14/23 08/15/22 History (Dulcolax (bisacodyl)) magnesium hydroxide 400 mg/5 mL 30 ml PO DAILY PRN Constipation 07/22/22 02/14/23 Unknown History oral suspension (Milk of Magnesia) pantoprazole 40 mg tablet,delayed 40 mg PO BID 07/22/22 02/14/23 01/08/23 History release (Protonix) sodium phosphates 19 gram-7 118 ml OH DAILY PRN Constipation 07/22/22 02/14/23 Unknown History gram/118 mL enema (Fleet Enema) carbamazepine 200 mg 200 mg PO BID #60 caps 08/16/22 02/14/23 01/08/23 Rx capsule,extended release [id number] leg brace (Ankle Brace) #1 ea 09/02/22 02/14/23 Unknown Rx cyclobenzaprine 10 mg tablet 10 mg PO TID PRN muscle spasm 14 11/01/22 02/14/23 Unknown Rx days #42 tabs nortriptyline 25 mg capsule 25 mg PO DAILY 11/01/22 02/14/23 01/07/23 History cam walker #1 ea 12/19/22 02/14/23 Unknown Rx lace up ankle brace #1 ea 01/03/23 02/14/23 Unknown Rx hydroxyzine HCl 25 mg tablet 25 mg PO BEDTIME 01/08/23 02/14/23 01/07/23 History polyethylene glycol 3350 17 4 g PO DAILY 01/08/23 02/14/23 01/08/23 History gram/dose oral powder (Miralax) losartan 50 mg tablet 25 mg PO QAM #90 tabs 01/10/23 02/14/23 01/08/23 Rx clopidogrel 75 mg tablet 75 mg PO DAILY #90 tabs 02/12/23 02/14/23 Unknown Rx ondansetron HCl 4 mg tablet 4 mg PO Q6H PRN Nausea And 02/12/23 02/14/23 Unknown Rx Vomiting #30 tabs prednisone 10 mg tablet 10 mg PO QAM TO EASE PAIN OF PMR 02/12/23 02/14/23 Unknown Rx #30 tabs aluminum-mag hydroxide-simethicone 5 ml PO QID PRN Diarrhea 02/14/23 02/14/23 Unknown History 400 mg-400 mg-40 mg/5 mL oral susp (Mylanta Maximum Strength) rosuvastatin 10 mg tablet 10 mg PO QPM 02/14/23 02/14/23 Unknown History Allergies Allergy/AdvReac Type Severity Reaction Status Date / Time codeine Allergy Mild Itch Verified 02/14/23 13:21 naltrexone Allergy Unknown Verified 02/14/23 13:21 diphenhydramine AdvReac Mild Hallucinati Verified 02/14/23 13:21 [From Benadryl] ons PFSH Acute PFSH: Medical History Abnormal CT of the abdomen Colitis Colitis Dehydration Depression Diarrhea Enteritis Facial pain 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 Fracture of distal fibula Hyperlipidemia Hyperlipidemia associated with type 2 diabetes mellitus Hypertension Hypovolemic shock Ileus Left ankle pain Mesenteric artery stenosis Pacemaker Septic shock Sick sinus syndrome Surgical History History of ankle surgery History of knee replacement History of splenectomy Status post colonoscopy Family History (Updated 02/14/23 @ 18:42 by Rafa Cisse MD) Mother Stroke Social History Smoking and tobacco status: never smoked Alcohol intake: never Vitals/I&O/Wt Last Vital Signs Temp 98.2 F 02/14/23 13:13 Pulse 81 02/14/23 18:35 Resp 18 02/14/23 18:35 BP 106/81 02/14/23 18:35 Pulse Ox 92 02/14/23 18:35 O2 Del Method Room Air 02/14/23 18:34 02/14/23 02/14/23 02/14/23 06:59 14:59 22:59 Intake Total 500 / 500 Balance 500 / 500 Weight last 48 hrs Weight 104.326 kg Physical Exam Const: COMMON NORMALS: no acute distress and patient oriented x3 GENERAL APPEARANCE: cooperative, well kempt and well developed HENMT: COMMON NORMALS: normocephalic and Normal external nose present HEAD & SCALP: normocephalic FACE & SINUS: normal facial exam NOSE: Normal external nose present Eye: COMMON NORMALS: Equal, round and reactive pupils present, EOMs intact bilaterally, conjunctivae normal and no scleral icterus CONJUNCTIVA: Yes conjunctivae normal PUPIL: Yes Equal, round and reactive pupils present Neck/C-Spine: COMMON NORMALS: full ROM, no lymphadenopathy, no meningeal signs, no JVD, Thyroid normal and No carotid bruits THYROID: Thyroid normal Lymph: LYMPHATIC: no lymphadenopathy noted Chest: COMMONS NORMALS: normal inspection of the chest Resp: COMMON NORMALS: normal respiratory effort, No retractions, No use of accessory muscles and clear to auscultation bilaterally AUSCULTATION: clear to auscultation bilaterally Cardio: COMMON NORMALS: no JVD, regular rate, regular rhythm, S1 normal heart sound present, S2 normal heart sound present, No murmurs present (Cardio) and P eripheral pulses 2+ throughout RATE: regular rate RHYTHM: regular rhythm HEART SOUNDS: S1 normal heart sound present and S2 normal heart sound present PERIPHERAL PULSES: Peripheral pulses 2+ throughout GI: COMMON NORMALS: Normal to inspection, nondistended, normoactive bowel sounds present, Soft to palpation and non-tender PALPATION: Yes Soft to palpation : BLADDER/KIDNEY EXAM: Yes no CVA tenderness Back/Pelvis: COMMON NORMALS: no CVA tenderness Extremity: COMMON NORMALS: normal to inspection, full ROM, capillary refill normal, no calf tenderness and no pedal edema Neuro: COMMON NORMALS: patient oriented x3, CN's II-XII intact bilaterally, moves all extremities, no focal motor deficits and no sensory deficits noted MENINGEAL SIGNS: Yes no meningeal signs Psych: COMMON NORMALS: mental status grossly normal, Normal thought process present, cooperative and speech normal APPEARANCE: Yes well kempt SPEECH: Yes normal speech THOUGHT PROCESS: Normal thought process present Skin: COMMON NORMALS: turgor normal and no jaundice NARRATIVE SKIN EXAM: Surgical scar abdomen, surgical scar, bilateral knees GENERAL SKIN EXAM: turgor normal Data 02/14/23 13:55 02/14/23 13:55 Micro: Microbiology 02/14/23 14:02 Blood Culture - Preliminary Blood SPECIMEN COLLECTED 02/14/23 13:55 Blood Culture - Preliminary Blood SPECIMEN COLLECTED A&P Assessment and plan (1) Syncope: (2) Mild dehydration: (3) Hallucination, visual: Plan syncope? cta head and neck 1.? Interval placement of left carotid stent. Left carotid stent appears patent. Left ICA is patent to the skull base. 2.? Less than 50% right ICA stenosis with dense carotid bulb calcification. 3.? Tortuous bilateral cervical ICAs with retropharyngeal course to both cervical ICAs. 4.? Left dominant vertebral artery. Both vertebral arteries appear patent. 5.? No proximal intracranial flow limiting stenosis. head ct 1.? No evidence of intracranial hemorrhage or mass effect. 2.? Moderate small vessel changes. Moderate parenchymal volume loss. 3.? No acute intracranial findings. ctabdomen and pelvis IMPRESSION: 1.? Shallow inspiration. Both lungs are well aerated. 2.? No acute findings in the abdomen or pelvis. 3.? Prior celiac and SMA stents. No abdominal aortic aneurysm. 4.? Mild transverse colon constipation. 5.? Prior splenectomy and hysterectomy. -ekg no acute st t wave changes -troponin trend 14, delta 3.4 -procal wnl -ua within normal limits - sodium is 132 -cbc with normal limits -no focal neuro defecits -no chest pain -she did have cast recently removed will order venous us, d dimer -neuro check -monitor mentation -orthostatic vitals -Tegretol level -cortisol level -hallucination? monitor -code status patient states she only wants to be intubated for short period of time , she does not want prolonged mechanical ventilation, she tells me that she was intubated when she had COVID, she does not want chest compressions, does not want drugs per ACLS, does not want defibrillation -lovenox for dvt prophylaxis Attestations Medical Necessity Statement*: patient requires hospitalization, outpatient with observation, for orthostatic hypotension, syncope Diagnoses Syncope R55 Mild dehydration E86.0 Hallucination, visual R44.1
[2023-02-14 20:21] LABS: Troponin 5 6HR 11.35 ng/L (0-10)
[2023-02-14 20:26] LABS: Troponin 5 6HR Delta -2.65 ng/L (0-12)
[2023-02-14] MEDS: enoxaparin 40 mg/0.4 mL Syringe SUBCUT (21:20)
[2023-02-14] MEDS: gabapentin 100 mg Capsule PO (21:20)
[2023-02-14] MEDS: hyDROXYzine 25 mg Capsule PO (21:20)
--- NOTE | 2023-02-14 22:29 | ECG_ITS ---
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 Measurements Intervals [place] Rate: 87 P: 50 SD: 229 QRS: -24 QRSD: 100 T: 78 QT: 377 QTc: 454 Interpretive Statements SINUS RHYTHM WITH FIRST DEGREE AV BLOCK BORDERLINE LEFT AXIS DEVIATION [QRS AXIS < -20] LEFT VENTRICULAR HYPERTROPHY AND ST-T CHANGE [VOLTAGE CRITERIA PLUS ST/T ABNORMALITY] Compared to ECG 02/14/2023 16:00:30 Left ventricular hypertrophy now present ST (T wave) deviation now present Myocardial infarct finding no longer present Electronically Signed On 02-15-2023 8:47:19 CDT by Michel Ang M.D. [id number]
[2023-02-15] VITALS (7 sets, daily range): BP systolic 132–170; BP diastolic 65–83; PULSE 83–100; RESP 15–18; TEMP 36.6–36.9; O2SAT 93–95
[2023-02-15 00:52] LABS: Carbamazepine Tegretol 6.2 ug/mL (4.0-12.0); Thyroid Stimulating Hormone 1.41 uIU/mL (0.27-4.20)
[2023-02-15] MEDS: acetaminophen 500 mg Tablet PO (02:25)
[2023-02-15] MEDS: multivitamin therapeutic Tablet 1 TAB PO (05:48)
[2023-02-15] MEDS: losartan 50 mg Tablet 25 MG PO (05:48)
[2023-02-15] MEDS: ferrous sulfate EC 325 mg Tablet PO (05:49)
[2023-02-15] MEDS: sertraline 100 mg Tablet PO (05:49)
[2023-02-15] MEDS: aspirin 81 mg EC Tablet PO (05:49)
[2023-02-15] MEDS: predniSONE 10 mg Tablet PO (05:49)
[2023-02-15] MEDS: carBAMazepine XR (12 HR) 200 mg Tablet PO (08:09)
[2023-02-15] MEDS: cyclobenzaprine 10 mg Tablet PO (08:10)
[2023-02-15] MEDS: clopidogrel 75 mg Tablet PO (08:10)
[2023-02-15] MEDS: gabapentin 100 mg Capsule PO (08:10)
[2023-02-15] MEDS: pantoprazole DR 40 mg Tablet PO (08:10)
--- NOTE | 2023-02-15 09:17 | USR_ITS ---
PROCEDURE INFORMATION: Exam: US Duplex Lower Extremity Veins, Bilateral Exam date and time: 02/15/2023 10:51 AM Age: 82 years old Clinical indication: Edema, localized; Lower extremity, bilateral; Additional info: Dvt TECHNIQUE: Imaging protocol: Real-time duplex ultrasound of the bilateral extremities with 2-D edwards scale, color Doppler flow and spectral waveform analysis including responses to compression and other maneuvers (when performed) with image documentation. Complete exam focused on the lower extremity veins. COMPARISON: CT ankle LT wo con* [id number] 07/17/2022 8:14 AM FINDINGS: Right deep veins: Unremarkable. The common femoral, femoral, proximal profunda femoral and popliteal veins are patent without thrombus. Normal Doppler waveforms. Normal compressibility and/or augmentation response. Interrogated calf veins are patent. Left deep veins: Unremarkable. The common femoral, femoral, proximal profunda femoral and popliteal veins are patent without thrombus. Normal Doppler waveforms. Normal compressibility and/or augmentation response. Interrogated calf veins are patent. Superficial veins: Bilateral saphenofemoral junctions are patent without thrombus. Soft tissues: Unremarkable. US/[place] [id number] IMPRESSION: No evidence of deep vein thrombosis.
[2023-02-15] MEDS: nortriptyline 25 mg Capsule PO (10:14)
[2023-02-15 12:09] LABS: SARS Covid-2 Antigen negative (Negative)
--- NOTE | 2023-02-15 12:47 | CTR_ITS ---
PROCEDURE INFORMATION: Exam: CTA Chest With Contrast Exam date and time: 02/15/2023 2:16 PM Age: 82 years old Clinical indication: Dyspnea; Additional info: Unresponsive episode TECHNIQUE: Imaging protocol: Computed tomographic angiography of the chest with contrast. Exam focused on the arteries. 3D rendering (Not supervised by radiologist): MIP and/or 3D reconstructed images were created by the technologist. Radiation optimization: All CT scans at this facility use at least one of these dose optimization techniques: automated exposure control; mA and/or kV adjustment per patient size (includes targeted exams where dose is matched to clinical indication); or iterative reconstruction. Contrast material: OMNI 350; Contrast volume: 67 ml; Contrast route: INTRAVENOUS (IV); REPORTING DATA: Count of CT and Cardiac NM exams in prior 12 months: This patient has received 14 known CTs and 0 known cardiac nuclear medicine studies in the 12 months prior to the current study. COMPARISON: 1. CT angio chest w abd pel w con 06/17/2022 7:[address] [place] [id number] 02/14/2023 3:41 PM 3. CR XR chest 1V portable [id number] 02/14/2023 2:13 PM RADIATION DOSE METRICS: Total DLP (mGy-cm): 520.54 FINDINGS: Tubes, catheters and devices: Dual lead cardiac device with left chest generator showing leads terminating in the right atrium and right ventricle. Pulmonary arteries: Normal. No pulmonary emboli. Aorta: Moderate systemic atherosclerotic calcification. No aortic aneurysm. Celiac and SMA stents noted. Lungs: Mild linear scarring versus atelectasis at the right upper, lingula, and bilateral lower lobes. Mild dependent atelectasis. No consolidation. No masses. Pleural spaces: Unremarkable. No pneumothorax. No pleural effusion. Heart: Mitral annular calcification. No cardiomegaly. No pericardial effusion. Coronary arteries: Mild coronary artery calcification. Lymph nodes: Unremarkable. No enlarged lymph nodes. Spleen: Prior splenectomy. Bones/joints: No acute fracture. Degenerative changes along the spine and shoulders. Soft tissues: Anterior abdominal wall diastasis. CT/CT angio chest PE protcl [id number] IMPRESSION: 1. No acute findings. 2. Chronic and incidental findings as above.
--- NOTE | 2023-02-15 12:49 | PM.DCS ---
Discharge Providers Date of Admission: 02/14/23 18:31 Date of Discharge: February 15, 2023 Attending Provider at Admission: Rafa Cisse MD Attending Provider at Discharge: Rafa Cisse MD Primary Care Provider: Chicho Young DO Diagnoses at Discharge Discharge Diagnosis (1) Syncope: Status: Acute (2) Mild dehydration: Status: Acute (3) Hallucination, visual: Status: Acute Reason for Visit Reason for Visit: Weakness Hospital Course Hospital Course aliya Verma is a 82 year old female a past medical history of CVA, carotid artery stenosis status post stenting recently, with history of right tibial fracture, with cast in place recently removed, hypertension, obesity, currently a resident at nursing home facility, who presents to [facility] for episode of syncope.? According to patient, she recently had carotid artery surgery, she has been doing well since her stroke, she has been working with physical therapy she ambulates in a motorized wheelchair, today she is had physical therapy, she had speech therapy, she was outside at that time when she came in in her motorized wheelchair, she needed to use the bathroom, but the staff for taking some period of time after that she felt lightheaded, a bit dizzy, and that is a lasting she remembers the next and she remembers she was on the bed, nursing staff were telling her that she looked cool and clammy, here in the emergency room, she is alert awake, following all commands, normotensive, afebrile, on room air, hospitalist team was called for admission for syncopal episode, denies any focal deficits, no headache, blurry vision, no chest pain, palpitations no shortness of breath no abdominal pain no diarrhea, no dysuria, hematuria, no calf pain, no calf swelling, hemoptysis, no shortness of breath.? While in the emergency room, she tells me that she has been hallucinating, and be buzzing around the room, she currently does not see it, she is never has had hallucinations before Patient was admitted to [facility] for syncopal episode, with hallucinations, no recurrent hallucinations or syncopal episodes during hospitalization, she has had an extensive evaluation including CT chest abdomen pelvis which was within normal limits, CT angiogram for pulm embolism was within normal limits, venous ultrasound for DVT was within normal limits, CTA head and neck no acute findings, no significant evidence of UTI, no evidence of pneumonia, remained febrile, no significant electrolyte abnormalities, no significant orthostatic vitals, will discharge her on a event monitor with a close follow-up with cardiology as outpatient if any recurrent strokelike symptoms or syncopal episode go to the emergency room Physical Exam Const: COMMON NORMALS: no acute distress and patient oriented x3 Resp: COMMON NORMALS: normal respiratory effort, No retractions, No use of accessory muscles and clear to auscultation bilaterally AUSCULTATION: clear to auscultation bilaterally Cardio: COMMON NORMALS: regular rate, regular rhythm, S1 normal heart sound present and S2 normal heart sound present RATE: regular rate RHYTHM: regular rhythm HEART SOUNDS: S1 normal heart sound present and S2 normal heart sound present GI: COMMON NORMALS: Normal to inspection, nondistended, normoactive bowel sounds present and non-tender Extremity: COMMON NORMALS: no pedal edema Neuro: COMMON NORMALS: patient oriented x3 Psych: COMMON NORMALS: mental status grossly normal Discharge Data Studies Completed and Pending Completed Studies During Hospitalization Category Date Time Status CT chest abdomen pelvis [[place] [id number] Cat Scan 02/14/23 14:54 Completed ] Stat CT head wo con* [id number] Stat Cat Scan 02/14/23 13:44 Completed CTA head neck [CT angio headneck* [id number]] Stat Cat Scan 02/14/23 14:54 Completed XR chest 1V portable [id number] Stat Exams 02/14/23 13:44 [place] [id number] Stat Ultrasound 02/15/23 09:17 Completed Pending at discharge Category Date Time Status CT angio chest PE protcl [id number] Stat Cat Scan 02/15/23 12:47 Ordered Blood Culture Stat Lab 02/14/23 14:02 Results Radiology Impressions Venous Duplex 02/15/23 09:17 IMPRESSION: No evidence of deep vein thrombosis. Laboratory Results WBC 9.2 10^3/uL (4.0-10.0) 02/14/23 13:55 RBC 4.32 10^6/uL (4.1-5.3) 02/14/23 13:55 Hgb 12.6 g/dL (11.5-15.3) 02/14/23 13:55 Hct 39.3 % (37.0-47.0) 02/14/23 13:55 MCV 91.0 fl (81-99) 02/14/23 13:55 MCH 29.2 pg (28.0-34.0) 02/14/23 13:55 MCHC 32.1 g/dL (30.0-36.0) 02/14/23 13:55 RDW 12.8 % (12.1-15.1) 02/14/23 13:55 Plt Count 471 10^3/cmm (130-400) H 02/14/23 13:55 MPV 8.7 fL (7.4-10.4) 02/14/23 13:55 Neut % (Auto) 85.3 % 02/14/23 13:55 Lymph % (Auto) 4.8 % 02/14/23 13:55 [place] % (Auto) 8.8 % 02/14/23 13:55 Eos % (Auto) 0.1 % 02/14/23 13: Baso % (Auto) 0.5 % 02/14/23 13:55 Neut # (Auto) 7.87 10^3/uL (1.8-7.7) H 02/14/23 13:55 Lymph # (Auto) 0.4 10^3/uL (0.8-4.8) L 02/14/23 13:55 [place] # (Auto) 0.8 10^3/uL (0.2-0.9) 02/14/23 13:55 Eos # (Auto) 0.0 10^3/uL (0.0-0.8) 02/14/23 13:55 Baso # (Auto) 0.1 10^3/uL (0.0-0.1) 02/14/23 13:55 Nucleated RBC % (auto) 0 % 02/14/23 13:55 Nucleated RBCs # 0.0 /100WBC 02/14/23 13:55 D-Dimer 1.00 ug/mIFEU (0-0.59) H 02/14/23 13:55 Sodium 132 mmol/L (136-145) L 02/14/23 13:55 Potassium 4.6 mmol/L (3.5-5.1) 02/14/23 13:55 Chloride 92 mmol/L (98-107) L 02/14/23 13:55 Carbon Dioxide 27 mmol/L (22-29) 02/14/23 13:55 Anion Gap 17.6 (5-19) 02/14/23 13:55 BUN 16 mg/dL (8-23) 02/14/23 13:55 Creatinine 0.7 mg/dL (0.5-0.9) 02/14/23 13:55 GFR Calculation Not Reportable 02/14/23 13:55 Glucose 116 mg/dL (65-115) H 02/14/23 13:55 Calculated Osmolality 276 mOsm/kg (285-295) L 02/14/23 13:55 Lactic Acid 2.2 mmol/L (0.5-2.2) 02/14/23 13:55 Lactic Acid (Sepsis) 1.1 mmol/L (0.5-2.2) 02/14/23 16:05 Calcium 9.0 mg/dL (8.5-10.5) 02/14/23 13:55 Magnesium 2.2 mg/dL (1.7-2.3) 02/14/23 13:55 Total Bilirubin 0.2 mg/dL (0.15-1.2) 02/14/23 13:55 AST 22 U/L (0-32) 02/14/23 13:55 ALT 18 U/L (0-33) 02/14/23 13:55 Alkaline Phosphatase 74 U/L (35-105) 02/14/23 13:55 Troponin T Baseline 14 ng/L (0-10) H 02/14/23 13:55 Troponin T 120 Minute 10.43 ng/L (0-10) H 02/14/23 16:05 Delta Troponin T -3.57 ABS# (0-10) L 02/14/23 16:05 Troponin T Hi Sens 6Hr 11.35 ng/L (0-10) H 02/14/23 19:46 Troponin T Hi Sens 6Hr Delta -2.65 ng/L (0-12) L 02/14/23 19:46 C-Reactive Protein 7.2 mg/L (0.0-4.9) H 02/14/23 13:55 Total Protein 6.5 g/dL (6.6-8.7) L 02/14/23 13:55 Albumin 4.1 g/dL (3.5-5.2) 02/14/23 13:55 Globulin 2.4 g/dL (1.3-4.6) 02/14/23 13:55 Procalcitonin 0.03 ng/mL (0-0.5) 02/14/23 13:55 TSH 1.41 uIU/mL (0.27-4.20) 02/14/23 16:05 Random Cortisol 4.10 ug/dL (2.47-19.5) 02/14/23 16:05 Urine Color Yellow (Yellow) 02/14/23 15:25 Urine Appearance Clear (CLEAR) 02/14/23 15:25 Urine pH 6.5 (5-7) 02/14/23 15:25 Ur Specific [place] 1.010 (1.005-1.030) 02/14/23 15:25 Urine Protein Trace (Negative) 02/14/23 15:25 Urine Glucose (UA) Norm (Normal) 02/14/23 15:25 Urine Ketones 1+ (Negative) H 02/14/23 15:25 Urine Blood Neg (Negative) 02/14/23 15:25 Urine Nitrate Negative (Negative) 02/14/23 15:25 Urine Bilirubin Neg (Negative) 02/14/23 15:25 Urine Urobilinogen Norm mg/dL (Negative) 02/14/23 15:25 Ur Leukocyte Esterase Negative (Negative) 02/14/23 15:25 Urine RBC 0-4 /hpf (0-2) H 02/14/23 15:25 Urine WBC 0-4 /hpf (0-5) H 02/14/23 15:25 Ur Squamous Epith Cells 0-4 /hpf (0-5) H 02/14/23 15:25 Ur Transition Epith Cell 5-10 /hpf 02/14/23 15:25 Amorphous Sediment Not Reportable 02/14/23 15:25 Urine Bacteria Trace /hpf (NONE) 02/14/23 15:25 Carbamazepine 6.2 ug/mL (4.0-12.0) 02/14/23 16:05 SARS-CoV-2 Ag (Rapid) negative (Negative) 02/15/23 11:40 Vitals Last Vital Signs Temp 98 F 02/15/23 11:34 Pulse 94 02/15/23 11:34 Resp 16 02/15/23 11:34 BP 170/83 02/15/23 11:34 Pulse Ox 93 02/15/23 11:34 O2 Del Method Room Air 02/15/23 11:34 Discharge Plan Discharge Patient Disposition: Xfer SNF Condition: Stable Prescriptions: Continued (DME) Ankle Brace Misc See Rx Instructions .ROUTE .MEDSUPPLY Qty: 1 0RF Rx Instructions: As directed nortriptyline 25 mg capsule 25 mg PO DAILY cyclobenzaprine 10 mg tablet 10 mg PO TID PRN (Reason: muscle spasm) 14 Days Qty: 42 0RF (DME) CAM WALKER See Rx Instructions .ROUTE .MEDSUPPLY Qty: 1 0RF Rx Instructions: As directed (DME) cam walker See Rx Instructions .Route .MEDSUPPLY Qty: 1 0RF Rx Instructions: As directed (DME) lace up ankle brace See Rx Instructions .Route .MEDSUPPLY Qty: 1 0RF Rx Instructions: As directed carbamazepine 200 mg capsule, ER multiphase 12 hr 200 mg PO BID Qty: 60 5RF clopidogrel 75 mg tablet 75 mg PO DAILY Qty: 90 0RF Hold Instructions: Resume on 08/18/22. ondansetron HCl 4 mg tablet 4 mg PO Q6H PRN (Reason: Nausea And Vomiting) Qty: 30 0RF prednisone 10 mg tablet 10 mg PO QAM Qty: 30 0RF multivitamin Tablet 1 tab PO QAM sertraline [Zoloft] 100 mg tablet 100 mg PO QAM acetaminophen 500 mg Tablet 500 - 1,000 mg PO Q6H PRN (Reason: Pain) gabapentin 100 mg capsule 100 mg PO TID cholecalciferol (vitamin D3) [Vitamin D3] 10 mcg (400 unit) Tablet 10 mcg PO QAM loperamide 2 mg Capsule 4 mg PO Q4H PRN (Reason: diarrhea) Qty: 30 0RF magnesium hydroxide [Milk of Magnesia] 400 mg/5 mL Suspension 30 ml PO DAILY PRN (Reason: Constipation) bisacodyl [Dulcolax (bisacodyl)] 10 mg Suppository 10 mg [place] DAILY PRN (Reason: Constipation) pantoprazole [Protonix] 40 mg Tablet,Delayed Release (Dr/Ec) 40 mg PO BID Fleet Enema 19-7 gram/118 mL Enema 118 ml WA DAILY PRN (Reason: Constipation) aspirin 81 mg Tablet,Delayed Release (Dr/Ec) 81 mg PO QAM ferrous sulfate [iron] 325 mg (65 mg iron) Tablet 325 mg PO QAM polyethylene glycol 3350 [Miralax] 17 gram/dose Powder 4 g PO DAILY hydroxyzine HCl 25 mg tablet 25 mg PO BEDTIME losartan 50 mg tablet 25 mg PO QAM Qty: 90 3RF Mylanta Maximum Strength 400-400-40 mg/5 mL Suspension 5 ml PO QID PRN (Reason: Diarrhea) rosuvastatin 10 mg tablet 10 mg PO QPM Discharge Orders: Discharge Order (Routine); Ordered 02/15/23 Ordered By: Rafa Cisse Other Ambulatory Orders: ECG holter monitor 7 Days (Routine) Timeframe: 3 Days Facility: [facility] - Location: Radiology Ordered By: Audi Mann MCT/Event Monitor 21 Days (Routine) Timeframe: 1 Day Facility: [facility] - Location: Radiology Ordered By: Rafa Cisse Referrals: [facility] [Outside] Michel Ang MD [Physician] - 3 weeks Chicho Young DO [Primary Care Provider] - Discharge Diet: Usual diet Discharge Activity: Resume usual activity Patient Instructions: Dehydration (ED), Syncope (ED), Hypotension (ED), Stroke (GEN), Opioid Safety, Stroke Stoplight Activity Restrictions/Additional Instructions: Thank you for visiting the emergency department. You were seen evaluate for syncopal episode. The exact cause of the symptoms is unclear, you were found to have mild dehydration. As discussed I believe that outpatient management is appropriate. I will message order a event monitor.follow up cardiology Please follow-up with a primary care provider. Return for anything you are concerned about and feel needs emergency department evaluation. Discharge Attestations Time Spent in Discharge Care*: greater than 30 min Status at Discharge: Cognitive status at discharge: cognitively intact, Behavioral status at discharge: cooperative, Quality Metrics Clinical Quality Measures [ No reported AMI, CVA or VTE this stay] Coding Level of Care Code 69988 Total time (in minutes) for Discharge: 45 Diagnoses Syncope R55 Mild dehydration E86.0 Hallucination, visual R44.1
[2023-02-15] MEDS: sodium chloride 0.9% 1,000 ML 75 ML IV (13:37)
[2023-02-15] MEDS: iohexol 350 mg/mL 500 mL Btl (per mL) IV (14:19)
== END 2023-02-15 16:17 | disposition skilled nursing facility (03) ==
LOC: ER 17:37 → MEDSURG 18:31
PROVIDERS: Admitting Provider Family Medicine; Emergency Provider Emergency Medicine; PCP Family Medicine; Visit Provider Family Medicine
DX: R55 Syncope and collapse (principal); E86.0 Dehydration; R44.1 Visual hallucinations; E11.9 Type 2 diabetes mellitus without complications; I10 Essential (primary) hypertension; E78.5 Hyperlipidemia, unspecified; I44.0 Atrioventricular block, first degree; E66.9 Obesity, unspecified; Z68.41 Body mass index [BMI] 40.0-44.9, adult; Z79.899 Other long term (current) drug therapy; Z86.73 Personal history of transient ischemic attack (TIA), and cerebral infarction without residual deficits; Z95.0 Presence of cardiac pacemaker; Z95.5 Presence of coronary angioplasty implant and graft; Z99.3 Dependence on wheelchair
CPT/HCPCS: 36415; 51701; 70450; 70496; 70498; 71045; 71250; 71275; 74176; 80053; 80156; 81001; 82533; 83605; 83735; 84145; 84443; 84484; 85025; 85378; 86140; 87040; 87426; 93005; 93970; 94664; 96360; 96372; 97161; 99285; G0378; J1650; J7030; J7040; J7512; Q9967

== ENCOUNTER → 2023-04-07 10:16 | Outpatient (BNVA) | payer MEDICARE, OTHER, SELFPAY | PROVIDERS: PCP Family Medicine; Referring Provider Family Medicine; Visit Provider Internal Medicine Cardiovascular Disease | DX: Z95.0 Presence of cardiac pacemaker (principal); I65.29 Occlusion and stenosis of unspecified carotid artery; Z98.890 Other specified postprocedural states; Z95.828 Presence of other vascular implants and grafts; E78.5 Hyperlipidemia, unspecified; I10 Essential (primary) hypertension; Z86.73 Personal history of transient ischemic attack (TIA), and cerebral infarction without residual deficits | CPT/HCPCS: 99204 ==

== ENCOUNTER 2023-05-23 23:28 | Emergency (ER) | payer MEDICARE, OTHER, MEDICAID, SELFPAY ==
[2023-05-23 23:31] VITALS: BP 146/99; PULSE 91; RESP 17; TEMP 36.4; O2SAT 98; BMI 42.0
--- NOTE | 2023-05-23 23:50 | XRR_ITS ---
PROCEDURE INFORMATION: Exam: XR Right Femur Exam date and time: 05/24/2023 12:09 AM Age: 82 years old Clinical indication: Injury or trauma; Blunt trauma; Right; Prior surgery; Surgery date: 6+ months; Surgery type: Tka; Patient HX: EMS arrival from [facility] for witnessed fall. Patient C/O RT hip and ankle pain. Bruising to medial side of ankle. ; Additional info: Fall leg pain TECHNIQUE: Imaging protocol: Radiologic exam of the right femur. Views: 2 views. COMPARISON: No relevant prior studies available. FINDINGS: Bones/joints: Irregular linear lucency extending through the distal aspect of the right femur just proximal to the femoral component of the right knee arthroplasty concerning for fracture. Soft tissues: Unremarkable. XR/XR femur RT min 2V* [id number] IMPRESSION: Irregular linear lucency extending through the distal aspect of the right femur just proximal to the femoral component of the right knee arthroplasty concerning for fracture.
--- NOTE | 2023-05-23 23:50 | XRR_ITS ---
PROCEDURE INFORMATION: Exam: XR Right Tibia and Fibula Exam date and time: 05/24/2023 12:09 AM Age: 82 years old Clinical indication: Injury or trauma; Blunt trauma; Left; Prior surgery; Surgery date: 6+ months; Surgery type: Tka; Patient HX: EMS arrival from group home for witnessed fall. Patient C/O RT hip and ankle pain. Bruising to medial side of ankle. ; Additional info: Fall leg/ankle pain TECHNIQUE: Imaging protocol: Radiologic exam of the right tibia and fibula. Views: 2 views. COMPARISON: No relevant prior studies available. FINDINGS: Bones/joints: Partially visualized total right knee arthroplasty. Cortical irregularity along the posterior aspect of the distal right fibula concerning for fracture. Curvilinear lucency through the medial malleolus which may represent a nondisplaced fracture. Soft tissues: Normal. XR/XR tibia fibula RT 2V [id number] IMPRESSION: 1. Cortical irregularity along the posterior aspect of the distal right fibula concerning for fracture. 2. Curvilinear lucency through the right medial malleolus which may represent a nondisplaced fracture.
[2023-05-23 23:57] VITALS: RESP 24; O2SAT 95
[2023-05-23] MEDS: morphine 4 mg/mL SDV 1 mL 2 MG IVP (23:57)
[2023-05-23] MEDS: ondansetron 2 mg/ML SDV 2 mL 4 MG IVP (23:58)
--- NOTE | 2023-05-23 23:59 | ED_ITS ---
HPI - Fall General: Chief Complaint: Fall Stated Complaint: FALL Time Seen by Provider: 05/23/23 23:28 Source: patient History of Present Illness: 82-year-old female intermediate patient presenting after a fall. Fall was from standing position, as an aide was helping her using a gait belt. She fell injuring her left leg. She complains of left leg pain at the ankle, with some swelling. She has previous fracture to that leg. She does not complain of hip or thigh pain, although she notes that the pain from the leg radiates up toward that area. No back pain. No neck or head pain she denies hitting her head. She is not anticoagulated. 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 Fracture of distal fibula History of common carotid artery stent placement Hyperlipidemia Hyperlipidemia associated with type 2 diabetes mellitus Hypertension Hypovolemic shock Ileus Left ankle pain Mesenteric artery stenosis Pacemaker Septic shock Sick sinus syndrome Surgical History History of ankle surgery History of knee replacement History of splenectomy Status post colonoscopy Family History Mother Stroke Social History Smoking and tobacco/nicotine status: never used tobacco/nicotine Alcohol intake: never Physical Exam Const: GENERAL APPEARANCE: cooperative and frail appearing HENMT: COMMON NORMALS: normocephalic, atraumatic and Normal external nose p resent HEAD & SCALP: normocephalic and atraumatic FACE & SINUS: normal facial exam NOSE: Normal external nose present and Normal nares present MOUTH: Normal oral and palatal mucosa present Eye: COMMON NORMALS: Equal, round and reactive pupils present and EOMs intact bilaterally PUPIL: Yes Equal, round and reactive pupils present Neck/C-Spine: COMMON NORMALS: full ROM GENERAL: Yes trachea midline Chest: CHEST: Yes Symmetrical chest wall rise Resp: COMMON NORMALS: normal respiratory effort and clear to auscultation annetta aterally AUSCULTATION: clear to auscultation bilaterally Cardio: COMMON NORMALS: regular rate and regular rhythm RATE: regular rate RHYTHM: regular rhythm GI: COMMON NORMALS: Normal to inspection, nondistended, normoactive bowel sounds present and non-tender Extremity: NARRATIVE EXTREMITY EXAM: Right lower extremity is shortened and externally rotated. There is some thigh pain on internal rotation. There is tenderness to palpation with bruising and soft tissue swelling at the right ankle. No significant deformity. Course Vital Signs: Vital signs: Vital Signs Temperature 97.6 F 05/23/23 23:31 Pulse Rate 87 05/24/23 01:53 Respiratory Rate 18 05/24/23 03:00 Blood Pressure 205/100 05/24/23 01:53 Pulse Oximetry 99 05/24/23 03:00 Oxygen Delivery Me thod Room Air 05/24/23 01:53 MDM - Fall Medical Decision Making X-rays reveal right distal fibular fracture, oblique. Minimally displaced. There may also lópez nondisplaced intertrochanteric right hip fracture. CT of the bony pelvis to confirm. X-ray of the chest. Lab work and urinalysis via Stevenson catheter. CTs of the hip and knee are negative. Patient is placed today short leg posterior splint for the ankle, knee immobilizer. She will be allowed back to the intermediate. Pain controlled. Stevenson can be discontinued and 24 to 36 hours. Lab Data 05/24/23 00:00 05/24/23 00:00 Radiology Impressions Femur X-Ray 05/23/23 23:50 IMPRESSION: Irregular linear lucency extending through the distal aspect of the right femur just proximal to the femoral component of the right knee arthroplasty concerning for fracture. Tibia/Fibula X-Ray 05/23/23 23:50 IMPRESSION: 1. Cortical irregularity along the posterior aspect of the distal right fibula concerning for fracture. 2. Curvilinear lucency through the right medial malleolus which may represent a nondisplaced fracture. Chest X-Ray 05/24/23 00:27 IMPRESSION: No acute findings. Head CT 05/24/23 00:27 IMPRESSION: 1. No acute intracranial abnormality. 2. Small-vessel ischemic disease. Pelvis CT 05/24/23 00:27 IMPRESSION: No acute fracture. Knee CT 05/24/23 00:49 IMPRESSION: No acute fracture. Laboratory Results WBC 11.33 10^3/uL (3.29-11.43) 05/24/23 00:00 RBC 4.63 10^6/uL (3.85-5.65) 05/24/23 00:00 Hgb 13.70 g/dL (11.27-16.99) 05/24/23 00:00 Hct 40.4 % (36-47) 05/24/23 00:00 MCV 87.3 fl (85-98) 05/24/23 00:00 MCH 29.6 pg (27-33) 05/24/23 00:00 MCHC 33.9 g/dL (30-55) 05/24/23 00:00 RDW 13.9 % (12.1-15.1) 05/24/23 00:00 Plt Count 381 10^3/cmm (157-399) 05/24/23 00:00 MPV 9.4 fL (7.4-10.4) 05/24/23 00:00 Neut % (Auto) 70.3 % 05/24/23 00:00 Lymph % (Auto) 13.0 % 05/24/23 00:00 [place] % (Auto) 14.9 % 05/24/23 00:00 Eos % (Auto) 1.0 % 05/24/23 00:00 Baso % (Auto) 0.4 % 05/24/23 00:00 Neut # (Auto) 7.97 10^3/uL (1.8-7.7) H 05/24/23 00:00 Lymph # (Auto) 1.5 10^3/uL (0.8-4.8) 05/24/23 00:00 [place] # (Auto) 1.7 10^3/uL (0.2-0.9) H 05/24/23 00:00 Eos # (Auto) 0.1 10^3/uL (0.0-0.8) 05/24/23 00:00 Baso # (Auto) 0.1 10^3/uL (0.0-0.1) 05/24/23 00:00 Nucleated RBC % (auto) 0 % 05/24/23 00:00 Nucleated RBCs # 0.0 /100WBC 05/24/23 00:00 PT 12.90 SECONDS (12.1-14.9) 05/24/23 00:00 INR 0.94 (0.8-1.2) 05/24/23 00:00 APTT 26.3 SECONDS (23.9-36.7) 05/24/23 00:00 Sodium 133 mmol/L (136-145) L 05/24/23 00:00 Potassium 4.8 mmol/L (3.5-5.1) 05/24/23 00:00 Chloride 96 mmol/L (98-107) L 05/24/23 00:00 Carbon Dioxide 26 mmol/L (22-29) 05/24/23 00:00 Anion Gap 15.8 (5-19) 05/24/23 00:00 BUN 14 mg/dL (8-23) 05/24/23 00:00 Creatinine 0.6 mg/dL (0.5-0.9) 05/24/23 00:00 GFR Calculation Not Reportable 05/24/23 00:00 Glucose 91 mg/dL (65-115) 05/24/23 00:00 Calculated Osmolality 276 mOsm/kg (285-295) L 05/24/23 00:00 Calcium 9.2 mg/dL (8.5-10.5) 05/24/23 00:00 Total Bilirubin 0.3 mg/dL (0.15-1.2) 05/24/23 00:00 AST 20 U/L (0-32) 05/24/23 00:00 ALT 18 U/L (0-33) 05/24/23 00:00 Alkaline Phosphatase 75 U/L (35-105) 05/24/23 00:00 Total Protein 6.6 g/dL (6.6-8.7) 05/24/23 00:00 Albumin 4.2 g/dL (3.5-5.2) 05/24/23 00:00 Globulin 2.4 g/dL (1.3-4.6) 05/24/23 00:00 Urine Color Yellow (Yellow) 05/24/23 00:52 Urine Appearance Clear (CLEAR) 05/24/23 00:52 Urine pH 7 (5-7) 05/24/23 00:52 Ur Specific [place] 1.010 (1.005-1.030) 05/24/23 00:52 Urine Protein Neg (Negative) 05/24/23 00:52 Urine Glucose (UA) Norm (Normal) 05/24/23 00:52 Urine Ketones 1+ (Negative) H 05/24/23 00:52 Urine Blood Neg (Negative) 05/24/23 00:52 Urine Nitrate Negative (Negative) 05/24/23 00:52 Urine Bilirubin Neg (Negative) 05/24/23 00:52 Urine Urobilinogen Neg mg/dL (Negative) 05/24/23 00:52 Ur Leukocyte Esterase Negative (Negative) 05/24/23 00:52 All radiology interpretation(s) finalized by discharge Discharge Plan Discharge Patient Disposition: Home Clinical Impression: Fracture of distal fibula Condition: Stable Prescriptions: New oxycodone-acetaminophen [Percocet] 7.5-325 mg tablet 1 tab PO Q6H PRN (Reason: pain) Qty: 10 0RF No Action (DME) Ankle Brace Misc See Rx Instructions .ROUTE .MEDSUPPLY Qty: 1 0RF Rx Instructions: As directed nortriptyline 25 mg capsule 25 mg PO DAILY cyclobenzaprine 10 mg tablet 10 mg PO TID PRN (Reason: muscle spasm) 14 Days Qty: 42 0RF (DME) CRYSTAL ELLIS See Rx Instructions .ROUTE .MEDSUPPLY Qty: 1 0RF Rx Instructions: As directed (DME) crystal ellis See Rx Instructions .Route .MEDSUPPLY Qty: 1 0RF Rx Instructions: As directed (DME) lace up ankle brace See Rx Instructions .Route .MEDSUPPLY Qty: 1 0RF Rx Instructions: As directed clopidogrel 75 mg tablet 75 mg PO DAILY Qty: 90 0RF Hold Instructions: Resume on 08/18/22. prednisone 10 mg tablet 10 mg PO QAM Qty: 30 0RF carbamazepine 200 mg capsule, ER multiphase 12 hr 200 mg PO BID Qty: 60 5RF ondansetron HCl 4 mg tablet See Rx Instructions .ROUTE .COMPLEX Qty: 120 5RF Dose Instruction: TAKE 1 TABLET BY MOUTH EVERY 6 HOURS NEEDED Rx Instructions: TAKE 1 TABLET BY MOUTH EVERY 6 HOURS NEEDED multivitamin Tablet 1 tab PO QAM sertraline [Zoloft] 100 mg tablet 100 mg PO QAM acetaminophen 500 mg Tablet 500 - 1,000 mg PO Q6H PRN (Reason: Pain) cholecalciferol (vitamin D3) [Vitamin D3] 10 mcg (400 unit) Tablet 10 mcg PO QAM loperamide 2 mg Capsule 4 mg PO Q4H PRN (Reason: diarrhea) Qty: 30 0RF magnesium hydroxide [Milk of Magnesia] 400 mg/5 mL Suspension 30 ml PO DAILY PRN (Reason: Constipation) bisacodyl [Dulcolax (bisacodyl)] 10 mg Suppository 10 mg MD DAILY PRN (Reason: Constipation) pantoprazole [Protonix] 40 mg Tablet,Delayed Release (Dr/Ec) 40 mg PO BID Fleet Enema 19-7 gram/118 mL Enema 118 ml MD DAILY PRN (Reason: Constipation) aspirin 81 mg Tablet,Delayed Release (Dr/Ec) 81 mg PO QAM ferrous sulfate [iron] 325 mg (65 mg iron) Tablet 325 mg PO QAM polyethylene glycol 3350 [Miralax] 17 gram/dose Powder 4 g PO DAILY hydroxyzine HCl 25 mg tablet 25 mg PO BEDTIME losartan 50 mg tablet 25 mg PO QAM Qty: 90 3RF Mylanta Maximum Strength 400-400-40 mg/5 mL Suspension 5 ml PO QID PRN (Reason: Diarrhea) rosuvastatin 10 mg tablet 10 mg PO QPM Discharge Orders: Discharge ED (Routine); Ordered 05/24/23 Ordered By: Luis Eduardo Eldridge Referrals: Rich Elizalde DO [Physician] - 4-7 days Chicho Young DO [Primary Care Provider] - Patient Instructions: Ankle Fracture (ED), Opioid Safety, Pain Management Activity Restrictions/Additional Instructions: No weightbearing to the right lower extremity. Continue splint until seen by orthopedics this coming week. Use pain medication sparingly. Ice can help with pain. Return for any problems in the meantime. Coding Level of Care Code ED [employer] Education [employer] for [employer]
[2023-05-24] VITALS (7 sets, daily range): BP systolic 115–205; BP diastolic 53–100; PULSE 76–88; RESP 18–22; O2SAT 91–99
--- NOTE | 2023-05-24 00:27 | CTR_ITS ---
PROCEDURE INFORMATION: Exam: CT Head Without Contrast Exam date and time: 05/24/2023 1:23 AM Age: 82 years old Clinical indication: Injury or trauma; Blunt trauma (contusions or hematomas); Patient HX: EMS arrival from retirement for witnessed fall. C/O RT hip pain. Lucency noted on distal femur around prosthesis. ; Additional info: Fall hip FX TECHNIQUE: Imaging protocol: Computed tomography of the head without contrast. Radiation optimization: All CT scans at this facility use at least one of these dose optimization techniques: automated exposure control; mA and/or kV adjustment per patient size (includes targeted exams where dose is matched to clinical indication); or iterative reconstruction. REPORTING DATA: Count of CT and Cardiac NM exams in prior 12 months: This patient has received 15 known CTs and 0 known cardiac nuclear medicine studies in the 12 months prior to the current study. COMPARISON: CT angio headneck* [id number] 02/14/2023 3:47 PM RADIATION DOSE METRICS: Total DLP (mGy-cm): 1075.78 FINDINGS: Brain: Subcortical and periventricular white matter changes consistent with small-vessel ischemic disease in the appropriate clinical setting. Small-vessel ischemic disease. No acute intracranial abnormality. Cerebral ventricles: No ventriculomegaly. Paranasal sinuses: Visualized sinuses are unremarkable. No fluid levels. Mastoid air cells: Visualized mastoid air cells are well aerated. Bones/joints: Unremarkable. No acute fracture. Soft tissues: Unremarkable. CT/CT head wo con* [id number] IMPRESSION: 1. No acute intracranial abnormality. 2. Small-vessel ischemic disease.
--- NOTE | 2023-05-24 00:27 | XRR_ITS ---
PROCEDURE INFORMATION: Exam: XR Chest Exam date and time: 05/24/2023 12:43 AM Age: 82 years old Clinical indication: Injury or trauma; Blunt trauma (contusions or hematomas); Prior surgery; Surgery date: 6+ months; Surgery type: Pacer. Spleen; Patient HX: [facility]. ; Additional info: Fall hip FX TECHNIQUE: Imaging protocol: Radiologic exam of the chest. Views: 1 view. COMPARISON: CT angio chest PE prot [id number] 02/15/2023 2:16 PM FINDINGS: Lungs: Unremarkable. No consolidation. Pleural spaces: Unremarkable. No pleural effusion. No pneumothorax. Heart/Mediastinum: Unremarkable. No cardiomegaly. Bones/joints: Unremarkable. XR/XR chest 1V portable [id number] IMPRESSION: No acute findings.
--- NOTE | 2023-05-24 00:27 | CTR_ITS ---
PROCEDURE INFORMATION: Exam: CT Pelvis Without Contrast; Skeletal Exam date and time: 05/24/2023 1:26 AM Age: 82 years old Clinical indication: Injury or trauma; Blunt trauma (contusions or hematomas); Right; Prior surgery; Surgery date: 6+ months; Surgery type: Tka; Patient HX: [facility] for witnessed fall. C/O RT hip pain. Lucency noted on distal femur around prosthesis. ; Additional info: R hip FX TECHNIQUE: Imaging protocol: Computed tomography of the pelvis without contrast. Exam focused on the skeleton. Radiation optimization: All CT scans at this facility use at least one of these dose optimization techniques: automated exposure control; mA and/or kV adjustment per patient size (includes targeted exams where dose is matched to clinical indication); or iterative reconstruction. REPORTING DATA: Count of CT and Cardiac NM exams in prior 12 months: This patient has received 15 known CTs and 0 known cardiac nuclear medicine studies in the 12 months prior to the current study. COMPARISON: [place] [id number] 02/14/2023 3:41 PM RADIATION DOSE METRICS: Total DLP (mGy-cm): 878.99 FINDINGS: Bones/joints: No acute fracture or dislocation. Lower lumbar spondylosis. Bilateral hip and sacroiliac osteoarthritis. Soft tissues: Rectus diastasis. Colonic diverticulosis. Stevenson catheter in the bladder. CT/CT bony pelvis [id number] IMPRESSION: No acute fracture.
[2023-05-24 00:36] LABS: Basophils # 0.1 10^3/uL (0.0-0.1); Basophils % 0.4 %; Eosinophils # 0.1 10^3/uL (0.0-0.8); Hematocrit 40.4 % (36-47); Lymphocytes # 1.5 10^3/uL (0.8-4.8); Mean Corpuscular HGB Conc 33.9 g/dL (30-55); Mean Corpuscular Hemoglobin 29.6 pg (27-33); Mean Corpuscular Volume 87.3 fl (85-98); Mean Platelet Volume 9.4 fL (7.4-10.4); Monocytes # 1.7 10^3/uL (0.2-0.9); Monocytes % 14.9 %; Neutrophils # 7.97 10^3/uL (1.8-7.7); Neutrophils % 70.3 %; Nucleated Red Blood Cells % 0 %; Platelet Count 381 10^3/cmm (157-399); Red Blood Count 4.63 10^6/uL (3.85-5.65); Red Cell Distribution Width 13.9 % (12.1-15.1); White Blood Count 11.33 10^3/uL (3.29-11.43)
--- NOTE | 2023-05-24 00:42 | PC.NURSE ---
Daughter Yojana called to check on Patient. She is aware that she took a fall at the care home this evening and that xrays are pending. Pts primary nurse, Becki CHURCH notified.
--- NOTE | 2023-05-24 00:44 | PC.NURSE ---
Verbal order given per Dr Eldridge to insert chavarria catheter.
[2023-05-24 00:48] LABS: INR 0.94 (0.8-1.2); Partial Thromboplastin Time 26.3 SECONDS (23.9-36.7)
--- NOTE | 2023-05-24 00:49 | CTR_ITS ---
PROCEDURE INFORMATION: Exam: CT Right Lower Extremity Without Contrast, Knee Exam date and time: 05/24/2023 1:29 AM Age: 82 years old Clinical indication: Injury or trauma; Blunt trauma; Knee; Right; Prior surgery; Surgery date: 6+ months; Surgery type: Tka; Patient HX: EMS arrival from retirement for witnessed fall. C/O RT hip pain. Lucency noted on distal femur around prosthesis. ; Additional info: Questionablel periprosthetic FX distal femur TECHNIQUE: Imaging protocol: CT of the right lower extremity without contrast was performed. Exam focused on the knee. Radiation optimization: All CT scans at this facility use at least one of these dose optimization techniques: automated exposure control; mA and/or kV adjustment per patient size (includes targeted exams where dose is matched to clinical indication); or iterative reconstruction. REPORTING DATA: Count of CT and Cardiac NM exams in prior 12 months: This patient has received 15 known CTs and 0 known cardiac nuclear medicine studies in the 12 months prior to the current study. COMPARISON: CR (LOW EXM, ) 05/24/2023 12:09 AM RADIATION DOSE METRICS: Total DLP (mGy-cm): 326.83 FINDINGS: Bones/joints: Right total knee arthroplasty. Hardware is intact and in appropriate position. Sagittally oriented linear lucency in the anterior proximal tibia, appears unchanged from 10/27 22 radiographs, most likely prominent nutrient foramen. Evaluation of the proximal most fibular head is somewhat limited due to streak artifact from prosthesis, but no obvious fracture identified. Soft tissues: Small joint effusion. Mild swelling proximal pretibial soft tissues. CT/CT knee RT wo con* [id number] IMPRESSION: No acute fracture.
[2023-05-24 00:52] LABS: Blood Urea Nitrogen 14 mg/dL (8-23); Carbon Dioxide 26 mmol/L (22-29); Total Bilirubin 0.3 mg/dL (0.15-1.2)
[2023-05-24 00:59] LABS: Add Urine Microscopic? NO; Charge for UA Resulting for Rev
[2023-05-24 01:09] LABS: Bilirubin Urine Neg (Negative); Blood Urine Neg (Negative); Glucose Urine UA Norm (Normal); Ketones Urine 1+ (Negative); Leukocyte Esterase Urine Negative (Negative); Nitrate Urine Negative (Negative); Protein Urine Neg (Negative); Urine Appearance Clear (CLEAR); Urine Color Yellow (Yellow); Urobilinogen Urine Neg (Negative); pH Urine 7 (5-7)
[2023-05-24 01:16] LABS: Alanine Aminotransferase 18 U/L (0-33); Albumin Level 4.2 g/dL (3.5-5.2); Alkaline Phosphatase 75 U/L (35-105); Aspartate Amino Transferase 20 U/L (0-32); Calcium 9.2 mg/dL (8.5-10.5); Chloride 96 mmol/L (98-107); Globulin 2.4 g/dL (1.3-4.6); Glucose 91 mg/dL (65-115); Osmolality Calculated 276 mOsm/kg (285-295); Sodium 133 mmol/L (136-145); Total Protein 6.6 g/dL (6.6-8.7)
[2023-05-24 01:19] LABS: Anion Gap 15.8 (5-19); Potassium 4.8 mmol/L (3.5-5.1)
[2023-05-24] MEDS: morphine 4 mg/mL SDV 1 mL 2 MG IVP (02:09)
--- NOTE | 2023-05-24 02:57 | PC.NURSE ---
Dr Eldridge gave verbal order to give 0.5mg dilaudid IVP once. Order put in.
[2023-05-24] MEDS: HYDROmorphone 1 mg/mL INJ 1 mL 0.5 MG IVP ×2 (03:00→05:13)
[2023-05-24] MEDS: hyDROXYzine 25 mg Capsule PO ×2 (03:53→05:47)
== END 2023-05-24 07:41 | disposition home or self-care (01) ==
PROVIDERS: Emergency Provider Emergency Medicine; PCP Family Medicine
DX: S82.831A Other fracture of upper and lower end of right fibula, initial encounter for closed fracture (principal); Z79.82 Long term (current) use of aspirin; Z79.02 Long term (current) use of antithrombotics/antiplatelets; E78.5 Hyperlipidemia, unspecified; E11.9 Type 2 diabetes mellitus without complications; I10 Essential (primary) hypertension; Z95.0 Presence of cardiac pacemaker; W04.XXXA Fall while being carried or supported by other persons, initial encounter; Y92.129 Unspecified place in nursing home as the place of occurrence of the external cause
CPT/HCPCS: 29515; 51702; 70450; 71045; 72192; 73552; 73590; 73700; 80053; 81003; 85025; 85610; 85730; 96374; 96375; 96376; 99285; J1170; J2270; J2405

== ENCOUNTER → 2023-06-03 13:11 | Outpatient (BNVA) | payer MEDICARE, OTHER, MEDICAID, SELFPAY | PROVIDERS: PCP Family Medicine; Visit Provider Physician Assistant | DX: S82.841A Displaced bimalleolar fracture of right lower leg, initial encounter for closed fracture; W19.XXXA Unspecified fall, initial encounter; Z95.0 Presence of cardiac pacemaker; I65.29 Occlusion and stenosis of unspecified carotid artery; Z95.828 Presence of other vascular implants and grafts | CPT/HCPCS: 73610; 99204 ==

== ENCOUNTER → 2023-06-10 13:46 | Outpatient (BNVA) | payer MEDICARE, OTHER, MEDICAID, SELFPAY | PROVIDERS: PCP Family Medicine; Visit Provider Internal Medicine Cardiovascular Disease | DX: S82.841A Displaced bimalleolar fracture of right lower leg, initial encounter for closed fracture (principal); Y99.9 Unspecified external cause status; Z98.890 Other specified postprocedural states; Z95.828 Presence of other vascular implants and grafts; I65.29 Occlusion and stenosis of unspecified carotid artery; E78.5 Hyperlipidemia, unspecified; I10 Essential (primary) hypertension; Z95.0 Presence of cardiac pacemaker | CPT/HCPCS: 99214 ==

== ENCOUNTER 2023-06-13 11:04 | Day surgery (SDC) | payer MEDICARE, OTHER, MEDICAID, SELFPAY ==
[2023-06-13] VITALS (8 sets, daily range): BP systolic 101–153; BP diastolic 46–100; PULSE 80–95; RESP 16–18; TEMP 36–36.1; O2SAT 91–97; BMI 42.3
[2023-06-13] MEDS: acetaminophen 1,000 MG/100 ML PIGGYBACK 400 MG IV (11:45)
[2023-06-13] MEDS: sodium chloride 0.9% 1,000 ML 30 ML IV (11:45)
[2023-06-13] MEDS: gabapentin 300 mg Capsule PO (11:47)
--- NOTE | 2023-06-13 12:29 | ECG_ITS ---
[facility] Test Date: 2023-06-13 Pat Name: Mindy Verma Department: Room: Gender: Female Litigation Examiner: : 1940 Requested By: Carlos Tavarez Order Number: [id number] Oswaldo MD: Fatmata Greenberg M.D. Measurements Intervals [place] Rate: 78 P: 12 [place]: 230 QRS: -30 QRSD: 97 T: 74 QT: 413 QTc: 470 Interpretive Statements SINUS RHYTHM WITH FIRST DEGREE AV BLOCK VOLTAGE CRITERIA FOR LVH [MEETS CRITERIA IN ONE OF: R(aVL), S(V1), R(V5), R(V5/V6)+S(V1)] POSSIBLE SEPTAL MYOCARDIAL INFARCTION , OF INDETERMINATE AGE [30 ms Q WAVE IN V1/V2] Compared to ECG 02/14/2023 22:29:23 Myocardial infarct finding now present ST (T wave) deviation no longer present Electronically Signed On 06-13-2023 16:20:07 PRODUCE TEAM LEAD by Fatmata Greenberg M.D. [id number]
--- NOTE | 2023-06-13 12:48 | P.HPUD_ITS ---
Surgery/Procedure H&P Update DATE OF PROCEDURE: June 13, 2023 DATE H&P PERFORMED: 06/03/23 H&P UPDATE INFORMATION: I have reviewed H&P completed within last 30 days, I have examined patient prior to procedure, No changes to prior documentation and H&P is in [facility] EMR on date indicated PLANNED PROCEDURE: Operation Date: 06/13/23 13:05 Proposed Procedures p Open reduction internal fixation right bimalleolar ankle fracture [id number],S82.841A(Right) - Alistair Moreno DPM
[2023-06-13] MEDS: ceFAZolin 2,000 MG in sodium chloride 0.9% (plus) 50 ML 100 MG IV (13:21)
--- NOTE | 2023-06-13 14:11 | P.ANESASSM_ITS ---
Pre-Anesthetic Assessment Height/Weight: Height 1.6 m Weight 108.409 kg Temp Pulse Resp BP Pulse Ox O2 Del Method 96.8 F L 89 18 153/100 93 Room Air 06/13/23 11:29 06/13/23 11:29 06/13/23 11:29 06/13/23 11:29 06/13/23 11:29 06/13/23 11:29 Operation Date: 06/13/23 13:05 Proposed Procedures p Open reduction internal fixation right bimalleolar ankle fracture [id number],S82.841A(Right) - Alistair Moreno DPM Familial anesthetic complications: none Was Beta Liban taken within 24 hours: N/A Was Clonidine taken within 24 hours: N/A Last intake: Intake Last Liquid Date 06/12/23 Last Liquid Time 17:00 Last Solid Date 06/12/23 Last Solid Time 17:00 Social No alcohol and No tobacco Exam alert, oriented x 3, clear to auscultation bilaterally and regular rate & rhythm Airway Submandibular: within normal limits Cervical ROM: within normal limits Mallampati: Class II Dentition: chipped CV/HEM Anemia, Hypertension and Peripheral Vascular Disease Non-functioning pacemaker GI Gastroesophageal Reflux Disease Metabolic Hyperlipidemia and Morbid Obesity Chronic steroid Anesthetic Plan ASA status: 3 Anesthesia: General and Regional (specify below) (right pop blk) Medications/Allergies Home Medications Medication Instructions Recorded Confirmed Last Taken Type multivitamin 1 tab PO QAM 10/29/20 06/13/23 06/12/23 History aspirin 81 mg tablet,delayed 81 mg PO QAM 06/18/22 06/13/23 06/12/23 History release ferrous sulfate 325 mg (65 mg 325 mg PO QAM 06/18/22 06/13/23 06/11/23 History iron) tablet (iron) acetaminophen 500 mg tablet 500 - 1,000 mg PO Q6H PRN Pain 07/14/22 06/13/23 06/13/23 History cholecalciferol (vitamin D3) 10 10 mcg PO QAM 07/14/22 06/13/23 06/12/23 History mcg (400 unit) tablet (Vitamin D3) sertraline 100 mg tablet (Zoloft) 100 mg PO QAM 07/14/22 06/13/23 06/12/23 History loperamide 2 mg capsule 4 mg (2 x 2 mg) PO Q4H PRN 07/17/22 06/13/23 2 Weeks Ago Rx diarrhea #30 caps ~08/02/22 CAM WALKER #1 ea 07/18/22 06/03/23 Unknown Rx bisacodyl 10 mg rectal suppository 10 mg UT DAILY PRN Constipation 07/22/22 06/13/23 08/15/22 History (Dulcolax (bisacodyl)) magnesium hydroxide 400 mg/5 mL 30 ml PO DAILY PRN Constipation 07/22/22 06/13/23 Unknown History oral suspension (Milk of Magnesia) pantoprazole 40 mg tablet,delayed 40 mg PO BID 07/22/22 06/13/23 06/12/23 History release (Protonix) sodium phosphates 19 gram-7 118 ml UT DAILY PRN Constipation 07/22/22 06/13/23 Unknown History gram/118 mL enema (Fleet Enema) leg brace (Ankle Brace) #1 ea 09/02/22 06/03/23 Unknown Rx cam walker #1 ea 12/19/22 06/03/23 Unknown Rx lace up ankle brace #1 ea 01/03/23 06/03/23 Unknown Rx hydroxyzine HCl 25 mg tablet 25 mg PO BEDTIME 01/08/23 06/13/23 06/12/23 History polyethylene glycol 3350 17 4 g PO DAILY 01/08/23 06/13/23 06/10/23 History gram/dose oral powder (Miralax) losartan 50 mg tablet 25 mg (1/2 x 50 mg) PO QAM #90 tabs 01/10/23 06/13/23 06/12/23 Rx clopidogrel 75 mg tablet 75 mg PO DAILY #90 tabs 02/12/23 06/13/23 06/10/23 Rx prednisone 10 mg tablet 10 mg PO QAM TO EASE PAIN OF PMR 02/12/23 06/13/23 06/12/23 Rx #30 tabs aluminum-mag hydroxide-simethicone 5 ml PO QID PRN Diarrhea 02/14/23 06/13/23 Unknown History 400 mg-400 mg-40 mg/5 mL oral susp (Mylanta Maximum Strength) rosuvastatin 10 mg tablet 10 mg PO QPM 02/14/23 06/13/23 06/12/23 History carbamazepine 200 mg 200 mg PO BID #60 caps 02/17/23 06/13/23 06/12/23 Rx capsule,extended release [id number] oxycodone-acetaminophen 7.5 mg-325 1 tab PO Q6H PRN pain #10 tabs 05/24/23 06/13/23 06/12/23 Rx mg tablet (Percocet) cyclobenzaprine 10 mg tablet 5 mg PO TID PRN muscle spasm 06/13/23 06/13/23 06/12/23 History hydrocodone 5 mg-acetaminophen 325 1 tab PO Q6H PRN pain #28 tabs 06/13/23 Un known Rx mg tablet Allergies Allergy/AdvReac Type Severity Reaction Status Date / Time codeine Allergy Mild Itch Verified 06/13/23 11:15 naltrexone Allergy Unknown Verified 06/13/23 11:15 diphenhydramine AdvReac Mild Hallucinati Verified 06/13/23 11:15 [From Benadryl] ons Current Medications Generic Name Dose Route Start Last Admin Trade Name Freq PRN Reason Stop Dose Admin Sodium Chloride 1,000 mls @ 30 mls/hr 06/13/23 11:15 06/13/23 11:45 Sodium Chloride 0.9% IV 06/14/23 11:14 30 mls/hr .Q24H RAFAEL Administration PFSH Anesthesia Medical History History of common carotid artery stent placement Carotid stenosis Fracture of distal fibula 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 Colitis Facial pain Left ankle pain Hypovolemic shock Dehydration Diarrhea Septic shock Pacemaker Hyperlipidemia associated with type 2 diabetes mellitus Sick sinus syndrome Depression Hyperlipidemia Hypertension Mesenteric artery stenosis Ileus Colitis Abnormal CT of the abdomen Enteritis Surgical History History of knee replacement History of splenectomy History of ankle surgery Status post colonoscopy Family History Mother Stroke Social History Smoking and tobacco/nicotine status: never used tobacco/nicotine Alcohol intake: never Data Anesthesia Cardiac Studies: Echocardiogram 01/08/23 Cardiac Event Monitor 03/03/23
--- NOTE | 2023-06-13 14:13 | ANES.PROC ---
Anesthesia Procedures Procedure/Date: 06/13/23 Nerve Block ^: Nerve Block 1: Main Anesthesia: general anesthesia Time Out Performed: Yes Consent: requested by attending/covering physician, from patient, risks and benefits reviewed and patient agrees to proceed Nerve block location: popliteal (right) Anesthesia monitors applied: pulse oximetry, EKG, BP cuff and oxygen Nerve block position: supine Anesthetic Used: ropivicaine 0.5% Amount of anesthesia used (mL): 30 Ultrasound used to: recognize landmarks Nerve Stimulator Used?: No Interscalene/Femoral BLK: 4 stimuplex 21 g needle used for position and inplane approach Injection: neg aspiration of heme Patient Tolerated Procedure: well Complications: none
[2023-06-13] MEDS: BUPivacaine 0.5% INJ 30 mL XX (15:11)
--- NOTE | 2023-06-13 15:42 | P.BOP_ITS ---
Date of procedure: 06/13/23 Surgeon name: Dr. Alistair Moreno D.P.M. Poultry Offal Worker(s) name(s): None Procedure(s) performed: Open reduction internal fixation right ankle bimalleolar ankle fracture Description of findings: Displaced bimalleolar ankle fracture right ankle Estimated blood loss: 75 cc Tourniquet time: 89 minutes Specimen(s) removed: None Post-operative diagnosis: Right bimalleolar ankle fracture
--- NOTE | 2023-06-13 15:44 | PM.OP ---
Operative Report Date of procedure: June 13, 2023 Pre-op diagnosis: Right bimalleolar ankle fracture Post-op diagnosis: Same Post-op findings: Anatomic reduction of bimalleolar ankle fracture Procedure done: Open reduction internal fixation right bimalleolar ankle fracture CPT code 71108 Implants: Anatomic fibular plate, 3.5 by 2.7 locking screws with 3.5 partially-threaded headed screws all from [place] 28 Specimens removed/disposition: None Pathology: None Surgeon: Alistair Moreno DPM Estimated blood loss: 75 cc 89 minutes Complications: None Findings: See above Procedure: Patient is a 82-year-old female that has a history of right bimalleolar ankle fracture. The extent of the injury and inherent stability of the fracture pattern necessitates open reduction internal fixation. A lengthy discussion regarding the procedure, including risks and complications has been had with the patient and is noted in the recent clinic note. Written and verbal consent have been obtained. All patient questions have been answered to the patient?s satisfaction. No written or verbal guarantees have been given or implied. The patient has been NPO since midnight. The history has been reviewed and the history and physical is current. The signed consent was confirmed and placed in the patient chart. Patient imaging has been reviewed and is consistent with the diagnosis. Under mild sedation, the patient was brought into the operating room and placed on the table in the supine position. IV antibiotics were given by the anesthesia team as preoperative surgical prophylaxis. General sedation was then performed by the anesthesiateam. The patient received a popliteal block by anesthesia department. A pneumatic tourniquet was then placed about the right thigh. The operative extremity was then prepped and draped in the usual fashion. The extremity was then elevated and exsanguinated before the tourniquet was inflated to 325 mmHg. After inflation, the following procedure was then performed. Attention was directed to the lateral aspect of the right ankle where a 10 cm incision was made overlying the fibula. This incision was made using a #15 blade. Dissection was carried down through subcutaneous and superficial fascia to the level of the fibular periosteum. This was incised and dissected to expose the fibular fracture. Hematoma was debrided from the fracture using combination of rongeur and curette. Attempts were made at reduction of the fracture pattern. This was difficult to reduce. Attention was directed to the medial aspect of the ankle where an 8 cm incision was made using #15 blade. Dissection was carried down to the level of the medial malleolus. Fracture was visualized and hematoma was removed using rongeur and curette. The medial malleolus fragment was immobilized and the ankle was reduced to an appropriate anatomic position. The fibula was clamped and reduced. An anatomic fibular plate was placed to the lateral aspect of the fibula. The holes of the plate were drilled and filled per the manufacture protocol. 3.5 mm locking screws were used proximally and 2.7 mm locking screws were used distally. Attention was directed to the medial malleolus. [id number] reduction clamp was used to reduce the medial malleolus fragment. 2 guidewires were drilled across the fracture site before 3.5 mm partially-threaded, headed screws were inserted over the wires across the fracture site. Good positioning of all hardware was noted clinically as well as on C-arm imaging. The talus was noted to sit within the mortise congruently. The incision sites were irrigated with copious nonsterile saline. The fibula was stressed and the syndesmosis was noted to be intact without compromise. Attention was then directed to closure. Deep tissue was closed with 2-0 Vicryl followed by subcuticular closure with 3-0 Vicryl skin closed with 3-0 nylon in horizontal mattress fashion. The tourniquet was let down and good hyperemic response was noted to all digits of the right foot. Incision site was dressed with Xeroform, 4 x 4 gauze, Kerlix before being placed in a well-padded below-knee posterior splint The patient tolerated the procedure and anesthesia well and without complication. The patient was transported from the operating room to the recovery room with vital signs stable and vascular status intact to all digits of the right foot. The patient was given both written and verbal instructions to remain nonweightbearing to the operative extremity, to keep dressings/splint clean, dry and intact and to take pain medication as directed. The patient will follow-up in the outpatient setting at their scheduled appointment. The patient was discharged with my personal number and was instructed to call if any questions or issues should arise. They were discharged home once anesthesia criteria was met.
--- NOTE | 2023-06-13 15:46 | XRR_ITS ---
PROCEDURE INFORMATION: Exam: XR Right Ankle Exam date and time: 06/13/2023 4:54 PM Age: 82 years old Clinical indication: Device placement; Joint fixation hardware; Prior surgery; Surgery date: Post-operative (0-2 days); Surgery type: Right ankle; Additional info: Postop, thank you TECHNIQUE: Imaging protocol: Radiologic exam of the right ankle. Views: 3 or more views. COMPARISON: CR XR ankle RT min 3V* [id number] 06/03/2023 1:23 PM FINDINGS: Bones/joints: Images are obtained through a cast obscuring bony detail. The distal fibular fracture has been internally fixated with a plate anchored laterally with multiple intact screws. Two interact screws stabilize the medial malleolar fracture. Apposition and alignment of the fracture fragments is satisfactory. Ankle mortise is normal. Soft tissues: Normal. XR/XR ankle RT min 3V* [id number] IMPRESSION: Satisfactory ORIF of previously noted distal fibular and medial malleolar fractures. No adverse operative findings.
[2023-06-13] MEDS: HYDROcodone-acetaminophen 5-325 mg Tablet 1 TAB PO (16:23)
--- NOTE | 2023-06-14 10:04 | ANE.PACU2 ---
Inpatient post-anesthesia follow up: Airway intact: Yes Vital signs: Temperature 97 F Pulse Rate 80 Respiratory Rate 16 Blood Pressure 120/50 Pulse Oximetry 94 Oxygen Delivery Me thod Room Air Oxygen Flow Rate 6 Fraction of Inspir ed Oxygen Hydration adequate: Yes Nausea and vomiting: No Pain level: 2 Mental status: Baseline
== END 2023-06-13 16:52 | disposition home or self-care (01) ==
PROVIDERS: PCP Family Medicine; Visit Provider Podiatrist Foot & Ankle Surgery
PROC: (CPT 27814; principal; 2023-06-13 12:55)
DX: S82.841A Displaced bimalleolar fracture of right lower leg, initial encounter for closed fracture (principal); W19.XXXA Unspecified fall, initial encounter; I10 Essential (primary) hypertension; Z95.0 Presence of cardiac pacemaker; K21.9 Gastro-esophageal reflux disease without esophagitis; E78.5 Hyperlipidemia, unspecified; E66.01 Morbid (severe) obesity due to excess calories; Z68.41 Body mass index [BMI] 40.0-44.9, adult; Z79.52 Long term (current) use of systemic steroids; Z79.82 Long term (current) use of aspirin; E11.69 Type 2 diabetes mellitus with other specified complication
CPT/HCPCS: 27814; 73610; 76000; 93005; C1713; J0131; J0690; J1170; J2704; J2795; J3010; J3490; J7030; P9045

== ENCOUNTER → 2023-06-25 14:56 | Outpatient (BNVA) | payer MEDICARE, OTHER, MEDICAID, SELFPAY | PROVIDERS: PCP Family Medicine; Visit Provider Podiatrist Foot & Ankle Surgery | DX: S82.841A Displaced bimalleolar fracture of right lower leg, initial encounter for closed fracture (principal); X58.XXXA Exposure to other specified factors, initial encounter | CPT/HCPCS: 29405; 73610; 99024 ==

== ENCOUNTER → 2023-07-09 14:19 | Outpatient (BNVA) | payer MEDICARE, OTHER, MEDICAID, SELFPAY | PROVIDERS: PCP Family Medicine; Visit Provider Podiatrist Foot & Ankle Surgery | DX: Z98.890 Other specified postprocedural states; S82.841D Displaced bimalleolar fracture of right lower leg, subsequent encounter for closed fracture with routine healing; X58.XXXD Exposure to other specified factors, subsequent encounter; Z95.0 Presence of cardiac pacemaker; I65.29 Occlusion and stenosis of unspecified carotid artery; Z95.828 Presence of other vascular implants and grafts | CPT/HCPCS: 73610; 99024 ==

== ENCOUNTER 2023-07-23 06:00 | Outpatient (CLI) | payer MEDICARE, OTHER, MEDICAID, SELFPAY | END 2023-07-23 06:01 | disposition home or self-care (01) | LOC: SPT 07-24 08:31 | PROVIDERS: Visit Provider Podiatrist Foot & Ankle Surgery | DX: Z46.89 Encounter for fitting and adjustment of other specified devices (principal); S82.841D Displaced bimalleolar fracture of right lower leg, subsequent encounter for closed fracture with routine healing; X58.XXXD Exposure to other specified factors, subsequent encounter | CPT/HCPCS: 97760; 99024; L4361 ==

== ENCOUNTER → 2023-07-23 15:05 | Outpatient (BNVA) | payer MEDICARE, OTHER, MEDICAID, SELFPAY | PROVIDERS: PCP Family Medicine; Visit Provider Podiatrist Foot & Ankle Surgery | DX: Z98.890 Other specified postprocedural states; S82.841D Displaced bimalleolar fracture of right lower leg, subsequent encounter for closed fracture with routine healing; X58.XXXD Exposure to other specified factors, subsequent encounter; Z95.0 Presence of cardiac pacemaker; I65.29 Occlusion and stenosis of unspecified carotid artery; Z95.828 Presence of other vascular implants and grafts; Z46.89 Encounter for fitting and adjustment of other specified devices | CPT/HCPCS: 73610; 97760; 99024; L4361 ==

== ENCOUNTER → 2023-08-06 14:52 | Outpatient (BNVA) | payer MEDICARE, OTHER, MEDICAID, SELFPAY | PROVIDERS: PCP Family Medicine; Visit Provider Podiatrist Foot & Ankle Surgery | DX: S82.841D Displaced bimalleolar fracture of right lower leg, subsequent encounter for closed fracture with routine healing; X58.XXXD Exposure to other specified factors, subsequent encounter; Z98.890 Other specified postprocedural states; Z95.0 Presence of cardiac pacemaker; I65.29 Occlusion and stenosis of unspecified carotid artery; Z95.828 Presence of other vascular implants and grafts | CPT/HCPCS: 73610; 99024 ==

== ENCOUNTER 2023-08-16 22:57 | Emergency (ER) | payer MEDICARE, OTHER, MEDICAID, SELFPAY ==
[2023-08-16 23:02] VITALS: BP 125/72; PULSE 87; RESP 22; O2SAT 95
--- NOTE | 2023-08-16 23:08 | XRR_ITS ---
PROCEDURE INFORMATION: Exam: XR Chest Exam date and time: 08/16/2023 11:23 PM Age: 82 years old Clinical indication: Cough and shortness of breath; Prior surgery; Surgery date: 6+ months; Surgery type: Pacer. Splenectomy. Patient HX: Cough with SOB. ; Additional info: SOB, cough TECHNIQUE: Imaging protocol: Radiologic exam of the chest. Views: 1 view. COMPARISON: CR XR chest 1V portable [id number] 24/05/2023 00:43 FINDINGS: Tubes, catheters and devices: Intact dual lead left subclavian pacemaker. Vascular coils in the left upper abdomen. Lungs: Mild peribronchial cuffing. No consolidation. Pleural spaces: Unremarkable. No pleural effusion. No pneumothorax. Heart/Mediastinum: Unremarkable. No cardiomegaly. Bones/joints: Severe degenerative changes in the left glenohumeral joint. XR/XR chest 1V portable [id number] IMPRESSION: 1. Mild peribronchial cuffing could indicate bronchitis. No pneumonia.
--- NOTE | 2023-08-16 23:10 | ED_ITS ---
Documented by User: DYLAN Cortez 08/17/23 00:09 HPI - General Adult 2 General: Chief complaint: Urogenital-Female Stated complaint: URINATION ISSUE Time Seen by Provider: 08/16/23 22:58 Source: patient and EMS Mode of arrival: EMS Limitations: no limitations History of Present Illness: Patient is an 82-year-old female with an extensive PMH here from her custodial for multiple complaints. Patient herself actually is not sure why she is here. According to EMS report patient has been complaining of some burning with urination. Patient tells me this has been present for approximately 2 months. The custodial states that they were not able to get a urine analysis until Friday so wanted her seen for that. care home report also states that patient has complained of some shortness of breath as well as a cough over the past 2 weeks. She reportedly has had a CXR that showed fluid on her lungs . Patient arrives satting 95% on room air. During physical exam she does tell me she has had some left calf pain. She tells me she has had surgery to her right leg/foot approximately 1-2 months ago. She reports she is essentially wheelchair bound and immobile. Onset (ago): week(s) Relieving factors: none Exacerbating factors: none Associated symptoms: Reports dyspnea; Deny chest pain, headache(s), malaise, nausea, rash, palpitations, syncope or vomiting Treatments prior to arrival: none Review of Systems 2 Const: Denies: fever(s), chills, body aches, fatigue or malaise Eyes: Denies: change in vision or blurry vision Card: Denies: chest pain, palpitations, irregular heart rhythm, lightheadedness, syncope or dyspnea on exertion Resp: Reports: dyspnea, non-productive cough and chest congestion; Denies: productive cough, wheezing, pain on inspiration or hemoptysis GI: Denies: abdominal pain, nausea, vomiting, heartburn or diarrhea : Reports: dysuria; Denies: flank pain, difficulty voiding, urinary frequency, urinary urgency, urinary hesitancy, hematuria or pelvic pain Musc: Reports: extremity pain (L calf); Denies: neck pain, back pain, extremity swelling, joint pain, joint swelling or joint redness Skin/Breast: Denies: rash Neuro: Denies: headache(s), numbness in extremities, weakness in extremities, sensory changes or dizziness PFSH ED 2 PFSH: Medical History History of common carotid artery stent placement Carotid stenosis Fracture of distal fibula 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 Colitis Facial pain Left ankle pain Hypovolemic shock Dehydration Diarrhea Septic shock Pacemaker Hyperlipidemia associated with type 2 diabetes mellitus Sick sinus syndrome Depression Hyperlipidemia Hypertension Mesenteric artery stenosis Ileus Colitis Abnormal CT of the abdomen Enteritis Surgical History History of knee replacement History of splenectomy History of ankle surgery Status post colonoscopy Family History Mother Stroke Social History Smoking and tobacco/nicotine status: never used tobacco/nicotine Alcohol intake: never Physical Exam 2 Const: COMMON NORMALS: no acute distress, patient oriented x3, no limitations and alert GENERAL APPEARANCE: cooperative NUTRITIONAL APPEARANCE: obese morbidly obese (BMI 42.5) ORIENTATION/CONSCIOUSNESS: Yes awake, Yes oriented to person, Yes oriented to place and Yes oriented to time HENMT: COMMON NORMALS: normocephalic and atraumatic HEAD & SCALP: normal to inspection, normocephalic and atraumatic FACE & SINUS: normal facial exam Eye: COMMON NORMALS: no scleral icterus Neck/C-Spine: COMMON NORMALS: full ROM and no lymphadenopathy Chest: COMMONS NORMALS: normal inspection of the chest and normal palpation of entire chest wall Resp: COMMON NORMALS: normal respiratory effort and clear to auscultation bilaterally AUSCULTATION: clear to auscultation bilaterally Cardio: COMMON NORMALS: regular rate and regular rhythm RATE: regular rate RHYTHM: regular rhythm GI: COMMON NORMALS: Normal to inspection, nondistended, normoactive bowel sounds present, Soft to palpation, non-tender, No hepatosplenomegaly present and no masses PALPATION: Yes Soft to palpation and Yes No hepatosplenomegaly present Extremity: NARRATIVE EXTREMITY EXAM: R LE in her instructed CAM boot; she has tenderness to the L calf without obvious erythema or edema; extremities are NV intact Neuro: COMMON NORMALS: patient oriented x3, moves all extremities, no focal motor deficits and no sensory deficits noted SENSORIUM/ORIENTATION: Yes alert, Yes oriented to person, Yes oriented to place and Yes oriented to time Skin: COMMON NORMALS: no rashes or lesions noted GENERAL SKIN EXAM: no rashes or lesions noted Course 2 Vital Signs: Vital signs: Vital Signs Pulse Rate 79 08/17/23 01:20 Respiratory Rate 23 H 08/17/23 01:20 Blood Pressure 125/70 08/17/23 01:20 Pulse Oximetry 94 08/17/23 01:20 Oxygen Delivery Me thod Room Air 08/16/23 23:02 [facility] [place] - General Adult Lab Data 08/16/23 23:27 08/16/23 23:27 Radiology Impressions Chest X-Ray 08/16/23 23:08 IMPRESSION: 1. Mild peribronchial cuffing could indicate bronchitis. No pneumonia. Venous Duplex 08/17/23 00:00 IMPRESSION: No evidence of deep vein thrombosis. Laboratory Results WBC 6.10 10^3/uL (3.29-11.43) 08/16/23 23: RBC 4.41 10^6/uL (3.85-5.65) 08/16/23 23:27 Hgb 13.00 g/dL (11.27-16.99) 08/16/23 23: Hct 38.9 % (36-47) 08/16/23 23: MCV 88.2 fl (85-98) 08/16/23 23: MCH 29.5 pg (27-33) 08/16/23 23: MCHC 33.4 g/dL (30-55) 08/16/23 23: RDW 12.0 % (12.1-15.1) L 08/16/23 23: Plt Count 436 10^3/cmm (157-399) H 08/16/23 23:27 MPV 8.8 fL (7.4-10.4) 08/16/23 23: Neut % (Auto) 45.3 % 08/16/23 23: Lymph % (Auto) 21.5 % 08/16/23 23: [place] % (Auto) 28.7 % 08/16/23 23: Eos % (Auto) 3.3 % 08/16/23 23: Baso % (Auto) 0.7 % 08/16/23 23:27 Neut # (Auto) 2.77 10^3/uL (1.8-7.7) 08/16/23 23:27 Lymph # (Auto) 1.3 10^3/uL (0.8-4.8) 08/16/23 23:27 [place] # (Auto) 1.8 10^3/uL (0.2-0.9) H 08/16/23 23:27 Eos # (Auto) 0.2 10^3/uL (0.0-0.8) 08/16/23 23: Baso # (Auto) 0.0 10^3/uL (0.0-0.1) 08/16/23 23: Nucleated RBC % (auto) 0 % 08/16/23: Nucleated RBCs # 0.0 /100WBC 08/16/23 23: Sodium 128 mmol/L (136-145) L 08/16/23 23: Potassium 4.1 mmol/L (3.5-5.1) 08/16/23 23: Chloride 90 mmol/L (98-107) L 08/16/23 23:27 Carbon Dioxide 26 mmol/L (22-29) 08/16/23 23: Anion Gap 16.1 (5-19) 08/16/23 23:27 BUN 12 mg/dL (8-23) 08/16/23 23: Creatinine 0.6 mg/dL (0.5-0.9) 08/16/23 23: GFR Calculation Not Reportable 08/16/23 23: Glucose 99 mg/dL (65-115) 08/16/23 23: Calculated Osmolality 266 mOsm/kg (285-295) L 08/16/23 23:27 Calcium 8.2 mg/dL (8.5-10.5) L 08/16/23 23:27 Total Bilirubin 0.2 mg/dL (0.15-1.2) 08/16/23 23: AST 28 U/L (0-32) 08/16/23 23: ALT 19 U/L (0-33) 08/16/23 23:27 Alkaline Phosphatase 88 U/L (35-105) 08/16/23 23: Total Protein 6.7 g/dL (6.6-8.7) 08/16/23 23:27 Albumin 3.6 g/dL (3.5-5.2) 08/16/23 23: Globulin 3.1 g/dL (1.3-4.6) 08/16/23 23: Urine Color Yellow (Yellow) 08/16/23 23: Urine Appearance Hazy (CLEAR) A 08/16/23 23: Urine pH 7 (5-7) 08/16/23 23: Ur Specific Stout 1.010 (1.005-1.030) 08/16/23 23: Urine Protein Neg (Negative) 08/16/23 23: Urine Glucose (UA) Norm (Normal) 08/16/23 23: Urine Ketones Negative (Negative) 08/16/23 23: Urine Blood Neg (Negative) 08/16/23 23: Urine Nitrate Negative (Negative) 08/16/23 23: Urine Bilirubin Neg (Negative) 08/16/23 23: Urine Urobilinogen Norm mg/dL (Negative) 08/16/23 23: Ur Leukocyte Esterase 1+ (Negative) H 08/16/23 23: Urine RBC 0-4 /hpf (0-2) H 08/16/23 23: Urine WBC 5-10 /hpf (0-5) H 08/16/23 23: Ur Squamous Epith Cells 0-4 /hpf (0-5) H 08/16/23 23: Amorphous Sediment Not Reportable 08/16/23 23: Urine Bacteria 2+ /hpf (NONE) H 08/16/23 23: Adenovirus (PCR) Not detected (NOT DETECT) 08/16/23: C. pneumoniae DNA (PCR) Not detected (NOT DETECT) 08/16/23 23: Coronavirus 229E (PCR) Not detected (NOT DETECT) 08/16/23 23: Human Metapneumovir PCR Not detected (NOT DETECT) 08/16/23: Influenza A (H1) PCR Not detected (NOT DETECT) 08/16/23: Influ A (H1/09) PCR Not detected (NOT DETECT) 08/16/23 23: Influenza A (H3) PCR Not detected (NOT DETECT) 08/16/23: Influenza Type A (PCR) Not detected (NOT DETECT) 08/16/23 23:27 Influenza Type B (PCR) Not detected (NOT DETECT) 08/16/23 23:27 M. pneumoniae (PCR) Not detected (NOT DETECT) 08/16/23 23:27 Parainfluenza 1 (PCR) Not detected (NOT DETECT) 08/16/23 23:27 Parainfluenza 2 (PCR) Not detected (NOT DETECT) 08/16/23 23:27 Parainfluenza 3 (PCR) Not detected (NOT DETECT) 08/16/23 23:27 Parainfluenza 4 (PCR) Not detected (NOT DETECT) 08/16/23 23:27 RSV Type A (PCR) Not detected (NOT DETECT) 08/16/23 23:27 RSV Type B (PCR) Not detected (NOT DETECT) 08/16/23 23:27 Entero/Rhino (PCR) Not detected (NOT DETECT) 08/16/23 23:27 SARS-CoV-2 (PCR) Not detected (NOT DETECT) 08/16/23 23:27 All radiology interpretation(s) finalized by discharge Discharge Plan Discharge Patient Disposition: Home Clinical Impression: Acute UTI, Bronchitis Condition: Stable Prescriptions: New levofloxacin 500 mg tablet 500 mg PO DAILY 7 Days Qty: 7 0RF No Action (DME) Ankle Brace Misc See Rx Instructions .ROUTE .MEDSUPPLY Qty: 1 0RF Rx Instructions: As directed (DME) PAOLA prado See Rx Instructions .Route .MEDSUPPLY Qty: 1 0RF Rx Instructions: As directed (DME) PAOLA ELLIS See Rx Instructions .ROUTE .MEDSUPPLY Qty: 1 0RF Rx Instructions: As directed (DME) paola ellis See Rx Instructions .Route .MEDSUPPLY Qty: 1 0RF Rx Instructions: As directed (DME) lace up ankle brace See Rx Instructions .Route .MEDSUPPLY Qty: 1 0RF Rx Instructions: As directed clopidogrel 75 mg tablet 75 mg PO DAILY Qty: 90 0RF Hold Instructions: Resume on 08/18/22. prednisone 10 mg tablet 10 mg PO QAM Qty: 30 0RF carbamazepine 200 mg capsule, ER multiphase 12 hr 200 mg PO BID Qty: 60 5RF multivitamin Tablet 1 tab PO QAM sertraline [Zoloft] 100 mg tablet 100 mg PO QAM acetaminophen 500 mg Tablet 500 - 1,000 mg PO Q6H PRN (Reason: Pain) cholecalciferol (vitamin D3) [Vitamin D3] 10 mcg (400 unit) Tablet 10 mcg PO QAM loperamide 2 mg Capsule 4 mg PO Q4H PRN (Reason: diarrhea) Qty: 30 0RF magnesium hydroxide [Milk of Magnesia] 400 mg/5 mL Suspension 30 ml PO DAILY PRN (Reason: Constipation) bisacodyl [Dulcolax (bisacodyl)] 10 mg Suppository 10 mg UT DAILY PRN (Reason: Constipation) pantoprazole [Protonix] 40 mg Tablet,Delayed Release (Dr/Ec) 40 mg PO BID Fleet Enema 19-7 gram/118 mL Enema 118 ml UT DAILY PRN (Reason: Constipation) oxycodone-acetaminophen [Percocet] 7.5-325 mg tablet 1 tab PO Q6H PRN (Reason: pain) Qty: 10 0RF cyclobenzaprine 10 mg tablet 5 mg PO TID PRN (Reason: muscle spasm) hydrocodone-acetaminophen 5-325 mg tablet 1 tab PO Q6H PRN (Reason: pain) Qty: 28 0RF aspirin 81 mg Tablet,Delayed Release (Dr/Ec) 81 mg PO QAM ferrous sulfate [iron] 325 mg (65 mg iron) Tablet 325 mg PO QAM polyethylene glycol 3350 [Miralax] 17 gram/dose Powder 4 g PO DAILY hydroxyzine HCl 25 mg tablet 25 mg PO BEDTIME losartan 50 mg tablet 25 mg PO QAM Qty: 90 3RF alum-mag hydroxide-simeth [Mylanta Maximum Strength] 400-400-40 mg/5 mL Suspension 5 ml PO QID PRN (Reason: Diarrhea) rosuvastatin 10 mg tablet 10 mg PO QPM Discharge Orders: Discharge ED (Routine); Ordered 08/17/23 Ordered By: Luis Eduardo Eldridge Referrals: Chicho Young DO [Primary Care Provider] - 1-3 days Patient Instructions: Acute Bronchitis (ED), Urinary Tract Infection in Older Adults (ED), Opioid Safety, Pain Management Activity Restrictions/Additional Instructions: Medications as directed. Continue to use the albuterol nebulizer treatments every 4 hours awake for the next 48 hours, then as needed. Return for fever despite 2-3 more doses of antibiotics, other concerning symptoms. 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 Colitis Facial pain Left ankle pain Hypovolemic shock Dehydration Diarrhea Septic shock Pacemaker Hyperlipidemia associated with type 2 diabetes mellitus Sick sinus syndrome Depression Hyperlipidemia Hypertension Mesenteric artery stenosis Ileus Colitis Abnormal CT of the abdomen Enteritis Surgical History History of knee replacement History of splenectomy History of ankle surgery Status post colonoscopy Family History Mother Stroke Social History Smoking and tobacco/nicotine status: never used tobacco/nicotine Alcohol intake: never Course 2 Vital Signs: Vital signs: Vital Signs Pulse Rate 79 08/17/23 01:20 Respiratory Rate 23 H 08/17/23 01:20 Blood Pressure 125/70 08/17/23 01:20 Pulse Oximetry 94 08/17/23 01:20 Oxygen Delivery Me thod Room Air 08/16/23 23:02 MDM - General Adult Medical Decision Making 82-year-old female checked out to me by Oh Amara?GELY Wick. I agree with her history, evaluation, and treatment. This patient has a mild urinary tract infection. Sodium is 128. CBC is not terribly remarkable. Chest x-ray reveals mild lateral mild peribronchial cuffing that could be bronchitis. Viral swab is negative. Her vital signs are stable here. She will be allowed discharge back to the custodial facility. Treatment with Levaquin for urinary tract infection, and double coverage for bronchitis. Patient and daughter demonstrate understanding. Lab Data 08/16/23:08/16/23: Radiology Impressions Chest X-Ray 08/16/23 23:08 IMPRESSION: 1. Mild peribronchial cuffing could indicate bronchitis. No pneumonia. Venous Duplex 08/17/23 00:00 IMPRESSION: No evidence of deep vein thrombosis. Laboratory Results WBC 6.10 10^3/uL (3.29-11.43) 08/16/23: RBC 4.41 10^6/uL (3.85-5.65) 08/16/23: Hgb 13.00 g/dL (11.27-16.99) 08/16/23: Hct 38.9 % (36-47) 08/16/23: MCV 88.2 fl (85-98) 08/16/23: MCH 29.5 pg (27-33) 08/16/23: MCHC 33.4 g/dL (30-55) 08/16/23: RDW 12.0 % (12.1-15.1) L 08/16/23: Plt Count 436 10^3/cmm (157-399) H 08/16/23: MPV 8.8 fL (7.4-10.4) 08/16/23: Neut % (Auto) 45.3 % 08/16/23: Lymph % (Auto) 21.5 % 08/16/23: [place] % (Auto) 28.7 % 08/16/23: Eos % (Auto) 3.3 % 08/16/23: Baso % (Auto) 0.7 % 08/16/23: Neut # (Auto) 2.77 10^3/uL (1.8-7.7) 08/16/23 Lymph # (Auto) 1.3 10^3/uL (0.8-4.8) 08/16/23: [place] # (Auto) 1.8 10^3/uL (0.2-0.9) H 08/16/23: Eos # (Auto) 0.2 10^3/uL (0.0-0.8) 08/16/23 23:27 Baso # (Auto) 0.0 10^3/uL (0.0-0.1) 08/16/23 23: Nucleated RBC % (auto) 0 % 08/16/23 23: Nucleated RBCs # 0.0 /100WBC 08/16/23 23:27 Sodium 128 mmol/L (136-145) L 08/16/23 23:27 Potassium 4.1 mmol/L (3.5-5.1) 08/16/23 23:27 Chloride 90 mmol/L (98-107) L 08/16/23 23:27 Carbon Dioxide 26 mmol/L (22-29) 08/16/23 23: Anion Gap 16.1 (5-19) 08/16/23 23:27 BUN 12 mg/dL (8-23) 08/16/23 23: Creatinine 0.6 mg/dL (0.5-0.9) 08/16/23 23: GFR Calculation Not Reportable 08/16/23 23:27 Glucose 99 mg/dL (65-115) 08/16/23 23: Calculated Osmolality 266 mOsm/kg (285-295) L 08/16/23 23:27 Calcium 8.2 mg/dL (8.5-10.5) L 08/16/23 23:27 Total Bilirubin 0.2 mg/dL (0.15-1.2) 08/16/23 23:27 AST 28 U/L (0-32) 08/16/23 23:27 ALT 19 U/L (0-33) 08/16/23 23:27 Alkaline Phosphatase 88 U/L (35-105) 08/16/23 23:27 Total Protein 6.7 g/dL (6.6-8.7) 08/16/23 23: Albumin 3.6 g/dL (3.5-5.2) 08/16/23 23: Globulin 3.1 g/dL (1.3-4.6) 08/16/23 23:27 Urine Color Yellow (Yellow) 08/16/23 23:21 Urine Appearance Hazy (CLEAR) A 08/16/23 23:21 Urine pH 7 (5-7) 08/16/23 23:21 Ur Specific Stout 1.010 (1.005-1.030) 08/16/23 23:21 Urine Protein Neg (Negative) 08/16/23 23: Urine Glucose (UA) Norm (Normal) 08/16/23 23: Urine Ketones Negative (Negative) 08/16/23 23:21 Urine Blood Neg (Negative) 08/16/23 23:21 Urine Nitrate Negative (Negative) 08/16/23 23: Urine Bilirubin Neg (Negative) 08/16/23 23: Urine Urobilinogen Norm mg/dL (Negative) 08/16/23 23:21 Ur Leukocyte Esterase 1+ (Negative) H 08/16/23 23: Urine RBC 0-4 /hpf (0-2) H 08/16/23 23: Urine WBC 5-10 /hpf (0-5) H 08/16/23 23:21 Ur Squamous Epith Cells 0-4 /hpf (0-5) H 08/16/23 23: Amorphous Sediment Not Reportable 08/16/23 23: Urine Bacteria 2+ /hpf (NONE) H 08/16/23 23:21 Adenovirus (PCR) Not detected (NOT DETECT) 08/16/23 23: C. pneumoniae DNA (PCR) Not detected (NOT DETECT) 08/16/23 23: Coronavirus 229E (PCR) Not detected (NOT DETECT) 08/16/23 23: Human Metapneumovir PCR Not detected (NOT DETECT) 08/16/23 23:27 Influenza A (H1) PCR Not detected (NOT DETECT) 08/16/23 23: Influ A (H1/09) PCR Not detected (NOT DETECT) 08/16/23 23: Influenza A (H3) PCR Not detected (NOT DETECT) 08/16/23 23:27 Influenza Type A (PCR) Not detected (NOT DETECT) 08/16/23 23: Influenza Type B (PCR) Not detected (NOT DETECT) 08/16/23 23: M. pneumoniae (PCR) Not detected (NOT DETECT) 08/16/23 23:27 Parainfluenza 1 (PCR) Not detected (NOT DETECT) 08/16/23 23: Parainfluenza 2 (PCR) Not detected (NOT DETECT) 08/16/23 23: Parainfluenza 3 (PCR) Not detected (NOT DETECT) 08/16/23 23:27 Parainfluenza 4 (PCR) Not detected (NOT DETECT) 08/16/23 23:27 RSV Type A (PCR) Not detected (NOT DETECT) 08/16/23 23:27 RSV Type B (PCR) Not detected (NOT DETECT) 08/16/23 23:27 Entero/Rhino (PCR) Not detected (NOT DETECT) 08/16/23 23:27 SARS-CoV-2 (PCR) Not detected (NOT DETECT) 08/16/23 23:27 Discharge Plan Discharge Patient Disposition: Home Clinical Impression: Acute UTI, Bronchitis Condition: Stable Prescriptions: New levofloxacin 500 mg tablet 500 mg PO DAILY 7 Days Qty: 7 0RF No Action (DME) Ankle Brace Misc See Rx Instructions .ROUTE .MEDSUPPLY Qty: 1 0RF Rx Instructions: As directed (DME) CAM boot See Rx Instructions .Route .MEDSUPPLY Qty: 1 0RF Rx Instructions: As directed (DME) CAM WALKER See Rx Instructions .ROUTE .MEDSUPPLY Qty: 1 0RF Rx Instructions: As directed (DME) cam walker See Rx Instructions .Route .MEDSUPPLY Qty: 1 0RF Rx Instructions: As directed (DME) lace up ankle brace See Rx Instructions .Route .MEDSUPPLY Qty: 1 0RF Rx Instructions: As directed clopidogrel 75 mg tablet 75 mg PO DAILY Qty: 90 0RF Hold Instructions: Resume on 08/18/22. prednisone 10 mg tablet 10 mg PO QAM Qty: 30 0RF carbamazepine 200 mg capsule, ER multiphase 12 hr 200 mg PO BID Qty: 60 5RF multivitamin Tablet 1 tab PO QAM sertraline [Zoloft] 100 mg tablet 100 mg PO QAM acetaminophen 500 mg Tablet 500 - 1,000 mg PO Q6H PRN (Reason: Pain) cholecalciferol (vitamin D3) [Vitamin D3] 10 mcg (400 unit) Tablet 10 mcg PO QAM loperamide 2 mg Capsule 4 mg PO Q4H PRN (Reason: diarrhea) Qty: 30 0RF magnesium hydroxide [Milk of Magnesia] 400 mg/5 mL Suspension 30 ml PO DAILY PRN (Reason: Constipation) bisacodyl [Dulcolax (bisacodyl)] 10 mg Suppository 10 mg UT DAILY PRN (Reason: Constipation) pantoprazole [Protonix] 40 mg Tablet,Delayed Release (Dr/Ec) 40 mg PO BID Fleet Enema 19-7 gram/118 mL Enema 118 ml UT DAILY PRN (Reason: Constipation) oxycodone-acetaminophen [Percocet] 7.5-325 mg tablet 1 tab PO Q6H PRN (Reason: pain) Qty: 10 0RF cyclobenzaprine 10 mg tablet 5 mg PO TID PRN (Reason: muscle spasm) hydrocodone-acetaminophen 5-325 mg tablet 1 tab PO Q6H PRN (Reason: pain) Qty: 28 0RF aspirin 81 mg Tablet,Delayed Release (Dr/Ec) 81 mg PO QAM ferrous sulfate [iron] 325 mg (65 mg iron) Tablet 325 mg PO QAM polyethylene glycol 3350 [Miralax] 17 gram/dose Powder 4 g PO DAILY hydroxyzine HCl 25 mg tablet 25 mg PO BEDTIME losartan 50 mg tablet 25 mg PO QAM Qty: 90 3RF alum-mag hydroxide-simeth [Mylanta Maximum Strength] 400-400-40 mg/5 mL Suspension 5 ml PO QID PRN (Reason: Diarrhea) rosuvastatin 10 mg tablet 10 mg PO QPM Discharge Orders: Discharge ED (Routine); Ordered 08/17/23 Ordered By: Luis Eduardo Eldridge Referrals: Chicho Young DO [Primary Care Provider] - 1-3 days Patient Instructions: Acute Bronchitis (ED), Urinary Tract Infection in Older Adults (ED), Opioid Safety, Pain Management Activity Restrictions/Additional Instructions: Medications as directed. Continue to use the albuterol nebulizer treatments every 4 hours awake for the next 48 hours, then as needed. Return for fever despite 2-3 more doses of antibiotics, other concerning symptoms. Coding Level of Care Code ED Developer Analyst for Cipriano Forrest
[2023-08-16 23:30] LABS: Urine Appearance Hazy (CLEAR); Urine Color Yellow (Yellow)
[2023-08-16 23:31] LABS: Add Urine Microscopic? YES; Bilirubin Urine Neg (Negative); Blood Urine Neg (Negative); Glucose Urine UA Norm (Normal); Ketones Urine Negative (Negative); Leukocyte Esterase Urine 1+ (Negative); Nitrate Urine Negative (Negative); Protein Urine Neg (Negative); Urobilinogen Urine Norm (Negative); pH Urine 7 (5-7)
[2023-08-16 23:33] LABS: Add Urine Culture? Yes; Bacteria Urine 2+ /hpf; RBC Urine 0-4 /hpf (0-2); Squamous Epithelial Cell Urine 0-4 /hpf (0-5)
[2023-08-16 23:36] LABS: Basophils % 0.7 %; Eosinophils # 0.2 10^3/uL (0.0-0.8); Eosinophils % 3.3 %; Hematocrit 38.9 % (36-47); Lymphocytes # 1.3 10^3/uL (0.8-4.8); Lymphocytes % 21.5 %; Mean Corpuscular HGB Conc 33.4 g/dL (30-55); Mean Corpuscular Hemoglobin 29.5 pg (27-33); Mean Corpuscular Volume 88.2 fl (85-98); Mean Platelet Volume 8.8 fL (7.4-10.4); Monocytes # 1.8 10^3/uL (0.2-0.9); Monocytes % 28.7 %; Neutrophils # 2.77 10^3/uL (1.8-7.7); Neutrophils % 45.3 %; Nucleated Red Blood Cells % 0 %; Platelet Count 436 10^3/cmm (157-399); Red Blood Count 4.41 10^6/uL (3.85-5.65)
--- NOTE | 2023-08-17 | USR_ITS ---
PROCEDURE INFORMATION: Exam: US Duplex Left Lower Extremity Veins, Limited Exam date and time: 08/17/2023 12:57 AM Age: 82 years old Clinical indication: Pain; Leg, lower; Left; Additional info: Calf pain; Recent surgery on other leg/immobile TECHNIQUE: Imaging protocol: Real-time duplex ultrasound of the left extremity with 2-D edwards scale, color Doppler flow and spectral waveform analysis including responses to compression and other maneuvers (when performed) with image documentation. Limited exam focused on the left lower extremity veins. COMPARISON: CT ankle LT wo con* [id number] 07/17/2022 8:14 AM FINDINGS: Left deep veins: Unremarkable. The common femoral, femoral, proximal profunda femoral , popliteal, and proximal posterior tibial and peroneal veins are patent without thrombus. Normal Doppler waveforms. Normal compressibility and/or augmentation response. Superficial veins: Unremarkable. Saphenofemoral junction is patent without thrombus. Soft tissues: Unremarkable. US/[place] [id number] IMPRESSION: No evidence of deep vein thrombosis.
[2023-08-17 00:27] LABS: Alanine Aminotransferase 19 U/L (0-33); Albumin Level 3.6 g/dL (3.5-5.2); Alkaline Phosphatase 88 U/L (35-105); Anion Gap 16.1 (5-19); Aspartate Amino Transferase 28 U/L (0-32); Blood Urea Nitrogen 12 mg/dL (8-23); Calcium 8.2 mg/dL (8.5-10.5); Carbon Dioxide 26 mmol/L (22-29); Chloride 90 mmol/L (98-107); Globulin 3.1 g/dL (1.3-4.6); Glucose 99 mg/dL (65-115); Osmolality Calculated 266 mOsm/kg (285-295); Potassium 4.1 mmol/L (3.5-5.1); Sodium 128 mmol/L (136-145); Total Bilirubin 0.2 mg/dL (0.15-1.2); Total Protein 6.7 g/dL (6.6-8.7)
[2023-08-17] MEDS: levoFLOXacin 750 mg Tablet PO (00:45)
[2023-08-17 01:17] LABS: Adenovirus Not Detected (NOT DETECT); Chlamydia Pneumoniae Not Detected (NOT DETECT); Coronavirus 229E,HKU1,NL63,OC4 Not Detected (NOT DETECT); Human Metapneumovirus Not Detected (NOT DETECT); Human Rhinovirus/Enterovirus Not Detected (NOT DETECT); Influenza A Not Detected (NOT DETECT); Influenza A H1 Not Detected (NOT DETECT); Influenza A H1-2009 Not Detected (NOT DETECT); Influenza A H3 Not Detected (NOT DETECT); Influenza B Not Detected (NOT DETECT); Mycoplasma Pneumoniae Not Detected (NOT DETECT); Parainfluenza Virus Type 1 Not Detected (NOT DETECT); Parainfluenza Virus Type 2 Not Detected (NOT DETECT); Parainfluenza Virus Type 3 Not Detected (NOT DETECT); Parainfluenza Virus Type 4 Not Detected (NOT DETECT); Respiratory Syncytial Virus A Not Detected (NOT DETECT); Respiratory Syncytial Virus B Not Detected (NOT DETECT); SARS-COV-2 Not Detected (NOT DETECT)
[2023-08-17 01:20] VITALS: BP 125/70; PULSE 79; RESP 23; O2SAT 94
== END 2023-08-17 02:07 | disposition home or self-care (01) ==
PROVIDERS: Emergency Provider Physician Assistant; PCP Family Medicine
DX: N39.0 Urinary tract infection, site not specified (principal); J40 Bronchitis, not specified as acute or chronic; Z79.02 Long term (current) use of antithrombotics/antiplatelets; Z79.82 Long term (current) use of aspirin; Z11.52 Encounter for screening for COVID-19; E78.5 Hyperlipidemia, unspecified; E11.9 Type 2 diabetes mellitus without complications; I10 Essential (primary) hypertension; Z95.0 Presence of cardiac pacemaker; M79.605 Pain in left leg
CPT/HCPCS: 36415; 71045; 80053; 81001; 85025; 87077; 87086; 87186; 87486; 87581; 87633; 93971; 99284

== ENCOUNTER → 2023-08-28 13:22 | Outpatient (BNVA) | payer MEDICARE, OTHER, MEDICAID, SELFPAY | PROVIDERS: PCP Family Medicine; Visit Provider Podiatrist Foot & Ankle Surgery | DX: M25.571 Pain in right ankle and joints of right foot (principal); Z98.890 Other specified postprocedural states; S82.841D Displaced bimalleolar fracture of right lower leg, subsequent encounter for closed fracture with routine healing; X58.XXXD Exposure to other specified factors, subsequent encounter; Z95.0 Presence of cardiac pacemaker; I65.29 Occlusion and stenosis of unspecified carotid artery; Z95.828 Presence of other vascular implants and grafts | CPT/HCPCS: 73610; 99024 ==

== ENCOUNTER → 2023-09-11 14:23 | Outpatient (BNVA) | payer MEDICARE, OTHER, MEDICAID, SELFPAY | PROVIDERS: PCP Family Medicine; Visit Provider Podiatrist Foot & Ankle Surgery | DX: Z98.890 Other specified postprocedural states (principal); S82.841D Displaced bimalleolar fracture of right lower leg, subsequent encounter for closed fracture with routine healing; X58.XXXD Exposure to other specified factors, subsequent encounter | CPT/HCPCS: 99024 ==

== ENCOUNTER 2024-03-22 11:00 | Emergency (ER) | payer MEDICARE, OTHER, MEDICAID, SELFPAY ==
[2024-03-22] VITALS (15 sets, daily range): BP systolic 99–182; BP diastolic 47–118; PULSE 81–93; RESP 15–31; TEMP 37.3; O2SAT 66–98; BMI 43.9
--- NOTE | 2024-03-22 11:10 | W.ED.WEAKNES ---
HPI - Weakness General: Chief complaint: Weakness Stated complaint: weakness, hypotensive Time Seen by Provider: 03/22/24 11:02 History of Present Illness: . 83-year-old female presents with generalized weakness has been going on for about 4 days. She has little bit of a cough. Patient was placed on oxygen by EMS and reports she normally does not wear oxygen. Patient was found to have some low blood pressure and is given a 500 mL bolus in route. She just complains of just fatigue and generalized malaise with that but no other significant complaints. 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 Colitis Facial pain Left ankle pain Hypovolemic shock Dehydration Diarrhea Septic shock Pacemaker Hyperlipidemia associated with type 2 diabetes mellitus Sick sinus syndrome Depression Hyperlipidemia Hypertension Mesenteric artery stenosis Ileus Colitis Abnormal CT of the abdomen Enteritis Surgical History History of knee replacement History of splenectomy History of ankle surgery Status post colonoscopy Family History Mother Stroke Social History Smoking and tobacco/nicotine status: never used tobacco/nicotine Alcohol intake: never Physical Exam Const: COMMON NORMALS: no acute distress, patient oriented x3 and alert NUTRITIONAL APPEARANCE: obese Resp: COMMON NORMALS: normal respiratory effort AUSCULTATION: bronchial breath sounds Cardio: COMMON NORMALS: regular rate and regular rhythm RATE: regular rate RHYTHM: regular rhythm GI: COMMON NORMALS: Soft to palpation and non-tender PALPATION: Yes Soft to palpation Neuro: COMMON NORMALS: patient oriented x3 SENSORIUM/ORIENTATION: Yes alert Psych: COMMON NORMALS: mental status grossly normal, cooperative and speech normal SPEECH: Yes normal speech Course Vital Signs: Vital signs: Vital Signs Temperature 99.1 F 03/22/24 11:02 Pulse Rate 89 03/22/24 15:02 Respiratory Rate 20 H 03/22/24 14:45 Blood Pressure 182/118 03/22/24 15:02 Pulse Oximetry 98 03/22/24 15:02 Oxygen Delivery Mo thod Nasal Cannula 03/22/24 13:23 Oxygen Flow Rate 2 03/22/24 13:23 MDM - Weakness Medical Decision Making Patient diagnostics as ordered reviewed and interpreted by me. Is positive for rhinovirus. Patient is feeling much better following treatment in the ER. Findings she has a negative chest x-ray. She is discharged back home to the care center as she is stable and at this time there is no indication for hospitalization. Rhinovirus. Lab Data 03/22/24 11:19 03/22/24 11:19 Radiology Impressions Chest X-Ray 03/22/24 11:15 IMPRESSION: No acute intrathoracic findings. Laboratory Results WBC 13.84 10^3/uL (3.29-11.43) H 03/22/24 11:19 RBC 5.40 10^6/uL (3.85-5.65) 03/22/24 11:19 Hgb 15.60 g/dL (11.27-16.99) 03/22/24 11:19 Hct 47.2 % (36-47) H 03/22/24 11:19 MCV 87.4 fl (85-98) 03/22/24 11:19 MCH 28.9 pg (27-33) 03/22/24 11:19 MCHC 33.1 g/dL (30-55) 03/22/24 11:19 RDW 13.8 % (12.1-15.1) 03/22/24 11:19 Plt Count 410 10^3/cmm (157-399) H 03/22/24 11:19 MPV 9.2 fL (7.4-10.4) 03/22/24 11:19 Neut % (Auto) 80.6 % 03/22/24 11:19 Lymph % (Auto) 5.6 % 03/22/24 11:19 Gillespie % (Auto) 11.6 % 03/22/24 11:19 Eos % (Auto) 1.1 % 03/22/24 11:19 Baso % (Auto) 0.4 % 03/22/24 11:19 Neut # (Auto) 11.17 10^3/uL (1.8-7.7) H 03/22/24 11:19 Lymph # (Auto) 0.8 10^3/uL (0.8-4.8) 03/22/24 11:19 Gillespie # (Auto) 1.6 10^3/uL (0.2-0.9) H 03/22/24 11:19 Eos # (Auto) 0.2 10^3/uL (0.0-0.8) 03/22/24 11:19 Baso # (Auto) 0.1 10^3/uL (0.0-0.1) 03/22/24 11:19 Nucleated RBC % (auto) 0 % 03/22/24 11:19 Nucleated RBCs # 0.0 /100WBC 03/22/24 11:19 Sodium 133 mmol/L (136-145) L 03/22/24 11:19 Potassium 4.3 mmol/L (3.5-5.1) 03/22/24 11:19 Chloride 92 mmol/L (98-107) L 03/22/24 11:19 Carbon Dioxide 29 mmol/L (22-29) 03/22/24 11:19 Anion Gap 16.3 (5-19) 03/22/24 11:19 BUN 13 mg/dL (8-23) 03/22/24 11:19 Creatinine 0.9 mg/dL (0.5-0.9) 03/22/24 11:19 GFR Calculation Not Reportable 03/22/24 11:19 Glucose 127 mg/dL (65-115) H 03/22/24 11:19 Calculated Osmolality 278 mOsm/kg (285-295) L 03/22/24 11:19 Lactic Acid 2.5 mmol/L (0.5-2.2) H 03/22/24 11:57 Lactic Acid (Sepsis) 1.5 mmol/L (0.5-2.2) 03/22/24 15:06 Calcium 8.8 mg/dL (8.5-10.5) 03/22/24 11:19 Magnesium 2.0 mg/dL (1.7-2.3) 03/22/24 11:19 NT-Pro-B Natriuret Pep 1345 pg/mL (0-450) H 03/22/24 11:19 Coronavirus 229E (PCR) Not detected (NOT DETECT) 03/22/24 11:35 Human Metapneumovir PCR Not detected (NOT DETECT) 03/22/24 13:54 Entero/Rhino (PCR) Detected (NOT DETECT) A 03/22/24 13:54 SARS-CoV-2 (PCR) Not detected (NOT DETECT) 03/22/24 11:35 All radiology interpretation(s) finalized by discharge Discharge Plan Discharge Patient Disposition: Home Clinical Impression: Rhinovirus infection Prescriptions: New albuterol sulfate 0.63 mg/3 mL solution for nebulization 0.63 mg inhalation TID PRN (Reason: shortness of breath or wheezing) Qty: 90 0RF No Action (DME) Ankle Brace Misc See Rx Instructions .ROUTE .MEDSUPPLY Qty: 1 0RF Rx Instructions: As directed (DME) CAM boot See Rx Instructions .Route .MEDSUPPLY Qty: 1 0RF Rx Instructions: As directed (DME) CAM WALKER See Rx Instructions .ROUTE .MEDSUPPLY Qty: 1 0RF Rx Instructions: As directed (DME) cam walker See Rx Instructions .Route .MEDSUPPLY Qty: 1 0RF Rx Instructions: As directed (DME) lace up ankle brace See Rx Instructions .Route .MEDSUPPLY Qty: 1 0RF Rx Instructions: As directed (DME) ASO brace See Rx Instructions .Route .MEDSUPPLY Qty: 1 0RF Rx Instructions: As directed clopidogrel 75 mg tablet 75 mg PO DAILY Qty: 90 0RF Hold Instructions: Resume on 08/18/22. prednisone 10 mg tablet 10 mg PO QAM Qty: 30 0RF carbamazepine 200 mg capsule, ER multiphase 12 hr 200 mg PO BID Qty: 60 5RF multivitamin Tablet 1 tab PO QAM sertraline [Zoloft] 100 mg tablet 100 mg PO QAM acetaminophen 500 mg Tablet 500 - 1,000 mg PO Q6H PRN (Reason: Pain) cholecalciferol (vitamin D3) [Vitamin D3] 10 mcg (400 unit) Tablet 10 mcg PO QAM loperamide 2 mg Capsule 4 mg PO Q4H PRN (Reason: diarrhea) Qty: 30 0RF magnesium hydroxide [Milk of Magnesia] 400 mg/5 mL Suspension 30 ml PO DAILY PRN (Reason: Constipation) bisacodyl [Dulcolax (bisacodyl)] 10 mg Suppository 10 mg CO DAILY PRN (Reason: Constipation) pantoprazole [Protonix] 40 mg Tablet,Delayed Release (Dr/Ec) 40 mg PO BID Fleet Enema 19-7 gram/118 mL Enema 118 ml CO DAILY PRN (Reason: Constipation) oxycodone-acetaminophen [Percocet] 7.5-325 mg tablet 1 tab PO Q6H PRN (Reason: pain) Qty: 10 0RF cyclobenzaprine 10 mg tablet 5 mg PO TID PRN (Reason: muscle spasm) hydrocodone-acetaminophen 5-325 mg tablet 1 tab PO Q6H PRN (Reason: pain) Qty: 28 0RF aspirin 81 mg Tablet,Delayed Release (Dr/Ec) 81 mg PO QAM ferrous sulfate [iron] 325 mg (65 mg iron) Tablet 325 mg PO QAM polyethylene glycol 3350 [Miralax] 17 gram/dose Powder 4 g PO DAILY hydroxyzine HCl 25 mg tablet 25 mg PO BEDTIME losartan 50 mg tablet 25 mg PO QAM Qty: 90 3RF alum-mag hydroxide-simeth [Mylanta Maximum Strength] 400-400-40 mg/5 mL Suspension 5 ml PO QID PRN (Reason: Diarrhea) rosuvastatin 10 mg tablet 10 mg PO QPM Discharge Orders: Discharge ED (Routine); Ordered 03/22/24 Ordered By: Kameron Carpenter Discharge Diet: Usual diet Discharge Activity: Resume usual activity and Oxygen as instructed Patient Instructions: Upper Respiratory Infection (DC), Viral Syndrome (ED), Opioid Safety, Pain Management Activity Restrictions/Additional Instructions: Please utilize prescribed albuterol every 4-6 hours as needed for shortness of breath/wheezing. Follow-up with primary care provider in a couple days. Return to the ER with any concerns. You may use oxygen as needed fpc for comfort or keep your oxygen levels above 92 Coding Level of Care Code ED Nurse Advocate for Chg Fwd Related Data Home Medications Medication Instructions Recorded Confirmed multivitamin 1 tab PO QAM 10/29/20 09/11/23 aspirin 81 mg tablet,delayed 81 mg PO QAM 06/18/22 09/11/23 release ferrous sulfate 325 mg (65 mg 325 mg PO QAM 06/18/22 09/11/23 iron) tablet (iron) acetaminophen 500 mg tablet 500 - 1,000 mg PO Q6H PRN Pain 07/14/22 09/11/23 cholecalciferol (vitamin D3) 10 10 mcg PO QAM 07/14/22 09/11/23 mcg (400 unit) tablet (Vitamin D3) sertraline 100 mg tablet (Zoloft) 100 mg PO QAM 07/14/22 09/11/23 bisacodyl 10 mg rectal suppository 10 mg CO DAILY PRN Constipation 07/22/22 09/11/23 (Dulcolax (bisacodyl)) magnesium hydroxide 400 mg/5 mL 30 ml PO DAILY PRN Constipation 07/22/22 09/11/23 oral suspension (Milk of Magnesia) pantoprazole 40 mg tablet,delayed 40 mg PO BID 07/22/22 09/11/23 release (Protonix) sodium phosphates 19 gram-7 118 ml CO DAILY PRN Constipation 07/22/22 09/11/23 gram/118 mL enema (Fleet Enema) hydroxyzine HCl 25 mg tablet 25 mg PO BEDTIME 01/08/23 09/11/23 polyethylene glycol 3350 17 4 g PO DAILY 01/08/23 09/11/23 gram/dose oral powder (Miralax) aluminum-mag hydroxide-simethicone 5 ml PO QID PRN Diarrhea 02/14/23 09/11/23 400 mg-400 mg-40 mg/5 mL oral susp (Mylanta Maximum Strength) rosuvastatin 10 mg tablet 10 mg PO QPM 02/14/23 09/11/23 cyclobenzaprine 10 mg tablet 5 mg PO TID PRN muscle spasm 06/13/23 09/11/23 Previous Rx's Medication Instructions Recorded loperamide 2 mg capsule 4 mg (2 x 2 mg) PO Q4H PRN 07/17/22 diarrhea #30 caps CAM WALKER #1 ea 07/18/22 leg brace (Ankle Brace) #1 ea 09/02/22 cam walker #1 ea 12/19/22 lace up ankle brace #1 ea 01/03/23 losartan 50 mg tablet 25 mg (1/2 x 50 mg) PO QAM #90 tabs 01/10/23 clopidogrel 75 mg tablet 75 mg PO DAILY #90 tabs 02/12/23 prednisone 10 mg tablet 10 mg PO QAM TO EASE PAIN OF PMR 02/12/23 #30 tabs carbamazepine 200 mg 200 mg PO BID #60 caps 02/17/23 capsule,extended release [id number] oxycodone-acetaminophen 7.5 mg-325 1 tab PO Q6H PRN pain #10 tabs 05/24/23 mg tablet (Percocet) hydrocodone 5 mg-acetaminophen 325 1 tab PO Q6H PRN pain #28 tabs 06/13/23 mg tablet CAM boot #1 ea 07/23/23 ASO brace #1 ea 09/11/23 albuterol sulfate 0.63 mg/3 mL 0.63 mg (3 mL) inhalation TID PRN 03/22/24 solution for nebulization shortness of breath or wheezing #90 mL Allergies Allergy/AdvReac Type Severity Reaction Status Date / Time codeine Allergy Mild Itch Verified 03/22/24 11:17 naltrexone Allergy Unknown Verified 03/22/24 11:17 diphenhydramine AdvReac Mild Hallucinati Verified 03/22/24 11:17 [From Josy] ons
--- NOTE | 2024-03-22 11:15 | XRR_ITS ---
PROCEDURE INFORMATION: Exam: XR Chest Exam date and time: 03/22/2024 11:25 AM Age: 83 years old Clinical indication: Shortness of breath TECHNIQUE: Imaging protocol: Radiologic exam of the chest. Views: 1 view. COMPARISON: CR (CHEST, ) 08/16/2023 11:23 PM FINDINGS: Tubes, catheters and devices: Left sided cardiac pacemaker leads in satisfactory position. Lungs: No consolidation. Pleural spaces: No sizable pleural effusion or pneumothorax. Heart/Mediastinum: No cardiomegaly. Bones/joints: Unremarkable. XR/XR chest 1V portable [id number] IMPRESSION: No acute intrathoracic findings.
--- NOTE | 2024-03-22 11:15 | ECG_ITS ---
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 Measurements Intervals Cornelius Rate: 81 P: 233 CT: 144 QRS: 210 QRSD: 101 T: 79 QT: 391 QTc: 456 Interpretive Statements SINUS RHYTHM ANTEROLATERAL MYOCARDIAL INFARCTION , OF INDETERMINATE AGE [40+ ms Q WAVE IN I/aVL/V3-V6] Compared to ECG 06/13/2023 12:36:35 First degree AV block no longer present Left ventricular hypertrophy no longer present Myocardial infarct finding still present Electronically Signed On 03-22-2024 16:06:07 CDT by Mac Vizcarra M.D. [email or web address]
[2024-03-22 11:37] LABS: Basophils # 0.1 10^3/uL (0.0-0.1); Basophils % 0.4 %; Eosinophils # 0.2 10^3/uL (0.0-0.8); Eosinophils % 1.1 %; Hematocrit 47.2 % (36-47); Lymphocytes # 0.8 10^3/uL (0.8-4.8); Lymphocytes % 5.6 %; Mean Corpuscular HGB Conc 33.1 g/dL (30-55); Mean Corpuscular Hemoglobin 28.9 pg (27-33); Mean Corpuscular Volume 87.4 fl (85-98); Mean Platelet Volume 9.2 fL (7.4-10.4); Monocytes # 1.6 10^3/uL (0.2-0.9); Monocytes % 11.6 %; Neutrophils # 11.17 10^3/uL (1.8-7.7); Neutrophils % 80.6 %; Nucleated Red Blood Cells % 0 %; Platelet Count 410 10^3/cmm (157-399); Red Cell Distribution Width 13.8 % (12.1-15.1); White Blood Count 13.84 10^3/uL (3.29-11.43)
[2024-03-22 12:12] LABS: Anion Gap 16.3 (5-19); Blood Urea Nitrogen 13 mg/dL (8-23); Calcium 8.8 mg/dL (8.5-10.5); Carbon Dioxide 29 mmol/L (22-29); Chloride 92 mmol/L (98-107); Creatinine Clr Calc Pharmacy 54.0677; Glucose 127 mg/dL (65-115); NT Pro B Type Natriuretic Pept 1345 pg/mL (0-450); Osmolality Calculated 278 mOsm/kg (285-295); Potassium 4.3 mmol/L (3.5-5.1); Sodium 133 mmol/L (136-145)
[2024-03-22 12:38] LABS: Lactic Sepsis W/Reflex 2.5 mmol/L (0.5-2.2)
[2024-03-22] MEDS: ipratropium-albuterol 3 mL Neb INHALATION (13:21)
[2024-03-22] MEDS: sodium chloride 0.9% 1,000 ML 150 ML IV (13:28)
[2024-03-22 13:44] LABS: Adenovirus Not Detected (NOT DETECT); Chlamydia Pneumoniae Not Detected (NOT DETECT); Coronavirus 229E,HKU1,NL63,OC4 Not Detected (NOT DETECT); Human Metapneumovirus Not Detected (NOT DETECT); Human Rhinovirus/Enterovirus Detected (NOT DETECT); Influenza A Not Detected (NOT DETECT); Influenza A H1 Not Detected (NOT DETECT); Influenza A H1-2009 Not Detected (NOT DETECT); Influenza A H3 Not Detected (NOT DETECT); Influenza B Not Detected (NOT DETECT); Mycoplasma Pneumoniae Not Detected (NOT DETECT); Parainfluenza Virus Type 1 Not Detected (NOT DETECT); Parainfluenza Virus Type 2 Not Detected (NOT DETECT); Parainfluenza Virus Type 3 Not Detected (NOT DETECT); Parainfluenza Virus Type 4 Not Detected (NOT DETECT); Respiratory Syncytial Virus A Not Detected (NOT DETECT); Respiratory Syncytial Virus B Not Detected (NOT DETECT); SARS-COV-2 Not Detected (NOT DETECT)
[2024-03-22 13:55] LABS: Human Metapneumovirus Not Detected (NOT DETECT); Human Rhinovirus/Enterovirus Detected (NOT DETECT); Results from Genmark
[2024-03-22 14:02] LABS: Reflex Lactate Order REFLEX LACTIC ORDERD
[2024-03-22 15:40] LABS: Lactic Acid level (Lactate) 1.5 mmol/L (0.5-2.2)
== END 2024-03-22 21:14 | disposition home or self-care (01) ==
PROVIDERS: Emergency Provider Student in an Organized Health Care Education/Training Program
DX: B34.8 Other viral infections of unspecified site (principal); Z79.02 Long term (current) use of antithrombotics/antiplatelets; Z79.82 Long term (current) use of aspirin; Z11.52 Encounter for screening for COVID-19; Z95.0 Presence of cardiac pacemaker; E78.5 Hyperlipidemia, unspecified; E11.9 Type 2 diabetes mellitus without complications; I10 Essential (primary) hypertension
CPT/HCPCS: 36415; 71045; 80048; 83605; 83735; 83880; 85025; 87635; 87801; 93005; 94640; 99285; J7030

== ENCOUNTER 2024-11-21 21:13 | Emergency (ER) | payer MEDICARE, OTHER, MEDICAID, SELFPAY ==
[2024-11-21 21:30] VITALS: BP 234/115; PULSE 87; RESP 16; TEMP 37.1; O2SAT 96; BMI 59.4
[2024-11-21 22:08] LABS: Basophils % 0.4 %; Eosinophils % 0.3 %; Hematocrit 40.8 % (36-47); Lymphocytes # 1.6 10^3/uL (0.8-4.8); Lymphocytes % 16.4 %; Mean Corpuscular HGB Conc 32.4 g/dL (30-55); Mean Corpuscular Hemoglobin 28.7 pg (27-33); Mean Corpuscular Volume 88.7 fl (85-98); Mean Platelet Volume 9.7 fL (7.4-10.4); Monocytes # 1.5 10^3/uL (0.2-0.9); Monocytes % 15.9 %; Neutrophils # 6.31 10^3/uL (1.8-7.7); Neutrophils % 66.6 %; Nucleated Red Blood Cells % 0 %; Platelet Count 433 10^3/cmm (157-399); Red Cell Distribution Width 13.5 % (12.1-15.1); White Blood Count 9.49 10^3/uL (3.29-11.43)
[2024-11-21 22:25] LABS: Alanine Aminotransferase 18 U/L (0-33); Albumin Level 3.9 g/dL (3.5-5.2); Alkaline Phosphatase 72 U/L (35-105); Anion Gap 13.3 (5-19); Aspartate Amino Transferase 22 U/L (0-32); Blood Urea Nitrogen 19 mg/dL (8-23); Calcium 8.8 mg/dL (8.5-10.5); Carbon Dioxide 28 mmol/L (22-29); Chloride 96 mmol/L (98-107); Creatinine Clr Calc Pharmacy 72.2573; Globulin 3.5 g/dL (1.3-4.6); Glucose 102 mg/dL (65-115); Osmolality Calculated 278 mOsm/kg (285-295); Potassium 4.3 mmol/L (3.5-5.1); Sodium 133 mmol/L (136-145); Total Bilirubin 0.3 mg/dL (0.15-1.2); Total Protein 7.4 g/dL (6.6-8.7)
[2024-11-21 22:30] VITALS: BP 152/77; PULSE 92; RESP 16; O2SAT 94
[2024-11-21 22:33] LABS: INR 0.92 (0.8-1.2)
[2024-11-21 22:34] LABS: Partial Thromboplastin Time 24.6 SECONDS (23.9-36.7)
[2024-11-21] MEDS: silver nitrate applicator 3 EACH TOPICAL (22:40)
[2024-11-21] MEDS: oxymetazoline 0.05% Nasal Spray 15 mL 2 SPRAY NOSTRIL-L (22:40)
[2024-11-21] MEDS: gelatin 12-7 mm Sponge 1 EACH TOPICAL (22:40)
[2024-11-21] MEDS: amlodipine 10 mg Tablet PO (23:10)
[2024-11-21 23:24] LABS: Bilirubin Urine Negative (Negative); Blood Urine Negative (Negative); Glucose Urine UA Negative (Normal); Ketones Urine Negative (Negative); Leukocyte Esterase Urine 2+ (Negative); Nitrate Urine Negative (Negative); Protein Urine Negative (Negative); Specific Gravity, Urine 1.018 (1.005-1.030); Urine Appearance Clear (CLEAR); Urine Color Yellow (Yellow)
[2024-11-21 23:29] LABS: Add Urine Microscopic? YES; Bacteria Urine None Seen /hpf; Hyaline Casts Urine 0.81 /lpf; RBC Urine 0-2 /hpf (0-2); Squamous Epithelial Cell Urine 0-5 /hpf (0-5); WBC Urine 21-50 /hpf (0-5)
--- NOTE | 2024-11-21 23:32 | XRR_ITS ---
PROCEDURE INFORMATION: Exam: XR Chest Exam date and time: 11/21/2024 11:32 PM Age: 84 years old Clinical indication: Prior surgery; Surgery date: 6+ months; Surgery type: Pacemaker (non-functioning per pt); Cough; HTN; Epistaxis TECHNIQUE: Imaging protocol: Radiologic exam of the chest. Views: 1 view. COMPARISON: CR XR chest 1V portable [id number] 03/22/2024 11:25 AM FINDINGS: Tubes, catheters and devices: Left chest wall pacemaker with the leads in the right atrium and right ventricle. No definite fracture, kinking, or displacement of the pacer leads. Lungs: Unremarkable. No consolidation. Pleural spaces: Unremarkable. No pleural effusion. No pneumothorax. Heart/Mediastinum: Unremarkable. No cardiomegaly. Vasculature: Aortic calcification. Bones/joints: Severe degenerative changes of the bilateral glenohumeral joints. Other findings: Embolic material projecting over the left upper quadrant of the abdomen. XR/XR chest 1V portable [id number] IMPRESSION: 1. No acute findings. 2. No definite fracture, kinking, or displacement of the pacemaker leads.
--- NOTE | 2024-11-21 23:41 | ED_ITS ---
HPI - Epistaxis 2 General: Chief complaint: Epistaxis Stated complaint: nosebleed Time Seen by Provider: 11/21/24 21:56 History of Present Illness: 84-year-old female presenting from a [place] [facility] with left-sided nosebleeding. She was hypertensive. She is on anticoagulants. No trauma. Related Data Home Medications ?Medication ?Instructions ?Recorded ?Confirmed multivitamin 1 tab PO QAM 10/29/20 aspirin 81 mg tablet,delayed 81 mg PO QAM 06/18/2201/27 release ferrous sulfate 325 mg (65 mg 325 mg PO QAM 06/18/22 0 09/11/23 iron) tablet (iron) acetaminophen 500 mg tablet 500 - 1,000 mg PO Q6H PRN Pain 07/14/22 09/11/23 cholecalciferol (vitamin D3) 10 10 mcg PO QAM 07/14/22 09/11/23 mcg (400 unit) tablet (Vitamin D3) sertraline 100 mg tablet (Zoloft) 100 mg PO QAM 09/11/23 bisacodyl 10 mg rectal suppository 10 mg AR DAILY PRN Constipation 07/22/22 09/11/23 (Dulcolax (bisacodyl)) magnesium hydroxide 400 mg/5 mL 30 ml PO DAILY PRN Con stipation 07/22/22 09/11/23 oral suspension (Milk of Magnesia) pantoprazole 40 mg tablet,delayed 40 mg PO BID 3 09/11/23 release (Protonix) sodium phosphates 19 gram-7 118 ml AR DAILY PRN Consti pation 07/22/22 09/11/23 gram/118 mL enema (Fleet Enema) hydroxyzine HCl 25 mg tablet 25 mg PO BEDTIME 01/08/23 09/11/23 polyethylene glycol 3350 17 4 g PO DAILY 01/08/23/01/27 gram/dose oral powder (Miralax) aluminum-mag hydroxide-simethicone 5 ml PO QID PRN Marifer rrhea 02/14/23 09/11/23 400 mg-400 mg-40 mg/5 mL oral susp (Mylanta Maximum Strength) rosuvastatin 10 mg tablet 10 mg PO QPM 02/14/23 cyclobenzaprine 10 mg tablet 5 mg PO TID PRN muscle sp asm 06/13/23 09/11/23 Previous Rx's ?Medication ?Instructions ?Recorded loperamide 2 mg capsule 4 mg (2 x 2 mg) PO Q4H PRN 0 07/17/22 diarrhea #30 caps CAM WALKER #1 ea 07/18/22 leg brace (Ankle Brace) #1 ea 09/02/22 cam walker #1 ea 12/19/22 lace up ankle brace #1 ea 01/03/23 losartan 50 mg tablet 25 mg (1/2 x 50 mg) PO QAM # 90 tabs 01/10/23 clopidogrel 75 mg tablet 75 mg PO DAILY #90 tabs 03/29 prednisone 10 mg tablet 10 mg PO QAM TO EASE PAIN OF PMR 02/12/23 #30 tabs carbamazepine 200 mg 200 mg PO BID #60 caps 02/17 capsule,extended release [id number] oxycodone-acetaminophen 7.5 mg-325 1 tab PO Q6H PRN pa in #10 tabs 05/24/23 mg tablet (Percocet) hydrocodone 5 mg-acetaminophen 325 1 tab PO Q6H PRN pa in #28 tabs 06/13/23 mg tablet CAM boot #1 ea 07/23/23 ASO brace #1 ea 09/11/23 albuterol sulfate 0.63 mg/3 mL 0.63 mg (3 mL) inhalati on TID PRN 03/22/24 solution for nebulization shortness of breath or wheez ing #90 mL cephalexin 500 mg capsule 500 mg PO TID 10 days #30 ca ps 11/22/24 Allergies Allergy/AdvReac Type Severity Reaction Status Date / Time codeine Allergy Mild Itch Verified 03/22/24 11:17 naltrexone Allergy Unknown Verified 03/22/24 11:17 diphenhydramine (From AdvReac Mild Hallucinati Verified 03/22/24 11:17 Benadryl) ons PFSH ED 2 PFSH: Medical History History of common carotid artery stent placement Carotid stenosis Fracture of distal fibula 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 Colitis Facial pain Left ankle pain Hypovolemic shock Dehydration Diarrhea Septic shock Pacemaker Hyperlipidemia associated with type 2 diabetes mellitus Sick sinus syndrome Depression Hyperlipidemia Hypertension Mesenteric artery stenosis Ileus Colitis Abnormal CT of the abdomen Enteritis Surgical History History of knee replacement History of splenectomy History of ankle surgery Status post colonoscopy Family History Mother Stroke Social History Smoking and tobacco/nicotine status: never used tobacco/nicotine Alcohol intake: never Physical Exam 2 Const: GENERAL APPEARANCE: anxious, ill appearing and frail appearing O RIENTATION/CONSCIOUSNESS: Yes awake, Yes oriented to person and Yes oriented to place; not oriented to time HENMT: COMMON NORMALS: normocephalic, external ears normal and Normal external nose present HEAD & SCALP: normocephalic FACE & SINUS: face symmetric N OSE: Normal external nose present and Epistaxis present on the left anterior source and clots present EXTERNAL EAR: Yes external ears normal Neuro: SENSORIUM/ORIENTATION: Yes oriented to person, Yes oriented to place and No oriented to time Course 2 Vital Signs: Vital signs: Vital Signs Temperature 98.7 F 11/21/24 21:30 Pulse Rate 82 11/22/24 04:41 Respiratory Rate 18 11/22/24 04:41 Blood Pressure 143/81 11/22/24 04:41 Pulse Oximetry 94 11/22/24 04:41 Oxygen Delivery Me thod Room Air 11/22/24 04:41 MDM - Epistaxis Medical Decision Making Left nare cauterized with silver nitrate. Packed with Afrin soaked [place]. She is no longer bleeding. Blood pressure was quite high on arrival. Improved currently. The patient started to re bleed. This is likely because of continued manipulation to the nose by the patient herself. She does have a history of dementia. We elected to place a nasal tampon at that point. We use cetacaine for local anesthetic. We used a small dose of Annika versed for anxiolysis. She tolerated well. Bleeding is controlled. She does have a urinary tract infection which will be treated. She may benefit from night time anxiolysis to prevent such episodes from happening again. Lab Data 11/21/24 21:54 11/21/24 21:54 Radiology Impressions Chest X-Ray 11/21/24 23:32 IMPRESSION: 1. No acute findings. 2. No definite fracture, kinking, or displacement of the pacemaker leads. Laboratory Results WBC 9.49 10^3/uL (3.29-11.43) 11/21/24 21:54 RBC 4.60 10^6/uL (3.85-5.65) 11/21/24 21:54 Hgb 13.20 g/dL (11.27-16.99) 11/21/24 21:54 Hct 40.8 % (36-47) 11/21/24 21:54 MCV 88.7 fl (85-98) 11/21/24 21:54 MCH 28.7 pg (27-33) 11/21/24 21:54 MCHC 32.4 g/dL (30-55) 11/21/24 21:54 RDW 13.5 % (12.1-15.1) 11/21/24 21:54 Plt Count 433 10^3/cmm (157-399) H 11/21/24 21:54 MPV 9.7 fL (7.4-10.4) 11/21/24 21:54 Neut % (Auto) 66.6 % 11/21/24 21:54 Lymph % (Auto) 16.4 % 11/21/24 21:54 [place] % (Auto) 15.9 % 11/21/24 21:54 Eos % (Auto) 0.3 % 11/21/24 21:54 Baso % (Auto) 0.4 % 11/21/24 21:54 Neut # (Auto) 6.31 10^3/uL (1.8-7.7) 11/21/24 21:54 Lymph # (Auto) 1.6 10^3/uL (0.8-4.8) 11/21/24 21:54 [place] # (Auto) 1.5 10^3/uL (0.2-0.9) H 11/21/24 21:54 Eos # (Auto) 0.0 10^3/uL (0.0-0.8) 11/21/24 21:54 Baso # (Auto) 0.0 10^3/uL (0.0-0.1) 11/21/24 21:54 Nucleated RBC % (auto) 0 % 11/21/24 21:54 Nucleated RBCs # 0.0 /100WBC 11/21/24 21:54 PT 13.00 SECONDS (12.1-14.9) 11/21/24 21:54 INR 0.92 (0.8-1.2) 11/21/24 21:54 APTT 24.6 SECONDS (23.9-36.7) 11/21/24 21:54 Sodium 133 mmol/L (136-145) L 11/21/24 21:54 Potassium 4.3 mmol/L (3.5-5.1) 11/21/24 21:54 Chloride 96 mmol/L (98-107) L 11/21/24 21:54 Carbon Dioxide 28 mmol/L (22-29) 11/21/24 21:54 Anion Gap 13.3 (5-19) 11/21/24 21:54 BUN 19 mg/dL (8-23) 11/21/24 21:54 Creatinine 0.5 mg/dL (0.5-0.9) 11/21/24 21:54 GFR Calculation Not Reportable 11/21/24 21:54 Glucose 102 mg/dL (65-115) 11/21/24 21:54 Calculated Osmolality 278 mOsm/kg (285-295) L 11/21/24 21:54 Calcium 8.8 mg/dL (8.5-10.5) 11/21/24 21:54 Total Bilirubin 0.3 mg/dL (0.15-1.2) 11/21/24 21:54 AST 22 U/L (0-32) 11/21/24 21:54 ALT 18 U/L (0-33) 11/21/24 21:54 Alkaline Phosphatase 72 U/L (35-105) 11/21/24 21:54 Total Protein 7.4 g/dL (6.6-8.7) 11/21/24 21:54 Albumin 3.9 g/dL (3.5-5.2) 11/21/24 21:54 Globulin 3.5 g/dL (1.3-4.6) 11/21/24 21:54 Urine Color Yellow (Yellow) 11/21/24 23:13 Urine Appearance Clear (CLEAR) 11/21/24 23:13 Urine pH 7.0 (5-7) 11/21/24 23:13 Ur Specific [place] 1.018 (1.005-1.030) 11/21/24 23:13 Urine Protein Negative (Negative) 11/21/24 23:13 Urine Glucose (UA) Negative (Normal) 11/21/24 23:13 Urine Ketones Negative (Negative) 11/21/24 23:13 Urine Blood Negative (Negative) 11/21/24 23:13 Urine Nitrate Negative (Negative) 11/21/24 23:13 Urine Bilirubin Negative (Negative) 11/21/24 23:13 Urine Urobilinogen 1.0 mg/dL (Negative) 11/21/24 23:13 Ur Leukocyte Esterase 2+ (Negative) A 11/21/24 23:13 Urine RBC 0-2 /hpf (0-2) 11/21/24 23:13 Urine WBC 21-50 /hpf (0-5) H 11/21/24 23:13 Ur Squamous Epith Cells 0-5 /hpf (0-5) 11/21/24 23:13 Amorphous Sediment Not Reportable 11/21/24 23:13 Urine Bacteria None seen /hpf (NONE) 11/21/24 23:13 Hyaline Casts 0.81 /lpf 11/21/24 23:13 No radiology studies performed this visit Discharge Plan Discharge Patient Disposition: Home Clinical Impression: Acute UTI, Epistaxis Condition: Stable Prescriptions: New cephalexin 500 mg capsule 500 mg PO TID 10 Days Qty: 30 0RF No Action (DME) Ankle Brace Misc See Rx Instructions .ROUTE .MEDSUPPLY Qty: 1 0RF Rx Instructions: As directed (DME) CAM boot See Rx Instructions .Route .MEDSUPPLY Qty: 1 0RF Rx Instructions: As directed (DME) CAM WALKER See Rx Instructions .ROUTE .MEDSUPPLY Qty: 1 0RF Rx Instructions: As directed (DME) cam walker See Rx Instructions .Route .MEDSUPPLY Qty: 1 0RF Rx Instructions: As directed (DME) lace up ankle brace See Rx Instructions .Route .MEDSUPPLY Qty: 1 0RF Rx Instructions: As directed (DME) ASO brace See Rx Instructions .Route .MEDSUPPLY Qty: 1 0RF Rx Instructions: As directed clopidogrel 75 mg tablet 75 mg PO DAILY Qty: 90 0RF prednisone 10 mg tablet 10 mg PO QAM Qty: 30 0RF carbamazepine 200 mg capsule, ER multiphase 12 hr 200 mg PO BID Qty: 60 5RF multivitamin Tablet 1 tab PO QAM sertraline [Zoloft] 100 mg tablet 100 mg PO QAM acetaminophen 500 mg Tablet 500 - 1,000 mg PO Q6H PRN (Reason: Pain) cholecalciferol (vitamin D3) [Vitamin D3] 10 mcg (400 unit) Tablet 10 mcg PO QAM loperamide 2 mg Capsule 4 mg PO Q4H PRN (Reason: diarrhea) Qty: 30 0RF magnesium hydroxide [Milk of Magnesia] 400 mg/5 mL Suspension 30 ml PO DAILY PRN (Reason: Constipation) bisacodyl [Dulcolax (bisacodyl)] 10 mg Suppository 10 mg AR DAILY PRN (Reason: Constipation) pantoprazole [Protonix] 40 mg Tablet,Delayed Release (Dr/Ec) 40 mg PO BID Fleet Enema 19-7 gram/118 mL Enema 118 ml AR DAILY PRN (Reason: Constipation) oxycodone-acetaminophen [Percocet] 7.5-325 mg tablet 1 tab PO Q6H PRN (Reason: pain) Qty: 10 0RF cyclobenzaprine 10 mg tablet 5 mg PO TID PRN (Reason: muscle spasm) hydrocodone-acetaminophen 5-325 mg tablet 1 tab PO Q6H PRN (Reason: pain) Qty: 28 0RF albuterol sulfate 0.63 mg/3 mL solution for nebulization 0.63 mg inhalation TID PRN (Reason: shortness of breath or wheezing) Qty: 90 0RF aspirin 81 mg Tablet,Delayed Release (Dr/Ec) 81 mg PO QAM ferrous sulfate [iron] 325 mg (65 mg iron) Tablet 325 mg PO QAM polyethylene glycol 3350 [Miralax] 17 gram/dose Powder 4 g PO DAILY hydroxyzine HCl 25 mg tablet 25 mg PO BEDTIME losartan 50 mg tablet 25 mg PO QAM Qty: 90 3RF alum-mag hydroxide-simeth [Mylanta Maximum Strength] 400-400-40 mg/5 mL Suspension 5 ml PO QID PRN (Reason: Diarrhea) rosuvastatin 10 mg tablet 10 mg PO QPM Discharge Orders: Discharge ED (Routine); Ordered 05/19/25 Ordered By: Luis Eduardo Eldridge Referrals: Jeferson Weiss MD [Physician, Ear, Nose, Throat] - 1-3 days Patient Instructions: Nosebleed (ED), Urinary Tract Infection in Older Adults (ED), Opioid Safety, Pain Management Activity Restrictions/Additional Instructions: Leave the packing in place for 48 hours. If it comes out prior to then, that is fine. If unable to remove, it will dissolve on its own. Return for problems. Watch blood pressure closely, take twice a day for the next 48 hours. Treat accordingly. Antibiotics as directed for urinary tract infection. Print Language: Scottish Coding Level of Care Code ED [place] for Cipriano Forrest
[2024-11-21 23:44] LABS: Add Urine Culture? Yes
[2024-11-21] MEDS: LORazepam 0.5 mg Tablet PO (23:45)
[2024-11-22] MEDS: gelatin 12-7 mm Sponge 1 EACH TOPICAL (00:45)
[2024-11-22] MEDS: silver nitrate applicator 1 EACH TOPICAL (00:45)
[2024-11-22] MEDS: oxymetazoline 0.05% Nasal Spray 15 mL 2 SPRAY NOSTRIL-L (00:45)
[2024-11-22 01:37] VITALS: BP 155/93; PULSE 82; RESP 16; O2SAT 94
[2024-11-22 02:00] VITALS: BP 160/68; PULSE 80; RESP 18; O2SAT 91
[2024-11-22] MEDS: cetacaine Spray 5 gm Can 1 SPRAY TOPICAL (03:00)
[2024-11-22 03:28] VITALS: BP 171/131; PULSE 91; RESP 18; O2SAT 95
[2024-11-22 03:30] VITALS: PULSE 80; RESP 18; O2SAT 94
[2024-11-22 04:14] VITALS: BP 152/72; PULSE 89; RESP 18; O2SAT 93
[2024-11-22] MEDS: midazolam 1 mg/mL INJ 2 mL IVP (04:14)
[2024-11-22 04:41] VITALS: BP 143/81; PULSE 82; RESP 18; O2SAT 94
--- NOTE | 2024-11-22 04:50 | PC.NURSE ---
report called to norma at [facility]. norma verbalized teachback of discharge communication including PRN anxiety medication request from family, to call ENT Weiss this morning for follow up on Friday, rhino ilsa instructions and restrictions. also informed norma from [facility] that family is picking up abx prescriptions. these instructions were also communicated to family.
== END 2024-11-22 06:26 | disposition home or self-care (01) ==
PROVIDERS: Emergency Provider Emergency Medicine; PCP Internal Medicine
DX: N39.0 Urinary tract infection, site not specified (principal); R04.0 Epistaxis; Z79.02 Long term (current) use of antithrombotics/antiplatelets; E78.5 Hyperlipidemia, unspecified; I10 Essential (primary) hypertension; Z95.0 Presence of cardiac pacemaker
CPT/HCPCS: 36415; 71045; 80053; 81001; 85025; 85610; 85730; 87086; 96374; 99284; J2250; J9999

== ENCOUNTER 2024-11-25 10:14 | Emergency (ER) | payer MEDICARE, OTHER, MEDICAID, SELFPAY ==
[2024-11-25 10:16] VITALS: BP 127/67; PULSE 74; RESP 16; TEMP 36.4; O2SAT 100; BMI 43.9
--- NOTE | 2024-11-25 10:24 | XR_ITS ---
WS: [id number] Portable AP upright chest, 11/25/2024 Clinical Data: Shortness of breath Comparison: Portable chest, 11/21/2024 Findings: No nodules, masses or effusions are seen. The heart is normal. The pulmonary vascularity is not increased. No pneumonia or pneumothorax is seen. The aortic arch shows mild calcification and slight tortuosity. The 2-lead cardiac pacemaker remains in the same position. XR/XR chest 1V portable [id number] Impression: Atherosclerosis.
--- NOTE | 2024-11-25 10:24 | XR_ITS ---
WS: [id number] Left shoulder, 3 views, 11/25/2024 Clinical Data: shoulder pain Comparison: Left shoulder, 03/11/2019 Findings: No fractures or dislocations are seen. The AC joint is slightly widened, possibly from surgery. There is severe osteoarthritis of the left glenohumeral joint with osteophyte formation, narrowing and cystic change of the adjacent glenoid and humeral head. The cardiac pacemaker with generator remains in the same position. The adjacent left ribs are normal. The soft tissues are unremarkable. There is a small calcification in the posterior superior scapula which may represent an enchondroma. XR/XR shoulder LT min 2V* [id number] Impression: 1. Severe osteoarthritis of the left glenohumeral joint. 2. Widening of the left AC joint unchanged.
--- NOTE | 2024-11-25 10:25 | CT_ITS ---
WS: [id number] CT HEAD TECHNIQUE: Noncontrast CT of the head obtained from the skullbase to the vertex. CLINICAL INFORMATION: Altered mental status COMPARISON: 2022 DLP: 1250.[address] scans at [facility] use at least one of these dose optimization techniques: automated exposure control; mA and/or kV adjustment per patient size (includes targeted exams where dose is matched to clinical indication); or iterative reconstruction. FINDINGS: No evidence of intracranial hemorrhage or mass effect. Ventricular system and basal cisterns are patent. Moderate small vessel changes with moderate parenchymal volume loss. No extra-axial fluid collections. No evidence of mass or mass effect. Vascular calcification Paranasal sinuses and mastoid air cells are well aerated. .Normal visualized soft tissues. CT/CT head wo con* [id number] IMPRESSION: 1. No evidence of intracranial hemorrhage or mass effect. 2. No acute intracranial findings.
--- NOTE | 2024-11-25 10:37 | ECG_ITS ---
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 Measurements Intervals Randall Rate: 74 P: 62 NE: 211 QRS: -17 QRSD: 104 T: 119 QT: 398 QTc: 443 Interpretive Statements SINUS RHYTHM WITH FIRST DEGREE AV BLOCK LEFT VENTRICULAR HYPERTROPHY AND ST-T CHANGE [VOLTAGE CRITERIA PLUS ST/T ABNORMALITY] Poor R wave progression Compared to ECG 03/22/2024 11:18:01 First degree AV block now present Left ventricular hypertrophy now present ST (T wave) deviation now present Myocardial infarct finding no longer present Electronically Signed On 11-25-2024 18:03:16 CDT by Fatmata Greenberg M.D. [email or web address]
--- NOTE | 2024-11-25 10:39 | W.ED.SOB ---
HPI - SOB/Dyspnea General: Chief Complaint: Shortness of Breath/Dyspnea Stated Complaint: L Arm Pain Time Seen by Provider: 11/25/24 10:20 History of Present Illness: HPI Narrative: 84-year-old female with history of obesity, carotid artery disease and stents, pacemaker placement, hyperlipidemia, type 2 diabetes, hypertension, chronic hypoxemic respiratory failure on 4 L nasal cannula at all times who presents to the emergency room by ambulance from a long term with left arm pain. EMS reports that there was also some concern for confusion as she would not keep her oxygen on last night. She is alert and oriented on my presentation and complains of left arm pain. She says she does not remember if she injured it. She does not report any shortness of breath or chest pain at this time. No abdominal pain. No nausea. No known fevers. Related Data Home Medications ?Medication ?Instructions ?Recorded ?Confirmed multivitamin 1 tab PO QAM 10/29/20 09/11/23 aspirin 81 mg tablet,delayed 81 mg PO QAM 06/18/22 09/11/23 release ferrous sulfate 325 mg (65 mg 325 mg PO QAM 06/18/22 09/11/23 iron) tablet (iron) acetaminophen 500 mg tablet 500 - 1,000 mg PO Q6H PRN Pain 07/14/22 09/11/23 cholecalciferol (vitamin D3) 10 10 mcg PO QAM 07/14/22 09/11/23 mcg (400 unit) tablet (Vitamin D3) sertraline 100 mg tablet (Zoloft) 100 mg PO QAM 07/14/22 09/11/23 bisacodyl 10 mg rectal suppository 10 mg WI DAILY PRN Constipation 07/22/22 09/11/23 (Dulcolax (bisacodyl)) magnesium hydroxide 400 mg/5 mL 30 ml PO DAILY PRN Constipation 07/22/22 09/11/23 oral suspension (Milk of Magnesia) pantoprazole 40 mg tablet,delayed 40 mg PO BID 07/22/22 09/11/23 release (Protonix) sodium phosphates 19 gram-7 118 ml WI DAILY PRN Constipation 07/22/22 09/11/23 gram/118 mL enema (Fleet Enema) hydroxyzine HCl 25 mg tablet 25 mg PO BEDTIME 01/08/23 09/11/23 polyethylene glycol 3350 17 4 g PO DAILY 01/08/23 09/11/23 gram/dose oral powder (Miralax) aluminum-mag hydroxide-simethicone 5 ml PO QID PRN Diarrhea 02/14/23 09/11/23 400 mg-400 mg-40 mg/5 mL oral susp (Mylanta Maximum Strength) rosuvastatin 10 mg tablet 10 mg PO QPM 02/14/23 09/11/23 cyclobenzaprine 10 mg tablet 5 mg PO TID PRN muscle spasm 06/13/23 09/11/23 Previous Rx's ?Medication ?Instructions ?Recorded loperamide 2 mg capsule 4 mg (2 x 2 mg) PO Q4H PRN 07/17/22 diarrhea #30 caps CAM WALKER #1 ea 07/18/22 leg brace (Ankle Brace) #1 ea 09/02/22 cam walker #1 ea 12/19/22 lace up ankle brace #1 ea 01/03/23 losartan 50 mg tablet 25 mg (1/2 x 50 mg) PO QAM #90 tabs 01/10/23 clopidogrel 75 mg tablet 75 mg PO DAILY #90 tabs 02/12/23 prednisone 10 mg tablet 10 mg PO QAM TO EASE PAIN OF PMR 02/12/23 #30 tabs carbamazepine 200 mg 200 mg PO BID #60 caps 02/17/23 capsule,extended release [id number] oxycodone-acetaminophen 7.5 mg-325 1 tab PO Q6H PRN pain #10 tabs 05/24/23 mg tablet (Percocet) hydrocodone 5 mg-acetaminophen 325 1 tab PO Q6H PRN pain #28 tabs 06/13/23 mg tablet CAM boot #1 ea 07/23/23 ASO brace #1 ea 09/11/23 albuterol sulfate 0.63 mg/3 mL 0.63 mg (3 mL) inhalation TID PRN 03/22/24 solution for nebulization shortness of breath or wheezing #90 mL cephalexin 500 mg capsule 500 mg PO TID 10 days #30 caps 11/22/24 lorazepam 1 mg tablet (Ativan) 1 mg PO BEDTIME PRN dizziness or 11/25/24 vertigo #20 tabs oxycodone 5 mg tablet 5 mg PO Q8H PRN pain #20 tabs 11/25/24 Allergies Allergy/AdvReac Type Severity Reaction Status Date / Time codeine Allergy Mild Itch Verified 03/22/24 11:17 naltrexone Allergy Unknown Verified 03/22/24 11:17 diphenhydramine (From AdvReac Mild Hallucinati Verified 03/22/24 11:17 Benadryl) ons Review of Systems Narrative: Constitutional symptoms: Negative except as documented in HPI. Skin symptoms: Negative except as documented in HPI. Eye symptoms: Negative except as documented in HPI. ENMT symptoms: Negative except as documented in HPI. Respiratory symptoms: Negative except as documented in HPI. Cardiovascular symptoms: Negative except as documented in HPI. Gastrointestinal symptoms: Negative except as documented in HPI. Genitourinary symptoms: Negative except as documented in HPI. Musculoskeletal symptoms: Negative except as documented in HPI. Neurologic symptoms: Negative except as documented in HPI. Psychiatric symptoms: Negative except as documented in HPI. Endocrine symptoms: Negative except as documented in HPI. 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 Colitis Facial pain Left ankle pain Hypovolemic shock Dehydration Diarrhea Septic shock Pacemaker Hyperlipidemia associated with type 2 diabetes mellitus Sick sinus syndrome Depression Hyperlipidemia Hypertension Mesenteric artery stenosis Ileus Colitis Abnormal CT of the abdomen Enteritis Surgical History History of knee replacement History of splenectomy History of ankle surgery Status post colonoscopy Family History Mother Stroke Social History Smoking and tobacco/nicotine status: never used tobacco/nicotine Alcohol intake: never Physical Exam Narrative: EXAM NARRATIVE: General: Alert, no acute distress. Skin: Warm, dry. Head: Normocephalic, atraumatic. Neck: Supple, trachea midline. Eye: Extraocular movements are intact. Ears, nose, mouth and throat: mucosa moist. Cardiovascular: Regular, Normal peripheral perfusion. Respiratory: Lungs are clear to auscultation, respirations are non-labored, breath sounds are equal, Symmetrical chest wall expansion. Gastrointestinal: Soft, Nontender, Non distended Musculoskeletal: Normal ROM, no deformity. Some pain to palpation of the left shoulder Neurological: Alert and oriented, No focal neurological deficit observed. Psychiatric: Cooperative, appropriate mood & affect. Course Vital Signs: Vital signs: Vital Signs Temperature 97.6 F 11/25/24 10:16 Pulse Rate 84 11/25/24 13:49 Respiratory Rate 18 11/25/24 13:49 Blood Pressure 135/77 11/25/24 13:49 Pulse Oximetry 94 11/25/24 13:49 Oxygen Delivery Me thod Nasal Cannula 11/25/24 11:35 Oxygen Flow Rate 5 11/25/24 11:35 MDM - SOB/Dyspnea Medical Decision Making Medical decision making: Differential diagnosis including but not limited to and based on the above HPI, review of systems and physical exam: In this patient with altered mental status: Stroke. Hypoglycemia. Metabolic encephalopathy. Infections such as pneumonia, urinary tract infection, Covid-19, Influenza. Electrolyte abnormalities such as hypernatremia. Renal failure / uremia. Hepatic encephalopathy. Hypoxemia. Hypercapnic respiratory failure. Psychosis. Drug or alcohol intoxication. Medication overdose. Orders placed to evaluate differential diagnosis based on the above differential, HPI and physical exam Chest x-ray: No acute process. No infiltrate. No pneumothorax. This was reviewed and interpreted by myself the emergency room physician. I also reviewed the radiology report. X-ray of the left shoulder: Severe osteoarthritis and unchanged widening left AC joint. No acute findings. This was reviewed and interpreted by myself the emergency room physician. I also reviewed the radiology report. CT head: No acute intracranial process. no intracranial hemorrhage, no evidence of infarct. no evidence of acute fracture.This was reviewed and interpreted by myself the ER physician. EKG: Time 1037. Rate 74. Normal sinus rhythm, No ST-T changes, no ectopy, normal WI & QRS intervals, This was reviewed and interpreted by myself the ER physician at 10:41 AM Lab Review: Laboratory results were reviewed and interpreted by myself the emergency room physician. No leukocytosis. No anemia. No renal failure. Urinalysis is negative for infection. Liver enzymes are normal. Serial troponins are 44 and 43 respectively. No delta. She always has a slightly elevated troponin. I reviewed the patient's medical record. Reexamination: Patient remained stable. No increased work of breathing. No altered mental status. No focal motor deficits. I discussed the patient at length with family. They recently moved her down from long term in [place] and are having difficulties at this new long term. Family says the doctor took away all of her medications. She has not slept in 5 days because she no longer has her sleep medications and Allan was not managing her pain and this is the primary problem. She does not feel like she is any more confused than normal because she has dementia and has sundowning. Mostly concerned about her lack of sleep and pain control Assessment and plan: Dementia Shoulder pain Shoulder arthritis Insomnia ? IV morphine and Ativan in the emergency room. - Discharged home - Discussed plan with patient. Answered any questions. - Evaluation and treatment of this problem were appropriate in the emergency setting. Lab Data 11/25/24 11:48 11/25/24 11:48 Labs/Radiology: Radiology Impressions Chest X-Ray 11/25/24 10:24 Impression: Atherosclerosis. Shoulder X-Ray 11/25/24 10:24 Impression: 1. Severe osteoarthritis of the left glenohumeral joint. 2. Widening of the left AC joint unchanged. Head CT 11/25/24 10:25 IMPRESSION: 1. No evidence of intracranial hemorrhage or mass effect. 2. No acute intracranial findings. Laboratory Results WBC 6.92 10^3/uL (3.29-11.43) 11/25/24 11:48 RBC 4.01 10^6/uL (3.85-5.65) 11/25/24 11:48 Hgb 11.70 g/dL (11.27-16.99) 11/25/24 11:48 Hct 37.3 % (36-47) 11/25/24 11:48 MCV 93.0 fl (85-98) 11/25/24 11:48 MCH 29.2 pg (27-33) 11/25/24 11:48 MCHC 31.4 g/dL (30-55) 11/25/24 11:48 RDW 14.1 % (12.1-15.1) 11/25/24 11:48 Plt Count 395 10^3/cmm (157-399) 11/25/24 11:48 MPV 9.9 fL (7.4-10.4) 11/25/24 11:48 Neut % (Auto) 52.2 % 11/25/24 11:48 Lymph % (Auto) 24.4 % 11/25/24 11:48 [place] % (Auto) 18.8 % 11/25/24 11:48 Eos % (Auto) 3.2 % 11/25/24 11:48 Baso % (Auto) 1.0 % 11/25/24 11:48 Neut # (Auto) 3.61 10^3/uL (1.8-7.7) 11/25/24 11:48 Lymph # (Auto) 1.7 10^3/uL (0.8-4.8) 11/25/24 11:48 [place] # (Auto) 1.3 10^3/uL (0.2-0.9) H 11/25/24 11:48 Eos # (Auto) 0.2 10^3/uL (0.0-0.8) 11/25/24 11:48 Baso # (Auto) 0.1 10^3/uL (0.0-0.1) 11/25/24 11:48 Nucleated RBC % (auto) 0 % 11/25/24 11:48 Nucleated RBCs # 0.0 /100WBC 11/25/24 11:48 Specimen Type Arterial 11/25/24 10:45 Sample Site Brachial, left 11/25/24 10:45 ABG pH 7.43 (7.35-7.45) 11/25/24 10:45 ABG pCO2 44.3 mmHg (35-45) 11/25/24 10:45 ABG pO2 117.0 mmHg (80.0-100.0) H 11/25/24 10:45 ABG PO2/FiO2 Ratio 365 11/25/24 10:45 ABG HCO3 29.2 mmol/L (22-26) H 11/25/24 10:45 ABG O2 Saturation > 99.1 11/25/24 10:45 ABG Base Excess 4.3 mmol/L (-2.0-2.0) H 11/25/24 10:45 Leandro Test N/a 11/25/24 10:45 A-a O2 Gradient 7.2 mmHg (5-10) 11/25/24 10:45 Hematocrit 37.8 % (37-47) 11/25/24 10:45 Hgb O2 Saturation 97.9 % (95-100) 11/25/24 10:45 Carboxyhemoglobin 1.0 %THgb (0.4-20.1) 11/25/24 10:45 Methemoglobin 0.5 % (0.4-1.5) 11/25/24 10:45 Total Hemoglobin 12.3 g/dL (12-16) 11/25/24 10:45 Sodium 138.0 mmol/L (131-143) 11/25/24 10:45 Potassium 4.2 mmol/L (3.5-5.0) 11/25/24 10:45 Glucose 101.0 mg/dL (70-115) 11/25/24 10:45 Ionized Calcium 1.1 mmol/L (1.1-1.4) 11/25/24 10:45 O2 Delivery Device Nc 11/25/24 10:45 O2 Liters/Min 3.0 % 11/25/24 10:45 FiO2 32.0 % 11/25/24 10:45 Cattle Sticker ID glc 11/25/24 10:45 Sodium 134 mmol/L (136-145) L 11/25/24 11:48 Potassium 4.8 mmol/L (3.5-5.1) 11/25/24 11:48 Chloride 98 mmol/L (98-107) 11/25/24 11:48 Carbon Dioxide 23 mmol/L (22-29) 11/25/24 11:48 Anion Gap 17.8 (5-19) 11/25/24 11:48 BUN 12 mg/dL (8-23) 11/25/24 11:48 Creatinine 0.5 mg/dL (0.5-0.9) 11/25/24 11:48 GFR Calculation Not Reportable 11/25/24 11:48 Glucose 99 mg/dL (65-115) 11/25/24 11:48 Calculated Osmolality 278 mOsm/kg (285-295) L 11/25/24 11:48 Lactic Acid 1.2 mmol/L (0.5-2.2) 11/25/24 11:48 Calcium 8.8 mg/dL (8.5-10.5) 11/25/24 11:48 Total Bilirubin 0.5 mg/dL (0.15-1.2) 11/25/24 11:48 AST 24 U/L (0-32) 11/25/24 11:48 ALT 14 U/L (0-33) 11/25/24 11:48 Alkaline Phosphatase 67 U/L (35-105) 11/25/24 11:48 Troponin T Baseline 44 ng/L (0-10) H 11/25/24 11:48 Troponin T 120 Minute 42.69 ng/L (0-10) H 11/25/24 13:39 Delta Troponin T -1.31 ABS# (0-10) L 11/25/24 13:39 NT-Pro-B Natriuret Pep 393 pg/mL (0-450) 11/25/24 11:48 Total Protein 6.7 g/dL (6.6-8.7) 11/25/24 11:48 Albumin 3.8 g/dL (3.5-5.2) 11/25/24 11:48 Globulin 2.9 g/dL (1.3-4.6) 11/25/24 11:48 Lipase 78 U/L (13-60) H 11/25/24 11:48 Urine Color Yellow (Yellow) 11/25/24 11:37 Urine Appearance Clear (CLEAR) 11/25/24 11:37 Urine pH 7.0 (5-7) 11/25/24 11:37 Ur Specific [place] 1.016 (1.005-1.030) 11/25/24 11:37 Urine Protein Negative (Negative) 11/25/24 11:37 Urine Glucose (UA) Negative (Normal) 11/25/24 11:37 Urine Ketones Negative (Negative) 11/25/24 11:37 Urine Blood Negative (Negative) 11/25/24 11:37 Urine Nitrate Negative (Negative) 11/25/24 11:37 Urine Bilirubin Negative (Negative) 11/25/24 11:37 Urine Urobilinogen 1.0 mg/dL (Negative) 11/25/24 11:37 Ur Leukocyte Esterase Trace (Negative) A 11/25/24 11:37 Urine RBC 0-2 /hpf (0-2) 11/25/24 11:37 Urine WBC 0-5 /hpf (0-5) 11/25/24 11:37 Ur Squamous Epith Cells 0-5 /hpf (0-5) 11/25/24 11:37 Amorphous Sediment Not Reportable 11/25/24 11:37 Urine Bacteria None seen /hpf (NONE) 11/25/24 11:37 Hyaline Casts 1.21 /lpf 11/25/24 11:37 All radiology interpretation(s) finalized by discharge Discharge Plan Discharge Patient Disposition: Home Clinical Impression: Arthritis of shoulder, Chronic shoulder pain, Dementia, Chronic hypoxemic respiratory failure Condition: Stable Prescriptions: New lorazepam [Ativan] 1 mg tablet 1 mg PO BEDTIME PRN (Reason: dizziness or vertigo) Qty: 20 0RF oxycodone 5 mg tablet 5 mg PO Q8H PRN (Reason: pain) Qty: 20 0RF No Action (DME) Ankle Brace Misc See Rx Instructions .ROUTE .MEDSUPPLY Qty: 1 0RF Rx Instructions: As directed (DME) CAM boot See Rx Instructions .Route .MEDSUPPLY Qty: 1 0RF Rx Instructions: As directed (DME) CAM WALKER See Rx Instructions .ROUTE .MEDSUPPLY Qty: 1 0RF Rx Instructions: As directed (DME) cam walker See Rx Instructions .Route .MEDSUPPLY Qty: 1 0RF Rx Instructions: As directed (DME) lace up ankle brace See Rx Instructions .Route .MEDSUPPLY Qty: 1 0RF Rx Instructions: As directed (DME) ASO brace See Rx Instructions .Route .MEDSUPPLY Qty: 1 0RF Rx Instructions: As directed clopidogrel 75 mg tablet 75 mg PO DAILY Qty: 90 0RF prednisone 10 mg tablet 10 mg PO QAM Qty: 30 0RF carbamazepine 200 mg capsule, ER multiphase 12 hr 200 mg PO BID Qty: 60 5RF multivitamin Tablet 1 tab PO QAM sertraline [Zoloft] 100 mg tablet 100 mg PO QAM acetaminophen 500 mg Tablet 500 - 1,000 mg PO Q6H PRN (Reason: Pain) cholecalciferol (vitamin D3) [Vitamin D3] 10 mcg (400 unit) Tablet 10 mcg PO QAM loperamide 2 mg Capsule 4 mg PO Q4H PRN (Reason: diarrhea) Qty: 30 0RF magnesium hydroxide [Milk of Magnesia] 400 mg/5 mL Suspension 30 ml PO DAILY PRN (Reason: Constipation) bisacodyl [Dulcolax (bisacodyl)] 10 mg Suppository 10 mg WI DAILY PRN (Reason: Constipation) pantoprazole [Protonix] 40 mg Tablet,Delayed Release (Dr/Ec) 40 mg PO BID Fleet Enema 19-7 gram/118 mL Enema 118 ml WI DAILY PRN (Reason: Constipation) oxycodone-acetaminophen [Percocet] 7.5-325 mg tablet 1 tab PO Q6H PRN (Reason: pain) Qty: 10 0RF cyclobenzaprine 10 mg tablet 5 mg PO TID PRN (Reason: muscle spasm) hydrocodone-acetaminophen 5-325 mg tablet 1 tab PO Q6H PRN (Reason: pain) Qty: 28 0RF albuterol sulfate 0.63 mg/3 mL solution for nebulization 0.63 mg inhalation TID PRN (Reason: shortness of breath or wheezing) Qty: 90 0RF cephalexin 500 mg capsule 500 mg PO TID 10 Days Qty: 30 0RF aspirin 81 mg Tablet,Delayed Release (Dr/Ec) 81 mg PO QAM ferrous sulfate [iron] 325 mg (65 mg iron) Tablet 325 mg PO QAM polyethylene glycol 3350 [Miralax] 17 gram/dose Powder 4 g PO DAILY hydroxyzine HCl 25 mg tablet 25 mg PO BEDTIME losartan 50 mg tablet 25 mg PO QAM Qty: 90 3RF alum-mag hydroxide-simeth [Mylanta Maximum Strength] 400-400-40 mg/5 mL Suspension 5 ml PO QID PRN (Reason: Diarrhea) rosuvastatin 10 mg tablet 10 mg PO QPM Discharge Orders: Discharge ED (Routine); Ordered 11/25/24 Ordered By: Cleo Dimas Referrals: Bennett Gay DO [Primary Care Provider, Internal Medicine] Discharge Diet: Usual diet Discharge Activity: Increase activity as tolerated Patient Instructions: Opioid Safety, Pain Management Activity Restrictions/Additional Instructions: Thank you for choosing [facility] for your healthcare needs today. You have been screened and evaluated and felt safe for discharge. Health conditions do change or evolve sometimes and as such it is important that you follow up with your Primary Doctor to be re checked, 3-5 days is a general good time frame for follow up. You are always welcome to return to the ED for re assessment if your symptoms are worsening or you have new concerns Print Language: Omani Coding Level of Care Code ED [employer] Quality Engineer for [employer]ipriano Forrest
[2024-11-25 10:57] LABS: ABG PCO2 44.3 mmHg (35-45); ABG PH Result 7.43 (7.35-7.45); Alveolar-Arterial Oxygen Gradi 7.2 mmHg (5-10); Arterial Blood Gas Hematocrit 37.8 % (37-47); Base Excess ABG 4.3 mmol/L (-2.0-2.0); Blood Gas Operator Identificat glc; Blood Gas Sample Site Brachial, left; Blood Gas Sample Type Arterial; HCO3 ABG 29.2 mmol/L (22-26); HGB O2 Sat 97.9 % (95-100); Ionized Calcium Level - ABG 1.1 mmol/L (1.1-1.4); Methemoglobin 0.5 % (0.4-1.5); Oxygen Device NC; Oxygen Saturation ABG > 99.1; PO2 FiO2 Ratio Arterial Blood 365; Potassium Level - ABG 4.2 mmol/L (3.5-5.0); Total Hemoglobin 12.3 g/dL (12-16)
[2024-11-25 11:35] VITALS: BP 162/100; PULSE 84; RESP 18; O2SAT 94
[2024-11-25 11:41] LABS: Bilirubin Urine Negative (Negative); Blood Urine Negative (Negative); Glucose Urine UA Negative (Normal); Ketones Urine Negative (Negative); Leukocyte Esterase Urine Trace (Negative); Nitrate Urine Negative (Negative); Protein Urine Negative (Negative); Specific Gravity, Urine 1.016 (1.005-1.030); Urine Appearance Clear (CLEAR); Urine Color Yellow (Yellow)
[2024-11-25 11:46] LABS: Bacteria Urine None Seen /hpf; Hyaline Casts Urine 1.21 /lpf; RBC Urine 0-2 /hpf (0-2); Squamous Epithelial Cell Urine 0-5 /hpf (0-5); WBC Urine 0-5 /hpf (0-5)
[2024-11-25 12:00] LABS: Basophils # 0.1 10^3/uL (0.0-0.1); Eosinophils # 0.2 10^3/uL (0.0-0.8); Eosinophils % 3.2 %; Hematocrit 37.3 % (36-47); Lymphocytes # 1.7 10^3/uL (0.8-4.8); Lymphocytes % 24.4 %; Mean Corpuscular HGB Conc 31.4 g/dL (30-55); Mean Corpuscular Hemoglobin 29.2 pg (27-33); Mean Platelet Volume 9.9 fL (7.4-10.4); Monocytes # 1.3 10^3/uL (0.2-0.9); Monocytes % 18.8 %; Neutrophils # 3.61 10^3/uL (1.8-7.7); Neutrophils % 52.2 %; Nucleated Red Blood Cells % 0 %; Platelet Count 395 10^3/cmm (157-399); Red Blood Count 4.01 10^6/uL (3.85-5.65); Red Cell Distribution Width 14.1 % (12.1-15.1); White Blood Count 6.92 10^3/uL (3.29-11.43)
[2024-11-25 12:05] LABS: UA Slide Review UA Slide Review Perf
[2024-11-25 12:26] LABS: Troponin(5th) Baseline 44 ng/L (0-10)
[2024-11-25 12:28] LABS: Lactic Sepsis W/Reflex 1.2 mmol/L (0.5-2.2)
[2024-11-25 12:37] LABS: Alanine Aminotransferase 14 U/L (0-33); Albumin Level 3.8 g/dL (3.5-5.2); Alkaline Phosphatase 67 U/L (35-105); Aspartate Amino Transferase 24 U/L (0-32); Blood Urea Nitrogen 12 mg/dL (8-23); Calcium 8.8 mg/dL (8.5-10.5); Carbon Dioxide 23 mmol/L (22-29); Chloride 98 mmol/L (98-107); Globulin 2.9 g/dL (1.3-4.6); Glucose 99 mg/dL (65-115); Lipase 78 U/L (13-60); NT Pro B Type Natriuretic Pept 393 pg/mL (0-450); Osmolality Calculated 278 mOsm/kg (285-295); Sodium 134 mmol/L (136-145); Total Bilirubin 0.5 mg/dL (0.15-1.2); Total Protein 6.7 g/dL (6.6-8.7)
[2024-11-25 12:41] LABS: Anion Gap 17.8 (5-19); Potassium 4.8 mmol/L (3.5-5.1)
--- NOTE | 2024-11-25 13:01 | ECG_ITS ---
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 Measurements Intervals [place] Rate: 85 P: 65 ND: 204 QRS: -8 QRSD: 98 T: 117 QT: 385 QTc: 459 Interpretive Statements SINUS RHYTHM SEPTAL MYOCARDIAL INFARCTION , OF INDETERMINATE AGE [40+ ms Q WAVE IN V1/V2] MODERATE T-WAVE ABNORMALITY, CONSIDER LATERAL ISCHEMIA [-0.1+ mV T-WAVE IN I/aVL/V5/V6] Compared to ECG 11/25/2024 10:37:31 Myocardial infarct finding now present T-wave abnormality now present Possible ischemia now present First degree AV block no longer present Left ventricular hypertrophy no longer present ST (T wave) deviation no longer present Electronically Signed On 11-25-2024 18:17:40 CDT by Fatmata Greenberg M.D. [email or web address]
[2024-11-25 13:49] VITALS: BP 135/77; PULSE 84; RESP 18; RESP 22; O2SAT 94; O2SAT 97
[2024-11-25] MEDS: morphine 4 mg/mL SDV 1 mL IVP (13:49)
[2024-11-25 14:04] LABS: Troponin 5 2HR 42.69 ng/L (0-10)
[2024-11-25 14:05] LABS: Troponin 5 2HR Delta -1.31 ABS# (0-10)
[2024-11-25] MEDS: LORazepam 1 MG/0.5 ML injection IVP (14:24)
[2024-11-25 14:37] VITALS: BP 123/63; PULSE 75; RESP 23; O2SAT 100
[2024-11-25 17:01] VITALS: PULSE 74; RESP 23; O2SAT 98
--- NOTE | 2024-11-25 17:01 | PC.NURSE ---
[facility] contacted regarding transport back to [facility].
[2024-11-25 18:01] VITALS: BP 128/90; PULSE 80; O2SAT 97
== END 2024-11-25 18:01 | disposition home or self-care (01) ==
PROVIDERS: Emergency Provider Emergency Medicine; PCP Internal Medicine
DX: M19.012 Primary osteoarthritis, left shoulder (principal); E78.5 Hyperlipidemia, unspecified; E11.9 Type 2 diabetes mellitus without complications; E66.9 Obesity, unspecified; I10 Essential (primary) hypertension; Z95.0 Presence of cardiac pacemaker; Z99.81 Dependence on supplemental oxygen; J96.11 Chronic respiratory failure with hypoxia; Z79.82 Long term (current) use of aspirin; Z79.899 Other long term (current) drug therapy; Z88.5 Allergy status to narcotic agent; Z88.8 Allergy status to other drugs, medicaments and biological substances; G47.00 Insomnia, unspecified; F03.90 Unspecified dementia, unspecified severity, without behavioral disturbance, psychotic disturbance, mood disturbance, and anxiety
CPT/HCPCS: 36415; 36600; 70450; 71045; 73030; 80051; 80053; 81001; 82330; 82805; 83605; 83690; 83880; 84484; 85025; 87040; 93005; 96374; 96375; 99285; J2060; J2270